=== PATIENT | female | born 1965 ===

== ENCOUNTER → 2020-11-04 11:02 | Outpatient (BNVA) | payer OTHER, SELFPAY | PROVIDERS: PCP Internal Medicine Geriatric Medicine; Visit Provider Physician Assistant | DX: Z13.89 Encounter for screening for other disorder (principal) | CPT/HCPCS: 99202 ==

== ENCOUNTER 2020-12-11 09:17 | Outpatient (REF) | payer OTHER, SELFPAY ==
[2020-12-11 09:51] LABS: MANUAL DIFF FLAG NO
[2020-12-11 09:56] LABS: Basophils Percent Auto 0.4 % (0-2); Eosinophils Absolute Auto 0.3 X10*3/uL (0.0-0.4); Eosinophils Percent Auto 2.3 % (0-4); Hematocrit 42.4 % (37-47); Hemoglobin 14.2 g/dl (12.0-16.0); Imm Gran Abs Auto 0.04 X10*3/uL (0.00-0.03); Imm Gran Pct Auto 0.4 % (0.0-0.4); Lymphocytes Absolute Auto 3.8 X10*3/uL (1.2-4.9); Lymphocytes Percent Auto 35.3 % (20-40); Mean Corpuscular HGB Conc 33.5 g/dl (31.0-35.0); Mean Corpuscular Hemoglobin 30.3 pg (27.0-33.0); Mean Corpuscular Volume 90.6 fL (80-98); Mean Platelet Volume 11.3 fL (9.4-12.3); Monocytes Absolute Auto 1.1 X10*3/uL (0.1-1.2); Monocytes Percent Auto 10.3 % (2-11); Neutrophils Absolute Auto 5.6 X10*3/uL (2.0-8.3); Neutrophils Percent Auto 51.3 % (45-73); Platelet Count 250 X10*3/uL (160-400); Red Blood Count 4.68 X10*6/uL (4.20-5.50); Red Cell Distribution Width 13.4 % (11.0-16.0); White Blood Count 10.9 X10*3/uL (4.8-10.8)
[2020-12-11 10:29] LABS: Alanine Aminotransferase 18 U/L (0-31); Albumin Level 3.8 g/dL (3.5-5.0); Alkaline Phosphatase 97 U/L (39-117); Anion Gap 12 (12-20); Aspartate Amino Transferase 20 U/L (5-31); Bilirubin Total 0.3 mg/dL (0.0-1.0); Blood Urea Nitrogen 15 mg/dL (9-16); Calcium 9.4 mg/dL (8.4-10.2); Carbon Dioxide 30 mmol/L (22-29); Chloride 104 mmol/L (96-108); Estimated Glomerular Filt Rate > 60; Glucose Random 106 mg/dL (60-115); Potassium 3.5 mmol/L (3.3-5.1); Sodium 142 mmol/L (135-145); Total Protein 6.4 g/dL (6.5-8.0)
[2020-12-11 10:54] LABS: Thyroid Stimulating Hormone 0.81 uIU/mL (0.32-4.0)
== END 2020-12-11 09:18 | disposition home or self-care (01) ==
LOC: HO.LAB 09:17
PROVIDERS: PCP Internal Medicine Geriatric Medicine; Visit Provider Physician Assistant
DX: R74.01 Elevation of levels of liver transaminase levels (principal); R10.11 Right upper quadrant pain; K59.09 Other constipation
CPT/HCPCS: 36415; 80053; 84443; 85025

== ENCOUNTER → 2020-12-24 09:10 | Outpatient (BNVA) | payer OTHER, SELFPAY | PROVIDERS: Visit Provider Physician Assistant | CPT/HCPCS: Q3014 ==

== ENCOUNTER → 2021-02-09 14:46 | Outpatient (BNVA) | payer OTHER, SELFPAY | PROVIDERS: PCP Internal Medicine Geriatric Medicine; Referring Provider Internal Medicine Geriatric Medicine; Visit Provider Internal Medicine Cardiovascular Disease | DX: I10 Essential (primary) hypertension (principal); R00.2 Palpitations | CPT/HCPCS: 99212 ==

== ENCOUNTER 2021-05-11 14:37 | Outpatient (REF) | payer OTHER, SELFPAY ==
--- NOTE | ~2021-05-11 | CT_ITS ---
EXAMINATION: CT CHEST SCREENING CLINICAL INFORMATION: Smoking history COMPARISON: Previous chest CT scans most recent June 2019 TECHNIQUE: Multidetector volumetric CT imaging of the chest is performed without contrast using low dose technique. Additional 2D coronal and sagittal reformatted images and axial 3D maximum intensity projection (MIP) images are generated on the CT workstation. This CT examination was performed using dose optimization techniques as appropriate, variously including the following: *Automated exposure control *Adjustment of mA and/or kV according to patient size (this includes techniques or standardized protocols for targeted exams where dose is matched to indication/reason for exam; i.e. extremities or head) *Use of iterative reconstruction technique DLP: 45 mGy-cm FINDINGS: LUNGS: There is a 6 mm calcified left lower lobe nodule axial image 362 series 5 that is stable. There is a 3 mm peripheral or subpleural superior segment left lower lobe nodule adjacent to the fissure axial image 149 series 5 that is stable. No new pulmonary nodule is seen. MEDIASTINUM: There is evidence of atherosclerotic disease and mild coronary artery calcification. The mediastinum is otherwise normal. PLEURA: There is no pleural effusion. No pleural mass or thickening. AXILLA: No lymphadenopathy. UPPER ABDOMEN: Unremarkable OSSEOUS STRUCTURES: Unremarkable. CT/CT lung screening IMPRESSION: Stable small pulmonary nodules. Mild coronary artery calcification. ASSESSMENT: Lung-RADS category 2: Benign RECOMMENDATION: Annual low-dose chest CT follow-up recommended.
== END 2021-05-11 14:38 | disposition home or self-care (01) ==
LOC: HO.CT 14:37
PROVIDERS: Visit Provider Physician Assistant Medical
DX: Z12.2 Encounter for screening for malignant neoplasm of respiratory organs (principal); F17.210 Nicotine dependence, cigarettes, uncomplicated
CPT/HCPCS: 71271

== ENCOUNTER 2021-12-23 12:33 | Outpatient (REF) | payer OTHER, SELFPAY ==
--- NOTE | ~2021-12-23 | MM_ITS ---
EXAMINATION: MM SCREENING DIGITAL BREAST TOMOSYNTHESIS, BILATERAL CLINICAL INFORMATION: Screening. Asymptomatic. The lifetime risk of breast cancer based on the Tyrer-Cuzick Model is 4.6%. COMPARISON: Mammography: November 18, 2020 and studies dating back to August 07, 2018 TECHNIQUE: Digital breast tomosynthesis is performed in both the craniocaudal and mediolateral oblique views along with computer-aided detection (CAD). Synthesized 2D images are generated from the tomosynthesis. FINDINGS: There are scattered areas of fibroglandular density (ACR BI-RADS breast composition Category b). There are no significant masses, abnormal calcifications, or other abnormalities. MM/MM tomosynthesis screening BI IMPRESSION: There are no significant changes from prior study. ASSESSMENT: BI-RADS 1: Negative RECOMMENDATION: Routine annual mammography screening. This patient's information was entered into a reminder system with a target due date for their next mammogram.
== END 2021-12-23 12:34 | disposition home or self-care (01) ==
LOC: HO.MAMMO 12:33
PROVIDERS: Visit Provider Internal Medicine Geriatric Medicine
DX: Z12.31 Encounter for screening mammogram for malignant neoplasm of breast (principal)
CPT/HCPCS: 77063; 77067

== ENCOUNTER 2022-01-20 10:11 | Outpatient (REF) | payer OTHER, SELFPAY ==
--- NOTE | ~2022-01-20 | XR_ITS ---
EXAMINATION: XR LUMBAR SPINE XR HIP, RIGHT CLINICAL INFORMATION: Back pain. Right hip pain. COMPARISON: None TECHNIQUE: AP, lateral, coned down, bilateral oblique views of the lumbar spine. AP and frog-leg lateral views of the right hip. FINDINGS: LUMBAR SPINE: Normal vertebral body alignment. The lumbar lordosis is maintained. No acute fracture or subluxation. No loss of vertebral body height. Mild multilevel loss of intervertebral disc height with tiny anterior endplate osteophytes. Bilateral facet arthropathy at L5-S1. No lytic or blastic osseous lesion. Atherosclerotic calcifications. Myjq-ao-oulzfren stool burden. RIGHT HIP: Hvhk-is-bgbwnyfj joint space narrowing with small marginal osteophytes. No osseous erosion. No fracture or dislocation. Calcification adjacent to the greater trochanter measuring up to 1.7 cm and likely indicating gluteus medius calcific tendinitis. XR/XR lumbar spine 4V min IMPRESSION: LUMBAR SPINE: Mild multilevel degenerative disc disease. Bilateral facet arthropathy at L5-S1. RIGHT HIP: Jqnq-ku-zpeosvoi right hip osteoarthritis. Probable gluteus medius calcific tendinitis.
--- NOTE | ~2022-01-20 | XR_ITS ---
EXAMINATION: XR LUMBAR SPINE XR HIP, RIGHT CLINICAL INFORMATION: Back pain. Right hip pain. COMPARISON: None TECHNIQUE: AP, lateral, coned down, bilateral oblique views of the lumbar spine. AP and frog-leg lateral views of the right hip. FINDINGS: LUMBAR SPINE: Normal vertebral body alignment. The lumbar lordosis is maintained. No acute fracture or subluxation. No loss of vertebral body height. Mild multilevel loss of intervertebral disc height with tiny anterior endplate osteophytes. Bilateral facet arthropathy at L5-S1. No lytic or blastic osseous lesion. Atherosclerotic calcifications. Lkxs-np-drqibkfy stool burden. RIGHT HIP: Wojo-ub-ijbhukdl joint space narrowing with small marginal osteophytes. No osseous erosion. No fracture or dislocation. Calcification adjacent to the greater trochanter measuring up to 1.7 cm and likely indicating gluteus medius calcific tendinitis. XR/XR hip RT min 2V IMPRESSION: LUMBAR SPINE: Mild multilevel degenerative disc disease. Bilateral facet arthropathy at L5-S1. RIGHT HIP: Etmn-lk-cwzjyyso right hip osteoarthritis. Probable gluteus medius calcific tendinitis.
== END 2022-01-20 10:12 | disposition home or self-care (01) ==
LOC: HO.XRAY 10:11
PROVIDERS: PCP Internal Medicine Geriatric Medicine; Visit Provider Internal Medicine Geriatric Medicine
DX: M25.551 Pain in right hip (principal); M54.9 Dorsalgia, unspecified; M47.897 Other spondylosis, lumbosacral region
CPT/HCPCS: 72110; 73502

== ENCOUNTER 2023-04-21 09:03 | Outpatient (REF) | payer OTHER, SELFPAY ==
[2023-04-21 11:45] LABS: MANUAL DIFF FLAG NO
[2023-04-21 11:53] LABS: Basophils Absolute Auto 0.1 X10*3/uL (0.0-0.2); Basophils Percent Auto 0.4 % (0-2); Eosinophils Absolute Auto 0.2 X10*3/uL (0.0-0.4); Eosinophils Percent Auto 1.7 % (0-4); Hematocrit 45.7 % (37.0-47.0); Hemoglobin 15.4 g/dl (12.0-16.0); Imm Gran Abs Auto 0.05 X10*3/uL (0.00-0.03); Imm Gran Pct Auto 0.4 % (0.0-0.4); Lymphocytes Absolute Auto 4.2 X10*3/uL (1.2-4.9); Mean Corpuscular HGB Conc 33.7 g/dl (31.0-35.0); Mean Corpuscular Hemoglobin 30.6 pg (27.0-33.0); Mean Corpuscular Volume 90.7 fL (80.0-98.0); Mean Platelet Volume 12.5 fL (9.4-12.3); Neutrophils Absolute Auto 7.5 x10*3/uL (2.0-8.3); Neutrophils Percent Auto 57.5 % (45-73); Platelet Count 224 X10*3/uL (160-400); Red Blood Count 5.04 X10*6/uL (4.20-5.50)
[2023-04-21 12:09] LABS: Alanine Aminotransferase 30 U/L (0-31); Albumin Level 3.7 g/dL (3.5-5.0); Alkaline Phosphatase 105 U/L (39-117); Anion Gap 15 (12-20); Aspartate Amino Transferase 29 U/L (5-31); Bilirubin Total 0.5 mg/dL (0.0-1.0); Blood Urea Nitrogen 13 mg/dL (9-16); Calcium 10.1 mg/dL (8.4-10.2); Carbon Dioxide 27 mmol/L (22-29); Chloride 103 mmol/L (96-108); Cholesterol 175 mg/dL; Estimated Glomerular Filt Rate > 60; Glucose Random 101 mg/dL (60-115); HDL Cholesterol 34 mg/dL; LDL Cholesterol Calculated 110 mg/dl; Potassium 3.9 mmol/L (3.3-5.1); Sodium 141 mmol/L (135-145); Total Protein 6.8 g/dL (6.5-8.0); Triglycerides 159 mg/dL
== END 2023-04-21 09:04 | disposition home or self-care (01) ==
LOC: HO.HHCL 09:03
PROVIDERS: Visit Provider Internal Medicine Geriatric Medicine
DX: J43.9 Emphysema, unspecified (principal); I10 Essential (primary) hypertension; E78.00 Pure hypercholesterolemia, unspecified
CPT/HCPCS: 36415; 80053; 80061; 85025

== ENCOUNTER 2023-06-29 11:45 | Outpatient (REF) | payer OTHER, SELFPAY | END 2023-06-29 11:46 | disposition home or self-care (01) | LOC: HO.MAMMO 11:45 | PROVIDERS: PCP Internal Medicine Geriatric Medicine; Visit Provider Internal Medicine Geriatric Medicine | DX: Z12.31 Encounter for screening mammogram for malignant neoplasm of breast (principal) | CPT/HCPCS: 77063; 77067 ==

== ENCOUNTER → 2023-06-29 12:00 | Outpatient (BNV) | payer OTHER, SELFPAY | PROVIDERS: PCP Internal Medicine Geriatric Medicine; Visit Provider Radiology Diagnostic Radiology | DX: Z12.31 Encounter for screening mammogram for malignant neoplasm of breast (principal) | CPT/HCPCS: 77063; 77067 ==

== ENCOUNTER 2023-07-15 07:59 | Outpatient (REF) | payer OTHER, SELFPAY | END 2023-07-15 08:00 | disposition home or self-care (01) | LOC: HO.HOSX 07:59 | PROVIDERS: Visit Provider Physician Assistant | DX: Z13.89 Encounter for screening for other disorder (principal) ==

== ENCOUNTER 2023-07-22 09:53 | Outpatient (AMB) | payer OTHER, SELFPAY ==
--- NOTE | 2023-07-22 10:08 | MHC.OFFVIS ---
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 Patient reports ongoing pain for 8 months. She states that her pain is equal on both knees. Hx of PT with no relief. Patient states that she has knee braces that provide her some relief. The patient has tried Tylenol and anti-inflammatory medicines which gave her mild relief. She would like to hold off on surgery if all possible. Allergies codeine Allergy (Unknown, Verified 07/22/23 10:15) heart palpitation Medication List - Last Reconciled 07/22/23 by Vivek Restrepo MD albuterol sulfate 2.5 mg inhalation QID albuterol sulfate 90 mcg/actuation (Ventolin HFA) 2 puffs inhalation Q6H PRN aspirin 81 mg PO DAILY clonazepam 1 mg PO TID ergocalciferol (vitamin D2) 50 mcg PO DAILY escitalopram oxalate (Lexapro) 10 mg PO DAILY lisinopril 20 mg PO DAILY metoprolol succinate ER 100 mg PO DAILY omeprazole 20 mg PO DAILY ondansetron HCl (Zofran) 4 mg PO Q8H oxycodone-acetaminophen 5-325 mg (Percocet) 1 tab PO Q4-6H PRN polyethylene glycol 3350 17 grams PO DAILY 30 days prochlorperazine maleate (Compazine) 10 mg PO BID PRN quetiapine ER (Seroquel XR) 400 mg PO BEDTIME [STOOL SOFTENER 100MG CAPSULES 2 caps PO BEDTIME 30 days] sumatriptan succinate (Imitrex) 25 mg PO Q2-4H PRN zolpidem 10 mg PO BEDTIME PRN PFSH Medical History (Updated 07/19/23 @ 10:56 by Vivek Restrepo MD) Hypertension, essential, benign History of palpitations Pulmonary nodules Personal history of nicotine dependence Tubular adenoma of colon (~2018) Depression Surgical History (Updated 03/06/21 @ 14:51 by Shanika Hanley PA-C) History of colonoscopy (~2018) History of esophagogastroduodenoscopy (EGD) (~2018) Family History Mother No problems noted. Father No problems noted. Social History Household Members: Significant Other Alcohol intake: never Patient Tobacco Use Status: Current everyday Tobacco user Cigarette Packs Per Day: 1 Years Smoked: 33 (onset 22yo) Current occupational status: disabled Physical Exam Vital Signs: BMI result Body Mass Index 26.0 Const Other: Well-nourished well-developed very friendly female awake alert and oriented x3 in no acute distress Extrem Other: Bilateral lower extremity examination shows good capillary refill, no skin lesions noted, normal sensation light touch Bilateral knee examination shows minimal effusions, mild crepitus with range of motion, pain with range of motion, range of motion from -3 degrees to 115 degrees, no instability Office Procedures Joint Injection/Drain Joint Injection/Drain Primary Site: left knee Prep: site was prepped using aseptic technique Injected: 40 mg of, Kenalog and 1% plain lidocaine Procedure: The patient tolerated the procedure well Coding 69042 - Large joint Procedure code (CPT) selection complete Joint Injection/Drain Joint Injection/Drain Primary Site: right knee Prep: site was prepped using aseptic technique Injected: 40 mg of, Kenalog and 1% plain lidocaine Procedure: The patient tolerated the procedure well Coding Procedure code (CPT) selection complete Results Reviewed Results Reviewed: 07/22/23 10:26 Lidocaine HCl 2 % MPF [Xylocaine 2 % MPF] 5 ml .ROUTE .STK-MED ONE Lidocaine HCl 2 % MPF [Xylocaine 2 % MPF] 5 ml .ROUTE .STK-MED ONE Triamcinolone Acetonide [Kenalog-40] 40 mg .ROUTE .STK-MED ONE Triamcinolone Acetonide [Kenalog-40] 40 mg .ROUTE .STK-MED ONE X-rays of the patient's bilateral knee show mild diffuse joint space narrowing, no acute bony abnormalities Assessment & Plan Assessment & Plan (1) Left knee pain: Code(s): M25.562 - Pain in left knee Plan: Ms. Graham presents with bilateral knee pains due to degenerative joint disease. I had a lengthy discussion with the patient regarding the treatment options. The patient wishes to hold off on surgery for as long as possible. I agree with this plan. The risks and benefits of bilateral knee cortisone injections were discussed at length with the patient. The patient wished to proceed. She tolerated the bilateral knee injections well. She will continue with her activity modifications. She will follow up with me on an as-needed basis should her symptoms not plateau at an unacceptable level over the next few months feel free to call me at any time should questions regarding her orthopedic management arise. Thank you very much for asking me to see this very friendly patient. I spent 22 minutes in reviewing the patient's records and imaging studies, seeing the patient and documenting in the medical record. (2) Right knee pain: Code(s): M25.561 - Pain in right knee Orders: Orders XR knee standing BI 07/15/23 M25.569 - Pain in unspecified knee Chani Aniya Rincon PA-C XR knee LT 2V 07/15/23 M25.569 - Pain in unspecified knee Chani Aniya Rincon, PA-C XR knee RT 3V Today M25.561 - Pain in right knee Vivek Restrepo MD XR knee RT 2V 07/15/23 M25.569 - Pain in unspecified knee Chani Aniya Rincon, PA-C XR knee LT 3V Today M25.562 - Pain in left knee Vivek Restrepo MD AMB Joint Injection/Aspiration Today M25.562 - Pain in left knee Vivek Restrepo MD AMB Joint Injection/Aspiration Today M25.561 - Pain in right knee Vivek Restrepo MD Coding Level of Care Code New Pt Level 2 (20324) Diagnoses Left knee pain M25.562 Right knee pain M25.561 CPT Codes Coding - 16842 Large joint: 02922 - Large joint ([id number])
[2023-07-22 10:15] VITALS: BMI 26.0
== END 2023-07-22 11:17 | disposition home or self-care (01) ==
PROVIDERS: PCP Internal Medicine Geriatric Medicine; Visit Provider Orthopaedic Surgery
DX: M25.562 Pain in left knee (principal); M25.561 Pain in right knee
CPT/HCPCS: 20610; 99204

== ENCOUNTER 2023-07-22 16:41 | Outpatient (REF) | payer OTHER, SELFPAY ==
--- NOTE | ~2023-07-22 | XR_ITS ---
EXAMINATION: XR KNEES, BILATERAL CLINICAL INFORMATION: Bilateral knee pain. COMPARISON: None available. TECHNIQUE: 3 views each knee. FINDINGS: Left Knee: Mild medial joint space narrowing. No significant joint effusion. Small quadriceps enthesophyte. Tiny medial marginal osteophytes. Right Knee: Vascular calcifications. Mild medial joint space narrowing. Small quadriceps enthesophyte. Tiny medial marginal osteophytes. XR/XR knee RT 3V IMPRESSION: Mild degenerative changes in the medial compartments of the bilateral knees.
--- NOTE | ~2023-07-22 | XR_ITS ---
EXAMINATION: XR KNEES, BILATERAL CLINICAL INFORMATION: Bilateral knee pain. COMPARISON: None available. TECHNIQUE: 3 views each knee. FINDINGS: Left Knee: Mild medial joint space narrowing. No significant joint effusion. Small quadriceps enthesophyte. Tiny medial marginal osteophytes. Right Knee: Vascular calcifications. Mild medial joint space narrowing. Small quadriceps enthesophyte. Tiny medial marginal osteophytes. XR/XR knee LT 3V IMPRESSION: Mild degenerative changes in the medial compartments of the bilateral knees.
== END 2023-07-22 16:42 | disposition home or self-care (01) ==
LOC: HO.HOSX 16:41
PROVIDERS: Visit Provider Orthopaedic Surgery
DX: M25.561 Pain in right knee (principal); M25.562 Pain in left knee; Z79.899 Other long term (current) drug therapy
CPT/HCPCS: 20610; 73562; J3301

== ENCOUNTER 2023-07-28 13:35 | Outpatient (REF) | payer OTHER, SELFPAY ==
[2023-07-28 16:09] LABS: Anion Gap 12 (12-20); Blood Urea Nitrogen 12 mg/dL (9-16); Calcium 9.7 mg/dL (8.4-10.2); Carbon Dioxide 28 mmol/L (22-29); Chloride 105 mmol/L (96-108); Estimated Glomerular Filt Rate > 60; Glucose Random 70 mg/dL (60-115); Potassium 3.4 mmol/L (3.3-5.1); Sodium 142 mmol/L (135-145)
== END 2023-07-28 13:36 | disposition home or self-care (01) ==
LOC: HO.HHCL 13:35
PROVIDERS: Visit Provider Internal Medicine Geriatric Medicine
DX: I10 Essential (primary) hypertension (principal)
CPT/HCPCS: 36415; 80048

== ENCOUNTER 2023-10-20 14:09 | Outpatient (AMB) | payer OTHER, SELFPAY ==
[2023-10-20 14:15] VITALS: BMI 26.0
--- NOTE | 2023-10-20 14:15 | A.OFFVIS_ITS ---
Intake Vital Signs 10/20/23 14:15 Height 5 ft 5 in Weight 156 lb BMI 26.0 Intake Visit Reasons: ov- B/L knee pain Intake Note: Jeanna is a 57 year old [place] islander speaking female who presents today for her bilateral knee pains. She describes her pains as sharp in nature. She has had cortisone injections in the past which gave her fairly good relief. She has done physical therapy exercises which aggravated her pain. She has tried Tylenol and anti-inflammatory medicines which gave her minimal relief. She wishes to hold off on surgery for as long as possible. Career Transition Specialist Name: [id number] Allergies codeine Allergy (Unknown, Verified 10/20/23 14:28) heart palpitation Medication List - Last Reconciled 10/21/23 by Vivek Restrepo MD albuterol sulfate 2.5 mg inhalation QID albuterol sulfate 90 mcg/actuation (Ventolin HFA) 2 puffs inhalation Q6H PRN aspirin 81 mg PO DAILY clonazepam 1 mg PO TID ergocalciferol (vitamin D2) 50 mcg PO DAILY escitalopram oxalate (Lexapro) 10 mg PO DAILY lisinopril 20 mg PO DAILY metoprolol succinate ER 100 mg PO DAILY omeprazole 20 mg PO DAILY ondansetron HCl (Zofran) 4 mg PO Q8H oxycodone-acetaminophen 5-325 mg (Percocet) 1 tab PO Q4-6H PRN polyethylene glycol 3350 17 grams PO DAILY 30 days prochlorperazine maleate (Compazine) 10 mg PO BID PRN quetiapine ER (Seroquel XR) 400 mg PO BEDTIME [STOOL SOFTENER 100MG CAPSULES 2 caps PO BEDTIME 30 days] sumatriptan succinate (Imitrex) 25 mg PO Q2-4H PRN zolpidem 10 mg PO BEDTIME PRN PFSH Medical History Hypertension, essential, benign History of palpitations Pulmonary nodules Personal history of nicotine dependence Tubular adenoma of colon (~2018) Depression Surgical History History of colonoscopy (~2019) History of esophagogastroduodenoscopy (EGD) (~2019) Family History Mother No problems noted. Father No problems noted. Social History Household Members: Significant Other Alcohol intake: never Patient Tobacco Use Status: Current everyday Tobacco user Cigarette Packs Per Day: 1 Years Smoked: 33 (onset 22yo) Current occupational status: disabled Physical Exam Vital Signs: BMI result Body Mass Index 26.0 Const Other: Well-nourished well-developed very friendly female awake alert and oriented x3 in no acute distress Extrem Other: Bilateral lower extremity examination shows good capillary refill, no skin lesions noted, normal sensation light touch Bilateral knee examination shows minimal effusions, palpable crepitus with range of motion, pain with range of motion, no instability Office Procedures Joint Injection/Drain Joint Injection/Drain Primary Site: left knee Prep: site was prepped using aseptic technique Injected: 40 mg of, DepoMedrol and 1% plain lidocaine Procedure: The patient tolerated the procedure well Coding 86503 - Large joint Procedure code (CPT) selection complete Joint Injection/Drain Joint Injection/Drain Primary Site: right knee Prep: site was prepped using aseptic technique Injected: 40 mg of, DepoMedrol and 1% plain lidocaine Procedure: The patient tolerated the procedure well Coding 26097 - Large joint Procedure code (CPT) selection complete Results Reviewed Results Reviewed: X-rays of the patient's bilateral knee show joint space narrowing, subchondral sclerosis, no acute bony abnormalities Assessment & Plan Assessment & Plan (1) Left knee pain: Code(s): M25.562 - Pain in left knee (2) Right knee pain: Code(s): M25.561 - Pain in right knee Plan Ms. Graham presents with bilateral knee pains due to degenerative joint disease. I had a lengthy discussion with the patient regarding the treatment options. She wishes to hold off on surgery for as long as possible. I agree with this plan. The risks and benefits of bilateral knee cortisone injections were discussed at length with the patient. The patient wished to proceed. She tolerated the injections well. She will continue with her home exercise program. She will follow up with me on an as-needed basis should her symptoms not plateau at an unacceptable level over the next few months. Feel free to call me at any time should questions regarding her orthopedic management arise. I spent 22 minutes in reviewing the patient's records and imaging studies, seeing the patient and documenting in the medical record. Orders: Orders AMB Joint Injection/Aspiration 10/20/23 M25.562 - Pain in left knee AMB Joint Injection/Aspiration 10/20/23 M25.561 - Pain in right knee Coding Level of Care Code Est Pt Level 2 (54741) Diagnoses Left knee pain M25.562 Right knee pain M25.561 CPT Codes Coding - 91049 Large joint: 20139 - Large joint ([id number]) Coding - 39074 Large joint: 31863 - Large joint ([id number])
== END 2023-10-20 14:51 | disposition home or self-care (01) ==
PROVIDERS: PCP Internal Medicine Geriatric Medicine; Visit Provider Orthopaedic Surgery
DX: M25.562 Pain in left knee (principal); M25.561 Pain in right knee
CPT/HCPCS: 20610; 99213

== ENCOUNTER → 2023-10-20 14:09 | Outpatient (BNVA) | payer OTHER, SELFPAY | PROVIDERS: PCP Internal Medicine Geriatric Medicine; Visit Provider Orthopaedic Surgery | DX: M25.562 Pain in left knee (principal); M25.561 Pain in right knee | CPT/HCPCS: 20610; 99212; J1020 ==

== ENCOUNTER 2024-01-26 13:58 | Outpatient (AMB) | payer OTHER, SELFPAY ==
[2024-01-26 14:13] VITALS: BMI 26.0
--- NOTE | 2024-01-26 14:13 | MHC.OFFVIS ---
Vital Signs 01/26/24 14:13 Height 5 ft 5 in Weight 156 lb BMI 26.0 Intake Visit Reasons: ov- B/L knee pain last injection 10/20/23 Intake Note: Jeanna is a 58 year old female who presents for a follow up after her bilateral knee injections on 10/20/2023. The patient states that she got fairly good relief from the injections initially. Her pains have returned. She describes her pains as sharp in nature. She has done physical therapy exercises which aggravated her pain. She has also tried Tylenol and anti-inflammatory medicines which gave her minimal relief. The patient would like to hold off on surgery for as long as possible. X Ray Physician Name: [id number] Allergies codeine Allergy (Unknown, Verified 01/26/24 14:24) heart palpitation Medication List - Last Reconciled 01/27/24 by Vivek Restrepo MD albuterol sulfate 2.5 mg inhalation QID albuterol sulfate 90 mcg/actuation (Ventolin HFA) 2 puffs inhalation Q6H PRN aspirin 81 mg PO DAILY clonazepam 1 mg PO TID ergocalciferol (vitamin D2) 50 mcg PO DAILY escitalopram oxalate (Lexapro) 10 mg PO DAILY lisinopril 20 mg PO DAILY metoprolol succinate ER 100 mg PO DAILY omeprazole 20 mg PO DAILY ondansetron HCl (Zofran) 4 mg PO Q8H oxycodone-acetaminophen 5-325 mg (Percocet) 1 tab PO Q4-6H PRN polyethylene glycol 3350 17 grams PO DAILY 30 days prochlorperazine maleate (Compazine) 10 mg PO BID PRN quetiapine ER (Seroquel XR) 400 mg PO BEDTIME [STOOL SOFTENER 100MG CAPSULES 2 caps PO BEDTIME 30 days] sumatriptan succinate (Imitrex) 25 mg PO Q2-4H PRN zolpidem 10 mg PO BEDTIME PRN PFSH Medical History Hypertension, essential, benign History of palpitations Pulmonary nodules Personal history of nicotine dependence Tubular adenoma of colon (~2018) Depression Surgical History History of colonoscopy (~2018) History of esophagogastroduodenoscopy (EGD) (~2018) Family History Mother No problems noted. Father No problems noted. Social History Household Members: Significant Other Alcohol intake: never Patient Tobacco Use Status: Current everyday Tobacco user Cigarette Packs Per Day: 1 Years Smoked: 33 (onset 22yo) Current occupational status: disabled Physical Exam Vital Signs: BMI result Body Mass Index 26.0 Const Other: Well-nourished well-developed very friendly female awake alert and oriented x3 in no acute distress Extrem Other: Bilateral lower extremity examination shows good capillary refill, no skin lesions noted, normal sensation light touch Bilateral knee examination shows minimal effusions, palpable crepitus with range of motion, pain with range of motion, range of motion from -3 degrees to 115 degrees, no instability Office Procedures Joint Injection/Drain Joint Injection/Drain Primary Site: left knee Prep: site was prepped using aseptic technique Injected: 40 mg of, DepoMedrol and 1% plain lidocaine Procedure: The patient tolerated the procedure well Coding 77893 - Large joint Procedure code (CPT) selection complete Joint Injection/Drain Joint Injection/Drain Primary Site: right knee Prep: site was prepped using aseptic technique Injected: 40 mg of, DepoMedrol and 1% plain lidocaine Procedure: The patient tolerated the procedure well Coding 05097 - Large joint Procedure code (CPT) selection complete Results Reviewed Results Reviewed: X-rays of the patient's bilateral knee show joint space narrowing, subchondral sclerosis, no acute bony abnormalities Assessment & Plan Assessment & Plan (1) Arthritis of left knee: Code(s): M17.12 - Unilateral primary osteoarthritis, left knee Category: Medical (2) Arthritis of right knee: Code(s): M17.11 - Unilateral primary osteoarthritis, right knee Category: Medical Plan Ms. Graham presents with bilateral knee pains due to degenerative joint disease. I had a lengthy discussion with the patient regarding the treatment options. She wishes to hold off on surgery for as long as possible. I agree with this plan. The risks and benefits of bilateral knee cortisone injections were discussed at length with the patient. The patient wished to proceed with the injections. She tolerated the injections well. She will continue with her home exercise program. She will follow up with me on an as-needed basis should her symptoms not plateau at unacceptable level over the next few months. Feel free to call me at any time should questions regarding her orthopedic management arise. I spent 22 minutes in reviewing the patient's records and imaging studies, seeing the patient and documenting in the medical record. Orders: Orders AMB Joint Injection/Aspiration 01/26/24 M17.12 - Unilateral primary osteoarthritis, left knee AMB Joint Injection/Aspiration 01/26/24 M17.11 - Unilateral primary osteoarthritis, right knee
== END 2024-01-26 14:53 | disposition home or self-care (01) ==
PROVIDERS: PCP Internal Medicine Geriatric Medicine; Visit Provider Orthopaedic Surgery
DX: M17.0 Bilateral primary osteoarthritis of knee (principal)
CPT/HCPCS: 20610; 99213

== ENCOUNTER → 2024-01-26 13:58 | Outpatient (BNVA) | payer OTHER, SELFPAY | PROVIDERS: PCP Internal Medicine Geriatric Medicine; Visit Provider Orthopaedic Surgery | DX: M17.0 Bilateral primary osteoarthritis of knee (principal) | CPT/HCPCS: 20610; 99212; J1010 ==

== ENCOUNTER → 2024-04-26 14:21 | Outpatient (BNVA) | payer OTHER, SELFPAY | PROVIDERS: PCP Internal Medicine Geriatric Medicine; Visit Provider Orthopaedic Surgery ==

== ENCOUNTER 2024-07-04 11:49 | Outpatient (REF) | payer OTHER, SELFPAY ==
--- NOTE | ~2024-07-04 | MM_ITS ---
EXAMINATION: MM SCREENING DIGITAL BREAST TOMOSYNTHESIS, BILATERAL CLINICAL INFORMATION: Screening. Asymptomatic. COMPARISON: Mammography: Comparison is made with available priors TECHNIQUE: Digital breast mammography with tomosynthesis is performed in both the craniocaudal and mediolateral oblique views along with computer-aided detection (CAD). FINDINGS: There are scattered areas of fibroglandular density (ACR BI-RADS breast composition Category b). Left: There are no significant masses, abnormal calcifications, or other abnormalities. Right: Focal asymmetry upper outer breast anterior to middle depth. No suspicious calcifications or other abnormal findings. MM/MM tomosynthesis screening BI IMPRESSION: Additional imaging is recommended ASSESSMENT: BI-RADS BI-RADS 0 - Incomplete: Needs additional Imaging. RECOMMENDATION: 1. Additional views of the right breast 2. Targeted ultrasound if warranted after review of the additional views. 3. Radiology department staff will contact the patient for additional imaging. Additional Imaging required This examination should not preclude the clinical evaluation of a suspicious palpable abnormality. This patient's information was entered into a reminder system with a target due date for their next mammogram. Electronically signed by: Lucina Oviedo DO 07/13/2024 12:47 PM EDT
== END 2024-07-04 11:50 | disposition home or self-care (01) ==
LOC: HO.MAMMO 11:49
PROVIDERS: PCP Internal Medicine Geriatric Medicine; Visit Provider Internal Medicine Geriatric Medicine
DX: Z12.31 Encounter for screening mammogram for malignant neoplasm of breast (principal)
CPT/HCPCS: 77063; 77067

== ENCOUNTER → 2024-07-04 12:00 | Outpatient (BNV) | payer OTHER, SELFPAY | PROVIDERS: PCP Internal Medicine Geriatric Medicine; Visit Provider Internal Medicine | DX: Z12.31 Encounter for screening mammogram for malignant neoplasm of breast (principal) | CPT/HCPCS: 77063; 77067 ==

== ENCOUNTER 2024-07-26 10:57 | Outpatient (REF) | payer OTHER, SELFPAY ==
[2024-07-26 13:17] LABS: MANUAL DIFF FLAG NO
[2024-07-26 13:33] LABS: Basophils Absolute Auto 0.1 X10*3/uL (0.0-0.2); Basophils Percent Auto 0.4 % (0-2); Eosinophils Absolute Auto 0.2 X10*3/uL (0.0-0.4); Eosinophils Percent Auto 1.7 % (0-4); Hematocrit 45.5 % (37.0-47.0); Hemoglobin 15.2 g/dl (12.0-16.0); Imm Gran Abs Auto 0.03 X10*3/uL (0.00-0.03); Imm Gran Pct Auto 0.3 % (0.0-0.4); Lymphocytes Percent Auto 34.8 % (20-40); Mean Corpuscular HGB Conc 33.4 g/dl (31.0-35.0); Mean Corpuscular Hemoglobin 30.2 pg (27.0-33.0); Mean Corpuscular Volume 90.3 fL (80.0-98.0); Mean Platelet Volume 12.2 fL (9.4-12.3); Monocytes Absolute Auto 0.9 X10*3/uL (0.1-1.2); Monocytes Percent Auto 8.3 % (2-11); Neutrophils Absolute Auto 6.2 x10*3/uL (2.0-8.3); Neutrophils Percent Auto 54.5 % (45-73); Platelet Count 215 X10*3/uL (160-400); Red Blood Count 5.04 X10*6/uL (4.20-5.50); Red Cell Distribution Width 13.8 % (11.0-16.0); White Blood Count 11.4 X10*3/uL (4.8-10.8)
[2024-07-26 13:50] LABS: Alanine Aminotransferase 27 U/L (0-31); Albumin Level 3.9 g/dL (3.5-5.0); Alkaline Phosphatase 122 U/L (39-117); Anion Gap 12 (12-20); Aspartate Amino Transferase 30 U/L (5-31); Bilirubin Total 0.4 mg/dL (0.0-1.0); Blood Urea Nitrogen 11 mg/dL (9-16); Calcium 9.6 mg/dL (8.4-10.2); Carbon Dioxide 26 mmol/L (22-29); Chloride 109 mmol/L (96-108); Cholesterol 181 mg/dL (<200); Estimated Glomerular Filt Rate > 60; Glucose Random 111 mg/dL (60-115); HDL Cholesterol 35 mg/dL (>40); LDL Cholesterol Calculated 115 mg/dL (<100); Potassium 3.4 mmol/L (3.3-5.1); Sodium 144 mmol/L (135-145); Triglycerides 155 mg/dL (<150)
[2024-07-27 07:57] LABS: HIV AB/AG Nonreactive (Nonreactive); HIV Num 1 0.05 S/CO (0.00-0.99); ~Hepatitis C Antibody Nonreactive (Nonreactive)
== END 2024-07-26 10:58 | disposition home or self-care (01) ==
LOC: HO.CHCLDS 10:57
PROVIDERS: Visit Provider Internal Medicine Geriatric Medicine
DX: Z11.4 Encounter for screening for human immunodeficiency virus [HIV] (principal); I10 Essential (primary) hypertension
CPT/HCPCS: 36415; 80053; 80061; 85025; 86803; 87389

== ENCOUNTER 2024-07-31 14:22 | Outpatient (AMB) | payer OTHER, SELFPAY ==
[2024-07-31 14:27] VITALS: BMI 26.1
--- NOTE | 2024-07-31 14:27 | A.OFFVIS_ITS ---
Vital Signs 07/31/24 14:27 Height 5 ft 5 in Weight 157 lb BMI 26.1 Intake Visit Reasons: Bilateral knee pain Intake Note: Jeanna is a 58b year old female who presents with complaints of progressively worsening bilateral knee pains. She describes her pains as sharp in nature. Her pains have gotten worse over the last few months in spite of continued non operative treatments. She has had cortisone injections in the past which gave her fairly good relief. She has also done physical therapy which aggravated her pain. She has tried Tylenol and anti-inflammatory medicines which gave her minimal relief. She wishes to hold off on surgery for as long as possible. 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 Name: Tomás [id number] Allergies codeine Allergy (Unknown, Verified 07/31/24 14:29) heart palpitation Medication List - Last Reconciled 08/01/24 by Vivek Restrepo MD albuterol sulfate 2.5 mg inhalation QID albuterol sulfate 90 mcg/actuation (Ventolin HFA) 2 puffs inhalation Q6H PRN aspirin 81 mg PO DAILY clonazepam 1 mg PO TID ergocalciferol (vitamin D2) 50 mcg PO DAILY escitalopram oxalate (Lexapro) 10 mg PO DAILY lisinopril 20 mg PO DAILY metoprolol succinate ER 100 mg PO DAILY omeprazole 20 mg PO DAILY ondansetron HCl (Zofran) 4 mg PO Q8H oxycodone-acetaminophen 5-325 mg (Percocet) 1 tab PO Q4-6H PRN polyethylene glycol 3350 17 grams PO DAILY 30 days prochlorperazine maleate (Compazine) 10 mg PO BID PRN quetiapine ER (Seroquel XR) 400 mg PO BEDTIME [STOOL SOFTENER 100MG CAPSULES 2 caps PO BEDTIME 30 days] sumatriptan succinate (Imitrex) 25 mg PO Q2-4H PRN zolpidem 10 mg PO BEDTIME PRN PFSH Medical History Hypertension, essential, benign History of palpitations Pulmonary nodules Personal history of nicotine dependence Tubular adenoma of colon (~2018) Depression Surgical History History of colonoscopy (~2018) History of esophagogastroduodenoscopy (EGD) (~2019) Family History Mother No problems noted. Father No problems noted. Social History Household Members: Significant Other Alcohol intake: never Patient Tobacco Use Status: Current everyday Tobacco user Cigarette Packs Per Day: 1 Years Smoked: 33 (onset 22yo) Current occupational status: disabled Physical Exam Vital Signs: BMI result Body Mass Index 26.1 Const Other: Well-nourished well-developed very friendly female awake alert and oriented x3 in no acute distress Extrem Other: Bilateral lower extremity examination shows good capillary refill, no skin lesions noted, normal sensation light touch Bilateral knee examination shows minimal effusions, palpable crepitus with range of motion, pain with range of motion, no instability Results Reviewed Results Reviewed: X-rays of the patient's bilateral knee show joint space narrowing, subchondral sclerosis, no acute bony abnormalities Assessment & Plan Assessment & Plan (1) Arthritis of left knee: Code(s): M17.12 - Unilateral primary osteoarthritis, left knee Category: Medical (2) Arthritis of right knee: Code(s): M17.11 - Unilateral primary osteoarthritis, right knee Category: Medical (3) Pain in both knees: Code(s): M25.561 - Pain in right knee; M25.562 - Pain in left knee Plan Ms. Graham presents with bilateral knee pains due to degenerative joint disease. I had a lengthy discussion with the patient regarding the treatment options. The risks and benefits of bilateral knee cortisone injections were discussed at length with the patient. The patient wished to proceed. She tolerated the injections well. She will continue with her home exercise program. She will contact me prior to her follow-up appointment in 3 months should any questions or concerns arise. Feel free to call me at any time should questions regarding her orthopedic management arise. I spent 20 minutes in reviewing the patient's records and imaging studies, seeing the patient and documenting in the medical record. Orders: Orders AMB Joint Injection/Aspiration 07/31/24 M17.12 - Unilateral primary osteoarthritis, left knee AMB Joint Injection/Aspiration 07/31/24 M17.11 - Unilateral primary osteoarthritis, right knee Coding Level of Care Code Est Pt Level 3 (52163) Complex EM visit Add On G2211 Diagnoses Arthritis of left knee M17.12 Arthritis of right knee M17.11 Pain in both knees M25.561; M25.562
== END 2024-07-31 14:45 | disposition home or self-care (01) ==
PROVIDERS: PCP Internal Medicine Geriatric Medicine; Visit Provider Orthopaedic Surgery
DX: M17.0 Bilateral primary osteoarthritis of knee (principal)
CPT/HCPCS: 20610; 99213

== ENCOUNTER → 2024-07-31 14:22 | Outpatient (BNVA) | payer OTHER, SELFPAY | PROVIDERS: PCP Internal Medicine Geriatric Medicine; Visit Provider Orthopaedic Surgery | DX: M17.0 Bilateral primary osteoarthritis of knee (principal); M25.561 Pain in right knee; M25.562 Pain in left knee | CPT/HCPCS: 20610; 99212; J1010; J2003 ==

== ENCOUNTER 2024-08-01 12:47 | Outpatient (REF) | payer OTHER, SELFPAY ==
--- NOTE | ~2024-08-01 | MM_ITS ---
EXAMINATION: MM DIAGNOSTIC DIGITAL BREAST TOMOSYNTHESIS, right breast CLINICAL INFORMATION: Call back from screening for focal asymmetry. COMPARISON: Mammography: Comparison is made with relevant priors TECHNIQUE: Digital breast tomosynthesis is performed in both the craniocaudal and mediolateral oblique views along with computer-aided detection (CAD). . FINDINGS: There are scattered areas of fibroglandular density (ACR BI-RADS breast composition Category b). Focal asymmetry in the upper outer quadrant persist on additional imaging projections. No suspicious calcifications or other abnormal findings. Targeted color Doppler ultrasound in the right breast at 10:00 5 cm from nipple demonstrates a hypoechoic solid irregular mass measuring 6 x 6 x 7 mm which correlates with a focal asymmetry on mammography. Targeted ultrasound of the right axilla demonstrates normal axillary lymph nodes. MM/MM tomosynthesis added views R IMPRESSION: Solid irregular mass in the right breast at 6:00. Recommend ultrasound-guided core needle biopsy at this time. The findings and recommendations were discussed with the patient and the procedure will be scheduled. ASSESSMENT: BI-RADS BI-RADS 4 - Suspicious finding RECOMMENDATION: Biopsy recommended Results were provided to the patient at time of visit by the technologist. This patient's information was entered into a reminder system with a target due date for their next mammogram. Electronically signed by: Lucina Oviedo DO 08/01/2024 02:03 PM EDT
== END 2024-08-01 12:48 | disposition home or self-care (01) ==
LOC: HO.MAMMO 12:47
PROVIDERS: PCP Internal Medicine Geriatric Medicine; Visit Provider Internal Medicine Geriatric Medicine
DX: N64.89 Other specified disorders of breast (principal)
CPT/HCPCS: 76642; 77061; 77065

== ENCOUNTER → 2024-08-01 13:00 | Outpatient (BNV) | payer OTHER, SELFPAY | PROVIDERS: PCP Internal Medicine Geriatric Medicine; Visit Provider Internal Medicine | DX: N63.15 Unspecified lump in the right breast, overlapping quadrants (principal) | CPT/HCPCS: 76642; 77065; G0279 ==

== ENCOUNTER 2024-08-06 08:32 | Outpatient (REF) | payer OTHER, SELFPAY ==
--- NOTE | ~2024-08-06 | MM_ITS ---
PROCEDURE: US GUIDED BREAST BIOPSY, RIGHT CLINICAL INFORMATION: Suspicious hypoechoic irregular mass right breast 9:00 axis, 5 cm from the nipple, measuring 0.6 x 0.7 x 0.6 cm. COMPARISON: 08/01/2024 diagnostic right mammography and right breast ultrasound. 07/04/2024 screening mammography. PROCEDURAL DETAILS: The details of the procedure, as well as the risks, benefits, and alternatives to the procedure were explained to the patient in detail and all of her questions were answered, after which written informed consent was obtained with the aid of an lens grinder and polisher. Site and side were confirmed. Prior to the procedure, sonography revealed irregular hypoechoic mass at 10:00 axis right breast, 5 cm from the nipple.. A time-out was performed, the lesion intended for biopsy was targeted, and the skin of the overlying right breast was then marked, prepped and draped in the usual sterile fashion. Using sonographic guidance, sterile technique, and 1% lidocaine without epinephrine for local anesthesia, multiple core biopsies were obtained through the targeted area with a 14G spring loaded [facility] core biopsy device. There was real-time confirmation of appropriate needle passage. Sampling was documented. At the completion of tissue sampling, a single open coil metallic clip was deposited at the biopsy site. There was no evidence of immediate complication. SPECIMEN: 3 well formed core samples were obtained. DIGITAL POST-PROCEDURE MAMMOGRAPHY: Breast density: The tissue contains scattered areas of fibroglandular density. BI-RADS version 5, category B. There are no new mammographic findings demonstrated. The postprocedure 2-view direct digital mammogram reveals satisfactory and accurate positioning of the biopsy clip. No hematoma present. The patient tolerated the procedure well and, after assuring adequate hemostasis, was discharged in good condition after reviewing postbiopsy breast care instructions. Final pathology results are pending. MM/MM tomosynthesis diagnostic RT IMPRESSION: 1. No immediate complication from ultrasound-guided percutaneous biopsy right breast 9-10 o'clock axis mass. 2. Ultrasound was used to localize and guide marker clip placement. 3. The 2-view direct digital postprocedure mammogram reveals satisfactory and accurate positioning of the biopsy clip. 4. Final pathology results are pending. A separate report with final recommendations will be issued once these results are made available. Electronically signed by: Jamie Holguin MD 08/06/2024 11:12 AM EDT RP
[2024-08-06] MEDS: Sodium Bicarbonate 8.4% 50 MEQ/50 ML VIAL SUBCUT (10:47)
[2024-08-06] MEDS: Lidocaine HCl 1 % 20 ML VIAL 9 ML SUBCUT (10:48)
== END 2024-08-06 08:33 | disposition home or self-care (01) ==
LOC: HO.MAMMO 08:32
PROVIDERS: Pathology Cytopathology; PCP Internal Medicine Geriatric Medicine; Visit Provider Surgery
DX: D05.81 Other specified type of carcinoma in situ of right breast (principal)
CPT/HCPCS: 19083; 36415; 77061; 77065; 88305; 88341; 88342; 88360; 88374; 99202; A4648; C1894; J2003

== ENCOUNTER → 2024-08-06 10:00 | Outpatient (BNV) | payer OTHER, SELFPAY | PROVIDERS: PCP Internal Medicine Geriatric Medicine; Visit Provider Radiology Diagnostic Radiology | DX: N63.15 Unspecified lump in the right breast, overlapping quadrants (principal) | CPT/HCPCS: 19083; 77065 ==

== ENCOUNTER 2024-08-06 10:48 | Outpatient (AMB) | payer OTHER, SELFPAY ==
--- NOTE | 2024-08-06 10:48 | MHC.OFFVIS ---
Vital Signs 08/06/24 10:52 Height 5 ft 5 in Weight 153 lb BMI 25.5 BP 131/80 Blood Pressure Location Rt brachial Position Sitting Pulse 69 Intake Visit Reasons: after breast bx Intake Note: Patient referred for Rt br mass. Had br bx at [facility] this morning. MM: 08-01-24. 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 She underwent screening mammography and sonogram demonstrating suspicious right breast lesion. Patient herself has no breast symptoms or complaints. She does not do regular breast exams. This is kind of done in reverse order but patient was seen earlier and underwent ultrasound-guided biopsy of the right Breast lesion. She present here for follow-up. Again usually this is in reverse order. Family history negative breast cancer. Past medical history no prior breast issues. Patient was multiparous. Chart was reviewed and patient evaluated [facility] Medical History Hypertension, essential, benign History of palpitations Pulmonary nodules Personal history of nicotine dependence Tubular adenoma of colon (~2018) Depression Surgical History History of colonoscopy (~2018) History of esophagogastroduodenoscopy (EGD) (~2018) Family History Mother No problems noted. Father No problems noted. Social History Household Members: Significant Other Alcohol intake: never Patient Tobacco Use Status: Current everyday Tobacco user Cigarette Packs Per Day: 1 Years Smoked: 33 (onset 22yo) Current occupational status: disabled Physical Exam Vital Signs: Last Vital Signs Pulse 69 08/06/24 10:52 BP 131/80 08/06/24 10:52 BMI result Body Mass Index 25.5 HEENT Other: No obvious cervical , periclavicular, or axillary adenopathy bilaterally. Chest Other: Breasts examined on right side was somewhat limited because patient underwent biopsy in and has a large bandage and very painful to the patient. Left breast negative. No evidence of any mass, discharge, adenopathy or skin changes. Limited right breast exam is the same. GI Other: Abdomen [place], soft, benign. No organomegaly. Assessment & Plan Assessment & Plan (1) Breast mass, right: Code(s): N63.10 - Unspecified lump in the right breast, unspecified quadrant Category: Medical Plan Patient was seen in 1 week's time regarding biopsy results. She has been given local wound instructions and this included Tylenol or Motrin p.r.n. pain, ice to the wound, may shower in 2 days. All questions answered. Coding Level of Care Code New Pt Level 4 (13379) Diagnoses Breast mass, right N63.10
[2024-08-06 10:52] VITALS: BP 131/80; PULSE 69; BMI 25.5
== END 2024-08-06 11:07 | disposition home or self-care (01) ==
PROVIDERS: PCP Internal Medicine Geriatric Medicine; Visit Provider Surgery
DX: N63.10 Unspecified lump in the right breast, unspecified quadrant (principal)
CPT/HCPCS: 99203

== ENCOUNTER 2024-08-13 11:32 | Outpatient (AMB) | payer OTHER, SELFPAY ==
--- NOTE | 2024-08-13 11:33 | A.OFFVIS_ITS ---
Vital Signs 08/13/24 11:39 Height 5 ft 5 in Weight 154 lb BMI 25.6 BP 144/79 H Blood Pressure Location Lt brachial Position Sitting Pulse 75 Intake Visit Reasons: s/p rt bs us bx Intake Note: Patient is seen in office for ultrasound guided biopsy results, right breast 9- 10 o'clock axis mass. Pt c/o: admits to sore and tender, denies any redness or discharge, here for results Accompanied by: Family/Other Allergies codeine Allergy (Unknown, Verified 08/13/24 11:39) heart palpitation HPI Comments Details: Patient presents with a several family members. Results of right breast biopsy were reviewed. Therapeutic options were extensively discussed; this included lumpectomy with sentinel lymph node sampling followed by radiation therapy or mastectomy. Risks, benefits, alternatives of both procedures were reviewed and my recommendation is that the patient will be an optimal candidate for the former procedure. Many questions were entertained by the patient's daughter. Patient's daughter's , and patient's were also present. [facility] Medical History Hypertension, essential, benign History of palpitations Pulmonary nodules Personal history of nicotine dependence Tubular adenoma of colon (~2019) Depression Surgical History History of colonoscopy (~2019) History of esophagogastroduodenoscopy (EGD) (~2019) Family History Mother No problems noted. Father No problems noted. Social History Household Members: Significant Other Alcohol intake: never Patient Tobacco Use Status: Current everyday Tobacco user Cigarette Packs Per Day: 1 Years Smoked: 33 (onset 22yo) Current occupational status: disabled Physical Exam Vital Signs: Last Vital Signs Pulse 75 08/13/24 11:39 BP 144/79 H 08/13/24 11:39 BMI result Body Mass Index 25.6 Chest Other: Chest sounds bilaterally, HS 1 in 2 right upper outer quadrant breast biopsy site ecchymosis otherwise healing well GI Other: Abdomen corpulent, soft, benign Assessment & Plan Assessment & Plan (1) Breast cancer, right: Code(s): C50.911 - Malignant neoplasm of unspecified site of right female breast Category: Surgical Plan Risks, benefits, alternatives of lumpectomy and sentinel lymph node biopsy were reviewed with the patient and family members and included but not limited to bleeding, infection, recurrence, re-excision requirement, numbness, pain, scarring the patient wished to proceed. She will undergo localizer placement per Radiology and sentinel lymph node nuclear med study day prior. Arrangements were made for this. All questions answered. Coding Level of Care Code Est Pt Level 5 (22270) Diagnoses Breast cancer, right C50.911
[2024-08-13 11:39] VITALS: BP 144/79; PULSE 75; BMI 25.6
== END 2024-08-13 11:57 | disposition home or self-care (01) ==
LOC: HO.HGS 11:33
PROVIDERS: PCP Internal Medicine Geriatric Medicine; Visit Provider Surgery
DX: C50.911 Malignant neoplasm of unspecified site of right female breast (principal)
CPT/HCPCS: 99214

== ENCOUNTER → 2024-08-13 11:32 | Outpatient (BNVA) | payer OTHER, SELFPAY | PROVIDERS: PCP Internal Medicine Geriatric Medicine; Visit Provider Surgery | DX: C50.411 Malignant neoplasm of upper-outer quadrant of right female breast (principal); Z71.2 Person consulting for explanation of examination or test findings | CPT/HCPCS: 99212 ==

== ENCOUNTER 2024-08-15 10:49 | Outpatient (AMB) | payer OTHER, SELFPAY ==
[2024-08-15 10:52] VITALS: BP 150/88; PULSE 72; O2SAT 94; BMI 25.8
--- NOTE | 2024-08-15 10:52 | A.OFFVIS_ITS ---
Vital Signs 08/15/24 10:52 Height 5 ft 5 in Weight 154 lb 12.232 oz BMI 25.8 BP 150/88 H Blood Pressure Location Rt brachial Position Sitting Pulse 72 Pulse Source Pulse Oximeter Pulse Oximetry (%) 94 Oxygen Delivery Method Room Air Intake Visit Reasons: Colonoscopy Screening Intake Note: Relevant Flags or Indicators ? Requires Supervisor Airplane Flight Attendant? N Jeanna presents in office today for a scheduled colonoscopy consult. CC; No recent diagnostics, or med orders placed. Pt had recent labs in the last few weeks. Pt reports that they were just diagnosed with breast cancer x2 days ago. Pt sees [facility] [place]. Relevant GI Sx as reported per pt? None ? Hx of any recent surgeries? None ? Pertinent FMHx? None Supervisor Airplane Flight Attendant Required: Yes Allergies codeine Allergy (Unknown, Verified 08/15/24 10:53) heart palpitation HPI HPI Colonoscopy Screening: Details: 58 year old? female here today for pre colonoscopy screening.? Patient was sent to us by her PCP.? Last colonoscopy in [address] Sahni, tubular adenoma recommendation for 3-5 year follow-up. Patient just diagnosed with breast CA. Will go for lumpectomy and radiation treatment. Has not seen oncologist yet. Patient denies any gastrointestinal symptoms in the past or at present.? Denies any personal or family history of gastrointestinal disease, colon polyps, or CRC.? Denies history of difficulty with sedation or anesthesia in the past.? Negative for history of sleep apnea.? Denies any history of cardiac, renal, pulmonary, or hepatic disease.?? No history of infectious? diseases like hepatitis A, B, C, HIV or tuberculosis.? Patient is on low-dose aspirin n PFSH Medical History Hypertension, essential, benign History of palpitations Pulmonary nodules Personal history of nicotine dependence Tubular adenoma of colon (~2018) Depression Surgical History History of colonoscopy (~2019) History of esophagogastroduodenoscopy (EGD) (~2019) Family History Mother No problems noted. Father No problems noted. Social History Household Members: Significant Other Alcohol intake: never Patient Tobacco Use Status: Current everyday Tobacco user Cigarette Packs Per Day: 1 Years Smoked: 33 (onset 22yo) Current occupational status: disabled Review of Systems Const Denies weight gain and Denies weight loss ENT Reports no additional complaints, Denies dysphagia and Denies odynophagia Card Reports no additional complaints Resp Reports no additional complaints GI Denies abdominal pain, Denies belching, Denies melena, Denies bloating, Denies change in bowel habits, Denies dysphagia, Denies excessive flatus, Denies dyspepsia, Denies heartburn, Denies diarrhea, Denies loose stools, Denies nausea, Denies odynophagia and Denies vomiting Musc Reports no additional complaints Neuro Reports no additional complaints Psych Reports no additional complaints Endo Reports no additional complaints Physical Exam Vital Signs: BMI result Body Mass Index 25.8 Const General: healthy appearing, no acute distress and well developed Nutritional Appearance: well nourished Orientation/consciousness: patient oriented x3 Resp Effort & Inspection: normal respiratory effort, able to speak in complete sentences, no tracheal deviation and symmetric chest movement Auscultation: clear to auscultation bilaterally Cardio Rate: regular rate GI Inspection: Yes normal to inspection and No distended Palpation (GI): Soft to palpation, not firm, nontender and No hepatosplenomegaly present Auscultation: normal bowel sounds General: Yes no CVA tenderness Back/Spine/Pelvis Back: no CVA tenderness Skin General skin exam: elasticity normal, turgor normal and dry skin Neuro General: patient oriented x3 Psych Appearance: grossly normal Mental Status: mental status grossly normal Assessment & Plan Assessment & Plan (1) Screen for colon cancer: Code(s): Z12.11 - Encounter for screening for malignant neoplasm of colon Plan Patient denies any GI, cardiac or respiratory symptoms.? Denies any issues with anesthesia in the past.? Denies any history of sleep apnea.? No history infectious diseases in the past or present.? Patient is on low-dose aspirin. No family or personal history of colon cancer. History of colonoscopy in 2019?tubular adenoma found. Recently diagnosed with breast cancer, patient will be scheduled for lumpectomy and radiation. Patient denies melena, hematochezia, unintentional weight loss or ribbon like stools.? Discussed at length the pre- procedure,? prep, diet & medications as well as what to expect prior, during and after the procedure.?? Stressed the importance of good bowel prep.? Recommended the use of Vaseline or Calmoseptine OTC & baby wipes with bowel movements to promote comfort.? ?Patient verbalizes understanding and agrees to plan of care.? She was given the opportunity to ask questions and all questions answered.? We will see her after the procedure.? Medications: New bisacodyl (Dulcolax (bisacodyl)) take 4 tabs at noon the day before your colonoscopy 20 mg (4 x 5 mg) PO ONCE 1 day 4 tabs 0RF Z12.11 - Encounter for screening for malignant neoplasm of colon polyethylene glycol 3350 (Miralax) As directed by gastroenterology department at [facility] 238 grams PO ONCE 238 grams 0RF Z12.11 - Encounter for screening for malignant neoplasm of colon Coding Level of Care Code New Pt Level 3 (18392) Diagnoses Screen for colon cancer Z12.11 Time Spent (min) 40 Comment 30 minutes spent with patient and additional 10 minutes spent reviewing her records
== END 2024-08-15 11:42 | disposition home or self-care (01) ==
LOC: HO.HGI 10:49
PROVIDERS: PCP Internal Medicine Geriatric Medicine; Visit Provider Nurse Practitioner Family
DX: Z01.818 Encounter for other preprocedural examination (principal); Z12.11 Encounter for screening for malignant neoplasm of colon
CPT/HCPCS: 99024

== ENCOUNTER → 2024-08-15 10:49 | Outpatient (BNVA) | payer OTHER, SELFPAY | PROVIDERS: PCP Internal Medicine Geriatric Medicine; Visit Provider Nurse Practitioner Family | DX: Z01.818 Encounter for other preprocedural examination (principal) | CPT/HCPCS: 99212 ==

== ENCOUNTER 2024-08-17 12:07 | Outpatient (REF) | payer OTHER, SELFPAY ==
[2024-08-17 13:37] LABS: Appearance Urine Clear; Color Urine Yellow; Glucose Urine UA Negative (Negative); Leukocyte Esterase Urine Negative (Negative); Nitrite Urine Negative (Negative); UMIC TRIGGER UACC YES; Urine Blood Trace (Negative); Urine Ketones Negative (Negative); Urine Protein Negative (Neg-Trace)
[2024-08-17 13:49] LABS: Bacteria Urine None Seen (None Seen); Hyaline Casts Urine 0-2 /LPF (0-2); RBC Urine 0-2 /HPF (0-2); Squamous Epithelial Cell Urine >20 /HPF (0-2); WBC Urine 0-5 /HPF (0-5)
== END 2024-08-17 12:08 | disposition home or self-care (01) ==
LOC: HO.HHCL 12:07
PROVIDERS: Visit Provider Internal Medicine Geriatric Medicine
DX: R31.0 Gross hematuria (principal)
CPT/HCPCS: 81001

== ENCOUNTER 2024-08-22 09:49 | Outpatient (REF) | payer OTHER, SELFPAY ==
--- NOTE | ~2024-08-22 | MM_ITS ---
EXAMINATION: MM MAMMOGRAM GUIDED RFID LOCALIZATION BREAST, RIGHT CLINICAL INFORMATION: IDC grade 3 right breast at 10:00 axis, marked by open coil shaped clip, estimated size 6 x 6 x 7 mm. For localization. COMPARISON: -Ultrasound-guided right breast biopsy 07/29/2024. -08/01/2024 diagnostic right mammography and right breast ultrasound. -07/04/2024 screening mammography. TECHNIQUE NEEDLE LOC: Proper informed consent is obtained from the patient after discussion of the procedure, potential risks and complications, and alternatives including declining the procedure today. Patient was given an opportunity for questions. The patient appeared to understand. The patient consented to the procedure and signed the consent form. GUIDANCE: Digital mammography. APPROACH: Lateral Medial. TARGET: Small mass marked by open coil clip. ANESTHESIA: carbonated lidocaine 1%: 7 mL. LOCALIZATION SYSTEM: Interventional Spine LOCallizer 7 cm Wire-Free Guidance System with 12g needle applicator. RADIOFREQUENCY TAG: ID # [id number] DERMATOTOMY: Single 1 mm skin-kate dermatotomy performed. RF Tag ID confirmed with LOCalizer Guidance System prior to placement. The skin is prepped and local anesthesia administered. The needle is positioned and RFID tag deployed. Final images demonstrate the LOCalizer RF tag to reside immediately adjacent to the mass and clip combination. This is well positioned. The patient tolerated the procedure well and had no immediate complications. Dressing placed and home instructions reviewed. MM/MM RF Tag device RT IMPRESSION: -Status post right breast RFID localization. -Final CC and LM images are labeled for direct OR reference. Electronically signed by: Jamie Holguin MD 08/22/2024 12:14 PM HERMELINDA LANG
[2024-08-22] MEDS: Lidocaine HCl 1 % 20 ML VIAL 6 ML INFILTRATI (10:46)
[2024-08-22] MEDS: Sodium Bicarbonate 8.4% 50 MEQ/50 ML VIAL SUBCUT (10:47)
== END 2024-08-22 09:50 | disposition home or self-care (01) ==
LOC: HO.MAMMO 09:49
PROVIDERS: PCP Internal Medicine Geriatric Medicine; Visit Provider Surgery
DX: C50.911 Malignant neoplasm of unspecified site of right female breast (principal)
CPT/HCPCS: 19281; C1819; J2003

== ENCOUNTER → 2024-08-22 10:00 | Outpatient (BNV) | payer OTHER, SELFPAY | PROVIDERS: PCP Internal Medicine Geriatric Medicine; Visit Provider Radiology Diagnostic Radiology | DX: C50.411 Malignant neoplasm of upper-outer quadrant of right female breast (principal) | CPT/HCPCS: 19281 ==

== ENCOUNTER 2024-08-22 13:55 | Outpatient (REF) | payer OTHER, SELFPAY ==
--- NOTE | ~2024-08-22 | US_ITS ---
EXAMINATION: US RETROPERITONEAL LIMITED (RENAL ONLY) CLINICAL INFORMATION: Gross hematuria. COMPARISON: CT abdomen and pelvis dated 11/19/2015; abdominal ultrasound dated 06/21/2016. TECHNIQUE: Real-time imaging of the kidneys. FINDINGS: RIGHT KIDNEY: 10.8 x 4.5 x 4.9 cm (SAG x AP x TRV). The kidney is normal in size, contour, and echogenicity. Renal cortical thickness is normal. No calculi or focal parenchymal lesions. No hydronephrosis. At the upper pole, a 1.4 cm benign, simple cyst is seen. This requires no imaging follow-up. LEFT KIDNEY: 10.8 x 5.4 x 4.7 cm (SAG x AP x TRV). The kidney is normal in size, contour, and echogenicity. Renal cortical thickness is normal. No calculi or focal parenchymal lesions. No hydronephrosis. At the upper pole, a 2.1 cm benign, simple cyst is seen. At the interpolar aspect, a 1.1 cm benign, simple cyst is seen. These require no imaging follow-up. US/US renal BI IMPRESSION: Unremarkable examination. Electronically signed by: Fam Paniagua MD 08/22/2024 09:55 PM EST
== END 2024-08-22 13:56 | disposition home or self-care (01) ==
LOC: HO.US 13:55
PROVIDERS: PCP Internal Medicine Geriatric Medicine; Visit Provider Internal Medicine Geriatric Medicine
DX: R31.0 Gross hematuria (principal)
CPT/HCPCS: 76775

== ENCOUNTER → 2024-08-30 07:40 | Outpatient (REF) | payer OTHER, SELFPAY ==
--- NOTE | ~2024-08-30 | NM_ITS ---
EXAMINATION: NM LYMPHOSCINTIGRAPHY CLINICAL INFORMATION: IDC grade 3 right breast at 10:00 axis, marked by open coil shaped clip, estimated size 6 x 6 x 7 mm. For localization. COMPARISON: -Ultrasound-guided right breast biopsy 07/29/2024. -08/01/2024 diagnostic right mammography and right breast ultrasound. -07/04/2024 screening mammography. TECHNIQUE: Right breast lymphoscintigraphy injection was performed . Approximately 5.0 mCi of technetium 99m sulfur colloid and 0.8 mL of saline was divided into 4 aliquots of approximately 1.25 mCi, and injected in 4 quadrants around the right breast areola intradermally at 12:00, 3:00, 6:00, and 9:00. Immediate images and delayed images were obtained in AP, oblique and lateral views 30 minutes later. FINDINGS: There is isotope activity in four-quadrant around right breast areola following injection. There are at least 3 areas of isotope activity along the right mid axilla suggestive of multiple lymph nodes. NM/NM sentinel node w imaging IMPRESSION: At least 3 small lymph nodes seen in right axilla on right breast lymphoscintigraphy. Thank you for the courtesy of your referral. Electronically signed by: Jamie Holguin MD 08/30/2024 03:35 PM [facility]
== END ==
LOC: HO.NUCMED 07:40
PROVIDERS: PCP Internal Medicine Geriatric Medicine; Visit Provider Surgery
DX: C50.911 Malignant neoplasm of unspecified site of right female breast (principal)
CPT/HCPCS: 78195; A9541

== ENCOUNTER → 2024-08-30 07:41 | Outpatient (BNV) | payer OTHER, SELFPAY | PROVIDERS: PCP Internal Medicine Geriatric Medicine; Visit Provider Radiology Diagnostic Radiology | DX: C50.411 Malignant neoplasm of upper-outer quadrant of right female breast (principal) | CPT/HCPCS: 78195 ==

== ENCOUNTER 2024-08-31 06:46 | Day surgery (SDC) | payer OTHER, SELFPAY ==
--- NOTE | 2024-08-30 11:01 | MHC.SHP ---
Pre-Procedural Eval Section A - 24 Hr Update-Section A only Date of Service: 08/31/24 The patient is an INPATIENT: No Changes since office visit: No Cold of Flu in the past 2 weeks, No New Medical Problems, No Changes in Medication and No Patient answered all questions Section B - Complete if H&P > 30 days Chief Complaint: Malignant neoplasm of unspecified site of right Allergies: Allergies Allergy/AdvReac Type Severity Reaction Status Date / Time codeine Allergy Unknown heart Verified 08/15/24 10:53 palpitation Review of Systems Sugical H&P ROS: Negative: Constitution, Cardiovascular, Respiratory, Neurological, Psychiatric, Hem-Onc, Allergic/Immunologic, Gastrointestinal, Genitourinary, Musculoskeletal, Integumentary, Endocrine and Eyes/Ears/Nose/Throat Exam Surgical H&P Exam: Normal: HEENT, Normal: Heart, Normal: Lungs, Normal: Extremities, Normal: Abdomen, Normal: Skin and Normal: Neurological Plan I have reviewed the history and physical and performed a pertinent physical examination on my patient. No changes have occurred unless specified. Time Spent With Patient Time: Total time managing care of this patient today ____ minutes.
[2024-08-31] VITALS (12 sets, daily range): BP systolic 101–167; BP diastolic 63–87; PULSE 51–59; RESP 15–16; TEMP 36.1–36.3; O2SAT 95–97; BMI 25.3
--- NOTE | ~2024-08-31 | MM_ITS ---
EXAMINATION: MM SPECIMEN X-RAY BREAST, RIGHT BREAST CLINICAL INDICATION: IDC grade 3 right breast at 10:00 axis, marked by open coil shaped clip, estimated size 6 x 6 x 7 mm. For excision. COMPARISON: -RF ID tag 08/22/2024. -Sum[place] node injection 08/30/2024. -Ultrasound-guided right breast biopsy 07/29/2024. -08/01/2024 diagnostic right mammography and right breast ultrasound. -07/04/2024 screening mammography. TECHNIQUE: Single radiograph of the excised breast tissue is performed using digital mammography. FINDINGS: Specimen radiograph demonstrates the presence of the open coil biopsy clip, RF ID tag, and small irregular index mass within the central aspect of the specimen. Results were called to Dr. Coombs in the operating room at the time of imaging. Electronically signed by: Jamie Hogluin MD 09/07/2024 10:32 AM [facility]
[2024-08-31] MEDS: Lactated Ringers 1,000 ML 100 ML IVCONT (08:08)
--- NOTE | 2024-08-31 08:15 | P.CONAN_ITS ---
Documented by User: Yolette Kwan NP 08/30/24 12:12 HPI - Anesthesia Eval Consult details Narrative: 58yo F for Right Breast Lumpectomy w/LOCalizer, Axillary Node Dissec w Sentinal Node Bx PMFSH Active Problems Active Problems: All Active Problems Breast cancer, right (Acute) Breast mass, right (Acute) Arthritis of right knee (Acute) Arthritis of left knee (Acute) Right knee pain (Acute) Left knee pain (Acute) Hypertension, essential, benign (Acute) Personal history of nicotine dependence (Acute) Palpitations (Acute) Depression (Acute) Bowel habit changes (Acute) Past Medical History Medical History (Updated 08/31/24 @ 07:31 by Adele Barajas RN) GERD (gastroesophageal reflux disease) Elevated cholesterol Hypertension, essential, benign History of palpitations Pulmonary nodules Personal history of nicotine dependence Tubular adenoma of colon (~2019) Depression Family History Family History Mother No problems noted. Father No problems noted. Surgical History Surgical History (Updated 08/31/24 @ 07:32 by Adele Barajas RN) History of partial hysterectomy History of colonoscopy (~2018) History of esophagogastroduodenoscopy (EGD) (~2018) Social History Social History Household Members: Significant Other Alcohol intake: never Patient Tobacco Use Status: Current everyday Tobacco user Cigarette Packs Per Day: 1 Cigarettes Per Day: 14 Years Smoked: 33 (onset 22yo) Use of substances other than those prescribed or required for medical reasons: No Are you DNR?: No Advance Directives: No Advance Directives Information Provided: Yes Recently lost weight without trying: No Current occupational status: disabled Meds Allergies Allergy/AdvReac Type Severity Reaction Status Date / Time codeine Allergy Unknown heart Verified 08/31/24 07:32 palpitation Home Medications ?Medication ?Instructions ?Recorded ?Confirmed ?Last Taken ?Type albuterol sulfate 2.5 mg/3 mL 2.5 mg inhalation QID 02/09/21 08/31/24 Unknown History (0.083 %) solution for nebulization albuterol sulfate 90 mcg/actuation 2 puff inhalation Q6H PRN 02/09/21 08/31/24 Unknown History aerosol inhaler (Ventolin HFA) Shortness Of Breath aspirin 81 mg tablet,delayed 81 mg PO DAILY 02/09/21 08/31/24 08/28/24 History release clonazepam 1 mg tablet 1 mg PO TID 02/09/21 08/31/24 Unknown History ergocalciferol (vitamin D2) 50 mcg 50 mcg PO DAILY 02/09/21 08/31/24 Unknown History (2,000 unit) capsule escitalopram oxalate 10 mg tablet 10 mg PO DAILY 02/09/21 08/31/24 Unknown History (Lexapro) lisinopril 20 mg tablet 20 mg PO DAILY 02/09/21 08/31/24 Unknown History metoprolol succinate 100 mg 100 mg PO DAILY 02/09/21 08/31/24 Unknown History tablet,extended release 24 hr omeprazole 20 mg capsule,delayed 20 mg PO DAILY 02/09/21 08/31/24 Unknown History release oxycodone-acetaminophen 5 mg-325 1 tab PO Q4-6H PRN Pain 02/09/21 08/31/24 Unknown History mg tablet (Percocet) quetiapine 400 mg tablet,extended 400 mg PO BEDTIME 02/09/21 08/31/24 Unknown History release 24 hr (Seroquel XR) sumatriptan succinate 25 mg tablet 25 mg PO Q2-4H PRN Migraine 02/09/21 08/31/24 Unknown History (Imitrex) Headache zolpidem 10 mg tablet 10 mg PO BEDTIME PRN Insomnia 02/09/21 08/31/24 Unknown History atorvastatin 40 mg tablet 40 mg PO DAILY 08/31/24 08/31/24 Unknown History Exam Pertinent Lab Results Pertinent Lab Results: Laboratory Tests 07/26/24 10:59 WBC 11.4 H Hgb 15.2 Hct 45.5 Plt Count 215 Sodium 144 Potassium 3.4 Chloride 109 H Carbon Dioxide 26 BUN 11 Creatinine 0.84 Assessment and Plan Assessment Anesthesia Assessment: Chart Reviewed Documented by User: Adele Gusman DO 08/31/24 08:19 PMF Past Medical History Medical History (Updated 08/31/24 @ 07:31 by Adele Barajas RN) GERD (gastroesophageal reflux disease) Elevated cholesterol Hypertension, essential, benign History of palpitations Pulmonary nodules Personal history of nicotine dependence Tubular adenoma of colon (~2018) Depression Family History Family History Mother No problems noted. Father No problems noted. Family history of problems with anesthesia: No Surgical History Surgical History (Updated 08/31/24 @ 07:32 by Adele Barajas RN) History of partial hysterectomy History of colonoscopy (~2018) History of esophagogastroduodenoscopy (EGD) (~2018) History of Problems with Anesthesia: No Social History Social History Household Members: Significant Other Alcohol intake: never Patient Tobacco Use Status: Current everyday Tobacco user Cigarette Packs Per Day: 1 Cigarettes Per Day: 14 Years Smoked: 33 (onset 22yo) Use of substances other than those prescribed or required for medical reasons: No Are you DNR?: No Advance Directives: No Advance Directives Information Provided: Yes Recently lost weight without trying: No Current occupational status: disabled Meds Allergies Allergy/AdvReac Type Severity Reaction Status Date / Time codeine Allergy Unknown heart Verified 08/31/24 07:32 palpitation Home Medications ?Medication ?Instructions ?Recorded ?Confirmed ?Last Taken ?Type albuterol sulfate 2.5 mg/3 mL 2.5 mg inhalation QID 02/09/21 08/31/24 Unknown History (0.083 %) solution for nebulization albuterol sulfate 90 mcg/actuation 2 puff inhalation Q6H PRN 02/09/21 08/31/24 Unknown History aerosol inhaler (Ventolin HFA) Shortness Of Breath aspirin 81 mg tablet,delayed 81 mg PO DAILY 02/09/21 08/31/24 08/28/24 History release clonazepam 1 mg tablet 1 mg PO TID 02/09/21 08/31/24 Unknown History ergocalciferol (vitamin D2) 50 mcg 50 mcg PO DAILY 02/09/21 08/31/24 Unknown History (2,000 unit) capsule escitalopram oxalate 10 mg tablet 10 mg PO DAILY 02/09/21 08/31/24 Unknown History (Lexapro) lisinopril 20 mg tablet 20 mg PO DAILY 02/09/21 08/31/24 Unknown History metoprolol succinate 100 mg 100 mg PO DAILY 02/09/21 08/31/24 Unknown History tablet,extended release 24 hr omeprazole 20 mg capsule,delayed 20 mg PO DAILY 02/09/21 08/31/24 Unknown History release oxycodone-acetaminophen 5 mg-325 1 tab PO Q4-6H PRN Pain 02/09/21 08/31/24 Unknown History mg tablet (Percocet) quetiapine 400 mg tablet,extended 400 mg PO BEDTIME 02/09/21 08/31/24 Unknown History release 24 hr (Seroquel XR) sumatriptan succinate 25 mg tablet 25 mg PO Q2-4H PRN Migraine 02/09/21 08/31/24 Unknown History (Imitrex) Headache zolpidem 10 mg tablet 10 mg PO BEDTIME PRN Insomnia 02/09/21 08/31/24 Unknown History atorvastatin 40 mg tablet 40 mg PO DAILY 08/31/24 08/31/24 Unknown History Exam Exam Date and Time: 08/31/24 0815 Height,Weight and Vital Signs: Height 5 ft 5 in Weight 68.946 kg Vital Signs Temperature 97.3 F 08/31/24 08:07 Pulse Rate 58 08/31/24 08:07 Respiratory Rate 15 08/31/24 08:07 Blood Pressure 143/77 H 08/31/24 08:07 Pulse Oximetry 95 08/31/24 08:07 Oxygen Delivery Method Room Air 08/31/24 08:07 Temperature 97.3 F 08/31/24 08:07 Pulse Rate 58 08/31/24 08:07 Respiratory Rate 15 08/31/24 08:07 Blood Pressure 143/77 H 08/31/24 08:07 Pulse Oximetry 95 08/31/24 08:07 Oxygen Delivery Method Room Air 08/31/24 08:07 Airway Mallampati Class: II TM Dist: >3cm Neck ROM: Full Loose/Missing/Broken Teeth: No (patient denies any loose or broken teeth) Heart: S1S2 Lungs: CTAB Assessment and Plan Assessment Anesthesia Assessment: Anesthesia Plan Discussed and Chart Reviewed Final Anesthetic Review Family History of Problems with Anesthesia: No History of Problems with Anesthesia: No NPO: Yes ASA Class: II Final Preanesthetic Review: No Changes in Pt Med Stat, Meds/Allgs Chart Reviewed, Consent Obtained/Reviewed (outreach representative at bedside for translation) and Anes Risks/Benef Reviewed Patient Risk: Low Procedure Risk: Low Anesthetic Plan Anesthetic Plan: GA and Agree w/ Assess. and Plan Disposition: Standard PACU
--- NOTE | 2024-08-31 09:45 | W.PM.OPN ---
Operative Note Operative Note Date of Service: 08/31/24 Narrative: Preoperative diagnosis: [] Right lower outer quadrant invasive breast cancer Postop diagnosis: [] The same Procedure [] localizer lumpectomy right lower outer quadrant, sentinel lymph node biopsy with nuclear medicine and blue dye Surgeon: [] Malvin Wool Merchant: [] Tiago Type of Anesthesia: [] General Indication for surgery: [] Patient had uneventful lumpectomy performed with confirmation radiographically and preliminarily by pathology. [place] lymph node biopsy of several nodes with [place] counter measurements of initial nodes greater than 2000 and accessory /surrounding nodes around 400. Findings: [] Patient brought to the operating room, placed on operative table supine position, after an adequate level of general anesthesia was induced, under sterile technique Ruby areolar blue dye in filtration was performed with 5 minute massaged of breast and the breast and axilla were then prepped and draped in usual sterile fashion. Using localizer guidance, a left Ruby areolar lower outer quadrant curvilinear incision was made and carried down through skin, subcutaneous tissue, were superior inferior skin flaps were developed and circumferentially dissection of very generous lumpectomy was performed using Bovie. Specimen as noted above sent to pathology and confirmed after being tagged. Wound was closed using interrupted inverted dermal 3-0 Vicryl sutures followed by Steri-Strips and sterile dressings. Next using the [place] counter guidance, an infra areolar incision was made and carried down through skin, subcutaneous tissue, and underlying fascia. Hot, blue nodes were identified with [place] counter measurements as noted above and uneventful excision of these was performed using Bovie. Specimen again sent to pathology. Wound was irrigated, secured hemostasis, and clavicle pectoral fascia was closed using interrupted 3-0 Vicryl suture. Skin was closed using several interrupted inverted deep dermal 3-0 Vicryl sutures followed by running subcuticular 4-0 Vicryl suture. Steri-Strips and sterile dressings were applied. Wounds were infiltrated at the beginning at the end of the case with 0.5% Marcaine/1% lidocaine. Sponge, needle, and instrument counts were reported correct. Patient tolerated the procedure well and emerged from anesthesia stable condition. EBL minimal
--- NOTE | 2024-08-31 09:49 | W.PM.OPN ---
Operative Note Operative Note Date of Service: 08/31/24 Breast [place] Node Biopsy All colored nodes or non-colored nodes present at the end of a dye filled lymphatic channel were removed, if dye was used as the substrate for localization: Yes All significantly radioactive nodes were removed, if radionuclide was used as the substrate for localization: Yes General Surg. - Synoptic Notes Breast [place] Node Biopsy All colored nodes or non-colored nodes present at the end of a dye filled lymphatic channel were removed, if dye was used as the substrate for localization: Yes All significantly radioactive nodes were removed, if radionuclide was used as the substrate for localization: Yes
[2024-08-31] MEDS: fentaNYL citrate/PF 100 MCG/2 ML VIAL 50 MCG IVPUSH ×3 (10:10→10:30)
[2024-08-31] MEDS: oxyCODONE HCl Immed Release 5 MG TABLET PO (10:45)
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
--- OUTSIDE RECORDS SUMMARY | 2024-08-31 14:52 | XMS_ITS | Continuity of Care Document ---
Author Organization [facility] Address [address] [place] [address]- Care Team Providers Care Pharm Tech Name Role Phone Name Aamir MCCRARY Primary Care Physician Encounter [facility] Date(s): 02/29/24 - 03/07/24 [facility] [address] [place] [address]- Encounter Diagnosis Right ankle pain(Discharge Diagnosis) - 02/29/24 Right foot pain(Discharge Diagnosis) - 02/29/24 Attending Physician: Elida Greenwood MD Referring Physician: Aamir Montoya MD Allergies, Adverse Reactions, Alerts Substance Reaction [...] Confirmed Active Hx of smoking Confirmed Active Diagnosis Diagnosis Type Effective Dates Health Status Cl inical Service Informant Right ankle pain Discharge Diagnosis 02/29/24 Right foot pain Discharge Diagnosis 02/29/24 Vital Signs Most recent to oldest [Reference Range]: 1 Height 165.10 cm (02/29/24 11:39 AM) Oxygen Saturation [94-100 %] 98 % (02/29/24 11:39 AM) Pulse Rate [55-90 bpm] 68 bpm (02/29/24 11:39 AM) Blood Pressure [90-138/55-84 mm Hg] 143/ 74mm Hg *H* (02/29/24 11:39 AM) Temperature [96.8-100.4 DegF] 97.0 DegF (02/29/24 11:39 AM) Mode of Delivery (Oxygen) Room air (02/29/24 11:39 AM) Blood pressure sites Arm, right (02/29/24 11:39 AM) Temperature Route Temporal (02/29/24 11:39 AM) Social History Social History Type Response Smoking Status Current every day sm oker; Type: Cigarettes; Other: pt smokes 1 to 1.5 ppd; entered on: 10/12/17 Sex Note * Yolanda Lai: PERFORM Event Display: Patient Education/Instruction Authored Date: [id number] Ambulatory Adult Visit Summary [facility] [address] Name: NAVYA LEAL : 1965?? Visit: 02/29/2024 11:12?? Ambulatory Visit Instructions ?? Your Care Team Primary Care Provider Name Aamir MCCRARY? This Visit Provider [facility] Your Diagnosis Right ankle pain Right foot pain Vitals Signs Temperature: 97 DegF Height: 165.1 cm Pulse Rate: 68 bpm ?? Systolic Blood Pressure:??143 mm Hg??High ?? Diastolic Blood Pressure: 74 mm Hg ?? Oxygen Saturation: 98 % ?? What to do next Instructions From Your Provider Follow-up in the [facility] on [address] either tomorrow or Tuesday. ?? Continue to elevate affected limb above heart level is much as possible. ??You may continue to ice the swollen area at 15-minute intervals ?? I strongly recommend??that you use the crutches provided and not??place weight on the affected limbuntil you can do so without significant pain. Medications The list below reflects the information in our records and provided by you today along with any changes made during this visit. Please continue your medications until treatment is completed or stopped by your provider. If this is different from the information you have or there are other questions,please contact the prescribing provider. What How Much When Instructions Unchanged Amlodipine 10 Milligram Oral Daily Unchanged Aspirin (aspirin 81 mg oral tablet) 1 tab(s) Oral Daily Unchanged Clonazepam (Klonopin 0.5 mg oral tablet) 1 tab(s) Oral 3 times a day Unchanged Escitalopram (escitalopram 10 mg oral tablet) 1 tab(s) Oral Daily Unchanged HydrOXYzine (hydrOXYzine hydrochloride 25 mg oral tablet) 1 tab(s) Oral Unchanged Lisinopril (lisinopril 20 mg oral tablet) 1 tab(s) Oral Daily Unchanged Oxycodone / Acetaminophen (Percocet-5/ 325 325 mg-5 mg oral tablet) 1 tab(s) Oral Every 8 hours Unchanged Quetiapine (Seroquel 200 mg oral tablet) 1 tab(s) Oral Twice a day Unchanged Zolpidem (Ambien CR 12.5 mg oral tablet, extended release) 1 tab(s) Oral Daily at Bedtime as needed for Sleep Medications and Immunizations Administered Medications Given During Visit No medications given during this visit.?? Allergies (NKA means No Known Allergies) Chantix Tylox codeine??(increases heartrate) Education Materials Below is the list of Educational Leaflet Providered with your Visit summary. WebMD Ignite Patient Education - Understanding Ankle Sprain?? Web[employer] Ignite Patient Education - Ankle Sprain (Adult)?? Common Emergency Awareness Tips IS IT A STROKE? Act FAST and Check for these signs: FACE Does the face look uneven? ARM Does one arm drift down? SPEECH Does their speech sound strange? TIME Call at any sign of stroke ?? Heart Attack Signs Chest discomfort: Most heart attacks involve discomfort in the center of the chest and lasts more than a few minutes, or goes away and comes back. It can feel like uncomfortable pressure, squeezing, fullness or pain. Discomfort in upper body: Symptoms can include pain or discomfort in one or both arms, back, neck, jaw or stomach. Shortness of breath: With or without discomfort. Other signs: Breaking out in a cold sweat, nausea, or lightheaded. Remember, MINUTES DO MATTER. If you experience any of these heart attack warning signs, call to get immediate medical attention! ?? Smoking can increase your chances of developing chronic health problems and can cause harmful effects to other family members in your house. If you smoke, you are strongly encouraged to quit. Please call [employer] [facility] at [phone] or [phone] ([phone]) or log in to [email or web address] for referrals to smoking cessation programs. ?? The National Suicide Prevention Hotline is available 02/05 if you or someone you know needs to find a reason to keep living. By calling 4-554-008-[employer] (0477) you'll be connected to a skilled, trained counselor at a crisis center in your area. [facility] You can view and manage your care through the patient portal or by using a health care maame of your choosing. [employer] is a website that allows you to securely view your medical information including your hospital discharge summary, office visit summaries, medications and follow-up visits. You can also request appointments, renew medications, and request access to your medical information using a health care maame of your choosing, or just ask a question. You can enroll at [email or web address] or register during your next office visit. [facility], in keeping with [facility] guidance, no longer requires face masks for staff, patientsor visitors in most situations. Similiar to time spent indoors at other locations, there is the chance that you were exposed to repiratory viruses during your time with us (such as flu or COVID-19). If you develop symptoms concerning for a viral respiratory infection, please seek testing (and treatment if indicated) from your medical provider or home test kit. ?? Disclaimer: The information provided is of a general nature and is intended to be used in conjunction with the recommendations and advice of your health care practitioner. Every effort has been made to ensure that the information provided is accurate and complete at the time it is provided to you however, as your needs change, or, as new information becomes available, different or additional instructions may be required. ?? If you have questions, please consult with your primary care provider or pharmacist, as appropriate. This information is not intended to serve as substitution for assessment and evaluation by a qualified health care provider. If you do not have a primary care provider, you may find a [facility] provider by calling [facility] at [phone]. * Nicole Jacobs NP: PERFORM Event Display: Patient Education Leaflets Authored Date: [id number] Understanding Ankle Sprain ?? [address] ??Qu?? es un esguince de tobillo? El tobillo es la articulaci??n en la que se unen la pierna y el pie. Los huesos est??n sujetados por bandas de tejido conjuntivo llamadas ligamentos. Cuando los ligamentos del tobillo se estiran hasta el punto de lesionarse y causar dolor, se trata de un esguince de tobillo. Un esguince puede desgarrar los ligamentos. Esos desgarros pueden ser muy dong??os, sandra aun as?? causan dolor. Los esguinc es de tobillo se clasifican seg??n el abdirahman de lesi??n de los ligamentos. ??? Esguince abdirahman??1 (leve). Hay un estiramiento leve y lesiones muy dong??as en las fibras de los ligamentos. Puede presentar dolor leve en el tobillo, inflamaci??n y dolor a la palpaci??n. ??? Esguince abdirahman??2 (moderado). Se trata de un desgarro parcial de ligamento que causa dolor moderado enel tobillo, inflamaci??n, formaci??n de moretones y dolor a la palpaci??n. Abad vez sienta que stoddard tobillo est?? m??s ???flojo?? de lo com??n cuando el proveedor de atenci??n m??dica mueve la articulaci??n. ??? Esguince abdirahman??3 (grave). Se trata de un desgarro total del ligamento que causa dolor intenso en el tobillo, inflamaci??n, formaci??n de moretones y dolor a la palpaci??n. La articulaci??n del tobillo puede estar muy inestable. ??Cu??les son las causas de un esguince de tobillo? Un esguince puede ocurrir si se tuerce el tobillo o lo dobla demasiado. Hawkeye puede pasarle si tropieza o se . Las cosas que podr??an aumentar las probabilidades de tener un esguince de tobillo incluyen las siguientes: ??? Tiffany tenido un esguince de tobillo antes ??? Practicar deportes que impliquen correr y saltar. O tambi??n deportes de contacto, tales pebbles el f??tbol o el hockey. ??? Usar calzado que no brinde buen soporte a cee pies y cee tobillos ??? Tener tobillos d??maty y poco flexibles ?? S??ntomas de un esguince de tobillo Los s??ntomas pueden ser los siguientes: ??? Dolor o sensibilidad en el tobillo ??? Hinchaz??n ??? Enrojecimiento o moretones ??? No poder caminar o cargar peso sobre el pie afectado ??? Buzz amplitud de movimiento en el tobillo ??? Sensaci??n de desgarro o rotura en el momento en que se produce el esguince ??? El tobillo se ve anormal o dislocado ??? Falta de estabilidad o demasiada amplitud demovimiento en el tobillo ?? Tratamiento de un esguince de tobillo El objetivo del tratamiento es reducir el dolor y la inflamaci??n, y evitar christine lesi??n mayor. Los tratamientos pueden incluir lo siguiente: ??? Reposo del tobillo. No debe cargar peso sobre el tobillo. Hawkeye puede significar usar muletas hasta tanto el esguince sane. ??? Medicamentos recetados o deventa gifty. Ayudan a reducir la inflamaci??n y el dolor. ??? Compresas fr??as. Ayudan a reducir eldolor y la hinchaz??n. ??? Elevaci??n del tobillo por encima del nivel de stoddard coraz??n. Hawkeye ayuda areducir la inflamaci??n. ??? Uso de christine venda el??stica o christine tobillera que envuelve al tobillo. Hawkeye ayuda a reducir la inflamaci??n y rosalina algo de soporte al tobillo. Raramente, puede necesitar un yeso o christine bota ortop??dica. ??? Estiramiento y otros ejercicios. Mejoran la flexibilidad y la fuerza. ??? Compresas de calor. Es posible que le recomienden usarlas antes de hacer ejercicios con lostobillos. ??? Cirug??a. Es poco frecuente hacer christine cirug??a para un esguince de tobillo. Sandra es posible que se recomiende en esguinces que no sanan con un tratamiento no quir??rgico. O bartolo, puedenrecomendarle someterse a christine cirug??a si tiene inestabilidad duradera en el tobillo despu??s de hacer rehabilitaci??n y un tratamiento no quir??rgico. ?? Posibles complicaciones de un esguince de tobillo Si el tobillo ya est?? debilitado por tiffany tenido un esguince, tiene m??s probabilidades de tener otros esguinces en el futuro. Hacer ejercicios para fortalecer stoddard tobillo y mejorar stoddard equilibrio puede reducir stoddard riesgo de tener futuros esguinces. Otras posibles complicaciones son dolor a artur plazo (cr??jesus) o que el tobillo quede inestable. ?? Cu??ndo llamar a stoddard proveedor de atenci??n m??dica Llame al proveedor de atenci??n m??dica inmediatamente si presenta cualquiera de los siguientes s??ntomas: ??? Fiebre de 100.4?F (38?C) o superior, o seg??n le indique stoddard proveedor ??? Escalofr??os ??? Dolor, entumecimiento, decoloraci??n o fr??o en el pie o los dedos del pie ??? Dolor que empeora ??? S??ntomas que no mejoran o que empeoran ??? S??ntomas nuevos ?? Last Reviewed Date: 2021 ?? [id number] [employer]. Todos los derechos reservados. Esta informaci??n no pretende sustituir la atenci??n m??dica profesional. S??lo stoddard m??dico puede diagnosticar y tratar un problema de blake. ?? * Reynaldo ROWAN, Nicole: PERFORM Event Display: Patient Education Leaflets Authored Date: [id number] Ankle Sprain (Adult) ?? [id number] Esguince de tobillo (adultos) Un esguince de tobillo se produce cuando se estiran o se desgarran los ligamentos que conforman el tobillo. No hay huesos rotos en veronica jh. Un esguince de tobillo es christine lesi??n com??n tanto en ni??os pebbles en adultos. Ocurre cuando el tobillo se gira, se voltea o se ren de manera inadecuada. Hawkeye puede deberse a christine lesi??n deportiva. Tambi??n puede suceder haciendo algo fuller simple pebbles caminar en christine superficie desnivelada. Los ligamentos est??n hechos de tejido conjuntivo resistente. Normalmente, los ligamentos se estiran hasta cierto punto y luego vuelven a stoddard posici??n normal. Un esguince ocurre cuando un ligamento es forzado a estirarse m??s de lo normal. Un esguince melissa puede de hecho desgarrar los ligamentos.Si tiene un esguince grave, puede tiffany sentido o escuchado algo pebbles christine explosi??n al momento de l esionarse. Los esguinces de tobillo se clasifican en grados de acuerdo con stoddard nivel de gravedad: ??? Esguince de abdirahman??1. Es un esguince leve con estiramiento y da??os menores al ligamento. ??? Esguince de abdirahman??2. Es un esguince moderado en el que el ligamento se desagarra parcialmente. ??? Esguince de abdirahman??3. Es el tipo de esguince m??s grave. El ligamento est?? completamente desgarrado. La mayor??a de los esquinces tardan de 4 a 6??semanas para sanar. Un esguince grave puede tardar meses para recuperarse. El proveedor de atenci??n m??dica puede indicar radiograf??as para asegurarse de que no haya fracturas ni huesos rotos. La susu lesionada se sentir?? adolorida. La hinchaz??n y el dolor pueden hacer dif??cil caminar. Podr??a necesitar muletas si caminar le resulta doloroso. O quiz?? el proveedor le coloque un yeso, christine bota o christine f??vel inflable. Depender?? de la gravedad del esguince que tenga. Cuidados en el hogar ??? Para un esguince de abdirahman??1, siga el m??todo de reposo, hielo, compresi??n y elevaci??n (RICE,por stoddard sigla en ingl??s): ??? Repose el tobillo. No se apoye en ??l para caminar. ??? Aplique hielode inmediato para controlar la hinchaz??n. Coloque la compresa de hielo sobre la susu lesionada yulissa 20??minutos. Rosa Elena esto cada??3 o 6??horas yulissa las primeras??24 a 48??horas.??Siga utilizando las compresas de hielo para calmar el dolor y la hinchaz??n seg??n sea necesario. Para hacer christine compresa de hielo, coloque cubos de hielo en christine bolsa pl??stica y ci??rrela arriba. Envuelva la bolsa en christine toalla o un pa??o limpio y maryellen. Nunca aplique hielo ni compresas de hielo directamente sobre la piel. La compresa de hielo puede ponerse sobre el yeso, el vendaje o la f??vel. A medida que se derrite el hielo, tenga cuidado de que no se moje el yeso, el vendaje o la f??vel. Si tiene puesta christine bota, ??brala para aplicar la compresa de hielo, a menos que el proveedor de atenci??n m??dica le indique lo contrario. ??? Los dispositivos de compresi??n ayudan a controlar la hinchaz??n. Tambi??n evitan que el tobillo se mueva y le oneal soporte al tobillo lesionado. Estos dispositivos incluyen ap??sitos, vendas el??sticas y envoltorios. ??? Cuando est?? sentado o acostado, mantenga el tobillo elevado por encima del nivel del coraz??n. Es muy importante que rosa elena eso en las primeras 48??horas. ??? Si tiene un esguince de abdirahman??2, siga el m??todo RICE. Veronica tipo de esguince tardar?? m??s tiempo en sanar. Es posible que el proveedor le indique que use christine f??vel, un yeso o un aparato ortop??dico para evitar que el tobillo se mueva. ?Si tiene un esguince de abdirahman??3, corre el riesgo de tener inestabilidad a artur plazo en el tobillo. En raras ocasiones, se requiere christine cirug??a. Es posible que el proveedor le coloque un yeso corto o christine bota para caminar yulissa 2 o 3??semanas. ??? Despu??s de 48??horas, podr??a ser ??til aplicarle calor yulissa 20??minutos varias veces ald??a. Puede hacer esto con christine almohadilla calefactora o christine compresa tibia. O puede alternar entreel hielo y la gianfranco de calor. Nunca aplique calor directamente sobre la piel. Siempre envuelva la almohadilla o la compresa en christine toalla o pa??o eduardo. ??? Puede usar analg??sicos de venta gifty (medicamentos antinflamatorios no esteroideos, o BIANCA) para controlar el dolor, a menos que le hayanrecetado otro medicamento. Hable con el proveedor antes de keith estos medicamentos si tiene christine enfermedad cr??juan david del h??gado o de los ri??ones, ??lceras estomacales o hemorragias gastrointestinales, o si landry anticoagulantes. ??? Siga todos los ejercicios de rehabilitaci??n que le d?? el proveedor. Pueden ayudarlo a ser m??s flexible y a mejorar el equilibrio y la coordinaci??n. Es ??til paraprevenir problemas en el tobillo a artur plazo. Prevenci??n Para ayudar a prevenir las torceduras de tobillo, es importante tener christine buena fortaleza, equilibrio y flexibilidad. Aseg??rese de hacer lo siguiente: ??? Siempre entre en calor antes de hacer ejercicio o actividad intensa ??? Tenga cuidado al caminar o correr por superficies desniveladas o agrietadas ??? Use zapatos que est??n en buenas condiciones y le calcen bartolo ??? Escuche las se??ales del cuerpo cuando tenga dolor o est?? cansado ?? Visita de seguimiento Las radiograf??as que le hayan hecho hoy no muestran sandi??n hueso roto, ni fisuras ni fracturas. Aveces, las fracturas no se katherin en la primera radiograf??a. Los hematomas y esguinces a veces puedendoler tanto pebbles christine fractura. Puede llevar tiempo hasta que estas lesiones sanan completamente. Si cee s??ntomas no mejoran o empeoran, hable con stoddard proveedor de atenci??n m??dica. Es posible que deban realizarle otra radiograf??a. Asista a los controles con stoddard proveedor de atenci??n m??dica seg??n le hayan indicado. Preste atenci??n a los signos de advertencia descritos a continuaci??n. ?? Cu??ndo debe buscar atenci??n m??dica Llame de inmediato al proveedor de atenci??n m??dica si le ocurre algo de lo siguiente: ??? Fiebre de 100.4?F (38?C) o superior o seg??n la indicaci??n de stoddard proveedor ??? Escalofr??os ??? La lesi??n no parece estar sanando ??? Regresa la hinchaz??n ??? El yeso o la f??vel tienen mal olor ??? La tablilla o f??vel se moja o se ablanda ??? El yeso o f??vel de fibra de emeka se moja y no se seca yulissa 24??horas ??? El dolor o la hinchaz??n empeoran o hay enrojecimiento ??? Los dedos delos pies se ponen fr??os, azulados, adormecidos o con hormigueo ??? La piel est?? descolorida (se ve azulada, morada o nnamdi??cea), tiene ampollas o est?? irritada ??? Se vuelve a lesionar el tobillo ?? Last Reviewed Date: 2021 ?? [id number] [employer]. Todos los derechos reservados. Esta informaci??n no pretende sustituir la atenci??n m??dica profesional. S??lo stoddard m??dico puede diagnosticar y tratar un problema de blake. ?? Patient Care team information Care Team Personnel Name: Aamir Montoya MD Position: [facility] Outreach Member Role: PCP Address: Address: [address] [place] [address]- Care Team Related Persons Name: JOHN MONTE Address: home [address] [place] [address]
--- OUTSIDE RECORDS SUMMARY | 2024-08-31 14:52 | XMS_ITS | Continuity of Care Document ---
Author Organization [facility] Address [address] [place] [address]- Care Team Providers Care Boat Joiner Helper Name Role Phone Name Aamir MCCRARY Primary Care Physician Encounter [facility] Date(s): 02/29/24 - 03/30/24 [facility] [address] [place] [address]- Attending Physician: AdmDamien maldonado Admitting Physician: Admtr, Ar8 Referring Physician: Admtr, Ar8 Allergies, Adverse Reactions, Alerts Substance Reaction Severity [...] Confirmed Active Hx of smoking Confirmed Active Social History Social History Type Response Smoking Status Current every day sm oker; Type: Cigarettes; Other: pt smokes 1 to 1.5 ppd; entered on: 10/12/17 Sex Patient Care team information Care Team Personnel Name: Name Aamir MCCRARY Position: [facility] Outreach Member Role: PCP Address: Address: [address] [place] [id number]- Care Team Related Persons Name: JOHN MONTE Address: [address] [place] [address]
== END 2024-08-31 11:31 | disposition home or self-care (01) ==
PROVIDERS: PCP Internal Medicine Geriatric Medicine; Visit Provider Surgery
PROC: (CPT 19301; principal; 2024-08-31 08:30)
PROC: (CPT 38525; 2024-08-31 08:30)
DX: C50.511 Malignant neoplasm of lower-outer quadrant of right female breast (principal); Z17.0 Estrogen receptor positive status [ER+]; Z17.21 Progesterone receptor positive status; Z17.32 Human epidermal growth factor receptor 2 negative status; R91.8 Other nonspecific abnormal finding of lung field; I10 Essential (primary) hypertension; R00.2 Palpitations; F32.A Depression, unspecified; Z79.899 Other long term (current) drug therapy; Z79.82 Long term (current) use of aspirin; Z86.0101 Personal history of adenomatous and serrated colon polyps; Z88.5 Allergy status to narcotic agent; F17.210 Nicotine dependence, cigarettes, uncomplicated
CPT/HCPCS: 19301; 38525; 38900; 88305; 88307; 88329; 88341; 88342; J0131; J0690; J1100; J1171; J1885; J2003; J2250; J2405; J2704; J2795; J3010; Q9968

== ENCOUNTER → 2024-08-31 06:46 | Outpatient (BNV) | payer OTHER, SELFPAY | PROVIDERS: PCP Internal Medicine Geriatric Medicine; Visit Provider Surgery | DX: C50.511 Malignant neoplasm of lower-outer quadrant of right female breast (principal) | CPT/HCPCS: 19301; 38525; 38900 ==

== ENCOUNTER 2024-09-11 11:17 | Outpatient (AMB) | payer OTHER, SELFPAY ==
--- NOTE | 2024-09-11 11:19 | A.OFFVIS_ITS ---
Intake Visit Reasons: S/P Rt brst lump w/seed & SN bx Intake Note: Patient here s/p rt br lumpectomy w/seed & SN bx. Reports incision healing well. Patient c/o: superior steri strips in placed. Painful with touch. 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 Preliminary pathology results demonstrate margins clear and lymph nodes negative. Further studies are still being undertaken. The meantime, patient has minimal discomfort from her procedure. She is doing well otherwise. Increasing her activity level. COUNTS INCLUDE 234 BEDS AT THE [facility] Medical History (Updated 08/31/24 @ 07:31 by Adele Barajas RN) GERD (gastroesophageal reflux disease) Elevated cholesterol Hypertension, essential, benign History of palpitations Pulmonary nodules Personal history of nicotine dependence Tubular adenoma of colon (~2018) Depression Surgical History (Updated 09/11/24 @ 11:35 by Stefano Coombs MD) History of partial hysterectomy History of colonoscopy (~2018) History of esophagogastroduodenoscopy (EGD) (~2018) Family History Mother No problems noted. Father No problems noted. Social History Household Members: Significant Other Alcohol intake: never Patient Tobacco Use Status: Current everyday Tobacco user Cigarette Packs Per Day: 1 Cigarettes Per Day: 14 Years Smoked: 33 (onset 22yo) Current occupational status: disabled Physical Exam Chest Other: Both incisions clean dry and intact healing very well. Assessment & Plan Assessment & Plan (1) Postop check: Code(s): Z09 - Encounter for follow-up examination after completed treatment for conditions other than malignant neoplasm Category: Surgical Plan Current plan is 1. To see the patient 3 weeks time for follow-up. 2. Arrange for oncologic consultation, with also eventual radiation therapy per Oncology once her incision has healed. All questions answered. Patient will see me as directed above or p.r.n.. Orders: Referrals Hematology & Oncology Referral C50.911 - Malignant neoplasm of unspecified site of right female breast, N63.10 - Unspecified lump in the right breast, unspecified quadrant Coding Level of Care Code Global (37394) Diagnoses Postop check Z09
== END 2024-09-11 11:43 | disposition home or self-care (01) ==
PROVIDERS: PCP Internal Medicine Geriatric Medicine; Visit Provider Surgery
DX: Z09 Encounter for follow-up examination after completed treatment for conditions other than malignant neoplasm (principal)
CPT/HCPCS: 99024

== ENCOUNTER → 2024-09-11 11:17 | Outpatient (BNVA) | payer OTHER, SELFPAY | PROVIDERS: PCP Internal Medicine Geriatric Medicine; Visit Provider Surgery | DX: Z08 Encounter for follow-up examination after completed treatment for malignant neoplasm (principal); C50.911 Malignant neoplasm of unspecified site of right female breast; N63.10 Unspecified lump in the right breast, unspecified quadrant | CPT/HCPCS: 99212 ==

== ENCOUNTER 2024-10-01 11:06 | Outpatient (AMB) | payer OTHER, SELFPAY ==
--- NOTE | 2024-10-01 11:10 | A.OFFVIS_ITS ---
Intake Visit Reasons: 3 week follow up S/P Rt brst lump w/seed & SN bx Intake Note: Patient here 4wk S/P Rt brst lump w/seed & SN bx. Patient denies any issues or pain after breast lump bx. Consult with Dr. Lange scheduled on 10-08-24. Mine Patrol Required: No Accompanied by: Family/Other Allergies codeine Allergy (Unknown, Verified 10/01/24 11:09) heart palpitation Medication List - Last Reconciled 10/01/24 by Stefano Coombs MD albuterol sulfate 2.5 mg inhalation QID albuterol sulfate 90 mcg/actuation (Ventolin HFA) 2 puffs inhalation Q6H PRN aspirin 81 mg PO DAILY atorvastatin 40 mg PO DAILY bisacodyl (Dulcolax (bisacodyl)) 20 mg (4 x 5 mg) PO ONCE 1 day clonazepam 1 mg PO TID ergocalciferol (vitamin D2) 50 mcg PO DAILY escitalopram oxalate (Lexapro) 10 mg PO DAILY hydrocodone-acetaminophen 5-325 mg 1 tab PO Q4-6H PRN lisinopril 20 mg PO DAILY metoprolol succinate ER 100 mg PO DAILY omeprazole 20 mg PO DAILY oxycodone-acetaminophen 5-325 mg (Percocet) 1 tab PO Q4-6H PRN polyethylene glycol 3350 17 grams PO DAILY 30 days polyethylene glycol 3350 (Miralax) 238 grams PO ONCE quetiapine ER (Seroquel XR) 400 mg PO BEDTIME [STOOL SOFTENER 100MG CAPSULES 2 caps PO BEDTIME 30 days] sumatriptan succinate (Imitrex) 25 mg PO Q2-4H PRN zolpidem 10 mg PO BEDTIME PRN HPI Comments Details: Patient presents for follow-up. She is having some incisional discomfort which may be from a seroma. Presents here with her daughter. Patient was scheduled to see Oncology next week [facility] Medical History (Updated 10/01/24 @ 11:21 by Stefano Coombs MD) GERD (gastroesophageal reflux disease) Elevated cholesterol Hypertension, essential, benign History of palpitations Pulmonary nodules Personal history of nicotine dependence Tubular adenoma of colon (~2018) Depression Surgical History History of partial hysterectomy History of colonoscopy (~2018) History of esophagogastroduodenoscopy (EGD) (~2019) Family History Mother No problems noted. Father No problems noted. Social History Household Members: Significant Other Alcohol intake: never Patient Tobacco Use Status: Current everyday Tobacco user Cigarette Packs Per Day: 1 Cigarettes Per Day: 14 Years Smoked: 33 (onset 22yo) Current occupational status: disabled Physical Exam Chest Other: Patient has eschar over the incision but no evidence of any infection. Patient has a very pendulous breasts which is putting tension down the incision. She has unfortunately not been wearing a support bra. She has a moderately sized seroma which was aspirated of roughly 60 cc of serous fluid under sterile technique. Dressing applied. Well-tolerated Office Procedures Aspiration of Seroma Details: Under sterile technique uneventful right breast seroma aspirated of the cc of serous fluid. Well tolerated. Dressing applied. Aspiration of Seroma: 99290 Seroma Aspiration All charges added?: Procedure code (CPT) selection complete Assessment & Plan Assessment & Plan (1) Status post right breast lumpectomy: Code(s): Z98.890 - Other specified postprocedural states Category: Surgical (2) Seroma of breast: Code(s): N64.89 - Other specified disorders of breast Category: Medical Plan Patient will see me 6 months following last radiation therapy preceded by a postprocedure mammogram. Any wound issues or concerns during this interim, patient tolerated and instructed to contact me. Patient was encouraged wear a sport bra as well. Orders: Orders AMB Aspiration of Seroma Today N64.89 - Other specified disorders of breast Coding Level of Care Code Global (74216) Diagnoses Status post right breast lumpectomy Z98.890 Seroma of breast N64.89 CPT Codes Aspiration of Seroma ([id number])
== END 2024-10-01 11:18 | disposition home or self-care (01) ==
PROVIDERS: PCP Internal Medicine Geriatric Medicine; Visit Provider Surgery
DX: Z98.890 Other specified postprocedural states (principal); N64.89 Other specified disorders of breast
CPT/HCPCS: 99024

== ENCOUNTER → 2024-10-01 11:06 | Outpatient (BNVA) | payer OTHER, SELFPAY | PROVIDERS: PCP Internal Medicine Geriatric Medicine; Visit Provider Surgery | DX: N64.89 Other specified disorders of breast (principal); Z98.890 Other specified postprocedural states | CPT/HCPCS: 99212 ==

== ENCOUNTER 2024-10-05 07:51 | Day surgery (SDC) | payer OTHER, SELFPAY ==
--- NOTE | 2024-10-04 11:50 | P.CONAN_ITS ---
Documented by User: Yolette Kwan NP 10/04/24 11:58 HPI - Anesthesia Eval Consult details Narrative: 58yo F for Colonoscopy PMFSH Active Problems Active Problems: All Active Problems Seroma of breast (Acute) Status post right breast lumpectomy (Acute) Postop check (Acute) Breast cancer, right (Acute) Breast mass, right (Acute) Arthritis of right knee (Acute) Arthritis of left knee (Acute) Right knee pain (Acute) Left knee pain (Acute) Palpitations (Acute) Bowel habit changes (Acute) Hypertension, essential, benign (Acute) Personal history of nicotine dependence (Acute) Depression (Acute) Past Medical History Medical History (Updated 10/01/24 @ 11:21 by Stefano Coombs MD) GERD (gastroesophageal reflux disease) Elevated cholesterol Hypertension, essential, benign History of palpitations Pulmonary nodules Personal history of nicotine dependence Tubular adenoma of colon (~2018) Depression Family History Family History Mother No problems noted. Father No problems noted. Family history of problems with anesthesia: No Surgical History Surgical History (Updated 10/04/24 @ 11:03 by Adele Barajas RN) History of lumpectomy of right breast History of partial hysterectomy History of colonoscopy (~2018) History of esophagogastroduodenoscopy (EGD) (~2018) History of Problems with Anesthesia: No Social History Social History Household Members: Significant Other Alcohol intake: never Patient Tobacco Use Status: Current everyday Tobacco user Tobacco use type: Cigarette Cigarette Packs Per Day: 1 Cigarettes Per Day: 14 Years Smoked: 33 (onset 22yo) Use of substances other than those prescribed or required for medical reasons: No Are you DNR?: No Advance Directives: No Advance Directives Information Provided: Yes Current occupational status: disabled Meds Allergies Allergy/AdvReac Type Severity Reaction Status Date / Time codeine Allergy Unknown heart Verified 10/01/24 11:09 palpitation Home Medications ?Medication ?Instructions ?Recorded ?Confirmed ?Last Taken ?Type albuterol sulfate 2.5 mg/3 mL 2.5 mg inhalation QID 02/09/21 10/01/24 Unknown History (0.083 %) solution for nebulization albuterol sulfate 90 mcg/actuation 2 puff inhalation Q6H PRN 02/09/21 10/01/24 Unknown History aerosol inhaler (Ventolin HFA) Shortness Of Breath aspirin 81 mg tablet,delayed 81 mg PO DAILY 02/09/21 10/01/24 08/28/24 History release clonazepam 1 mg tablet 1 mg PO TID 02/09/21 10/01/24 Unknown History ergocalciferol (vitamin D2) 50 mcg 50 mcg PO DAILY 02/09/21 10/01/24 Unknown History (2,000 unit) capsule escitalopram oxalate 10 mg tablet 10 mg PO DAILY 02/09/21 10/01/24 Unknown History (Lexapro) lisinopril 20 mg tablet 20 mg PO DAILY 02/09/21 10/01/24 08/31/24 History metoprolol succinate 100 mg 100 mg PO DAILY 02/09/21 10/01/24 08/31/24 History tablet,extended release 24 hr omeprazole 20 mg capsule,delayed 20 mg PO DAILY 02/09/21 10/01/24 Unknown History release oxycodone-acetaminophen 5 mg-325 1 tab PO Q4-6H PRN Pain 02/09/21 10/01/24 Unknown History mg tablet (Percocet) quetiapine 400 mg tablet,extended 400 mg PO BEDTIME 02/09/21 10/01/24 Unknown History release 24 hr (Seroquel XR) sumatriptan succinate 25 mg tablet 25 mg PO Q2-4H PRN Migraine 02/09/21 10/01/24 Unknown History (Imitrex) Headache zolpidem 10 mg tablet 10 mg PO BEDTIME PRN Insomnia 02/09/21 10/01/24 Unknown History atorvastatin 40 mg tablet 40 mg PO DAILY 08/31/24 10/01/24 08/31/24 History Assessment and Plan Assessment Anesthesia Assessment: Chart Reviewed Final Anesthetic Review Family History of Problems with Anesthesia: No History of Problems with Anesthesia: No Documented by User: Bolivar Small MD 10/05/24 09:55 [facility] Past Medical History Medical History (Updated 10/01/24 @ 11:21 by Stefano Coombs MD) GERD (gastroesophageal reflux disease) Elevated cholesterol Hypertension, essential, benign History of palpitations Pulmonary nodules Personal history of nicotine dependence Tubular adenoma of colon (~2018) Depression Family History Family History Mother No problems noted. Father No problems noted. Surgical History Surgical History (Updated 10/04/24 @ 11:03 by Adele Barajas RN) History of lumpectomy of right breast History of partial hysterectomy History of colonoscopy (~2018) History of esophagogastroduodenoscopy (EGD) (~2018) Social History Social History Household Members: Significant Other Alcohol intake: never Patient Tobacco Use Status: Current everyday Tobacco user Tobacco use type: Cigarette Cigarette Packs Per Day: 1 Cigarettes Per Day: 14 Years Smoked: 33 (onset 22yo) Use of substances other than those prescribed or required for medical reasons: No Are you DNR?: No Advance Directives: No Advance Directives Information Provided: Yes Current occupational status: disabled Meds Allergies Allergy/AdvReac Type Severity Reaction Status Date / Time codeine Allergy Unknown heart Verified 10/01/24 11:09 palpitation Home Medications ?Medication ?Instructions ?Recorded ?Confirmed ?Last Taken ?Type albuterol sulfate 2.5 mg/3 mL 2.5 mg inhalation QID 02/09/21 10/01/24 Unknown History (0.083 %) solution for nebulization albuterol sulfate 90 mcg/actuation 2 puff inhalation Q6H PRN 02/09/21 10/01/24 Unknown History aerosol inhaler (Ventolin HFA) Shortness Of Breath aspirin 81 mg tablet,delayed 81 mg PO DAILY 02/09/21 10/01/24 08/28/24 History release clonazepam 1 mg tablet 1 mg PO TID 02/09/21 10/01/24 Unknown History ergocalciferol (vitamin D2) 50 mcg 50 mcg PO DAILY 02/09/21 10/01/24 Unknown History (2,000 unit) capsule escitalopram oxalate 10 mg tablet 10 mg PO DAILY 02/09/21 10/01/24 Unknown History (Lexapro) lisinopril 20 mg tablet 20 mg PO DAILY 02/09/21 10/01/24 08/31/24 History metoprolol succinate 100 mg 100 mg PO DAILY 02/09/21 10/01/24 08/31/24 History tablet,extended release 24 hr omeprazole 20 mg capsule,delayed 20 mg PO DAILY 02/09/21 10/01/24 Unknown History release oxycodone-acetaminophen 5 mg-325 1 tab PO Q4-6H PRN Pain 02/09/21 10/01/24 Unknown History mg tablet (Percocet) quetiapine 400 mg tablet,extended 400 mg PO BEDTIME 02/09/21 10/01/24 Unknown History release 24 hr (Seroquel XR) sumatriptan succinate 25 mg tablet 25 mg PO Q2-4H PRN Migraine 02/09/21 10/01/24 Unknown History (Imitrex) Headache zolpidem 10 mg tablet 10 mg PO BEDTIME PRN Insomnia 02/09/21 10/01/24 Unknown History atorvastatin 40 mg tablet 40 mg PO DAILY 08/31/24 10/01/24 08/31/24 History Exam Airway Mallampati Class: II TM Dist: <=3cm Neck ROM: Full Denture: Upper Heart: ok Lungs: ok Assessment and Plan Assessment Anesthesia Assessment: Anesthesia Plan Discussed Final Anesthetic Review NPO: Yes ASA Class: II Final Preanesthetic Review: No Changes in Pt Med Stat, Meds/Allgs Chart Reviewed, Consent Obtained/Reviewed and Anes Risks/Benef Reviewed Patient Risk: Intermediate Procedure Risk: Low Anesthetic Plan Anesthetic Plan: MAC: and Agree w/ Assess. and Plan Disposition: Standard PACU
--- NOTE | 2024-10-05 08:31 | P.HPSUR_ITS ---
Pre-Procedural Eval Section A - 24 Hr Update-Section A only Date of Service: 10/05/24 Section B - Complete if H&P > 30 days Chief Complaint: screening Details of Present Illness: Hypertension, essential, benign History of palpitations Pulmonary nodules Personal history of nicotine dependence Tubular adenoma of colon (~2018) Depression Surgical History History of colonoscopy (~2018) History of esophagogastroduodenoscopy (EGD) (~2018) Present Medications: see Short Stay Collaborative assessment Allergies: Allergies Allergy/AdvReac Type Severity Reaction Status Date / Time codeine Allergy Unknown heart Verified 10/01/24 11:09 palpitation Review of Systems Review of Systems Comment: 10 point ROS negative Exam Exam Comment: Gen appear: No acute distress HEENT: no icterus Chest: No overt resp distress Abd: soft, nontender, nondistended Psych: Stable affect, answering questions appropriately Neuro: A/Ox3 noted to move all extremities spontaneously Ext: no peripheral edema Plan Diagnosis/Plan: Unchanged I have reviewed the history and physical and performed a pertinent physical examination on my patient. No changes have occurred unless specified. Time Spent With Patient Time: Total time managing care of this patient today ____ minutes.
[2024-10-05 09:04] VITALS: BP 142/82; PULSE 67; RESP 16; TEMP 36.4; O2SAT 96; BMI 25.6
[2024-10-05] MEDS: Lactated Ringers 1,000 ML 100 ML IVCONT (09:19)
--- NOTE | 2024-10-05 10:34 | P.OPN-COLO_ITS ---
Colonoscopy Operative Note Operative Note Date of Service: 10/05/24 Narrative: Procedure: Colonoscopy Indication: Personal history of polyps Endoscopist: Mary Anne Martínez MD Anesthesia Provider: Bolivar Small MD Anesthesia type: MAC Instrument: Olympus [id number]-[id number] Consent: Indication, risks vs benefits, and alternatives were discussed with the patient who gave written informed consent to proceed. An agent based modeler was utilized to assist with the consent. EKG, pulse, pulse oximetry and blood pressure were monitored throughout the procedure. Please see anesthesia flowsheet. Procedure: The patient was brought to the procedure room and placed in the left lateral decubitus position. IV medications were administered by the anesthesia provider in attendance. A digital rectal exam was performed which was normal. A distal attachment cap was affixed to the tip of the colonoscope which was then inserted through the anus and advanced through the colon to the cecum at 70 cm,and terminal ileum. Appendiceal orifice and ileocecal valve were identified. Mucosa was carefully examined under high definition white light as the instrument was slowly withdrawn in a retrograde panoramic fashion. Retroflexion was performed in rectum. The procedure was not difficult. There were no immediate obvious complications. The quality of the prep was BBPS: 2+3+2 = adequate Withdrawal time 16 minutes. Limitations: No limitations. Findings: Mucosa: Normal to cecum and terminal ileum. Protruding lesions: * 1 sessile polyp of size 2 mm in ascending colon. Cold snare polypectomy was performed. The polyp was completely removed and retrieved. * 1 semi-pedunculated polyp of size 13 mm in descending colon. Hot snare polypectomy was performed. The polyp was completely removed and retrieved. * 1 sessile polyp of size 8 mm in descending colon. Cold snare polypectomy was performed. The polyp was completely removed and retrieved. * 1 sessile polyp of size 10 mm in sigmoid colon. Hot snare polypectomy was performed. The polyp was completely removed and retrieved. * Large internal hemorrhoids without stigmata of recent bleeding. Impression: 1. Normal colon mucosa 2. Total of 4 polyps removed 3. Internal hemorrhoids Recommendations: - Follow path results. - Repeat colonoscopy in 3 years.
[2024-10-05 10:41] VITALS: BP 113/65; PULSE 62; RESP 18; TEMP 36.6; O2SAT 94
[2024-10-05 10:56] VITALS: BP 125/78; PULSE 62; RESP 18; TEMP 36.6; O2SAT 98
== END 2024-10-05 11:27 | disposition home or self-care (01) ==
PROVIDERS: PCP Internal Medicine Geriatric Medicine; Visit Provider Internal Medicine
PROC: 0DJD8ZZ Inspection of Lower Intestinal Tract, Via Natural or Artificial Opening Endoscopic (ICD-10-PCS; CPT 45378; principal; 2024-10-05 09:40)
DX: Z12.11 Encounter for screening for malignant neoplasm of colon (principal); D12.2 Benign neoplasm of ascending colon; D12.4 Benign neoplasm of descending colon; D12.5 Benign neoplasm of sigmoid colon; K64.8 Other hemorrhoids; Z86.0101 Personal history of adenomatous and serrated colon polyps; I10 Essential (primary) hypertension; E78.5 Hyperlipidemia, unspecified; C50.911 Malignant neoplasm of unspecified site of right female breast; F17.210 Nicotine dependence, cigarettes, uncomplicated; Z79.82 Long term (current) use of aspirin; Z79.899 Other long term (current) drug therapy; Z79.02 Long term (current) use of antithrombotics/antiplatelets
CPT/HCPCS: 45385; 88305; J2003; J2704; J3010

== ENCOUNTER → 2024-10-05 07:51 | Outpatient (BNV) | payer OTHER, SELFPAY | PROVIDERS: PCP Internal Medicine Geriatric Medicine; Visit Provider Internal Medicine | DX: Z12.11 Encounter for screening for malignant neoplasm of colon (principal); Z86.0100 Personal history of colon polyps, unspecified; D12.4 Benign neoplasm of descending colon; D12.2 Benign neoplasm of ascending colon | CPT/HCPCS: 45385 ==

== ENCOUNTER → 2024-10-08 10:07 | Outpatient (BNV) | payer OTHER, SELFPAY | PROVIDERS: PCP Internal Medicine Geriatric Medicine; Referring Provider Internal Medicine; Visit Provider Internal Medicine | DX: C50.411 Malignant neoplasm of upper-outer quadrant of right female breast (principal) | CPT/HCPCS: 99205; G2211 ==

== ENCOUNTER 2024-10-16 08:35 | Outpatient (REF) | payer OTHER, SELFPAY ==
--- NOTE | ~2024-10-16 | MM_ITS ---
EXAMINATION: Dual-Energy X-ray Absorptiometry - Bone Density Study HISTORY: Estrogen deficiency TECHNIQUE: Super Derivatives Dual energy absorptiometry (DEXA) of the lumbar spine, total left hip, and femoral neck was performed. COMPARISON: There are no prior studies for comparison. FINDINGS: The bone mineral density of the lumbar spine is 0.997 with a T-score of -1.5, and a Z-score of 0.7. The bone mineral density of the left total hip is 0.953 with a T-score of -0.4, and a Z-score of 0.2. The bone mineral density of the left femoral neck is 0.931 with a T-score of -0.8, and a Z-score of 0.2. FRACTURE RISK: The FRAX index suggests a risk of major osteoporotic fracture of 3.3%, and of hip fracture 0.2%. MM/XR DEXA axial skeleton IMPRESSION: Based on bone mineral density, and according to World Health Organization (WHO) criteria, the diagnosis is consistent with osteopenia. All bone density values are in grams per centimeter squared. At this facility, the least significant change in BMD with 95% confidence is 0.022 at the lumbar spine, 0.027 at the hip, and 0.023 at the distal 1/3 radius. Electronically signed by: Miky Juarez MD 10/16/2024 10:28 AM [facility] [place]
== END 2024-10-16 08:36 | disposition home or self-care (01) ==
LOC: HO.MAMMO 08:35
PROVIDERS: PCP Internal Medicine Geriatric Medicine; Visit Provider Internal Medicine
DX: Z13.89 Encounter for screening for other disorder (principal)
CPT/HCPCS: 77080; 81003; 99202

== ENCOUNTER → 2024-10-16 08:45 | Outpatient (BNV) | payer OTHER, SELFPAY | PROVIDERS: PCP Internal Medicine Geriatric Medicine; Visit Provider Radiology Diagnostic Radiology | DX: E28.39 Other primary ovarian failure (principal) | CPT/HCPCS: 77080 ==

== ENCOUNTER 2024-10-16 12:55 | Outpatient (AMB) | payer OTHER, SELFPAY ==
--- NOTE | 2024-10-16 13:07 | A.OFFVIS_ITS ---
Intake Visit Reasons: hematuria/ hx of stones Intake Note: New patient Presents for Hematuria/Hx of Kidney stones Any Urology Medication: None Antibiotic Allergies:None Blood Thinners: Aspirin Patient states she has no current pain/discomfort in bladder. Reports that she has not seen any visible blood in her Urine recently. Traffic Analysis Technician Required: No Accompanied by: Self / Same As Patient Allergies codeine Allergy (Unknown, Verified 10/16/24 13:41) heart palpitation Medication List - Last Reconciled 10/16/24 by BERTA Casas- albuterol sulfate 2.5 mg inhalation QID albuterol sulfate 90 mcg/actuation (Ventolin HFA) 2 puffs inhalation Q6H PRN aspirin 81 mg PO DAILY atorvastatin 40 mg PO DAILY bisacodyl (Dulcolax (bisacodyl)) 20 mg (4 x 5 mg) PO ONCE 1 day bupropion HCl XL 300 mg PO DAILY clonazepam 1 mg PO TID ergocalciferol (vitamin D2) 50 mcg PO DAILY escitalopram oxalate 20 mg PO DAILY hydrocodone-acetaminophen 5-325 mg 1 tab PO Q4-6H PRN hydroxyzine pamoate 50 mg PO BID PRN lisinopril 20 mg PO DAILY metoprolol succinate ER 100 mg PO DAILY omeprazole 20 mg PO DAILY oxycodone-acetaminophen 5-325 mg (Percocet) 1 tab PO Q4-6H PRN polyethylene glycol 3350 17 grams PO DAILY 30 days polyethylene glycol 3350 (Miralax) 238 grams PO ONCE quetiapine ER (Seroquel XR) 400 mg PO BEDTIME [STOOL SOFTENER 100MG CAPSULES 2 caps PO BEDTIME 30 days] sumatriptan succinate (Imitrex) 25 mg PO Q2-4H PRN zolpidem 10 mg PO BEDTIME PRN HPI Comments Details: Jeanna is a pleasant 59-year-old Malagasy-speaking female patient of Dr. Montoya she is accompanied by her granddaughter at today's office visit. She has a past medical history of GERD, hypercholesteremia, hypertension, pulmonary nodules, nicotine dependence,breast cancer, and depression. She presents to the office today as a new patient for microscopic hematuria. In discussion with the patient today she reports having followed up with her PCP at which time microscopic hematuria was noted and recommendations were made for urology referral for further assessment evaluation. She does report a longstanding history of nicotine dependence for over 37 years. She reports smoking approximately 1 pack per day however is attempting to decrease in his currently smoking approximately 15 cigarettes per day. She reports a longstanding history of nephrolithiasis requiring lithotripsy in the past. In review of patient's chart it appears patient with recent renal imaging 09/02 that notes bilateral kidneys with no calculi and or hydronephrosis. Bilateral benign simple appearing cyst that require no imaging follow-up per radiology report. She does report intermittent episodes of bladder discomfort. However, she currently denies any bothersome lower urinary tract symptoms and or urinary issues. She denies urinary urgency, urinary frequency, incontinence, nocturia, hematuria, dysuria, foul smelling urine, changes to urinary stream, flank pain, fever, and or chills. She is happy with her current voiding parameters. We discussed at length potential causes of microscopic hematuria as well as further workup to include imaging and in office cystoscopy versus surveillance monitoring. Risks and benefits of these interventions were discussed. All questions were answered. She otherwise offers no other issues or concerns at this time. [facility] Medical History GERD (gastroesophageal reflux disease) Elevated cholesterol Hypertension, essential, benign History of palpitations Pulmonary nodules Personal history of nicotine dependence Tubular adenoma of colon (~2018) Depression Surgical History History of lumpectomy of right breast History of partial hysterectomy History of colonoscopy (~2019) History of esophagogastroduodenoscopy (EGD) (~2019) Family History Mother No problems noted. Father No problems noted. Social History Household Members: Significant Other, Friend(s) and Other Alcohol intake: never Patient Tobacco Use Status: Current everyday Tobacco user Tobacco use type: Cigarette Cigarette Packs Per Day: 1 Years Smoked: 33 (onset 22yo) service: No Current occupational status: disabled Sexual orientation: Straight/Heterosexual Gender identity: Female Review of Systems Const All systems reviewed & are unremarkable except as noted in HPI and below Physical Exam Const General: cooperative, comfortable, no acute distress, well developed, alert and awake Orientation/consciousness: patient oriented x3 Limitations: no limitations HEENT Head: Yes normal to inspection, Yes normocephalic and Yes atraumatic Ears: hearing grossly normal bilaterally Eyes General: appearance normal, both eyes and all related structures Neck Neck: Yes normal visual inspection and Yes trachea midline Chest Chest palpation & inspection: normal inspection of the chest Resp Effort & Inspection: normal respiratory effort and able to speak in complete sentences Cardio Rate: regular rate GI Inspection: Yes normal to inspection General: Yes no CVA tenderness Back/Spine/Pelvis Back: no CVA tenderness Skin General skin exam: no rashes or lesions noted Neuro General: patient oriented x3 Extrem General: Yes normal to inspection Psych Appearance: grossly normal and well kempt Mental Status: mental status grossly normal Speech and movement: Normal speech and movement present and Clear speech present Affect: normal affect Attitude: cooperative Thought process: Normal thought process present Thought content: Normal thought content present Insight: Fair insight present (Psych) Judgement: Fair judgement present (Psych) Results AMB Urinalysis, Automated UA Leukoctes 0 [place]/uL Last Edit by Carmen Morgan Sherrill on 10/16/24 13:26 UA Nitrite Negative Last Edit by Carmen Morgan [facility] on 10/16/24 13:26 UA Urobilinogen 0.2 mg/dL Last Edit by NATALIA Moon on 10/16/24 13:2 6 UA Protein 15 mg/dL Last Edit by Carmen Morgan [facility] on 10/16/24 13:26 UA pH 6.0 Last Edit by Carmen Morgan Sherrill on 10/16/24 13:26 UA Blood 80 Ru/uL Last Edit by Carmen Morgan [facility] on 10/16/24 13:26 UA Specific [place] 1.025 Last Edit by NATALIA Moon on 10/16/24 13: 26 UA Ketone Negative Last Edit by NATALIA Moon on 10/16/24 13:26 UA Bilirubin 0 mg/dL Last Edit by YOBANI Moon on 10/16/24 13:26 UA Glucose 0 mg/dL Last Edit by Carmen Morgan [facility] on 10/16/24 13:26 Results Reviewed Results Reviewed: Laboratory Last Values Urine pH (Auto) 6.0 10/16/24 13:13 Specific [place] (Auto) 1.025 10/16/24 13:13 Urine Protein (Auto) 15 mg/dL 10/16/24 13:13 Glucose (UA)(Auto) 0 mg/dL 10/16/24 13:13 Urine Ketones (Auto) Negative 10/16/24 13:13 Urine Blood (Auto) 80 Ru/uL 10/16/24 13:13 Urine Nitrite (Auto) Negative 10/16/24 13:13 Urine Bilirubin (Auto) 0 mg/dL 10/16/24 13:13 Urine Urobilinogen (Auto) 0.2 mg/dL 10/16/24 13:13 Leukocyte Esterase (Auto) 0 [place]/uL 10/16/24 13:13 Date of Service: 08/22/24 EXAMINATION: US RETROPERITONEAL LIMITED (RENAL ONLY) FINDINGS: RIGHT KIDNEY: 10.8 x 4.5 x 4.9 cm (SAG x AP x TRV). The kidney is normal in size, contour, and echogenicity. Renal cortical thickness is normal. No calculi or focal parenchymal lesions. No hydronephrosis. At the upper pole, a 1.4 cm benign, simple cyst is seen. This requires no imaging follow-up. LEFT KIDNEY: 10.8 x 5.4 x 4.7 cm (SAG x AP x TRV). The kidney is normal in size, contour, and echogenicity. Renal cortical thickness is normal. No calculi or focal parenchymal lesions. No hydronephrosis. At the upper pole, a 2.1 cm benign, simple cyst is seen. At the interpolar aspect, a 1.1 cm benign, simple cyst is seen. These require no imaging follow-up. IMPRESSION: Unremarkable examination. Assessment & Plan Assessment & Plan (1) Personal history of nicotine dependence: Comment: (current smoker, onset 22, 1ppd x 33yrs, 33pyh - in LDCT program) Code(s): Z87.891 - Personal history of nicotine dependence Category: Medical (2) Microscopic hematuria: Code(s): R31.29 - Other microscopic hematuria Category: Medical Plan In office urinalysis results reviewed with the patient today; as noted above; will send for urine cytology. Patient currently denies any bothersome urinary issues or concerns. She reports be happy with current voiding parameters. We discussed at length potential causes of microscopic hematuria as well as further workup as well as risks and benefits of these interventions. All questions were answered. Discussed, educated, and stressed the importance of quitting/limiting nicotine dependence for overall health and well-being. Will obtain CT urogram for further assessment evaluation. BUN and creatinine ordered for imaging Follow-up next available in office cystoscopy with imaging and labs to be completed prior; or sooner with any issues, concerns, and or questions. Orders: Orders AMB Urinalysis Automated Today Z13.9 - Encounter for screening, unspecified Urine Cytology Today R31.9 - Hematuria, unspecified CT urogram Today R31.0 - Gross hematuria Blood Urea Nitrogen Today R39.15 - Urgency of urination Creatinine Today R39.15 - Urgency of urination Patient Instructions: The patient had an opportunity to ask questions regarding the treatment plan. All questions were answered. Physical exam, labs, and imaging were discussed and reviewed in detail. As well as risks, benefits, and discussion of treatment choices. No major barriers to understanding were identified. The patient expressed understanding and agreement with the above treatment plan. The patient was made aware they should contact our office by phone for worsening of their current condition, the appearance of new symptoms, or with any questions or concerns. Compliance is encouraged with any medications and follow up testing that is ordered. It is a privilege to be allowed the opportunity to participate in? your urological care.? Again, if you have any questions or concerns If you have any questions or concerns please do not hesitate to contact me. The office is [phone]. This note is constructed using voice recognition software. While every effort has been made to ensure accuracy clock mechanic errors may have been included. Yours sincerely, JOSEF Casas Coding Level of Care Code New Pt Level 3 (70378) Diagnoses Personal history of nicotine dependence Z87.891 Microscopic hematuria R31.29
== END 2024-10-16 13:40 | disposition home or self-care (01) ==
PROVIDERS: PCP Internal Medicine Geriatric Medicine; Visit Provider Nurse Practitioner Family
DX: Z87.891 Personal history of nicotine dependence (principal); R31.29 Other microscopic hematuria; Z13.9 Encounter for screening, unspecified
CPT/HCPCS: 99203

== ENCOUNTER 2024-10-16 13:28 | Outpatient (REF) | payer OTHER, SELFPAY ==
[2024-10-16 16:53] LABS: Urine Cytology See Pathology rpt
== END 2024-10-16 13:29 | disposition home or self-care (01) ==
LOC: HO.LAB 13:28
PROVIDERS: Visit Provider Nurse Practitioner Family
DX: R31.29 Other microscopic hematuria (principal); Z87.891 Personal history of nicotine dependence; C50.911 Malignant neoplasm of unspecified site of right female breast
CPT/HCPCS: 77080; 81003; 88112; 99202

== ENCOUNTER → 2024-11-12 09:31 | Outpatient (BNVA) | payer OTHER, SELFPAY | PROVIDERS: PCP Internal Medicine Geriatric Medicine; Visit Provider Surgery | DX: T81.31XA Disruption of external operation (surgical) wound, not elsewhere classified, initial encounter (principal); F17.210 Nicotine dependence, cigarettes, uncomplicated; Z71.6 Tobacco abuse counseling | CPT/HCPCS: 99212 ==

== ENCOUNTER 2024-11-19 13:12 | Outpatient (AMB) | payer OTHER, SELFPAY ==
--- NOTE | 2024-11-19 13:16 | A.OFFVIS_ITS ---
Intake Visit Reasons: 1 wk follow up puss coming from breast incision Intake Note: Patient here for 1wk follow up wound infection on Rt breast. Reports improvement with Cephalexin. Abx course will be completed 11-22-2024. Patient c/o: denies oozing, bleeding, pain. Chocolate Maker Required: No Accompanied by: Spouse Allergies codeine Allergy (Unknown, Verified 11/19/24 13:20) heart palpitation HPI Comments Details: Patient has marked improvement of her superficial incisional drainage. Complete resolution of this. She completed her antibiotic course. She presents here with a significant other. [facility] Medical History GERD (gastroesophageal reflux disease) Elevated cholesterol Hypertension, essential, benign History of palpitations Pulmonary nodules Personal history of nicotine dependence Tubular adenoma of colon (~2018) Depression Surgical History History of lumpectomy of right breast History of partial hysterectomy History of colonoscopy (~2018) History of esophagogastroduodenoscopy (EGD) (~2018) Family History Mother No problems noted. Father No problems noted. Social History Household Members: Significant Other, Friend(s) and Other Alcohol intake: never Patient Tobacco Use Status: Current everyday Tobacco user Tobacco use type: Cigarette Cigarette Packs Per Day: 1 Years Smoked: 33 (onset 22yo) service: No Current occupational status: disabled Sexual orientation: Straight/Heterosexual Gender identity: Female Physical Exam Chest Other: Mid incision demonstrates eschar which is clean dry and intact. Remaining incision proximal and distal are healing by 1st intention. Assessment & Plan Assessment & Plan (1) Visit for wound check: Code(s): Z51.89 - Encounter for other specified aftercare Category: Surgical Plan Patient was being followed by Oncology. Arrangements will eventually be made for breast radiation as well as adjuvant therapy per Oncology. Patient was see me in 6 months time status post completion of the above-mentioned therapies for postprocedure baseline mammograms and surveillance. All questions answered.. In the meantime, patient was continued to smoke. She has been strongly encourage to discontinue this and talked to her medical doctor for ways to help her in this [facility]. This would greatly aid in her wound healing. Coding Level of Care Code Complex EM visit Add On G2211 Diagnoses Visit for wound check Z51.89
--- OUTSIDE RECORDS SUMMARY | 2024-11-19 14:16 | XMS_ITS | Clinical Summary ---
Author Organization [employer] Address [address] [facility] [address] [place] [address] Care Team Providers Care Clinical Laboratory Aide Name Role Phone Name, Aamir MCCRARY Primary Care Provider [phone] Allergies Active Allergy Reactions Criticality Noted Date Comments Atorvastatin 10/06/2016 Codeine 11/03/2022 Other reaction(s): increases heartrate Other Reaction(s): heart palpitation Varenicline 11/03/2022 Medications naloxone (Narcan) 4 mg/0.1 mL nasal spray Administer 1 spray (4 mg) into affected nostril(s) if needed for opioid reversal. May repeat every 2-3 minutes if needed, alternating nostrils, until medical assistance becomes available. 2 each 3 01/01/20 23 Active zolpidem (Ambien) 10 MG tablet Take 10 mg by mouth if needed at bedtime. 01/15/20 23 Active hydrOXYzine pamoate (Vistaril) 50 MG capsule Take 100 mg by mouth at bedtime. 01/19/20 23 Active escitalopram (Lexapro) 20 MG tablet TAKE 1 TABLET BY MOUTH EVERY DAY FOR MOOD OR ANXIETY 01/13/20 23 Active clonazePAM (KlonoPIN) 1 MG tablet Take 1 mg by mouth 3 times daily. 01/19/20 23 Active buPROPion XL (Wellbutrin XL) 300 MG 24 hr tablet Take 300 mg by mouth in the morning. 01/13/20 23 Active albuterol 108 (90 Base) MCG/ACT inhaler Inhale 2 puffs every 4 (four) hours. 18 g 3 01/27/20 23 Active baclofen (Lioresal) 10 MG tablet TAKE 1 TABLET(10 MG) BY MOUTH THREE TIMES DAILY 60 tablet 04/18/20 23 Active Blood Pressure Monitor device Use once a day as directed 1 each 07/15/20 23 Active albuterol (2.5 MG/3ML) 0.083% nebulizer solution Take 3 mL (2.5 mg) by nebulization every 6 (six) hours if needed for wheezing. 75 mL 11 09/16/20 23 Active atorvastatin (Lipitor) 40 MG tabletIndicati ons:High cholesterol TAKE 1 TABLET(40 MG) BY MOUTH IN THE MORNING 90 tablet 3 05/24/20 24 Active omeprazole (PriLOSEC) [address] capsuleIndicat ions:Heartburn TAKE 1 CAPSULE BY MOUTH EVERY DAY 30 MINUTES TO 1 HOUR BEFORE A MEAL 90 capsule 3 05/24/20 24 Active metoprolol succinate XL (Toprol-XL) 100 MG 24 hr tablet TAKE 1 TABLET(100 MG) BY MOUTH IN THE MORNING 90 tablet 3 05/24/20 24 Active naloxone (Narcan) 4 mg/0.1 mL nasal sprayIndicatio ns:Chronic low back pain without sciatica, unspecified back pain laterality Administer 1 spray (4 mg) into affected nostril(s) if needed for opioid reversal. 2 each 2 06/27/20 24 Active losartan (Cozaar) 100 MG tablet TAKE 1 TABLET(100 MG) BY MOUTH IN THE MORNING 90 tablet 1 07/16/20 24 Active QUEtiapine (SEROquel) 400 MG tabletIndicati ons:Mood disorder (CMS/HCC) TAKE 1 TABLET BY MOUTH EVERY DAY 90 tablet 1 07/16/20 24 Active Aspirin Low Dose 81 MG EC tabletIndicati ons:Hypertensi on, unspecified type TAKE 1 TABLET BY MOUTH EVERY DAY 90 tablet 3 08/02/20 24 Active amLODIPine (Norvasc) 10 MG tabletIndicati ons:Hypertensi on, unspecified type TAKE 1 TABLET(10 MG) BY MOUTH IN THE MORNING 90 tablet 1 11/02/19 25 Active oxyCODONE-acet aminophen (Percocet) 5-325 MG tabletIndicati ons:Chronic pain syndrome Take 1 tablet by mouth every 12 (twelve) hours if needed for severe pain for up to 28 days. 56 tablet 11/08/19 25 2024 Active amLODIPine (Norvasc) 10 MG tabletIndicati ons:Hypertensi on, unspecified type TAKE 1 TABLET(10 MG) BY MOUTH IN THE MORNING 90 tablet 1 05/07/20 24 2024 Discontinued oxyCODONE-acet aminophen (Percocet) 5-325 MG tabletIndicati ons:Chronic pain syndrome Take 1 tablet by mouth every 12 (twelve) hours if needed for severe pain for up to 28 days. 56 tablet 10/11/19 25 2024 Discontinued(R eorder (will not trigger notification to Pharmacy)) Active Problems Problem Noted Date Diagnosed Date Arthritis of right knee 10/23/2024 Bowel habit changes 10/23/2024 Overview (10/23/2024): A 55-year-old female not forthcoming, change in bowel pattern however treated for an infectious colitis back several months ago with good response. She has had 1 episode of diarrhea nothing further. She will maintain high-fiber diet. We reinforced importance of follow through colonoscopy for history of adenoma-in 2019-repeat will be due 2023 Breast cancer, right 10/23/2024 Breast mass, right 10/23/2024 Palpitations 10/23/2024 Overview (10/23/2024): Resolved Personal history of nicotine dependence 10/23/19 Overview (10/23/2024): (current smoker, onset 20, 1ppd x 33yrs, 33pyh - in LDCT program) Postop check 10/23/2024 Seroma of breast 10/23/2024 Status post right breast lumpectomy 10/23/2024 Infiltrating ductal carcinoma of right breast Right knee pain 02/29/2024 Smoking 05/30/2023 Panic attack 05/30/2023 Adenomatous polyp of colon 01/26/2023 Overview (06/01/2023): Removed during colonoscopy ([facility] 2018, was recommended repeat 2023 Tobacco dependence syndrome 01/26/2023 Migraine 01/08/2019 Vitamin D deficiency 09/11/2018 Right ankle pain 06/06/2018 Pulmonary emphysema 04/10/2018 Calcification of lung 03/16/2018 Overview (06/01/2023): LRCT program at [facility], last CT 04/2023 (recommended repeat 6 months) Depression 02/28/2018 Anxiety 06/03/2017 Claustrophobia 06/03/2017 Recurrent major depressive episodes 06/03/2017 Chronic low back pain 11/11/2015 Degeneration of lumbosacral intervertebral disc 11/11/2015 Hypercholesterolemia 11/11/2015 Hypertension, essential, benign 11/11/2015 H/O: hysterectomy 11/11/2015 Resolved Problems Problem Noted Date Diagnosed Date Resolved Date Adenomatous polyp 05/30/2023 06/01/2023 Colitis 05/30/2023 06/01/2023 Spasm 05/30/2023 06/01/2023 Lung mass 04/10/2018 06/01/2023 Overview (01/26/2023): Pulmonary nodule, followed with CT chest. Last CT 2018 showed: Small stable calcified pulmonary nodules, largest measuring 6 mm in the left lower lobe. The small peripheral or subpleural 3 mm anterior segment left upper lobe noncalcified pulmonary nodule is no longer seen. 3 mm noncalcified peripheral or subpleural left lower lobe nodule adjacent to the fissure is stable and may represent a subpleural lymph node. Stable bronchial soft tissue opacification in the right middle lobe. No new pulmonary nodule seen. Mild coronary artery calcification. Small pericardial effusion similar to previous exam. Oren hematuria 04/10/2018 06/01/2023 Dyspnea on exertion 12/19/2017 06/01/20 23 Tight chest 08/31/2017 06/01/2023 Encounters Date Type Department Care Team Description 11/08/2024 Refill [facility] [address] [place] [address] NameAamir MD Chronic pain syndrome 11/02/2024 Refill [facility] [address] [place], [place] [id number] NameAamir MD Hypertension, unspecified type 10/23/2024 Patient Outreach [facility] [address] [place] [address] NameAamir MD Pre-visit Planning (SDOH screening is negative , Tobacco screening is positive) 10/23/2024 Telephone [facility] [address] [place] [address] Nigel Pierre MA chart prep 10/11/2024 Refill [facility] [place] [address] Aamir Montoya MD Chronic pain syndrome 10/08/2024 Abstract [facility] [place] [address] Nigel Pierre MA 10/05/2024 Orders Only GENERIC EXTERNAL DATA DEPARTMENT Provider, Generic External Data 09/13/2024 Refill [facility] [place] [address] Aamir Montoya MD Chronic pain syndrome 08/31/2024 Orders Only GENERIC EXTERNAL DATA DEPARTMENT Provider, Generic External Data 08/31/2024 Telephone [facility] [place] [address] Aamir Montoya MD Medication Question 08/30/2024 Telephone [facility] [place] [address] Aamir Montoya MD Durable Medical Equipment 08/23/2024 11:30 AM EST Clinical Support [facility] [place] [address] Francine Oneill RN Chronic low back pain without sciatica, unspecified back pain laterality (Primary Dx) 08/23/2024 Travel from Last 3 Months Immunizations Name Administration Dates Next Due Influenza injectable quadriv alent IIV4 with preservative 08/31/2017 Influenza injectable quadriv alent preservative free 07/28/2023,07/05/2020,09/10/2019,2017,10/06/2016 Influenza, IIV3, injectable 07/01/2015 Influenza, seasonal, injecta ble, preservative free 08/17/2024 Pfizer Covid-19 Vaccine 12+ 08/17/2024 Pneumococcal Conjugate PCV 20 06/01/2023 Tdap 06/01/2023,03/13/2013 Social History Tobacco Use Types Packs/Day Years Used Date Smoking Tobacco: Every Day Cigarettes Tobacco Cessation:Ready to Q uit: Not Asked; Counseling Given: Not Answered Alcohol Use Standard Drinks/Week Comments Never 0 (1 standard drink = 0.6 oz pur e alcohol) Depression Answer Date Recorded Patient Health Questionnaire-9 Score 6 08/17/2024 Patient Health Questionnaire-9 Score 6 08/17/2024 Last PHQ-9: Questionnaire Data Not on file 1 10/17/2023 Housing Stability Answer Date Recorded What is your housing situation today? I have flaca mckeon 08/17/[address] you li ve. Do you have problems with any of the following? None of the above 08/17/2024 Food Insecurity Answer Date Recorded Within the past 12 months, y ou worried that your food would run out before you got money to buy more: Never True 08/17/2024 Within the past 12 months,th e food you bought just didn't last and you didn't have enough money to get more: Never True 05/2024 Transportation Answer Date Recorded In the past 12 months, has l ack of transportation kept you from medical appts, meetings, work or from getting things needed for daily living? No 08/17/2024 Utilities Answer Date Recorded In the past 12 months, has t he electric, gas, oil or water company threatened to shut off services in your home? No 08/17/2024 Depression Answer Date Recorded Patient Health Questionnaire-2 Score 2 08/17/2024 Internet Access Answer Date Recorded Internet Access Q1 Yes 08/17/2024 Internet Access Q2 Not on file 08/17/2024 Comments Unknown Sex and Gender Information Value Date Recorded Sex Assigned at Female 08/09/2022 10:29 AM EDT Legal Sex Female 10:29 AM EDT Gender Identity Female 08/09/2022 10:29 AM EDT Sexual Orientation Straight 08/09/2022 10 :29 AM EDT Last Filed Vital Signs Vital Sign Reading Time Taken Comments Blood Pressure 146/81 08/17/2024 11:26 AM EST Pulse 73 08/17/2024 11:26 AM EST Temperature 36.2 ??C (97.1 ??F) 12/21/2023 1 1:33 AM EDT Respiratory Rate 14 08/17/2024 11:2 6 AM EST Oxygen Saturation 96% 08/17/2024 11: 26 AM EST Inhaled Oxygen Concentration - - Weight 70.2 kg (154 lb 12.8 oz) 024 11:26 AM EST Height 165.1 cm (5' 5 ) 08/17/2024 11:2 6 AM EST Body Mass Index 25.76 08/17/2024 11:26 AM EST Plan of Treatment Upcoming Encounters Date Type Department Care Team (Late st Contact Info) Description 12/06/2024 11:30 AM EST Clinical Support [facility] [address] [place] [address] Francine Oneill, RN Health Maintenance Due Date Last Done Comments CT Colonography 1967 FIT DNA/Cologuard 1967 FIT 1967 FOBT 1965 Sigmoidoscopy 1967 Alcohol/Substance Use Screening 1979 Hepatitis A Vaccines (1 of 2 - Risk 2-dose series) 1986 Hepatitis B Vaccines (1 of 3 - 19+ 3-dose series) 1986 Pap Smear 1988 Cervical Cancer Screening 1997 HPV/Cotest 1997 Zoster Vaccines (1 of 2) 2017 Depression Screening 08/17/2025 08/17/2024, 08/17/20 24 Tobacco Screening 08/17/2025 08/17/2024 SDOH Screening 10/23/2025 10/23/2024 Colonoscopy 10/05/2027 10/05/2024, 04/28/2019 Colorectal Cancer Screening 10/05/2027 Lipid Panel 07/26/2029 07/26/2024, 04/09, 05/31/2022 DTaP/Tdap/Td Vaccines (3 - Td or Tdap) 06/01/2033 06/01/2023, 03/13/2013 RSV Patients and Patients Aged 60 years or older (1 - 1-dose 75+ series) 2042 Pneumococcal Vaccine: 50+ Years Completed 06/01/2023 HIV Screening Completed 07/26/2024 Hepatitis C Screening Completed 07/26/2024 COVID-19 Vaccine Completed 08/17/2024, , 01/14/2021, Additional history exists Influenza Vaccine Completed 08/17/2024, , 07/05/2020, Additional history exists HIB Vaccines Aged Out No longer eligi ble based on patient's age to complete this topic HPV Vaccines Aged Out No longer eligi ble based on patient's age to complete this topic IPV Vaccines Aged Out No longer eligi ble based on patient's age to complete this topic Meningococcal Vaccine Aged Out No tai angelic eligible based on patient's age to complete this topic RSV under 20 months Aged Out No longe r eligible based on patient's age to complete this topic Rotavirus Vaccines Aged Out No longer eligible based on patient's age to complete this topic Procedures Procedure Name Priority Date/Time Associated Diagnosis Comments BD DEXA AXIAL Routine 10/16/2024 8:45 AM EST HM COLONOSCOPY Routine 10/05/2024 10:40 AM EST HEMATOXYLIN AND EOSIN STAIN Routine 10/05/2024 10:14 AM EST HEMATOXYLIN AND EOSIN STAIN Routine 08/31/2024 9:12 AM EST BI MM SURGICAL SPECIMEN Routine 08/31/2024 7:11 AM EST NM SENTINEL NODE W IMAGING Routine 08/30/2024 7:41 AM EST POCT AMY-14 URINE DRUG SCREEN Routine 08/23/2024 11:39 AM EST Chronic low back pain without sciatica, unspecified back pain laterality US RENAL BI Routine 08/22/2024 2:05 PM EST MM RF TAG DEVICE RT Routine 08/22/2024 1 0:00 AM EST HEPATITIS C AB W/REFL TO HCV RNA, QN, PCR Routine 07/26/2024 10:59 AM EDT Need for hepatitis C screening test HIV 1/2 ANTIGEN/ANTIBODY, FOURTH GENERATION W/RFL Routine 07/26/2024 10:59 AM EDT Screening for HIV (human immunodeficiency virus) LIPID PANEL, STANDARD Routine 07/26/2024 10:59 AM EDT Essential hypertension from Last 3 Months or Most Recently Relevant to Health Maintenance Results * BD DEXA Axial (10/16/2024 8:45 AM EST) Anatomical Region Laterality Modality Body Radiographic Shakira ging 10/16/2024 8:45 AM EST Narrative 10/16/2024 10:31 AM EST ? [facility] ? [address] ?[place] [address] ? Mammography Report ? Signed ? Patient: Graham,Jeanna ?MR#: [id number] ? : 1965 ?Acct:[id number] ? Age/Sex: 59 / F ?ADM Date: 10/16/24 ? Loc: HO.MAMMO ? Attending Dr: Gemini Lange MD ? Ordering Physician: Gemini Lange MD ?Results: ? Date of Service: 10/16/24 ?Follow Up: ? Procedure(s): XR DEXA axial skeleton ?? Accession Number(s): [id number] ? cc: Gemini Lange MD; Name,Aamir MD ? EXAMINATION: ??Dual-Energy X-ray Absorptiometry - Bone Density Study ? HISTORY: ??Estrogen deficiency ? TECHNIQUE: [employer] Dual energy absorptiometry (DEXA) ?? of the lumbar spine, total left hip, and femoral neck was performed. ? COMPARISON: ??There are no prior studies for comparison. ? FINDINGS: ? The bone mineral density of the lumbar spine is 0.997 with a T-score of ?? -1.5, and a Z-score of 0.7. ? The bone mineral density of the left total hip is 0.953 with a T-score ?? of -0.4, and a Z-score of 0.2. ? The bone mineral density of the left femoral neck is 0.931 with a ?? T-score of -0.8, and a Z-score of 0.2. ? FRACTURE RISK: ?? The FRAX index suggests a risk of major osteoporotic fracture of 3.3%, ?? and of hip fracture 0.2%. ? MM/XR DEXA axial skeleton ?? IMPRESSION: ?? Based on bone mineral density, and according to World Health ?? Organization (WHO) criteria, the diagnosis is consistent with ?? osteopenia. ? All bone density values are in grams per centimeter squared. ?? At this facility, the least significant change in BMD with 95% ?? confidence is 0.022 at the lumbar spine, 0.027 at the hip, and 0.023 at ?? the distal 1/3 radius. ? Electronically signed by: ??Miky Juarez MD ??10/16/2024 10:28 AM EST ? Dictated By: ?Miky Juarez MD ? Signed By: ?<Electronically signed by Miky Juarez MD in OV> ?10/16/24 1028 ? DD/ 0845 ? TD/TT: 10/16/24 0855 ? Enrollment Services Dean: ? Procedure Note Sylvie, Birgit - 10/16/2024 [facility] [address] [place] [address] [address] [place], [place] [address] Mammography Report Signed Patient: Jeanna GrahamMR#: [id number] : 1965Acct:[id number] Age/Sex: 59 / FADM Date: 10/16/24 Loc: HO.MAMMO Attending Dr: Gemini Lange MD Ordering Physician: Gemini Lange MDResults: Date of Service: 10/16/24Follow Up: Procedure(s): XR DEXA axial skeleton Accession Number(s): [id number] cc: Gemini Lange MD; Name,Aamir MCCRARY EXAMINATION: Dual-Energy X-ray Absorptiometry - Bone Density Study HISTORY: Estrogen deficiency TECHNIQUE: [employer] Dual energy absorptiometry (DEXA) of the lumbar spine, total left hip, and femoral neck was performed. COMPARISON: There are no prior studies for comparison. FINDINGS: The bone mineral density of the lumbar spine is 0.997 with a T-score of -1.5, and a Z-score of 0.7. The bone mineral density of the left total hip is 0.953 with a T-score of -0.4, and a Z-score of 0.2. The bone mineral density of the left femoral neck is 0.931 with a T-score of -0.8, and a Z-score of 0.2. FRACTURE RISK: The FRAX index suggests a risk of major osteoporotic fracture of 3.3%, and of hip fracture 0.2%. MM/XR DEXA axial skeleton IMPRESSION: Based on bone mineral density, and according to World Health Organization (WHO) criteria, the diagnosis is consistent with osteopenia. All bone density values are in grams per centimeter squared. At this facility, the least significant change in BMD with 95% confidence is 0.022 at the lumbar spine, 0.027 at the hip, and 0.023 at the distal 1/3 radius. Electronically signed by: Miky Juarez MD 10/16/2024 10:28 AM [facility] Dictated By: Miky Juarez MD Signed By: <Electronically signed by Miky Juarez MD in OV> 10/16/24 1028 DD/ 0845 TD/TT: 10/16/24 0855 Enrollment Services Dean: [facility] External Provider IMG DXA PROCEDURES Edited Result - Final * (ABNORMAL) Hm Colonoscopy (10/05/2024 10:40 AM EST) Colonoscopy Abnormal(A ) Normal 10/05/2024 10:4 0 AM EST us Aamir Montoya MD HEALTH MAINTENANCE Final Result * Hematoxylin and Eosin Stain (10/05/2024 10:14 AM EST) Only the most recent of2 resultswithin the time period is included. 10/05/2024 10:1 4 AM EST 10/05/2024 11:33 AM EST Narrative [facility] - 10/08/2024 12:07 PM EST ----- ------- Name: Jeanna Graham ? Age/Sex: 58/F ? : 1965 Unit#: [id number] ?? Attend Dr: Mary Anne Martínez MD ?Re10/05/24 ?Status: DEP [facility] ? Location: HO.SSS ?Disch: ? ----- ------- SPEC : [id number] ? RECD: 10/05/24 ? STATUS: ??SOUT ? REQ NUM: [id number] ? PATTI: 10/05/24-1014 ? SUBM DR: Mary Anne Martínez MD ? ENTERED: ??10/05/24-5 ?SP TYPE: Surgical ? OTHR DR: Aamir Montoya MD ? ORDERED: ??HE Stain/, Gross Micro L4/3 ? Diagnosis ?? A. ??Colon, descending, polyps: ??Tubular adenomas, 3 pieces; negative for high-grade ?? dysplasia and carcinoma. ? B. ??Colon, ascending, polyp: ??Tubular adenoma; negative for high-grade dysplasia and ?? carcinoma. ? C. ??Colon, sigmoid, polyp: ??Tubular adenoma; negative for high-grade dysplasia and ?? carcinoma. ?Clinical History Pre-Op Dx: ??Hx of polyps Post-Op Dx: Colon polyps, hemorrhoids ?Microscopic Description Microscopic sections reviewed. ? Material Received ?? A. Descending colon polyps ?? B. Ascending colon polyp ?? C. Sigmoid colon polyp ? Gross Description Received in three parts. Part A: ??Received in formalin labeled ?descending colon polyps? are 3 fuller and fuller-pink papular and polypoid tissue fragments measuring 0.15, 0.4 and 1.0 cm. ??The resected base of the largest polyp is inked and the specimen is sectioned and entirely submitted along with the 2 smaller tissue fragments, submitted in toto, in a cassette labeled A. Part B: ??Received in formalin labeled ?ascending colon polyp? is a 0.4 cm fuller-pink papular- irregular tissue fragment along with a 0.6 x 0.4 x 0.2 cm aggregate of cloudy mucus, submitted in toto in a cassette labeled B. Part C: ??Received in formalin labeled ?sigmoid colon polyp? is a 0.9 cm fuller-pink papular tissue fragment, sectioned and entirely submitted in a cassette labeled C. CEDS ? CONTINUED ON NEXT PAGE ----- ------- Name: Jeanna Graham ? Age/Sex: 58/F ? : 1965 Unit#: [id number] ?? Attend Dr: Mary Anne Martínez MD ?Re10/05/24 ?Status: DEP [facility]C ? Location: HO.SSS ?Disch: ? ----- ------- SPEC : [id number] ? RECD: 10/05/24 ? STATUS: ??SOUT ? REQ NUM: [id number] ? PATTI: 10/05/24-1014 ? SUBM DR: Mary Anne Martínez MD ? ENTERED: ??10/05/24 ?SP TYPE: Surgical ? OTHR DR: Name,Aamir MCCRARY ? ORDERED: ??HE Stain/9, Gross Micro L4/3 ? Copies To: ?? Name,Aamir MCCRARY ?? [address] [facility] ?? [place] [address] ?? [phone] ?? Mary Anne Martínez MD ?? [facility] ?? [address] ?? [place] [address] ?? [phone] ?? [email or web address] ----- ------- Signed (signature on file) Candace Brown 10/08/24 1207 ? ----- ------- ? END OF REPORT ? us Generic External Data Provider LAB BLOOD ORDERAB LES Final Result [facility] [address] [place] [address] [phone] * BI MM SURGICAL SPECIMEN (08/31/2024 7:11 AM EST) Anatomical Region Laterality Modality Breast Bilateral Mammography 08/31/2024 7:11 AM EST Narrative 09/07/2024 10:34 AM EST ? [facility] ?[address] ?[place] [address] ? Mammography Report ? Signed ? Patient: Graham,Jeanna ?MR#: [id number] ? : 1965 ?Acct:[id number] ? Age/Sex: 58 / F ?ADM Date: 11/22/24 ? Loc: HO.SSS ? Attending Dr: Stefano Coombs MD ? Ordering Physician: Malvin,Stefano MD ?Results: ? Date of Service: 11/22/24 ?Follow Up: ? Procedure(s): MM surgical specimen ?? Accession Number(s): [id number] ? cc: Aamir Montoya MD; Stefano Coombs MD ? EXAMINATION: ?? MM SPECIMEN X-RAY BREAST, ??RIGHT BREAST ? CLINICAL INDICATION: ?? IDC grade 3 right breast at 10:00 axis, marked by open coil shaped ?? clip, estimated size 6 x 6 x 7 mm. For excision. ? COMPARISON: ?? -RF ID tag 08/22/2024. ?? -[place] node injection 08/30/2024. ?? -Ultrasound-guided right breast biopsy 07/29/2024. ?? -08/01/2024 diagnostic right mammography and right breast ultrasound. ?? -07/04/2024 screening mammography. ? TECHNIQUE: ?? Single radiograph of the excised breast tissue is performed using ?? digital mammography. ? FINDINGS: ?? Specimen radiograph demonstrates the presence of the open coil biopsy ?? clip, RF ID tag, and small irregular index mass within the central ?? aspect of the specimen. ? Results were called to Dr. Coombs in the operating room at the time of ?? imaging. ? Electronically signed by: ??Jamie Holguin MD ??09/07/2024 10:32 AM EST RP ?? Work[id number] ? Dictated By: ?Jamie Holguin MD ? Signed By: ?<Electronically signed by Jamie Holguin MD in OV> ?09/07/24 1032 ? DD/ 0711 ? TD/TT: 08/31/24 0910 ? Enrollment Services Dean: ? Procedure Note Sylvie, Birgit - 09/07/[address] [address] Mammography Report Signed Patient: Jeanna GrahamMR#: [id number] : 1965Acct:[id number] Age/Sex: 58 / FADM Date: 08/31/24 Loc: HO.SSS Attending Dr: Stefano Coombs MD Ordering Physician: Stefano Coombs MDResults: Date of Service: 08/31/24Follow Up: Procedure(s): MM surgical specimen Accession Number(s): [id number] cc: Lindsay,Aamir MCCRARY; Stefano Coombs MD EXAMINATION: MM SPECIMEN X-RAY BREAST, RIGHT BREAST CLINICAL INDICATION: IDC grade 3 right breast at 10:00 axis, marked by open coil shaped clip, estimated size 6 x 6 x 7 mm. For excision. COMPARISON: -RF ID tag 08/22/2024. -[place] node injection 08/30/2024. -Ultrasound-guided right breast biopsy 07/29/2024. -08/01/2024 diagnostic right mammography and right breast ultrasound. -07/04/2024 screening mammography. TECHNIQUE: Single radiograph of the excised breast tissue is performed using digital mammography. FINDINGS: Specimen radiograph demonstrates the presence of the open coil biopsy clip, RF ID tag, and small irregular index mass within the central aspect of the specimen. Results were called to Dr. Coombs in the operating room at the time of imaging. Electronically signed by: Jamie Holguin MD 09/07/2024 10:32 AM EST Dictated By: Jamie Holguin MD Signed By: <Electronically signed by aJmie Holguin MD in OV> 09/07/24 1032 DD/ 0711 TD/TT: 08/31/24 0910 Enrollment Services Dean: [facility] External Provider IMG BI PROCEDURES Edited Result - Final * NM SENTINEL NODE W IMAGING (08/30/2024 7:41 AM EST) Anatomical Region Laterality Modality Nuclear Medicine 08/30/2024 7:41 AM EST Narrative 08/30/2024 3:38 PM EST ? [facility] ?[address] ?[place] [address] ?Nuclear Medicine Report ? Signed ? Patient: Graham,Jeanna ?MR#: [id number] ? : 1965 ?Acct:[id number] ? Age/Sex: 58 / F ?ADM Date: 11/21/24 ? Loc: HO.NUCMED ? Attending Dr: Stefano Coombs MD ? Ordering Physician: Stefano Coombs MD ?? Date of Service: 08/30/24 ?? Procedure(s): NM sentinel node w imaging ?? Accession Number(s): [id number] ? cc: Name,Aamir MCCRARY; Stefano Coombs MD ? EXAMINATION: NM LYMPHOSCINTIGRAPHY ? CLINICAL INFORMATION: IDC grade 3 right breast at 10:00 axis, marked by ?? open coil shaped clip, estimated size 6 x 6 x 7 mm. For localization. ? COMPARISON: ?? -Ultrasound-guided right breast biopsy 07/29/2024. ?? -08/01/2024 diagnostic right mammography and right breast ultrasound. ?? -07/04/2024 screening mammography. ? TECHNIQUE: Right breast lymphoscintigraphy injection was performed . ?? Approximately 5.0 mCi of technetium 99m sulfur colloid and 0.8 mL of ?? saline was divided into 4 aliquots of approximately 1.25 mCi, and ?? injected in 4 quadrants around the right breast areola intradermally at ?? 12:00, 3:00, 6:00, and 9:00. Immediate images and delayed images were ?? obtained in AP, oblique and lateral views 30 minutes later. ? FINDINGS: There is isotope activity in four-quadrant around right ?? breast areola following injection. There are at least 3 areas of ?? isotope activity along the right mid axilla suggestive of multiple ?? lymph nodes. ? NM/NM sentinel node w imaging ?? IMPRESSION: At least 3 small lymph nodes seen in right axilla on right ?? breast lymphoscintigraphy. ??Thank you for the courtesy of your referral. ? Electronically signed by: ??Jamie Holguin MD ??08/30/2024 03:35 PM EST RP ? Dictated By: ?Jamie Holguin MD ? Signed By: ?<Electronically signed by Jamie Holguin MD in OV> ?08/30/24 1535 ? DD/ 0741 ? TD/TT: 08/30/24 0945 ? Enrollment Services Dean: ? Procedure Note Birgit Mercer - 08/30/[address] [address] Nuclear Medicine Report Signed Patient: Jeanna GrahamMR#: [id number] : 1965Acct:[id number] Age/Sex: 58 / FADM Date: 08/30/24 Loc: JOSSLANNY Attending Dr: Stefano Coombs MD Ordering Physician: Stfeano Coombs MD Date of Service: 08/30/24 Procedure(s): NM sentinel node w imaging Accession Number(s): [id number] cc: Name,Aamir MCCRARY; Stefano Coombs MD EXAMINATION: NM LYMPHOSCINTIGRAPHY CLINICAL INFORMATION: IDC grade 3 right breast at 10:00 axis, marked by open coil shaped clip, estimated size 6 x 6 x 7 mm. For localization. COMPARISON: -Ultrasound-guided right breast biopsy 07/29/2024. -08/01/2024 diagnostic right mammography and right breast ultrasound. -07/04/2024 screening mammography. TECHNIQUE: Right breast lymphoscintigraphy injection was performed . Approximately 5.0 mCi of technetium 99m sulfur colloid and 0.8 mL of saline was divided into 4 aliquots of approximately 1.25 mCi, and injected in 4 quadrants around the right breast areola intradermally at 12:00, 3:00, 6:00, and 9:00. Immediate images and delayed images were obtained in AP, oblique and lateral views 30 minutes later. FINDINGS: There is isotope activity in four-quadrant around right breast areola following injection. There are at least 3 areas of isotope activity along the right mid axilla suggestive of multiple lymph nodes. NM/NM sentinel node w imaging IMPRESSION: At least 3 small lymph nodes seen in right axilla on right breast lymphoscintigraphy. Thank you for the courtesy of your referral. Electronically signed by: Jamie Holguin MD 08/30/2024 03:35 PM [facility] Dictated By: Jamie Holguin MD Signed By: <Electronically signed by Jamie Holguin MD in OV> 08/30/24 1535 DD/ 0741 TD/TT: 08/30/24 0945 Enrollment Services Dean: [facility] External Provider IMG NM PROCEDURES Final Result * POCT AMY-14 Urine Drug Screen (08/23/2024 11:39 AM EST) Benzodiazepines Screen, Urine Positive Oxycodone Screen, Urine Positive Urine Urine specimen obtained by clean catch procedure / Unknown 08/23/2024 11:39 AM EST Narrative Francine Oneill RN - 08/23/2024 11:39 AM EST UTOX cup Lot#[id number] Exp. 05/29/26 Internal Pass Control us Aamir Name MD POINT OF CARE TEST ENTER/EDIT OR DERABLES Final Result * US RENAL BI (08/22/2024 2:05 PM EST) Anatomical Region Laterality Modality Abdomen Ultrasound 08/22/2024 2:05 PM EST Narrative 08/22/2024 9:59 PM EST ? [facility] ?[address] ?[place] [address] ? Ultrasound Report ? Signed ? Patient: Graham,Jeanna ?MR#: [id number] ? : 1965 ?Acct:[id number] ? Age/Sex: 58 / F ?ADM Date: 08/22/24 ? Loc: HO.US ? Attending Dr: Aamir Montoya MD ? Ordering Physician: Aamir Montoya MD ?? Date of Service: 08/22/24 ?? Procedure(s): US renal BI ?? Accession Number(s): [id number] ? cc: Aamir Montoya MD ? EXAMINATION: ?? US RETROPERITONEAL LIMITED (RENAL ONLY) ? CLINICAL INFORMATION: ?? Gross hematuria. ? COMPARISON: ?? CT abdomen and pelvis dated 11/19/2015; abdominal ultrasound dated ?? 06/21/2016. ? TECHNIQUE: ?? Real-time imaging of the kidneys. ? FINDINGS: ? RIGHT KIDNEY: 10.8 x 4.5 x 4.9 cm (SAG x AP x TRV). The kidney is ?? normal in size, contour, and echogenicity. Renal cortical thickness is ?? normal. No calculi or focal parenchymal lesions. No hydronephrosis. ? At the upper pole, a 1.4 cm benign, simple cyst is seen. This requires ?? no imaging follow-up. ? LEFT KIDNEY: 10.8 x 5.4 x 4.7 cm (SAG x AP x TRV). The kidney is normal ?? in size, contour, and echogenicity. Renal cortical thickness is normal. ?? No calculi or focal parenchymal lesions. No hydronephrosis. ? At the upper pole, a 2.1 cm benign, simple cyst is seen. At the ?? interpolar aspect, a 1.1 cm benign, simple cyst is seen. These require ?? no imaging follow-up. ? US/US renal BI ?? IMPRESSION: ?? Unremarkable examination. ? Electronically signed by: ??Fam Paniagua MD ??08/22/2024 09:55 PM EST RP ? Dictated By: ?Fam Paniagua MD ? Signed By: ?<Electronically signed by Fam Paniagua MD in OV> ? 08/22/245 ? DD/ 1405 ? TD/TT: 08/22/24 1413 ? Enrollment Services Dean: WALI ? Procedure Note Sylvie, Image - 08/22/2024 [place] [address] Ultrasound Report Signed Patient: Sury Graham#: [id number] : 1965Acct:[id number] Age/Sex: 58 / FADM Date: 08/22/24 Loc: HO.US Attending Dr: Aamir Montoya MD Ordering Physician: Aamir Montoya MD Date of Service: 08/22/24 Procedure(s): US renal BI Accession Number(s): [id number] cc: Aamir Montoya MD EXAMINATION: US RETROPERITONEAL LIMITED (RENAL ONLY) CLINICAL INFORMATION: Gross hematuria. COMPARISON: CT abdomen and pelvis dated 11/19/2015; abdominal ultrasound dated 06/21/2016. TECHNIQUE: Real-time imaging of the kidneys. FINDINGS: RIGHT KIDNEY: 10.8 x 4.5 x 4.9 cm (SAG x AP x TRV). The kidney is normal in size, contour, and echogenicity. Renal cortical thickness is normal. No calculi or focal parenchymal lesions. No hydronephrosis. At the upper pole, a 1.4 cm benign, simple cyst is seen. This requires no imaging follow-up. LEFT KIDNEY: 10.8 x 5.4 x 4.7 cm (SAG x AP x TRV). The kidney is normal in size, contour, and echogenicity. Renal cortical thickness is normal. No calculi or focal parenchymal lesions. No hydronephrosis. At the upper pole, a 2.1 cm benign, simple cyst is seen. At the interpolar aspect, a 1.1 cm benign, simple cyst is seen. These require no imaging follow-up. US/US renal BI IMPRESSION: Unremarkable examination. Electronically signed by: Fam Paniagua MD 08/22/2024 09:55 PM EST Dictated By: Fam Paniagua MD Signed By: <Electronically signed by Fam Paniagua MD in OV> 08/22/24 2155 DD/ 1405 TD/TT: 08/22/24 1413 Enrollment Services Dean: WALI Authorlala Provider Result Type Result Stat us Aamir Name IMG US PROCEDURES Final Result * MM RF Tag Device Right (08/22/2024 10:00 AM EST) Anatomical Region Laterality Modality Breast Left Mammography 08/22/2024 10:0 0 AM EST Narrative 08/22/2024 12:17 PM EST ? [facility] [address] ? Mammography Report ? Signed ? Patient: Graham,Jeanna ?MR#: [id number] ? : 1965 ?Acct:[id number] ? Age/Sex: 58 / F ?ADM Date: 11/13/24 ? Loc: HO.MAMMO ? Attending Dr: Stefano Coombs MD ? Ordering Physician: Malvin,Stefano MD ?Results: ? Date of Service: 08/22/24 ?Follow Up: ? Procedure(s): MM RF Tag device RT ?? Accession Number(s): [id number] ? cc: Lindsay,Aamir MCCRARY; Stefano Coombs MD ? EXAMINATION: ? MM MAMMOGRAM GUIDED RFID LOCALIZATION BREAST, RIGHT ? CLINICAL INFORMATION: ? IDC grade 3 right breast at 10:00 axis, marked by open coil shaped ?? clip, estimated size 6 x 6 x 7 mm. For localization. ? COMPARISON: ? -Ultrasound-guided right breast biopsy 07/29/2024. ?? -08/01/2024 diagnostic right mammography and right breast ultrasound. ?? -07/04/2024 screening mammography. ? TECHNIQUE NEEDLE LOC: ?? Proper informed consent is obtained from the patient after discussion ?? of the procedure, potential risks and complications, and alternatives ?? including declining the procedure today. ??Patient was given an ?? opportunity for questions. ??The patient appeared to understand. ??The ?? patient consented to the procedure and signed the consent form. ? GUIDANCE: Digital mammography. ? APPROACH: Lateral Medial. ? TARGET: Small mass marked by open coil clip. ? ANESTHESIA: carbonated lidocaine 1%: ??7 mL. ? LOCALIZATION SYSTEM: [employer] LOCallizer 7 cm Wire-Free Guidance System ?? with 12g needle applicator. ? RADIOFREQUENCY TAG: ??ID # [id number] ? DERMATOTOMY: ??Single 1 mm skin-kate dermatotomy performed. ? RF Tag ID confirmed with LOCalizer Guidance System prior to placement. ?? The skin is prepped and local anesthesia administered. The needle is ?? positioned and RFID tag deployed. ? Final images demonstrate the LOCalizer RF tag to reside immediately ?? adjacent to the mass and clip combination. This is well positioned. ? The patient tolerated the procedure well and had no immediate ?? complications. ??Dressing placed and home instructions reviewed. ? MM/MM RF Tag device RT ?? IMPRESSION: ?? -Status post right breast RFID localization. ?? -Final CC and LM images are labeled for direct OR reference. ? Electronically signed by: ??Jamie Holguin MD ??08/22/2024 12:14 PM EST RP ? Dictated By: ?Jamie Holguin MD ? Signed By: ?<Electronically signed by Jamie Holguin MD in OV> ?08/22/24 1214 ? DD/ 1000 ? TD/TT: 08/22/24 1040 ? Enrollment Services Dean: ? Procedure Note Donbalainterpreter, Image - 08/22/2024 [facility] [address] [place] [address] Mammography Report Signed Patient: Sury Graham#: [id number] : 1965Acct:[id number] Age/Sex: 58 / FADM Date: 08/22/24 Loc: HO.MAMMO Attending Dr: Stefano Coombs MD Ordering Physician: Stefano Coombsesults: Date of Service: 08/22/24Follow Up: Procedure(s): MM RF Tag device RT Accession Number(s): [id number] cc: Aamir Montoya MD; Stefano Coombs MD EXAMINATION: MM MAMMOGRAM GUIDED RFID LOCALIZATION BREAST, RIGHT CLINICAL INFORMATION: IDC grade 3 right breast at 10:00 axis, marked by open coil shaped clip, estimated size 6 x 6 x 7 mm. For localization. COMPARISON: -Ultrasound-guided right breast biopsy 07/29/2024. -08/01/2024 diagnostic right mammography and right breast ultrasound. -07/04/2024 screening mammography. TECHNIQUE NEEDLE LOC: Proper informed consent is obtained from the patient after discussion of the procedure, potential risks and complications, and alternatives including declining the procedure today. Patient was given an opportunity for questions. The patient appeared to understand. The patient consented to the procedure and signed the consent form. GUIDANCE: Digital mammography. APPROACH: Lateral Medial. TARGET: Small mass marked by open coil clip. ANESTHESIA: carbonated lidocaine 1%: 7 mL. LOCALIZATION SYSTEM: [employer] LOCallizer 7 cm Wire-Free Guidance System with 12g needle applicator. RADIOFREQUENCY TAG: ID # [id number] DERMATOTOMY: Single 1 mm skin-kate dermatotomy performed. RF Tag ID confirmed with LOCalizer Guidance System prior to placement. The skin is prepped and local anesthesia administered. The needle is positioned and RFID tag deployed. Final images demonstrate the LOCalizer RF tag to reside immediately adjacent to the mass and clip combination. This is well positioned. The patient tolerated the procedure well and had no immediate complications. Dressing placed and home instructions reviewed. MM/MM RF Tag device RT IMPRESSION: -Status post right breast RFID localization. -Final CC and LM images are labeled for direct OR reference. Electronically signed by: Jamie Holguin MD 08/22/2024 12:14 PM [facility] Dictated By: Jamie Holguin MD Signed By: <Electronically signed by Jamie Holguin MD in OV> 08/22/24 1214 DD/ 1000 TD/TT: 08/22/24 1040 Enrollment Services Dean: [facility] External Provider IMG BI PROCEDURES Final Result * Hepatitis C Antibody with Reflex to HCV, RNA, Quantitative, Real-Time PCR (07/26/2024 10:59 AM EDT) Hepatitis C Antibody Nonreactive Nonreactive [facility] Comment:Antibodies to HCV no t detected; does not exclude early acuteHCV infection. Blood Venous blood specimen / Unknown 07/26/2024 10:59 AM EDT 07/26/2024 1:14 PM EDT Aamir Montoya MD LAB BLOOD ORDERABLES Final Resul t [facility] [address] [place] [phone] * HIV-1/2 Antigen and Antibodies, Fourth Generation, with Reflexes (07/26/2024 10:59 AM EDT) HIV AB/AG Nonreactive Nonreactive [facility] Comment:HIV-1 p24 Ag and/or HIV-1/HIV-2 Ab not detected.A test result that is nonreactive does not exclude thepossibility of exposure to or infection with HIV-1 and/orHIV-2. Nonreactive results in this assay for individualswith prior exposure to HIV-1 and/or HIV-2 may be due toantigen and antibody levels that are below the limit ofdetection of this assay.[employer] HIV Ag/Ab Combo assay result andsupplemental assay results should be interpreted inconjunction with the patient's clinical presentation,history and other laboratory results. If the results areinconsistent with clinical evidence, additional testing issuggested to confirm the result. Blood Venous blood specimen / Unknown 07/26/2024 10:59 AM EDT 07/26/2024 1:14 PM EDT us Aamir Name LAB BLOOD ORDERABLES Final Resul t [facility] [address] [place] [phone] * (ABNORMAL) Lipid Panel, Standard (07/26/2024 10:59 AM EDT) Triglycerides 155(H) <150 mg/dL [facility] Comment:Desirable Triglyceri de: less than 150 mg/dLBorderline High Triglyceride 150-199 mg/dLHigh Triglyceride: 200-499 mg/dLVery High Triglyceride: greater than or equal to 5OO mg/dL Cholesterol 181 <200 mg/dL [facility] Comment:Desirable Cholestero l: less than 200 mg/dLBorderline High Cholesterol: 200-239 mg/dLHigh Cholesterol: greater than 239 mg/dL LDL Cholesterol Calculated 115(H) <100 mg/dL [facility] Comment:Desirable LDL: less than 100 mg/dLNear Optimal/Above Optimal LDL: 110- 129 mg/dLBorderline High LDL: 130-159 mg/dLHigh LDL: 160-189 mg/dLVery High LDL: greater than or equal to 190 mg/dL HDL Cholesterol 35(L) >40 mg/dL [facility] Comment:Desirable HDL: great er than 40 mg/dL Note: This HDL assay may give artificially low results in patients with liver disease. Blood Venous blood specimen / Unknown 07/26/2024 10:59 AM EDT 07/26/2024 1:14 PM EDT us Aamir Montoya MD LAB BLOOD ORDERABLES Final Resul t [facility] [address] [place] [phone] [phone] from Last 3 Months or Most Recently Relevant to Health Maintenance Insurance [facility] Care Teams Clinical Laboratory Aide Relationship Specialty Start Date End Date Name, MD Aamir [address] [place] [address] PCP - General Family Medicine 10/10/18
--- OUTSIDE RECORDS SUMMARY | 2024-11-19 14:16 | XMS_ITS | Encounter Summary ---
Author Organization [employer] [facility] Address [address] [facility] [address] [place] [address] Care Team Providers Care Climatologist Name Role Phone NameAamir MD Primary Care Provider [phone] Reason for Visit * Reason Comments Med Refill Encounter Details Date Type Department Care Team (Late st Contact Info) Description 05/07/2023 Refill [facility] [address] [place] [phone] Name, MD Aamir [address] [place] [address] [phone] Social History Tobacco Use Types Packs/Day Years Used Date Smoking Tobacco: Every Day Cigarettes Depression Answer Date Recorded Patient Health Questionnaire-9 Score 0 01/26/2023 Depression Answer Date Recorded Patient Health Questionnaire-2 Score 0 01/26/2023 Comments Unknown Sex and Gender Information Value Date Recorded Sex Assigned at Female 08/09/2022 10:29 AM EDT Legal Sex Female 10:29 AM EDT Gender Identity Female 08/09/2022 10:29 AM EDT Sexual Orientation Straight 08/09/2022 10 :29 AM EDT documented as of this encounter Plan of Treatment Upcoming Encounters Date Type Department Care Team (Late st Contact Info) Description 12/06/2024 11:30 AM EST Clinical Support [facility] [address] [place] [phone] Francine Oneill RN documented as of this encounter Visit Diagnoses Not on filedocumented in this encounter Additional Health Concerns Assessment Noted Time PHQ-9 Depression Total Score: 0 01/27/20 23 10:31 AM EDT documented as of this encounter Care Teams Climatologist Relationship Specialty Start Date End Date Name, MD Aamir [address] [place] [address] PCP - General Family Medicine 10/10/18 documented as of this encounter
--- OUTSIDE RECORDS SUMMARY | 2024-11-19 14:16 | XMS_ITS | Encounter Summary ---
Author Organization [employer] Address [address] [facility] [address] [place] [address] Care Team Providers Care Pony Ride Operator Name Role Phone Name, Aamir MCCRARY Primary Care Provider [phone] Reason for Visit * Reason Comments Pre-visit Planning SDOH screening is ne gative , Tobacco screening is positive Encounter Details Date Type Department Care Team ([facility] st Contact Info) Description 10/23/2024 Patient Outreach [facility] [address] [place], [place] [phone] Name, MD Aamir [address] [place] [address] Pre-visit Planning (SDOH screening is negative , Tobacco screening is positive) Social History Tobacco Use Types Packs/Day Years Used Date Smoking Tobacco: Every Day Cigarettes Alcohol Use Standard Drinks/Week Comments Never 0 [...] AM EDT documented as of this encounter Progress Notes * Rianna Graham - 10/23/2024 3:03 PM EST CC Rianna Portillo placed successful outbound call to patient for pre-visit planning. Patient name and confirmed. Patient confirms appt date and time, and has transportation arrangements. Biggest concern for appointment at this time is to discuss mammogram results and post op . Appropriate screenings completed in anticipation of appointment. SDOH screening is negative. documented in this encounter Plan of Treatment Upcoming Encounters Date Type Department Care Team (Late st Contact Info) Description 12/06/2024 11:30 AM EST Clinical Support [facility] [address] [place] [address] Francine Oneill, MARLEE documented as of this encounter Visit Diagnoses Not on filedocumented in this encounter Additional Health Concerns Assessment Noted Time PHQ-9 Depression Total Score: 6 08/17/20 24 11:53 AM EST documented as of this encounter Care Teams Pony Ride Operator Relationship Specialty Start Date End Date Name, MD Aamir [address] [place] [address] PCP - General Family Medicine 10/10/18 documented as of this encounter
--- OUTSIDE RECORDS SUMMARY | 2024-11-19 14:16 | XMS_ITS | Encounter Summary ---
Author Organization [employer] Address [address] [facility] [address] [place] [address] Care Team Providers Care Exhibit Specialist Name Role Phone Name, Aamir MCCRARY Primary Care Provider [phone] Reason for Visit * Reason Onset Date Comments Med Refill 11/08/2024 Encounter Details Date Type Department Care Team (Late st Contact Info) Description 11/08/2024 Refill [facility] [address] [place], [place] [phone] Name, MD Aamir [address] [place], [place] [phone] Chronic pain syndrome Social History Tobacco Use Types Packs/Day Years [...] AM EDT documented as of this encounter Miscellaneous Notes * Telephone Encounter - Stevie Max - 11/08/2024 9:40 AM EST TC from pt requesting medication refill. Medications needing refill: oxyCODONE-acetaminophen (Percocet) 5-325 MG tablet To be sent to: [id number] - [place], [place] - [address] documented in this encounter Plan of Treatment Upcoming Encounters Date Type Department Care Team (Late st Contact Info) Description 12/06/2024 11:30 AM EST Clinical Support [facility] [address] [place] [address] Francine Oneill RN documented as of this encounter Visit Diagnoses Diagnosis Chronic pain syndrome documented in this encounter Additional Health Concerns Assessment Noted Time PHQ-9 Depression Total Score: 6 08/17/20 24 11:53 AM EST documented as of this encounter Care Teams Exhibit Specialist Relationship Specialty Start Date End Date Name, MD Aamir [address] [place] [address] PCP - General Family Medicine 10/10/18 documented as of this encounter
--- OUTSIDE RECORDS SUMMARY | 2024-11-19 14:16 | XMS_ITS | Encounter Summary ---
Author Organization [employer] Address [address] [facility] 7t [place] [address] Care Team Providers Care Oleomargarine Maker Name Role Phone Name, Aamir MCCRARY Primary Care Provider [phone] Reason for Visit * Reason Onset Date Comments Med Refill 05/24/2024 Encounter Details Date Type Department Care Team ([facility] st Contact Info) Description 05/24/2024 Telephone [facility] MEDICINE [address] [place], [place] [phone] Name, MD Aamir [address] [place], [place] [phone] Med Refill Social History Tobacco Use Types Packs/Day Years Used Date Smoking Tobacco: Every Day Cigarettes Alcohol Use Standard Drinks/Week Comments Never 0 (1 standard drink = 0.6 oz pur e alcohol) Depression Answer Date Recorded Patient Health Questionnaire-9 Score 0 01/26/2023 Housing Stability Answer Date Recorded What is your housing situation today? I have flaca mckeon 07/28/[address] you li ve. Do you have problems with any of the following? None of the above 07/28/2023 Food Insecurity Answer Date Recorded Within the past 12 months, y ou worried that your food would run out before you got money to buy more: Never True 07/28/2023 Within the past 12 months,th e food you bought just didn't last and you didn't have enough money to get more: Never True Transportation Answer Date Recorded In the past 12 months, has l ack of transportation kept you from medical appts, meetings, work or from getting things needed for daily living? No 07/28/2023 Utilities Answer Date Recorded In the past 12 months, has t he electric, gas, oil or water company threatened to shut off services in your home? No 07/28/2023 Depression Answer Date Recorded Patient Health Questionnaire-2 Score 0 01/26/2023 Comments Unknown Sex and Gender Information Value Date Recorded Sex Assigned at Female 08/09/2022 10:29 AM EDT Legal Sex Female 10:29 AM EDT Gender Identity Female 08/09/2022 10:29 AM EDT Sexual Orientation Straight 08/09/2022 10 :29 AM EDT documented as of this encounter Miscellaneous Notes * Telephone Encounter - Ketan Calix RN - 05/24/2024 2:14 PM EDT Meds. Que for approval. * Telephone Encounter - Jones Rodriguez - 05/24/2024 10:58 AM EDT TC from pt requesting medication refill. Medications needing refill : oxyCODONE-acetaminophen (Percocet) 5-325 MG tablet To be sent to: [id number] [place], [place] - [address] [place] [address] [address] [facility] [address] documented in this encounter Plan of Treatment Upcoming Encounters Date Type Department Care Team (Late st Contact Info) Description 12/06/2024 11:30 AM EST Clinical Support [facility] MEDICINE [address] [place] [address] Francine Oneill, RN documented as of this encounter Visit Diagnoses Not on filedocumented in this encounter Additional Health Concerns Assessment Noted Time PHQ-9 Depression Total Score: 0 01/27/20 23 10:31 AM EDT documented as of this encounter Care Teams Oleomargarine Maker Relationship Specialty Start Date End Date Name, MD Aamir [address] [place] [address] PCP - General Family Medicine 10/10/18 documented as of this encounter
--- OUTSIDE RECORDS SUMMARY | 2024-11-19 14:16 | XMS_ITS | Encounter Summary ---
Author Organization [employer] Address [address] [facility] [address] [place] [address] Care Team Providers Care Instructor Physical Name Role Phone Name, Aamir MCCRARY Primary Care Provider [phone] Reason for Visit * Reason Onset Date Comments chart prep 10/23/2024 Encounter Details Date Type Department Care Team ([facility] st Contact Info) Description 10/23/2024 Telephone [facility] MEDICINE [address] [place], [place] [phone] Nigel Pierre MA chart prep Social History Tobacco Use Types Packs/Day Years [...] encounter Miscellaneous Notes * Telephone Encounter - Nigel Pierre MA - 10/23/2024 10:17 AM EST Chart Prep Labs: done Images: done Vaccines due: yes Referrals: complete -Urology- Consultation Tu 10/16/24 1:00 PM [facility] Meg Landrum NP Radiology Tue08/22/24 2:00 PM [facility] Gastroenterology -Consultation Tue08/15/24 11:00 AM Screenings: pap smear Overdue care gaps: Sbirt documented in this encounter Plan of Treatment Upcoming Encounters Date Type Department Care Team (Late st Contact Info) Description 12/06/2024 11:30 AM EST Clinical Support [facility] MEDICINE [address] [place] [address] Francine Oneill, MARLEE documented as of this encounter Visit Diagnoses Not on filedocumented in this encounter Additional Health Concerns Assessment Noted Time PHQ-9 Depression Total Score: 6 08/17/20 11:53 AM EST documented as of this encounter Care Teams Instructor Physical Relationship Specialty Start Date End Date Name, MD Aamir [address] [place] [address] PCP - General Family Medicine 10/10/18 documented as of this encounter
--- OUTSIDE RECORDS SUMMARY | 2024-11-19 14:16 | XMS_ITS | Encounter Summary ---
Author Organization [employer] Address [address] [facility] 7t [place] [address] Care Team Providers Care Inspector Penetrant Name Role Phone Name, Aamir MCCRARY Primary Care Provider [phone] Reason for Visit * Reason Comments Med Refill Encounter Details Date Type Department Care Team (Late st Contact Info) Description 11/02/2024 Refill [facility] MEDICINE [address] [place] [address] Name, MD Aamir [address] [place], [place] [phone] Hypertension, unspecified type Social History Tobacco Use Types Packs/Day Years [...] Description 12/06/2024 11:30 AM EST Clinical Support [facility] MEDICINE [address] [place] [address] Francine Oneill RN documented as of this encounter Visit Diagnoses Diagnosis Hypertension, unspecified type documented in this encounter Additional Health Concerns Assessment Noted Time PHQ-9 Depression Total Score: 6 08/17/20 24 11:53 AM EST documented as of this encounter Care Teams Inspector Penetrant Relationship Specialty Start Date End Date Name, MD Aamir [address] [place] [address] PCP - General Family Medicine 10/10/18 documented as of this encounter
--- OUTSIDE RECORDS SUMMARY | 2024-11-19 14:16 | XMS_ITS | Encounter Summary ---
Author Organization [facility] Address [address] [place] [address] Care Team Providers Care Spout Tender Name Role Phone Name, Aamir MCCRARY Primary Care Provider [phone] Reason for Visit * Reason Onset Date Comments Appointment 11/16/2024 1st notification Encounter Details Date Type Department Care Team ([facility] st Contact Info) Description 11/16/2024 Telephone Lung Screening Program - [address] [place] [phone] Nu Menendez [place] Appointment (1st notification) Social History Tobacco Use Types Packs/Day Years Used Date Smoking Tobacco: Every Day Cigarettes 1 37.1 Started: 10/10/1987 Smokeless Tobacco: Never Comments Unknown Sex and Gender Information Value Date Recorded Sex Assigned at Not on file Legal Sex Female 4:37 AM EST Gender Identity Not on file Sexual Orientation Not on file documented as of this encounter Progress Notes * Nu Menendez [place] - 11/16/2024 11:56 AM EST Jeanna Graham was contacted by the Lung Cancer Screening Program today to confirm the appointment oftheir Lung Cancer Screening. The patient is currently scheduled to have their screening on Tuesday at 2 PM at [facility]. No answer left message For all screenings scheduled during the week, the patient will check in at Patient Registration on the first floor of the main hospital. For screenings that take place on the weekend or after 5pm, check-in directly in Radiology. The patient was given the Lung Cancer Screening Program phone number, , to contact if they have any additional questions, concerns or need to reschedule. Patients are encouraged to call our office and reschedule if they are exhibiting any cold-like symptoms, have recently been treated for Pneumonia or Influenza (the flu) or have had another CT of their Chest since their last screening. documented in this encounter Plan of Treatment Upcoming Encounters Date Type Department Care Team (Late st Contact Info) Description 12/05/2024 2:00 PM EST Appointment [facility] CT Scan [address] [place] [phone] documented as of this encounter Visit Diagnoses Not on filedocumented in this encounter Care Teams Spout Tender Relationship Specialty Start Date End Date Name, MD Aamir [address] [place], [place] PCP - General Internal Medicine 12/22/12 documented as of this encounter
--- OUTSIDE RECORDS SUMMARY | 2024-11-19 14:16 | XMS_ITS | Encounter Summary ---
Author Organization [facility] Address [address] [facility] 7t [place] [address] Care Team Providers Care Marble Carver Name Role Phone NameAamir MD Primary Care Provider [phone] Reason for Visit * Reason Comments Med Refill Encounter Details Date Type Department Care Team (Late st Contact Info) Description 03/31/[address] [facility] MEDICINE [address] [place] [phone] Name, MD Aamir [address] [place] [phone] Social History Tobacco Use Types Packs/Day Years [...] Description 12/06/2024 11:30 AM EST Clinical Support [facility] MEDICINE [address] [place] [phone] Francine Oneill RN documented as of this encounter Visit Diagnoses Not on filedocumented in this encounter Additional Health Concerns Assessment Noted Time PHQ-9 Depression Total Score: 0 01/27/20 23 10:31 AM EDT documented as of this encounter Care Teams Marble Carver Relationship Specialty Start Date End Date Name, MD Aamir [address] [place] [address] PCP - General Family Medicine 10/10/18 documented as of this encounter
--- OUTSIDE RECORDS SUMMARY | 2024-11-19 14:17 | XMS_ITS | Encounter Summary ---
Author Organization [facility] Address [address] [facility] 7t [place] [address] Care Team Providers Care Hot Walker Name Role Phone Name, Aamir MCCRARY Primary Care Provider [phone] Encounter Details Date Type Department Care Team ([facility] Contact Info) Description 11/22/2022 Orders Only [facility] [address] [place] [address] Carmen Lao LPN Social History Tobacco Use Types Packs/Day Years Used Date Smoking Tobacco: Never Assessed Comments Unknown Sex and Gender Information Value Date Recorded Sex Assigned at Female 08/09/2022 10:29 AM EDT Legal Sex Female 10:29 AM EDT Gender Identity Female 08/09/2022 10:29 AM EDT Sexual Orientation Straight 08/09/2022 10 :29 AM EDT COVID-19 Exposure Response Date Recorded In the last 10 days, have yo u been in contact with someone who was confirmed or suspected to have Coronavirus/COVID-19? No / Unsure 11/03/2022 9:00 AM EST documented as of this encounter Plan of Treatment Upcoming Encounters Date Type Department Care Team (Late st Contact Info) Description 12/06/2024 11:30 AM EST Clinical Support [facility] MEDICINE [address] [place], [place] [phone] Francine Oneill RN documented as of this encounter Visit Diagnoses Not on filedocumented in this encounter Care Teams Hot Walker Relationship Specialty Start Date End Date Name, MD Aamir [address] [place] [address] PCP - General Family Medicine 10/10/18 documented as of this encounter
--- OUTSIDE RECORDS SUMMARY | 2024-11-19 14:17 | XMS_ITS | Encounter Summary ---
Author Organization [employer] Address [address] [facility] 7t [place] [address] Care Team Providers Care Consumer Insight Manager Name Role Phone Name, Aamir MCCRARY Primary Care Provider [phone] Reason for Visit * Reason Onset Date Comments Med Refill 04/26/2024 Encounter Details Date Type Department Care Team ([facility] st Contact Info) Description 04/26/2024 Telephone [facility] MEDICINE [address] [place], [place] [phone] Name, MD Aamir [address] [place], [place] [phone] Med Refill Social History Tobacco Use Types [...] Telephone Encounter - Ketan Calix RN - 04/26/2024 1:18 PM EDT Meds. Que for approval to PCP. * Telephone Encounter - Stevie Max - 04/26/2024 10:04 AM EDT TC from pt requesting medication refill. Medications needing refill: oxyCODONE-acetaminophen (Percocet) 5-325 MG tablet To be sent to: [facility][id number] [place], [place] - [address] [place] [address] AT [facility] [address] documented in this encounter Plan of Treatment Upcoming Encounters Date Type Department Care Team (Late st Contact Info) Description 12/06/2024 11:30 AM EST Clinical Support [facility] MEDICINE [address] [place] [address] Francine Oneill, RN documented as of this encounter Visit Diagnoses Not on filedocumented in this encounter Additional Health Concerns Assessment Noted Time PHQ-9 Depression Total Score: 0 01/27/20 23 10:31 AM EDT documented as of this encounter Care Teams Consumer Insight Manager Relationship Specialty Start Date End Date Name, MD Aamir [address] [place] [address] PCP - General Family Medicine 10/10/18 documented as of this encounter
--- OUTSIDE RECORDS SUMMARY | 2024-11-19 14:17 | XMS_ITS | Encounter Summary ---
Author Organization [employer] [facility] Address [address] [facility] 7t [place] [address] Care Team Providers Care Residential Sales Manager Name Role Phone Name, Aamir MCCRARY Primary Care Provider [phone] Encounter Details Date Type Department Care Team (Late st Contact Info) Description 10/15/2022 Orders Only [facility] [address] [place] [address] Carmen Lao LPN Social History Tobacco Use [...] Description 12/06/2024 11:30 AM EST Clinical Support [facility] MEDICINE [address] [place] [address] Francine Oneill, RN documented as of this encounter Visit Diagnoses Not on filedocumented in this encounter Care Teams Residential Sales Manager Relationship Specialty Start Date End Date Name, MD Aamir [address] [place] [address] PCP - General Family Medicine 10/10/18 documented as of this encounter
--- OUTSIDE RECORDS SUMMARY | 2024-11-19 14:17 | XMS_ITS | Clinical Summary ---
Author Organization [facility] [address] [facility] ilding Address [address] [place] [address] Phone Care Team Providers Care Crab Picker Name Role Phone Name, Aamir MCCRARY Primary Care Provider [phone] Encounters Date Type Department Care Team Description 11/16/2024 Telephone Lung Screening Program - [address] [place] [phone] Nu Menendez [place] Appointment (1st notification) from Last 3 Months Medical History Medical History Date Comments Emphysema of lung ([facility]/HCC) DX:E mphysema of lung ([facility]) Hypertension, essential DX:Hyper tension, essential Mixed hyperlipidemia DX:Mixed hy perlipidemia Heart burn DX:Heart burn Chronic back pain DX:Chronic miki k pain Family History Medical History Relation Name Comments Lung cancer Neg Hx Social History Tobacco Use Types Packs/Day Years Used Date Smoking Tobacco: Every Day Cigarettes 1 37.1 Started: 10/10/1987 Smokeless Tobacco: Never Comments Unknown Sex and Gender Information Value Date Recorded Sex Assigned at Not on file Legal Sex Female 4:37 AM EST Gender Identity Not on file Sexual Orientation Not on file Obstetrics History Last Filed Vital Signs Vital Sign Reading Time Taken Comments Blood Pressure 115/86 10/20/2023 12:10 PM EST R Arm Pulse - - Temperature - - Respiratory Rate - - Oxygen Saturation - - Inhaled Oxygen Concentration - - Weight 70.8 kg (156 lb) 10/20/2023 12:10 PM EST Height 165.1 cm (5' 5 ) 10/20/2023 12:10 PM EST Body Mass Index 25.96 10/20/2023 12:10 PM EST Plan of Treatment Upcoming Encounters Date Type Department Care Team (Late st Contact Info) Description 12/05/2024 2:00 PM EST Appointment [facility] CT Scan [address] [place] [address] Health Maintenance Due Date Last Done Comments DTaP,Tdap,and Td Vaccines (1 - Tdap) 1974 Hepatitis A Vaccines (1 of 2 - Risk 2-dose series) 1986 Hepatitis B Vaccines (1 of 3 - 19+ 3-dose series) 1986 Pneumococcal Vaccine: 50+ Years (1 of 2 - PCV) 1986 Pneumococcal Vaccine: Pediatrics (0 to 5 Years) and At-Risk Patients (6 to 64 Years) (1 of 2 - PCV) 1986 Cervical Cancer Screening: Pap Smear 1988 Zoster Vaccines (1 of 2) 2017 Colorectal Cancer Screening: Colonoscopy 09/12/2022 Depression Screening 09/12/2022 HIV Screening 09/12/2022 Hepatitis C Screening 09/12/2022 Social Influencers of Health Screening 09/12/2022 Breast Cancer Screening 11/18/2022 11/18/19, 08/31/2019, 08/07/2018 COVID-19 Vaccine (1 - 2023-2 5 season) 2024 Influenza Vaccine (#1) 2024 Lung Cancer Screening (Low Dose CT) Discontinued 05/06/2023 HIB Vaccines Aged Out No longer eligi ble based on patient's age to complete this topic HPV Vaccines Aged Out No longer eligi ble based on patient's age to complete this topic IPV Vaccines Aged Out No longer eligi ble based on patient's age to complete this topic MMR Vaccines Aged Out No longer eligi ble based on patient's age to complete this topic Meningococcal ACWY Vaccine Aged Out N o longer eligible based on patient's age to complete this topic Meningococcal B Vacine Aged Out No lo nger eligible based on patient's age to complete this topic RSV Immunization Patients Under 20 months Aged Out No longer eligible based on patient's age to complete this topic Varicella Vaccines Aged Out No longer eligible based on patient's age to complete this topic Procedures Procedure Name Priority Date/Time Associated Diagnosis Comments CT LUNG SCREENING LOW DOSE Routine 05/06/2023 3:41 PM EDT Personal history of nicotine dependence [facility] SCREENING DIGITAL Routine 11/18/2020 2:13 PM EST Encounter for screening mammogram for malignant neoplasm of breast from Last 3 Months or Most Recently Relevant to Health Maintenance Results * CT LUNG SCREENING LOW DOSE (05/06/2023 3:41 PM EDT) Anatomical Region Laterality Modality Computed Tomogra phy 05/06/2023 2:16 PM EDT Narrative 05/06/2023 3:41 PM EDT [facility] Diagnostic Imaging Department [address] [place] [address] Patient: ??GRAHAM,JEANNA ?/Age/Sex: 1965 - 57 - F Unit#: ??[id number] ? Location/Status: ??SPDICATLS/REG CLI ? Mnemonic/Ordering Site: ??CTLUNGLD/SPCT Ordering Physician: ??PETAR ANTHONY MD CT Lung Screening Low Dose - 05/06/23 - 5401 Report Status:Signed History: ??57 year-old 53 pack-year current smoker, asymptomatic, for lung cancer screening. Comparison: No comparison thoracic CTs at this institution. Correlation is made to prior abdominal CTs from 2019 and 2018. Technique: Helical volumetric imaging of the thorax was performed, using low- dose technique, without IV contrast. DLP: 92.46 mGy/cm ??CTDIvol: 3.22 mGy MorizonT Iterative reconstruction technique Findings: Lungs and Airways: The trachea and central bronchial tree are patent. This is a shallow inspiration. There is a large amount of dependent groundglass opacity bilaterally which is nonspecific, possibly atelectasis. Thin bandlike opacities are present in the right middle lobe and lingula, consistent with discoid atelectasis. Rare homogeneously calcified nodules are consistent with old granulomatous disease. A 4 mm solid liver, noncalcified juxtafissural nodule is seen in the superior segment of the left lower lobe (image 66 series 3). A 5 x 6 mm solid, noncalcified perivascular nodule is present in the right upper lobe (image 91). Pleura: A trace right pleural effusion layers dependently. A trace pericardial effusion is noted. These findings are unchanged from the prior abdominal CTs. Base of neck, mediastinum and heart: The heart is not enlarged. Three-vessel coronary artery calcification is present. No thoracic lymphadenopathy is seen. Soft tissues: The overlying soft tissues are unremarkable. Abdomen: This study was performed without contrast and with lower than standard dose. These factors reduce the sensitivity for detection of small lesions in the upper abdomen. No significant abnormality is seen. Impression: 6 mm (mean diameter) solid right upper lobe nodule, probably benign, for which a follow-up low-dose CT is recommended in 6 months. Lung RADS 3: Probably benign findings - short-term followup suggested. 25218 G9637 G9557 G9551 Dictating Physician: ??RONEL ARROYO MD Electronically Signed by: ??RONEL ARROYO MD Dic Date/Time: ??05/06/23 1531 Sign date/Time: ??05/06/23 1541 Procedure Note Ronel Arroyo MD - 11/15/2023 [facility] Diagnostic Imaging Department [address] [place] [address] [id number] Patient: JEANNA GRAHAM /Age/Sex: 1965 - 57 - F Unit#: [id number] Location/Status: SPDICATLS/REG CLI Mnemonic/Ordering Site: [facility] Ordering Physician: PETAR ANTHONY MD CT Lung Screening Low Dose - 05/06/23 - 1428 Report Status:Signed History: 57 year-old 53 pack-year current smoker, asymptomatic, for lungcancer screening. Comparison: No comparison thoracic CTs at this institution. Correlation ismade to prior abdominal CTs from 2019 and 2018. Technique: Helical volumetric imaging of the thorax was performed, usinglow- dose technique, without IV contrast. DLP: 92.46 mGy/cm CTDIvol: 3.22 mGy Modera.co VCT Iterative reconstruction technique Findings: Lungs and Airways: The trachea and central bronchial tree are patent. Thisis a shallow inspiration. There is a large amount of dependent groundglassopacity bilaterally which is nonspecific, possibly atelectasis. Thin bandlikeopacities are present in the right middle lobe and lingula, consistent withdiscoid atelectasis. Rare homogeneously calcified nodules are consistent withold granulomatous disease. A 4 mm solid liver, noncalcified juxtafissural nodule is seen in thesuperior segment of the left lower lobe (image 66 series 3). A 5 x 6 mm solid, noncalcified perivascular nodule is present in the right upper lobe (image91). Pleura: A trace right pleural effusion layers dependently. A tracepericardial effusion is noted. These findings are unchanged from the prior abdominalCTs. Base of neck, mediastinum and heart: The heart is not enlarged.Three-vessel coronary artery calcification is present. No thoracic lymphadenopathy isseen. Soft tissues: The overlying soft tissues are unremarkable. Abdomen: This study was performed without contrast and with lower thanstandard dose. These factors reduce the sensitivity for detection of small lesionsin the upper abdomen. No significant abnormality is seen. Impression: 6 mm (mean diameter) solid right upper lobe nodule, probably benign, forwhich a follow-up low-dose CT is recommended in 6 months. Lung RADS 3: Probably benign findings - short-term followup suggested. 84234 G9637 G9557 G9551 Dictating Physician: RONEL ARROYO MD Electronically Signed by: RONEL ARROYO MD Dic Date/Time: 05/06/23 1531 Sign date/Time: 05/06/23 1541 Petar Anthony MD IMG CT PROCEDURES Final Result * [facility] SCREENING DIGITAL (11/18/2020 2:13 PM EST) Anatomical Region Laterality Modality Mammography 11/18/2020 1:33 PM EST Narrative 11/18/2020 2:13 PM EST [facility] Diagnostic Imaging Department [address] [place] [address] Patient: ??GRAHAM,JEANNA ?/Age/Sex: 1965 - 55 - F Unit#: ??[id number] ? Location/Status: ??SPDIMAM/REG CLI ? Mnemonic/Ordering Site: ??DIGSC/SPMAM Ordering Physician: ??NAME,AAMIR MCCRARY Ferdinand Screening Digital - 11/18/20 - 2627 INDICATION: SCREENING COMPARISON: [facility] mammograms dating back to ?? 07/26/2014 TECHNIQUE: CC and MLO views of the breasts were obtained, using full field digital mammography with 3D tomosynthesis views in the MLO projection. Computer aided detection with the TrashOut 7.2-H was employed. FINDINGS: The breasts contain scattered fibroglandular tissues. No suspicious masses, suspicious microcalcifications, or areas of architectural distortion are identified. Rare benign-appearing punctate breast calcifications are present bilaterally. ??There are no secondary signs of breast malignancy. Compared to the prior exam, no adverse interval change. IMPRESSION: ??No specific mammographic evidence of breast malignancy. Lack of an imaging correlate should not deter or delay biopsy of a clinically significant palpable finding. BI-RADS ??- Category 2 - Benign finding 3342F, 7025F Annual screening mammography is recommended. Patient entered into a reminder system with a target date for the next mammogram. (G0202 / [id number]) , ??[id number] Dictating Physician: ??JONATHAN HOLDER MD Electronically Signed by: ??JONATHAN HOLDER MD Dic Date/Time: ??11/18/20 1407 Sign date/Time: ??11/18/20 1413 Procedure Note Jonathan Holder MD - 09/28/2022 [facility] Diagnostic Imaging Department [address] [place] [id number] Patient: JEANNA GRAHAM /Age/Sex: 1965 - 55 - F Unit#: [id number] Location/Status: [facility] CLI Mnemonic/Ordering Site: [facility] Ordering Physician: AAMIR RAMOS MD Ferdinand Screening Digital - 11/18/20 - 1357 INDICATION: SCREENING COMPARISON: [facility] mammograms dating back to 07/26/2014 TECHNIQUE: CC and MLO views of the breasts were obtained, using full field digital mammography with 3D tomosynthesis views in the MLO projection. Computer aided detection with the TrashOut 7.2-H was employed. FINDINGS: The breasts contain scattered fibroglandular tissues. No suspicious masses, suspicious microcalcifications, or areas ofarchitectural distortion are identified. Rare benign-appearing punctate breastcalcifications are present bilaterally. There are no secondary signs of breastmalignancy. Compared to the prior exam, no adverse interval change. IMPRESSION: No specific mammographic evidence of breast malignancy. Lack of an imaging correlate should not deter or delay biopsy of aclinically significant palpable finding. BI-RADS - Category 2 - Benign finding 3342F, 7025F Annual screening mammography is recommended. Patient entered into a reminder system with a target date for the next mammogram. G0202 / [id number] , [id number] Dictating Physician: JONATHAN HOLDER MD Electronically Signed by: JONATHAN HOLDER MD Dic Date/Time: 11/18/20 1407 Sign date/Time: 11/18/20 1413 Aamir Lindsay MCCRARY IM BI PROCEDURES Final Result from Last 3 Months or Most Recently Relevant to Health Maintenance Insurance MEDICA[place] - [place] [facility] Member Subscriber Plan / Payer (Ef fective 2018-Present) Name:Graham, Jeanna Relation to Subscriber:Self Name:Jeanna Graham Payer ID:[id number] Group ID:[id number] Type:Not on file Address: [facility] [address] [address] Care Teams Crab Picker Relationship Specialty Start Date End Date Name, MD Aamir [address] [place], [place] PCP - General Internal Medicine 12/22/12
== END 2024-11-19 13:45 | disposition home or self-care (01) ==
PROVIDERS: PCP Internal Medicine Geriatric Medicine; Visit Provider Surgery
DX: Z51.89 Encounter for other specified aftercare (principal)
CPT/HCPCS: 99024

== ENCOUNTER → 2024-11-19 13:12 | Outpatient (BNVA) | payer OTHER, SELFPAY | PROVIDERS: PCP Internal Medicine Geriatric Medicine; Visit Provider Surgery | DX: F17.210 Nicotine dependence, cigarettes, uncomplicated (principal); Z09 Encounter for follow-up examination after completed treatment for conditions other than malignant neoplasm; Z98.890 Other specified postprocedural states | CPT/HCPCS: 99212 ==

== ENCOUNTER 2024-12-03 14:01 | Outpatient (AMB) | payer OTHER, SELFPAY ==
[2024-12-03 14:07] VITALS: BMI 25.8
--- NOTE | 2024-12-03 14:07 | MHC.OFFVIS ---
Vital Signs 12/03/24 14:07 Height 5 ft 5 in Weight 155 lb BMI 25.8 Intake Visit Reasons: Bilateral knee pains Intake Note: Jeanna is a 59 year old female who presents with complaints of bilateral knee pains. She describes her pains as sharp in nature. She has had cortisone injections in the past. The injections gave her fairly good relief. She wishes to hold off on surgery for as long as possible. She denies any locking or giving way. She has taken Tylenol and ibuprofen which gave her mild relief. Manager Human Resources Required: Yes Manager Human Resources Language: Real Time Trader Services: Manager Human Resources Present Manager Human Resources Name: NATALIA Wolfe/DEEP Allergies codeine Allergy (Unknown, Verified 12/03/24 14:08) heart palpitation Medication List - Last Reconciled 12/03/24 by Vivek Restrepo MD albuterol sulfate 2.5 mg inhalation QID albuterol sulfate 90 mcg/actuation (Ventolin HFA) 2 puffs inhalation Q6H PRN aspirin 81 mg PO DAILY atorvastatin 40 mg PO DAILY bisacodyl (Dulcolax (bisacodyl)) 20 mg (4 x 5 mg) PO ONCE 1 day bupropion HCl XL 300 mg PO DAILY cephalexin 500 mg PO TID clonazepam 1 mg PO TID ergocalciferol (vitamin D2) 50 mcg PO DAILY escitalopram oxalate 20 mg PO DAILY hydroxyzine pamoate 50 mg PO BID PRN lisinopril 20 mg PO DAILY metoprolol succinate ER 100 mg PO DAILY omeprazole 20 mg PO DAILY polyethylene glycol 3350 17 grams PO DAILY 30 days polyethylene glycol 3350 (Miralax) 238 grams PO ONCE quetiapine ER (Seroquel XR) 400 mg PO BEDTIME [STOOL SOFTENER 100MG CAPSULES 2 caps PO BEDTIME 30 days] sumatriptan succinate (Imitrex) 25 mg PO Q2-4H PRN zolpidem 10 mg PO BEDTIME PRN PFSH Medical History GERD (gastroesophageal reflux disease) Elevated cholesterol Hypertension, essential, benign History of palpitations Pulmonary nodules Personal history of nicotine dependence Tubular adenoma of colon (~2019) Depression Surgical History History of lumpectomy of right breast History of partial hysterectomy History of colonoscopy (~2019) History of esophagogastroduodenoscopy (EGD) (~2019) Family History Mother No problems noted. Father No problems noted. Social History Household Members: Significant Other, Friend(s) and Other Alcohol intake: never Patient Tobacco Use Status: Current everyday Tobacco user Tobacco use type: Cigarette Cigarette Packs Per Day: 1 Years Smoked: 33 (onset 22yo) service: No Current occupational status: disabled Sexual orientation: Straight/Heterosexual Gender identity: Female Physical Exam Vital Signs: BMI result Body Mass Index 25.8 Const Other: Well-nourished well-developed very friendly female awake alert and oriented x3 in no acute distress Extrem Other: Bilateral lower extremity examination shows good capillary refill, no skin lesions noted, normal sensation light touch Bilateral knee examination shows minimal effusions, palpable crepitus with range of motion, pain with range of motion, no instability Office Procedures AMB Joint Injection/Aspiration Joint Injection/Aspiration Primary Site: left knee Prep: site was prepped using aseptic technique Injected: 40 mg of, DepoMedrol and 1% plain lidocaine Procedure: The patient tolerated the procedure well Coding 36280 - Large joint Procedure code (CPT) selection complete AMB Joint Injection/Aspiration Joint Injection/Aspiration Primary Site: right knee Prep: site was prepped using aseptic technique Injected: 40 mg of, DepoMedrol and 1% plain lidocaine Procedure: The patient tolerated the procedure well Coding 77429 - Large joint Procedure code (CPT) selection complete Results Reviewed Results Reviewed: X-rays of the patient's bilateral knees taken previously show joint space narrowing, subchondral sclerosis, no acute bony abnormalities Assessment & Plan Assessment & Plan (1) Arthritis of left knee: Code(s): M17.12 - Unilateral primary osteoarthritis, left knee Category: Medical (2) Arthritis of right knee: Code(s): M17.11 - Unilateral primary osteoarthritis, right knee Category: Medical Plan Ms. Graham presents with bilateral knee pains due to degenerative joint disease. The risks and benefits of bilateral knee cortisone injections were discussed at length with the patient the patient wished to proceed. She tolerated the injections well. She will continue with her activity modifications. She will contact me prior to her follow-up appointment in 3 months should any questions or concerns arise. Feel free to call me at any time should questions regarding her orthopedic management arise. Well-nourished well-developed very friendly female awake alert and oriented x3 in no acute distress Orders: Orders AMB Joint Injection/Aspiration Today M17.11 - Unilateral primary osteoarthritis, right knee AMB Joint Injection/Aspiration Today M17.12 - Unilateral primary osteoarthritis, left knee Coding Level of Care Code Est Pt Level 3 (76032) Complex EM visit Add On G2211 Diagnoses Arthritis of left knee M17.12 Arthritis of right knee M17.11 CPT Codes Coding - 39317 Large joint: 83175 - Large joint ([id number]) Coding - 12950 Large joint: 41719 - Large joint ([id number])
--- OUTSIDE RECORDS SUMMARY | 2024-12-03 16:03 | XMS_ITS | Encounter Summary ---
Author Organization [employer] Address [address] [facility] [address] [place] [address] Care Team Providers Care Weather Algorithm Scientist Name Role Phone Name, Aamir MCCRARY Primary Care Provider [phone] Reason for Visit * Reason Onset Date Comments Appointment Request 11/29/2024 Encounter Details Date Type Department Care Team ([facility] st Contact Info) Description 11/29/2024 Telephone [facility] MEDICINE [address] [place], [place] [phone] Name, MD Aamir [address] [place], [place] [phone] Appointment Request Social History Tobacco Use Types Packs/Day Years [...] encounter Miscellaneous Notes * Telephone Encounter - Umair Moise - 11/29/2024 11:11 AM EST Tc from pt requesting to r/s Apt from 10/31/24. Pt states has not seen PCP in a while. Contact pt at [phone] documented in this encounter Plan of Treatment Upcoming Encounters Date Type Department Care Team (Late st Contact Info) Description 12/06/2024 11:30 AM EST Clinical Support [facility] [address] [place] [address] Francine Oneill RN 03/01/2025 10:30 AM EDT Office Visit [facility] [address] [place] [phone] Name, MD Aamir [address] [place] [address] documented as of this encounter Visit Diagnoses Not on filedocumented in this encounter Additional Health Concerns Assessment Noted Time PHQ-9 Depression Total Score: 6 08/17/20 24 11:53 AM EST documented as of this encounter Care Teams Weather Algorithm Scientist Relationship Specialty Start Date End Date NameAamir MD [address] [place] [address] PCP - General Family Medicine 1/1/19 documented as of this encounter
--- OUTSIDE RECORDS SUMMARY | 2024-12-03 16:03 | XMS_ITS | Encounter Summary ---
Author Organization [employer] Address [address] [place] [address] Care Team Providers Care Speed Operator Name Role Phone Name, Aamir MCCRARY Primary Care Provider [phone] Reason for Visit * Reason Onset Date Comments Med Refill 11/30/2024 Encounter Details Date Type Department Care Team ([facility] st Contact Info) Description 11/30/2024 Telephone [facility] [address] [place], [place] [phone] Nigel Pierre MA Med Refill Social History Tobacco Use Types [...] encounter Miscellaneous Notes * Telephone Encounter - Ana Cristina Whyte RN - 11/30/2024 3:36 PM EST Provider sent medication to [facility]. TC placed to pharmacy to ensure they received the prescription for amLODIPine (Norvasc) 10 MG tablet. Pharmacy staff states they received the prescription and it will be ready after 4:38 PM today. Pharmacy staff states they do not have permission to call her and let her know her prescription is ready. Pharmacy staff requesting our office contact the patient. TC placed to pt via HW flux core welder (ID#[id number]) to inform her prescription for amLODIPine (Norvasc) 10 MG tablet was sent by the provider to the pharmacy and should be ready for picked edge sewing machine operator after 4:38 PM today 10/30/24. No answer, LVM to call office back and ask to speak to the blue team nurses. * Addendum Note - Aamir Ramos MD - 11/30/2024 3:08 PM ESTAddended by: AAMIR RAMOS on: 11/30/2024 03:08 PM Modules accepted: Orders * Telephone Encounter - Ana Cristina Whyte RN - 11/30/2024 2:43 PM EST TC placed to [facility] to determine if pt has refills on amLODIPine (Norvasc) 10 MG tablet. Pharmacy staff states the last time the medication was filled was July 2024 and would need a new prescription. Staff states they do not have the order for amLODIPine 10 MG tablet placed on 11/02/24. Message forwarded to PCP to send medication to pharmacy as they did not receive the order sent on11/02/24. * Telephone Encounter - Nigel Pierre MA - 11/30/2024 2:06 PM EST Pt states she received Yesterday Asprin , but never got her Amlodipine 10mg when requested , she iswondering what's going on if its possible to refill. documented in this encounter Plan of Treatment Upcoming Encounters Date Type Department Care Team (Late st Contact Info) Description 12/06/2024 11:30 AM EST Clinical Support [address] [address] Francine Oneill RN 03/01/2025 10:30 AM EDT Office Visit [address] [address] Name, MD Aamir [address] [place] [address] documented as of this encounter Visit Diagnoses Diagnosis Hypertension, unspecified type documented in this encounter Additional Health Concerns Assessment Noted Time PHQ-9 Depression Total Score: 6 08/17/20 24 11:53 AM EST documented as of this encounter Care Teams Speed Operator Relationship Specialty Start Date End Date Name, MD Aamir [address] [place] [address] PCP - General Family Medicine 10/10/18 documented as of this encounter
--- OUTSIDE RECORDS SUMMARY | 2024-12-03 16:03 | XMS_ITS | Encounter Summary ---
Author Organization [employer] Address [address] [facility] [address] [place] [address] Care Team Providers Care Methods Examiner Name Role Phone Name, Aamir MCCRARY Primary Care Provider [phone] Reason for Visit * Reason Comments Med Refill Encounter Details Date Type Department Care Team (Late st Contact Info) Description 11/30/2024 Refill [facility] MEDICINE [address] [place], [place] [phone] Name, MD Aamir [address] [place], [place] [phone] Social History Tobacco Use Types Packs/Day Years [...] Description 12/06/2024 11:30 AM EST Clinical Support [address] [address] Francine Oneill RN 03/01/2025 10:30 AM EDT Office Visit [address] [address] NameAamir MD [address] [place] [phone] documented as of this encounter Visit Diagnoses Not on filedocumented in this encounter Additional Health Concerns Assessment Noted Time PHQ-9 Depression Total Score: 6 08/17/20 24 11:53 AM EST documented as of this encounter Care Teams Methods Examiner Relationship Specialty Start Date End Date NameAamir MD [address] [place] [phone] PCP - General Family Medicine 10/10/18 documented as of this encounter
--- OUTSIDE RECORDS SUMMARY | 2024-12-03 16:03 | XMS_ITS | Encounter Summary ---
Author Organization [employer] Address [address] [facility] 7t [place] [address] Care Team Providers Care Paper Guillotine Operator Name Role Phone Name, Aamir MCCRARY Primary Care Provider [phone] Reason for Visit * Reason Onset Date Comments Med Refill 11/08/2024 Encounter Details Date Type Department Care Team (Late st Contact Info) Description 11/08/2024 Refill [facility]INE [address] [place], [place] [phone] Name, MD Aamir [address] [place], [place] [phone] Chronic pain syndrome Social History Tobacco Use [...] 5-325 MG tablet To be sent to: [id number] - [place], [place] - [address] [facility] [address]/RT 20 A & [place] documented in this encounter Plan of Treatment Upcoming Encounters Date Type Department Care Team ([facility] st Contact Info) Description 12/06/2024 11:30 AM EST Clinical Support [facility]INE [address] [place] [phone] Francine Oneill RN 03/01/2025 10:30 AM EDT Office Visit [facility] [address] [place] [phone] Name, MD Aamir [address] [place] [address] documented as of this encounter Visit Diagnoses Diagnosis Chronic pain syndrome documented in this encounter Additional Health Concerns Assessment Noted Time PHQ-9 Depression Total Score: 6 08/17/20 24 11:53 AM EST documented as of this encounter Care Teams Paper Guillotine Operator Relationship Specialty Start Date End Date NameAamir MD [address] [place] [address] PCP - General Family Medicine 10/10/18 documented as of this encounter
--- OUTSIDE RECORDS SUMMARY | 2024-12-03 16:03 | XMS_ITS | Encounter Summary ---
Author Organization [email or web address] [facility] Address [address] [place] [address] 7t [place] [address] Care Team Providers Care Keno Attendant Name Role Phone Name, Aamir MCCRARY Primary Care Provider [phone] Reason for Visit * Reason Comments Med Refill Encounter Details Date Type Department Care Team (Late st Contact Info) Description 03/31/2023 Refill [facility] MEDICINE [address] [place] [address] [phone] Name, MD Aamir [address] [place] [address] [phone] Social History Tobacco Use Types Packs/Day Years [...] Description 12/06/2024 11:30 AM EST Clinical Support [facility] MEDICINE [address] [place] [address] [phone] Francine Oneill RN 03/01/2025 10:30 AM EDT Office Visit [facility] MEDICINE [address] [place] [address] [phone] Name, MD Aamir [address] [place] [address] [phone] documented as of this encounter Visit Diagnoses Not on filedocumented in this encounter Additional Health Concerns Assessment Noted Time PHQ-9 Depression Total Score: 0 01/27/20 23 10:31 AM EDT documented as of this encounter Care Teams Keno Attendant Relationship Specialty Start Date End Date Name, MD Aamir [address] [place] [address] PCP - General Family Medicine 10/10/18 documented as of this encounter
--- OUTSIDE RECORDS SUMMARY | 2024-12-03 16:03 | XMS_ITS | Encounter Summary ---
Author Organization [facility] Address [address] [place] [address] Care Team Providers Care Corporate Job Titles Name Role Phone Name, Aamir MCCRARY Primary Care Provider [phone] Reason for Visit * Reason Onset Date Comments Appointment 11/16/2024 1st notification Encounter Details Date Type Department Care Team ([facility] st Contact Info) Description 11/16/2024 Telephone Lung Screening Program - [address] [place] [phone] Nu Menendez [place] Appointment (1st notification) Social [...] screening on Tuesday at 2 PM at [facility]. No answer left message For [...] Info) Description 12/05/2024 2:00 PM EST Appointment [facility] CT Scan [address] [place] [phone] documented as of this encounter Visit Diagnoses Not on filedocumented in this encounter Care Teams Corporate Job Titles Relationship Specialty Start Date End Date Name, MD Aamir [address] [place], [place] PCP - General Internal Medicine 12/22/12 documented as of this encounter
--- OUTSIDE RECORDS SUMMARY | 2024-12-03 16:03 | XMS_ITS | Clinical Summary ---
Author Organization [employer] Address [address] [facility] 7t [place] [address] Care Team Providers Care Managing Consultant Name Role Phone Name, Aamir MCCRARY Primary Care Provider [phone] Allergies Active Allergy Reactions Criticality Noted Date [...] DAY 90 tablet 1 07/16/20 24 Active oxyCODONE-acet aminophen (Percocet) 5-325 MG tabletIndicati ons:Chronic pain syndrome Take 1 tablet by mouth every 12 (twelve) hours if needed for severe pain for up to 28 days. 56 tablet 11/08/19 25 2024 Active aspirin (Aspirin Low Dose) 81 MG EC tabletIndicati ons:Hypertensi on, unspecified type Take 1 tablet by mouth every day 90 tablet 3 11/29/19 25 Active amLODIPine (Norvasc) 10 MG tabletIndicati ons:Hypertensi on, unspecified type TAKE 1 TABLET(10 MG) BY MOUTH IN THE MORNING 90 tablet 1 11/30/19 25 Active cholecalcifero l (Vitamin D-3) 50 MCG (1999 UT) tablet TAKE 1 TABLET BY MOUTH EVERY MORNING 90 tablet 3 12/03/19 Active Aspirin Low Dose 81 MG EC tabletIndicati ons:Hypertensi on, unspecified type TAKE 1 TABLET BY MOUTH EVERY DAY 90 tablet 3 08/02/20 24 2024 Discontinued(R eorder (will not trigger notification to Pharmacy)) oxyCODONE-acet aminophen (Percocet) 5-325 MG tabletIndicati ons:Chronic pain syndrome Take 1 tablet by mouth every 12 (twelve) hours if needed for severe pain for up to 28 days. 56 tablet 10/11/19 25 2024 Discontinued(R eorder (will not trigger notification to Pharmacy)) amLODIPine (Norvasc) 10 MG tabletIndicati ons:Hypertensi on, unspecified type TAKE 1 TABLET(10 MG) BY MOUTH IN THE MORNING 90 tablet 1 11/02/19 25 2024 Discontinued(R eorder (will not trigger [...] colon 01/26/2023 Overview (06/01/2023): Removed during colonoscopy ([facility] 2018, was recommended repeat 2023 Tobacco dependence syndrome 01/26/2023 Migraine 01/08/2019 Vitamin D deficiency 09/11/2018 Right ankle pain 06/06/2018 Pulmonary emphysema 04/10/2018 Calcification of lung 03/16/2018 Overview (06/01/2023): LRCT program at [facility], last CT 04/2023 (recommended repeat 6 [...] nodule, followed with CT chest. Last CT 2019 showed: Small stable calcified pulmonary nodules, largest [...] 04/10/2018 06/01/2023 Dyspnea on exertion 12/19/2017 06/01/20 Tight chest 08/31/2017 06/01/2023 Encounters Date Type Department Care Team Description 11/30/2024 Refill [facility] [address] [place] [phone] NameAamir MD 11/30/2024 Telephone [facility] [place] [address] Nigel Pierre MA Med Refill 11/30/2024 Telephone [facility] [place] [address] Nigel Pierre [place] Appointment Request 11/29/2024 Telephone [facility] [place] [address] Aamir Montoya MD Appointment Request 11/29/2024 Refill [facility] [place] [address] Aamir Montoya MD Hypertension, unspecified type 11/08/2024 Refill [facility] [place] [address] Aamir Montoya MD Chronic pain syndrome 11/02/2024 Refill [facility] [place] [address] Aamir Montoya MD Hypertension, unspecified type 10/23/2024 Patient Outreach [facility] [place] [address] Aamir Montoya MD Pre-visit Planning (SDOH screening is negative , Tobacco screening is positive) 10/23/2024 Telephone [facility] [place] [address] Nigel Pierre MA chart prep 10/11/2024 Refill [facility] [place] [address] Aamir Montoya MD Chronic pain syndrome 10/08/2024 Abstract [facility] [place] [address] Nigel Pierre [place] 10/05/2024 Orders Only GENERIC EXTERNAL DATA DEPARTMENT Provider, Generic External Data 09/13/2024 Refill [facility] [place] [address] Aamir Montoya MD Chronic pain syndrome from Last 3 Months Immunizations Name Administration [...] Description 12/06/2024 11:30 AM EST Clinical Support [facility] [address] [place] [address] Francine Oneill RN 03/01/2025 10:30 AM EDT Office Visit [facility] [address] [place] [address] Name, MD Aamir [address] [place] [address] Health Maintenance Due Date Last Done Comments [...] EOSIN STAIN Routine 10/05/2024 10:14 AM EST HEPATITIS C AB W/REFL TO [...] EST Narrative 10/16/2024 10:31 AM EST ? [facility] ? [address] ?[place] [address] ? Mammography Report ? Signed ? Patient: Graham,Jeanna ?MR#: [id number] ? : 1965 ?Acct:[id number] ? Age/Sex: 59 / F ?ADM Date: 10/16/24 ? Loc: HO.MAMMO ? Attending Dr: Gemini Lange MD ? Ordering Physician: Gemini Lange MD ?Results: ? Date of Service: 10/16/24 ?Follow Up: ? Procedure(s): XR DEXA axial skeleton ?? Accession Number(s): [id number] ? cc: Gemini Lange MD; Name,Aamir MCCRARY ? EXAMINATION: ??Dual-Energy X-ray Absorptiometry - Bone Density Study ? HISTORY: ??Estrogen deficiency ? TECHNIQUE: [employer] Dual energy absorptiometry (DEXA) ?? of the [...] DD/ 0845 ? TD/TT: 10/16/24 0855 ? Health Unit Coordinator: ? Procedure Note Birgit Mercer - 10/16/2024 [facility] [address] [place], [place] [address] Mammography Report Signed Patient: Jeanna GrahamMR#: [id number] : 1965Acct:[id number] Age/Sex: 59 / FADM Date: 10/16/24 Loc: [facility] Attending Dr: Gemini Lange MD Ordering Physician: Gemini Langeults: Date of Service: 10/16/24Follow Up: Procedure(s): XR DEXA axial skeleton Accession Number(s): [id number] cc: Gemini Lange MD; Name,Aamir MCCRARY EXAMINATION: Dual-Energy X-ray Absorptiometry - Bone Density Study HISTORY: Estrogen deficiency TECHNIQUE: TradeBeam Dual energy absorptiometry (DEXA) of the lumbar [...] by: Miky Juarez MD 10/16/2024 10:28 AM [facility] Dictated By: Miky Juarez MD Signed By: <Electronically signed by Miky Juarez MD in OV> 10/16/24 1028 DD/ 0845 TD/TT: 10/16/24 0855 Health Unit Coordinator: [facility] External Provider IMG DXA PROCEDURES Edited Result - Final * (ABNORMAL) Hm Colonoscopy (10/05/2024 10:40 AM EST) Colonoscopy Abnormal(A ) Normal 10/05/2024 10:4 0 AM EST Aamir Montoya MD HEALTH MAINTENANCE Final Result * Hematoxylin and Eosin Stain (10/05/2024 10:14 AM EST) 10/05/2024 10:1 4 AM EST 10/05/2024 11:33 AM EST Narrative [facility] - 10/08/2024 12:07 PM EST ----- ------- Name: Jeanna Graahm ? Age/Sex: 58/F ? : 1965 Unit#: [id number] ?? Attend Dr: Mary Anne Martínez MD ?Re10/05/24 ?Status: DEP SDC ? Location: HO.SSS ?Disch: ? ----- ------- SPEC : [id number] ? RECD: 10/05/24 ? STATUS: ??SOUT ? REQ NUM: [id number] ? PATTI: 10/05/241014 ? SUBM DR: Mary Anne Martínez MD ? ENTERED: ??10/05/24 ?SP TYPE: Surgical ? OTHR DR: Aamir Montoya MD ? ORDERED: ??HE Stain/9, Gross Micro L4/3 ? Diagnosis ?? A. [...] ? Age/Sex: 58/F ? : 1965 Unit#: [id number] ?? Attend Dr: Mary Anne Martínez MD ?Re10/05/24 ?Status: DEP [facility] ? Location: HO.SSS ?Disch: ? ----- ------- SPEC : [id number] ? RECD: 10/05/24 ? STATUS: ??SOUT ? REQ NUM: [id number] ? PATTI: 10/05/24-1014 ? SUBM DR: Mary Anne Martínez MD ? ENTERED: ??10/05/24 ?SP TYPE: Surgical ? OTHR DR: Aamir Montoya MD ? ORDERED: ??HE Stain/9, Gross Micro L4/3 ? Copies To: ?? Aamir Montoya MD ?? [address] [facility] ?? [place] [address] ?? [phone] ?? Mary Anne Martínez MD ?? [facility] ?? [address] ?? [place] [address] ?? [phone] ?? [email or web address] ----- ------- Signed (signature on file) Candace Brown 10/08/24 1207 ? ----- ------- ? END OF REPORT ? Generic External Data Provider LAB BLOOD ORDERAB LES Final Result Performing Organization Address [facility] Co de Phone Number [facility] [address] [place] [phone] * Hepatitis C Antibody with Reflex to HCV, RNA, Quantitative, Real-Time PCR (07/26/2024 10:59 AM EDT) [facility] Hepatitis C Antibody Nonreactive Nonreactive [facility] Comment:Antibodies to HCV no t detected; does not exclude early acuteHCV infection. Blood Venous blood specimen / Unknown 07/26/2024 10:59 AM EDT 07/26/2024 1:14 PM EDT Aamir Montoya MD LAB BLOOD ORDERABLES Final Resul t Performing Organization Address [facility] de Phone Number [facility] [address] [place] [phone] * HIV-1/2 Antigen and Antibodies, Fourth Generation, with Reflexes (07/26/2024 10:59 AM EDT) Pathologist [facility] HIV AB/AG Nonreactive Nonreactive [facility] Comment:HIV-1 p24 Ag and/or HIV-1/HIV-2 Ab not detected.A test result that is nonreactive does not exclude thepossibility of exposure to or infection with HIV-1 and/orHIV-2. Nonreactive results in this assay for individualswith prior exposure to HIV-1 and/or HIV-2 may be due toantigen and antibody levels that are below the limit ofdetection of this assay.The [employer] HIV Ag/Ab Combo assay result andsupplemental assay results should be interpreted inconjunction with the patient's clinical presentation,history and other laboratory results. If the results areinconsistent with clinical evidence, additional testing issuggested to confirm the result. Blood Venous blood specimen / Unknown 07/26/2024 10:59 AM EDT 07/26/2024 1:14 PM EDT us Aamir Montoya MD LAB BLOOD ORDERABLES Final Resul t [facility] [address] [place] [phone] * (ABNORMAL) Lipid Panel, Standard (07/26/2024 10:59 AM EDT) Triglycerides 155(H) <150 mg/dL [facility] Comment:Desirable Triglyceri de: less than 150 mg/dLBorderline High Triglyceride 150-199 mg/dLHigh Triglyceride: 200-499 mg/dLVery High Triglyceride: greater than or equal to 5OO mg/dL Cholesterol 181 <200 mg/dL [facility] Comment:Desirable Cholestero l: less than 200 mg/dLBorderline High Cholesterol: 200-239 mg/dLHigh Cholesterol: greater than 239 mg/dL LDL Cholesterol Calculated 115(H) <100 mg/dL [facility] Comment:Desirable LDL: less than 100 mg/dLNear Optimal/Above Optimal LDL: 110- 129 mg/dLBorderline High LDL: 130-159 mg/dLHigh LDL: 160-189 mg/dLVery High LDL: greater than or equal to 190 mg/dL HDL Cholesterol 35(L) >40 mg/dL [facility] Comment:Desirable HDL: great er than 40 mg/dL Note: This HDL assay may give artificially low results in patients with liver disease. Blood Venous blood specimen / Unknown 07/26/2024 10:59 AM EDT 07/26/2024 1:14 PM EDT us Aamir Name LAB BLOOD ORDERABLES Final Resul t [facility] [address] [place] [phone] [phone] from Last 3 Months or Most Recently Relevant to Health Maintenance Insurance [facility] Care Teams Managing Consultant Relationship Specialty Start Date End Date Name, MD Aamir [address] [place] [phone] PCP - General Family Medicine 10/10/18
--- OUTSIDE RECORDS SUMMARY | 2024-12-03 16:03 | XMS_ITS | Encounter Summary ---
Author Organization [facility] [facility] Address [address] [place] [address] 7t [place] [address] Care Team Providers Care Rental Representative Name Role Phone Name, Aamir MCCRARY Primary Care Provider [phone] Reason for Visit * Reason Comments Med Refill Encounter Details Date Type Department Care Team (Late st Contact Info) Description 05/07/2023 Refill [facility] [address] [place] [address] [phone] Name, MD Aamir [address] [place] [address] [phone] Social History Tobacco Use Types Packs/Day Years [...] Description 12/06/2024 11:30 AM EST Clinical Support [facility] [address] [place] [address] [phone] Francine Oneill RN 03/01/2025 10:30 AM EDT Office Visit [facility] [address] [place] [address] [phone] Name, MD Aamir [address] [place] [address] [phone] documented as of this encounter Visit Diagnoses Not on filedocumented in this encounter Additional Health Concerns Assessment Noted Time PHQ-9 Depression Total Score: 0 01/27/20 23 10:31 AM EDT documented as of this encounter Care Teams Rental Representative Relationship Specialty Start Date End Date Name, MD Aamir [address] [place] [address] PCP - General Family Medicine 10/10/18 documented as of this encounter
--- OUTSIDE RECORDS SUMMARY | 2024-12-03 16:03 | XMS_ITS | Encounter Summary ---
Author Organization [employer] Address [address] [facility] 7t [place] [address] Care Team Providers Care Boss Miner Name Role Phone Name, Aamir MCCRARY Primary Care Provider [phone] Reason for Visit * Reason Onset Date Comments Med Refill 11/29/2024 Encounter Details Date Type Department Care Team (Late st Contact Info) Description 11/29/2024 Refill [facility] [address] [place], [place] [phone] Name, MD Aamir [address] [place], [place] [phone] Hypertension, unspecified type Social History Tobacco Use [...] Telephone Encounter - Umair Moise - 11/29/2024 11:01 AM EST TC from pt requesting medication refill. Medications needing refill : amLODIPine (Norvasc) 10 MG tablet Aspirin Low Dose 81 MG EC tablet cholecalciferol (Vitamin D-3) 50 MCG (1999) tablet To be sent to: [id number] [place], [place] - [address] [place] [address] AT [facility]/RT [address] A & [place] documented in this encounter Plan of Treatment Upcoming Encounters Date Type Department Care Team (Late st Contact Info) Description 12/06/2024 11:30 AM EST Clinical Support [facility] [address] [place] [phone] Francine Oneill RN 03/01/2025 10:30 AM EDT Office Visit [facility] [address] [place] [phone] Name, MD Aamir [address] [place] [address] documented as of this encounter Visit Diagnoses Diagnosis Hypertension, unspecified type documented in this encounter Additional Health Concerns Assessment Noted Time PHQ-9 Depression Total Score: 6 08/17/20 24 11:53 AM EST documented as of this encounter Care Teams Boss Miner Relationship Specialty Start Date End Date Name, MD Aamir [address] [place] [address] PCP - General Family Medicine 10/10/18 documented as of this encounter
--- OUTSIDE RECORDS SUMMARY | 2024-12-03 16:03 | XMS_ITS | Encounter Summary ---
Author Organization [employer] Address [address] [facility] 7t [place] [address] Care Team Providers Care Resist Coater Developer Name Role Phone Name, Aamir MCCRARY Primary Care Provider [phone] Reason for Visit * Reason Onset Date Comments Med Refill 05/24/2024 Encounter Details Date Type Department Care Team ([facility] st Contact Info) Description 05/24/2024 Telephone [facility] [address] [place], [place] [phone] Name, MD Aamir [address] [place], [place] [phone] Med Refill Social History Tobacco Use Types [...] 5-325 MG tablet To be sent to: [facility][id number] [place], [place] - [address] [place] [address] AT [facility] [address]/RT [address] A & ARMORY documented in this encounter Plan of Treatment Upcoming Encounters Date Type Department Care Team (Late st Contact Info) Description 12/06/2024 11:30 AM EST Clinical Support [facility] [address] [place] [phone] Francine Oneill, MARLEE 03/01/2025 10:30 AM EDT Office Visit [facility] [address] [place] [phone] Name, MD Aamir [address] [place] [phone] documented as of this encounter Visit Diagnoses Not on filedocumented in this encounter Additional Health Concerns Assessment Noted Time PHQ-9 Depression Total Score: 0 01/27/20 23 10:31 AM EDT documented as of this encounter Care Teams Resist Coater Developer Relationship Specialty Start Date End Date Name, MD Aamir [address] [place] [address] PCP - General Family Medicine 10/10/18 documented as of this encounter
--- OUTSIDE RECORDS SUMMARY | 2024-12-03 16:03 | XMS_ITS | Encounter Summary ---
Author Organization [employer] Address [address] [facility] [address] 7t [place] [address] Care Team Providers Care Quill Stripper Name Role Phone Name, Aamir MCCRARY Primary Care Provider [phone] Reason for Visit * Reason Onset Date Comments Appointment Request 11/30/2024 Encounter Details Date Type Department Care Team ([facility] st Contact Info) Description 11/30/2024 Telephone [facility] [address] [place], [place] [phone] Nigel Pierre [place] Appointment Request Social History Tobacco Use Types [...] Miscellaneous Notes * Telephone Encounter - Nigel iPerre MA - 11/30/2024 1:53 PM EST T/c placed to pt returning phone call back, pt is requesting to see pcp havent seen him since 08/17/24 , pt states they Dx with breast cancer, and want to meet up with pcp to talk more about it, pt isdue for PE , offer pt 03/01/25 @ 10:30 am , pt agrees with plans to come in. documented in this encounter Plan of Treatment Upcoming Encounters Date Type Department Care Team (Late st Contact Info) Description 12/06/2024 11:30 AM EST Clinical Support [facility] MEDICINE [address] [place] [phone] Francine Oneill RN 03/01/2025 10:30 AM EDT Office Visit [facility] [address] [place] [phone] Name, MD Aamir [address] [place] [address] documented as of this encounter Visit Diagnoses Not on filedocumented in this encounter Additional Health Concerns Assessment Noted Time PHQ-9 Depression Total Score: 6 08/17/20 24 11:53 AM EST documented as of this encounter Care Teams Quill Stripper Relationship Specialty Start Date End Date Aamir Montoya MD [address] [place] [address] [place] [address] PCP - General Family Medicine 10/10/18 documented as of this encounter
--- OUTSIDE RECORDS SUMMARY | 2024-12-03 16:04 | XMS_ITS | Encounter Summary ---
Author Organization [facility] Address [address] [facility] 7t [place] [address] Care Team Providers Care Language Instructor Name Role Phone Name, Aamir MCCRARY Primary Care Provider [phone] Encounter Details Date Type Department Care Team ([facility] Contact Info) Description 11/22/2022 Orders Only [facility] [address] [place], [place] [phone] Carmen Lao LPN Social History Tobacco Use [...] Description 12/06/2024 11:30 AM EST Clinical Support [facility] [address] [place] [address] [phone] Francine Oneill RN 03/01/2025 10:30 AM EDT Office Visit [facility] [address] [place] [address] [phone] Name, MD Aamir [address] [place] [address] documented as of this encounter Visit Diagnoses Not on filedocumented in this encounter Care Teams Language Instructor Relationship Specialty Start Date End Date Name, MD Aamir [address] [place] [address] PCP - General Family Medicine 10/10/18 documented as of this encounter
--- OUTSIDE RECORDS SUMMARY | 2024-12-03 16:04 | XMS_ITS | Encounter Summary ---
Author Organization [employer] Address 75 [facility] 7t [place] [address] Care Team Providers Care Banquet Supervisor Name Role Phone Name, Aamir MCCRARY Primary Care Provider [phone] Reason for Visit * Reason Onset Date Comments Med Refill 04/26/2024 Encounter Details Date Type Department Care Team ([facility] st Contact Info) Description 04/26/2024 Telephone [facility] MEDICINE [address] [place], [place] [phone] Name, MD Aamir [address] [place], [place] [phone] Med Refill Social History Tobacco Use Types [...] 5-325 MG tablet To be sent to: [id number] [place], [place] - [address] [place] [address] AT [facility]/RT [address] A & ARMORY documented in this encounter Plan of Treatment Upcoming Encounters Date Type Department Care Team (Late st Contact Info) Description 12/06/2024 11:30 AM EST Clinical Support [facility] MEDICINE [address] [place] [address] Francine Oneill, MARLEE 03/01/2025 10:30 AM EDT Office Visit [facility] MEDICINE [address] [place] [address] Name, MD Aamir [address] [place] [address] documented as of this encounter Visit Diagnoses Not on filedocumented in this encounter Additional Health Concerns Assessment Noted Time PHQ-9 Depression Total Score: 0 01/27/20 23 10:31 AM EDT documented as of this encounter Care Teams Banquet Supervisor Relationship Specialty Start Date End Date Name, MD Aamir [address] [place] [address] PCP - General Family Medicine 10/10/18 documented as of this encounter
--- OUTSIDE RECORDS SUMMARY | 2024-12-03 16:04 | XMS_ITS | Encounter Summary ---
Author Organization [employer] [facility] Address 75 [facility] 7t [place] [address] Care Team Providers Care Machinist Name Role Phone Name, Aamir MCCRARY Primary Care Provider [phone] Encounter Details Date Type Department Care Team (Late st Contact Info) Description 10/15/2022 Orders Only [facility] CH[facility] MED & PEDS [address] [place] [address] Carmen Lao LPN Social History Tobacco Use [...] Description 12/06/2024 11:30 AM EST Clinical Support [address] [address] Francine Oneill RN 03/01/2025 10:30 AM EDT Office Visit [address] [address] Name, MD Aamir [address] [place] [address] documented as of this encounter Visit Diagnoses Not on filedocumented in this encounter Care Teams Machinist Relationship Specialty Start Date End Date NameAamir MD [address] [place] [address] PCP - General Family Medicine 10/10/18 documented as of this encounter
--- OUTSIDE RECORDS SUMMARY | 2024-12-03 16:04 | XMS_ITS | Clinical Summary ---
Author Organization [facility] 299 [facility] [place] Address [address] [place] [address] Phone Care Team Providers Care Performance Test Architect Name Role Phone Name, Aamir MCCRARY Primary Care Provider [phone] Encounters Date Type Department Care Team Description 11/16/2024 Telephone Lung Screening Program - [address] [place] [phone] Nu Menendez [place] Appointment (1st notification) from Last 3 Months Medical History Medical History Date Comments Emphysema of lung ([facility]/HCC) DX:E mphysema of lung ([facility]) Hypertension, essential DX:Hyper tension, essential Mixed hyperlipidemia [...] Info) Description 12/05/2024 2:00 PM EST Appointment [facility] CT Scan [address] [place] [address] Health Maintenance Due Date Last Done Comments DTaP,Tdap,and Td Vaccines (1 - Tdap) 1986 Hepatitis A Vaccines (1 of 2 - [...] PM EDT Narrative 05/06/2023 3:41 PM EDT [facility] Diagnostic Imaging Department [address] [place] [address] Patient: ??GRAHAM,JEANNA ?/Age/Sex: 1965 - 57 - F Unit#: ??[id number] ? Location/Status: ??SPDICATLS/REG CLI ? Mnemonic/Ordering Site: ??CTLUNGLD/SPCT Ordering Physician: ??PETAR ANTHONY MD CT Lung Screening Low Dose - 05/06/23 - 1027 Report Status:Signed History: ??57 year-old 53 pack-year current smoker, asymptomatic, for lung cancer screening. Comparison: No comparison thoracic CTs at this institution. Correlation is made to prior abdominal CTs from 2019 and 2018. Technique: Helical volumetric imaging of the thorax was performed, using low- dose technique, without IV contrast. DLP: 92.46 mGy/cm ??CTDIvol: 3.22 mGy ElevateT Iterative reconstruction technique Findings: Lungs and Airways: [...] Probably benign findings - short-term followup suggested. [id number] G9637 G9557 G9551 Dictating Physician: ??RONEL ARROYO MD Electronically Signed by: ??RONEL ARROYO MD Dic Date/Time: ??05/06/23 1531 Sign date/Time: ??05/06/23 1541 Procedure Note Ronel Arroyo MD - 11/15/2023 [facility] Diagnostic Imaging Department [address] [place] [address] [phone] Patient: JEANNA GRAHAM /Age/Sex: 1965 - 57 - F Unit#: [id number] Location/Status: SPDICATLS/REG CLI Mnemonic/Ordering Site: [facility] Ordering Physician: PETAR ANTHONY MD CT [...] contrast. DLP: 92.46 mGy/cm CTDIvol: 3.22 mGy [employer] VCT Iterative reconstruction technique Findings: Lungs and [...] Probably benign findings - short-term followup suggested. 56627 G9637 G9557 G9551 Dictating Physician: RONEL ARROYO MD Electronically Signed by: RONEL ARROYO MD Dic Date/Time: 05/06/23 1531 Sign date/Time: 05/06/23 1541 Petar Anthony MD IMG CT PROCEDURES Final Result * [facility] SCREENING DIGITAL (11/18/2020 2:13 PM EST) Anatomical Region Laterality Modality Mammography 11/18/2020 1:33 PM EST Narrative 11/18/2020 2:13 PM EST [facility] Diagnostic Imaging Department [address] [place] [address] Patient: ??GRAHAM,JEANNA ?/Age/Sex: 1965 - 55 - F Unit#: ??[id number] ? Location/Status: ??SPDIMAM/REG CLI ? Mnemonic/Ordering Site: ??DIGSC/SPMAM Ordering Physician: ??NAME,AAMIR MCCRARY Ferdinand Screening Digital - 11/18/20 - 1867 INDICATION: SCREENING COMPARISON: [facility] mammograms dating back to ?? 07/26/2014 TECHNIQUE: CC and MLO views of the breasts were obtained, using full field digital mammography with 3D tomosynthesis views in the MLO projection. Computer aided detection with the [employer] 7.2-H was employed. FINDINGS: The breasts contain [...] date for the next mammogram. (G0202 / [id number]) , ??[id number] Dictating Physician: ??JONATHAN HOLDER MD Electronically Signed by: ??JONATHAN HOLDER MD Dic Date/Time: ??11/18/20 1407 Sign date/Time: ??11/18/20 1413 Procedure Note Jonathan Holder MD - 09/28/2022 [facility] Diagnostic Imaging Department [address] [place] [address] Patient: JEANNA GRAHAM /Age/Sex: 1965 - 55 - F Unit#: [id number] Location/Status: [facility] CLI Mnemonic/Ordering Site: [facility] Ordering Physician: AAMIR RAMOS MD Ferdinand Screening Digital - 11/18/20 - 1357 INDICATION: SCREENING COMPARISON: [facility] mammograms dating back to 07/26/2014 TECHNIQUE: CC and MLO views of the breasts were obtained, using full field digital mammography with 3D tomosynthesis views in the MLO projection. Computer aided detection with the [employer] 7.2-H was employed. FINDINGS: The breasts contain [...] date for the next mammogram. G0202 / [id number] , 20494 Dictating Physician: JONATHAN HOLDER MD Electronically Signed by: JONATHAN HOLDER MD Dic Date/Time: 11/18/20 1407 Sign date/Time: 11/18/20 1413 Aamir Lindsay MCCRARY IM BI PROCEDURES Final Result from Last 3 Months or Most Recently Relevant to Health Maintenance Insurance [place] [facility] Member Subscriber Plan / Payer (Ef fective 2018-Present) Name:Graham, Jeanna Relation to Subscriber:Self Name:Jeanna Graham Payer ID:[id number] Group ID:[id number] Type:Not on file Address: [facility] [address] [address] Care Teams Performance Test Architect Relationship Specialty Start Date End Date Name, MD Aamir [address] [place], [place] PCP - General Internal Medicine 12/22/12
== END 2024-12-03 14:35 | disposition home or self-care (01) ==
PROVIDERS: PCP Internal Medicine Geriatric Medicine; Visit Provider Orthopaedic Surgery
DX: M17.0 Bilateral primary osteoarthritis of knee (principal)
CPT/HCPCS: 20610; 99213

== ENCOUNTER → 2024-12-03 14:01 | Outpatient (BNVA) | payer OTHER, SELFPAY | PROVIDERS: PCP Internal Medicine Geriatric Medicine; Visit Provider Orthopaedic Surgery | DX: M17.0 Bilateral primary osteoarthritis of knee (principal) | CPT/HCPCS: 20610; 99212; J1010; J2003 ==

== ENCOUNTER 2024-12-14 09:17 | Outpatient (REF) | payer OTHER, SELFPAY ==
--- NOTE | ~2024-12-14 | US_ITS ---
EXAMINATION: US ABDOMEN HISTORY: Elevated liver enzymes TECHNIQUE: Real-time grayscale ultrasound imaging of the abdomen was performed and images were reviewed. COMPARISON: There are no prior studies for comparison. FINDINGS: Liver: The right lobe of the liver measures 15.7 cm in size. The left lobe of the liver measures 8.4 cm in size. The liver demonstrates normal homogeneous echotexture. No focal mass or intrahepatic biliary ductal dilatation is identified. There is normal hepatopedal flow in the portal vein. Gallbladder and biliary tree: The gallbladder is unremarkable, without evidence of calculi, wall thickening, or pericholecystic fluid. There is no sonographic Downey sign. The common bile duct is normal in caliber measuring 4 mm. Kidneys: The right kidney measures 10.4 cm in length and demonstrates a 1.5 x 1.2 x 1.3 cm upper pole cyst. The left kidney measures 10.7 cm in length and demonstrates a 1.5 cm upper pole cyst, a 1.0 cm cyst in the interpolar region, and a 1.4 cm cyst at the lower pole. The kidneys are otherwise unremarkable, without evidence of solid masses, hydronephrosis, or calculi. Pancreas: The pancreatic head, neck, and body are unremarkable. The pancreatic tail is obscured by bowel gas. Spleen: The spleen is normal in size and contour, measuring 7.6 cm in length. Abdominal aorta and inferior vena cava: The visualized portions of the abdominal aorta and inferior vena cava are normal in caliber. There is no free fluid in the abdomen. US/US abdomen complete IMPRESSION: Bilateral renal cysts as described. Otherwise unremarkable abdominal ultrasound. Electronically signed by: Miky Juarez MD 12/17/2024 08:24 AM EDT
--- OUTSIDE RECORDS SUMMARY | 2024-12-14 10:04 | XMS_ITS | Encounter Summary ---
Author Organization [facility] Address [address] [place] [phone] Care Team Providers Care Telephone Collector Name Role Phone Name, Aamir MCCRARY Primary Care Provider [phone] Reason for Referral * Imaging (Routine) - Closed Specialty Diagnoses / Procedures Referred By Lorenzo jennings Referred To Contact Radiology Diagnoses Encounter for screening for malignant neoplasm of respiratory organs Nicotine dependence, cigarettes, uncomplicated Procedures CT Lung Screening Petar Paredes MD [address] [address] Phone: tel: fax: [address] [address] Phone: tel: Referral ID Status Reason Start Date Expiration Date Visits Re quested Visits Authorized [id number] Closed 10/26/2024 10/26/2025 1 1 Reason for Visit * Imaging (Routine) - Closed Specialty Diagnoses / Procedures Referred By Lorenzo jennings Referred To Contact Radiology Diagnoses Encounter for screening for malignant neoplasm of respiratory organs Nicotine dependence, cigarettes, uncomplicated Procedures CT Lung Screening Petar Paredes MD [address] [address] Phone: tel: fax: [address] [address] Phone: tel: Referral ID Status Reason Start Date Expiration Date Visits Re quested Visits Authorized [id number] Closed 10/26/2024 10/26/2025 1 1 Encounter Details Date Type Department Care Team (Latest Contact Info) Description 12/05/2024 1:30 PM EST - 12/05/2024 11:59 PM EST Hospital Encounter [facility] CT Scan [address] [place] [address] Encounter for screening for malignant neoplasm of respiratory organs; Nicotine dependence, cigarettes, uncomplicated Discharge Disposition: Home or Self Care Social History Tobacco Use Types Packs/Day Years Used Date Smoking Tobacco: Every Day Cigarettes 1 37.2 Started: 10/10/1987 Smokeless Tobacco: Never Comments Unknown Sex and Gender Information Value Date Recorded Sex Assigned at Female 12/04/2024 1:14 PM EST Legal Sex Female 4:37 AM EST Gender Identity Female 12/04/2024 1:14 PM EST Sexual Orientation Not on file documented as of this encounter Discharge Disposition Disposition Code Departure Means Destination Home or Self Care documented in this encounter Plan of Treatment Not on file documented as of this encounter Procedures Procedure Name Priority Date/Time Associated Diagnosis Comments CT LUNG SCREENING Routine 12/05/2024 1:5 3 PM EST Encounter for screening for malignant neoplasm of respiratory organs Nicotine dependence, cigarettes, uncomplicated documented in this encounter Results * CT Lung Screening (12/05/2024 1:53 PM EST) Anatomical Region Laterality Modality Chest Computed Tomogra phy 12/10/2024 10:3 4 AM EST Impressions 12/10/2024 11:44 AM EST New or suspicious pulmonary nodules. ??Lung RADS 2-benign. ??Recommend continued screening with low-dose chest CT in 12 months. -------- FINAL REPORT -------- Dictated By: KEILA QUINTANILLA Dictated Date: 12/10/2024 10:34 ET Assigned Physician: KEILA QUINTANILLA Reviewed and Electronically Signed By: KEILA QUINTANILLA Signed Date: 12/10/2024 11:44 ET Workstation ID: [id number] Transcribed By: Self Edit Transcribed Date: 12/10/2024 11:04 ET Narrative 12/10/2024 11:44 AM EST PROCEDURE: Chest CT INDICATION: Lung cancer screening, current smoker, 53.5 pack year smoking history TECHNIQUE: Chest CT without contrast. Multi planar reformats were created and interpreted. The examination was performed utilizing dose reduction techniques. ??Total DLP 86 COMPARISON: ??05/06/2023 FINDINGS: LUNGS/PLEURA: Central airways are patent. ??Bibasilar atelectasis. ??Calcified left lower lobe granuloma. ??4 mm left lower lobe nodule along the fissure is stable. ??Punctate right upper lobe granuloma. ??No pleural effusion or pneumothorax. MEDIASTINUM: Thyroid gland is unremarkable. No mediastinal or hilar lymphadenopathy. Cardiac chambers are normal in size. No pericardial effusion. ??Moderate coronary artery calcifications. ??Esophagus is normal. CHEST WALL: No axillary lymphadenopathy or superficial hematoma. UPPER ABDOMEN:The visualized portions of the upper abdomen are unremarkable. BONES: Bones are normal Procedure Note Keila Quintanilla MD - 12/10/2024 PROCEDURE: Chest CT INDICATION: Lung cancer screening, current smoker, 53.5 pack year smokinghistory TECHNIQUE: Chest CT without contrast. Multi planar reformats were createdand interpreted. The examination was performed utilizing dose reductiontechniques. Total DLP 86 COMPARISON: 05/06/2023 FINDINGS: LUNGS/PLEURA: Central airways are patent. Bibasilar atelectasis.Calcified left lower lobe granuloma. 4 mm left lower lobe nodule alongthe fissure is stable. Punctate right upper lobe granuloma. No pleuraleffusion or pneumothorax. MEDIASTINUM: Thyroid gland is unremarkable. No mediastinal or hilarlymphadenopathy. Cardiac chambers are normal in size. No pericardialeffusion. Moderate coronary artery calcifications. Esophagus isnormal. CHEST WALL: No axillary lymphadenopathy or superficial hematoma. UPPER ABDOMEN:The visualized portions of the upper abdomen areunremarkable. BONES: Bones are normal IMPRESSION: New or suspicious pulmonary nodules. Lung RADS 2-benign. Recommendcontinued screening with low-dose chest CT in 12 months. -------- FINAL REPORT -------- Dictated By: KEILA QUINTANILLA Dictated Date: 12/10/2024 10:34 ET Assigned Physician: KEILA QUINTANILLA Reviewed and Electronically Signed By: KEILA QUINTANILLA Signed Date: 12/10/2024 11:44 ET Workstation ID: [id number] Transcribed By: Self Edit Transcribed Date: 12/10/2024 11:04 ET us Petar Paredes MD IMG CT PROCEDURES Final Result documented in this encounter Visit Diagnoses Diagnosis Encounter for screening for malignant neoplasm of respiratory organs Nicotine dependence, cigarettes, uncomplicated documented in this encounter Care Teams Telephone Collector Relationship Specialty Start Date End Date Name, MD Aamir [address] [place], [place] PCP - General Internal Medicine 12/22/12 documented as of this encounter
--- OUTSIDE RECORDS SUMMARY | 2024-12-14 10:04 | XMS_ITS | Encounter Summary ---
Author Organization [employer] [facility] Address 75 [facility] 7t [place] [address] Care Team Providers Care Doctor Of Dental Surgery Name Role Phone NameAamir MD Primary Care Provider [phone] Reason for Visit * Reason Comments Med Refill Encounter Details Date Type Department Care Team (Late st Contact Info) Description 03/31/2023 Refill [facility] MEDICINE [address] [place] [address] [phone] NameAamir MD [address] [place] [phone] Social History Tobacco Use Types Packs/Day Years [...] Care Team (Late st Contact Info) Description 03/01/2025 10:30 AM EDT Office Visit [facility] MEDICINE [address] [place] [address] [phone] Aamir Montoya MD [address] [place] [address] 03/06/2025 11:30 AM EDT Clinical Support [facility] MEDICINE [address] [place] [address] [phone] Francine Oneill, RN documented as of this encounter Visit Diagnoses Not on filedocumented in this encounter Additional Health Concerns Assessment Noted Time PHQ-9 Depression Total Score: 0 01/27/20 23 10:31 AM EDT documented as of this encounter Care Teams Doctor Of Dental Surgery Relationship Specialty Start Date End Date Name, MD Aamir [address] [place] [address] PCP - General Family Medicine 10/10/18 documented as of this encounter
--- OUTSIDE RECORDS SUMMARY | 2024-12-14 10:04 | XMS_ITS | Encounter Summary ---
Author Organization [employer] [facility] Address 75 [facility] 7t [place] [address] Care Team Providers Care Chemistry Associate Name Role Phone Name, Aamir MCCRARY Primary Care Provider Reason for Visit * Reason Onset Date Comments Med Refill 11/29/2024 Encounter Details Date Type Department Care Team (Late st Contact Info) Description 11/29/2024 Refill [facility] MEDICINE [address] [place], [place] [phone] Name, MD Aamir [address] [place], [place] [phone] Hypertension, unspecified type Social History Tobacco Use [...] MCG (1999) tablet To be sent to: [email or web address][id number] [place], [place] - [address] [place] [address] AT [facility]/RT [address] documented in this encounter Plan of Treatment Upcoming Encounters Date Type Department Care Team (Late st Contact Info) Description 03/01/2025 10:30 AM EDT Office Visit [address] [address] Name, MD Aamir [address] [place] [address] 03/06/2025 11:30 AM EDT Clinical Support [address] [address] Francine Oneill RN documented as of this encounter Visit Diagnoses Diagnosis Hypertension, unspecified type documented in this encounter Additional Health Concerns Assessment Noted Time PHQ-9 Depression Total Score: 6 08/17/20 24 11:53 AM EST documented as of this encounter Care Teams Chemistry Associate Relationship Specialty Start Date End Date Name, MD Aamir [address] [place] [address] PCP - General Family Medicine 10/10/18 documented as of this encounter
--- OUTSIDE RECORDS SUMMARY | 2024-12-14 10:04 | XMS_ITS | Encounter Summary ---
Author Organization [employer] Address 75 [facility] 7t [place] [address] Care Team Providers Care Morphologist Name Role Phone Name, Aamir MCCRARY Primary Care Provider [phone] Reason for Visit * Reason Onset Date Comments Appointment Request 11/29/2024 Encounter Details Date Type Department Care Team ([facility] st Contact Info) Description 11/29/2024 Telephone [facility] MEDICINE [address] [place], [place] [phone] Name, MD Aamir [address] [place] [address] Appointment Request Social History Tobacco Use Types [...] Miscellaneous Notes * Telephone Encounter - Umair Jose Maria - 11/29/2024 11:11 AM EST Tc from pt requesting to r/s Apt from 10/31/24. Pt states has not seen PCP in a while. Contact pt at [phone] documented in this encounter Plan of Treatment Upcoming Encounters Date Type Department Care Team (Late st Contact Info) Description 03/01/2025 10:30 AM EDT Office Visit [address] [address] Name, MD Aamir [address] [place] [address] 03/06/2025 11:30 AM EDT Clinical Support [address] [address] Francine Oneill RN documented as of this encounter Visit Diagnoses Not on filedocumented in this encounter Additional Health Concerns Assessment Noted Time PHQ-9 Depression Total Score: 6 08/17/20 24 11:53 AM EST documented as of this encounter Care Teams Morphologist Relationship Specialty Start Date End Date Name, MD Aamir [address] [place] [address] PCP - General Family Medicine 10/10/18 documented as of this encounter
--- OUTSIDE RECORDS SUMMARY | 2024-12-14 10:04 | XMS_ITS | Encounter Summary ---
Author Organization [facility] Address [address] [place] [address] Care Team Providers Care Regional Intermodal Truck Driver Name Role Phone Name, Aamir MCCRARY Primary Care Provider [phone] Reason for Visit * Reason Onset Date Comments Appointment 11/16/2024 1st notification Encounter Details Date Type Department Care Team ([facility] Contact Info) Description 11/16/2024 Telephone Lung Screening Program - [address] [place] [phone] Nu Menendez [place] Appointment (1st notification) Social [...] screening on Tuesday at 2 PM at [facility]. No answer left message For [...] on file documented as of this encounter Visit Diagnoses Not on filedocumented in this encounter Care Teams Regional Intermodal Truck Driver Relationship Specialty Start Date End Date Name, MD Aamir 4 [facility] [place] PCP - General Internal Medicine 12/22/12 documented as of this encounter
--- OUTSIDE RECORDS SUMMARY | 2024-12-14 10:04 | XMS_ITS | Encounter Summary ---
Author Organization [employer] Address [address] [facility] [address] [address] 7[address] [place] [address] Care Team Providers Care Control Clerk Head Name Role Phone Name, Aamir MCCRARY Primary Care Provider [phone] Encounter Details Date Type Department Care Team (Latest Contact Info) Description 12/06/2024 Travel Social History Tobacco Use Types Packs/Day Years [...] Description 03/01/2025 10:30 AM EDT Office Visit [address] [address] Name, MD Aamir [address] [place] [address] 03/06/2025 11:30 AM EDT Clinical Support [address] [address] Francine Oneill RN documented as of this encounter Visit Diagnoses Not on filedocumented in this encounter Additional Health Concerns Assessment Noted Time PHQ-9 Depression Total Score: 6 08/17/20 24 11:53 AM EST documented as of this encounter Care Teams Control Clerk Head Relationship Specialty Start Date End Date Aamir Montoya MD [address] [place] [address] PCP - General Family Medicine 10/10/18 documented as of this encounter
--- OUTSIDE RECORDS SUMMARY | 2024-12-14 10:04 | XMS_ITS | Encounter Summary ---
Author Organization [employer] Address [address] [facility] [address] 7t [place] [address] Care Team Providers Care Roof Bolter Operator Name Role Phone Name, Aamir MCCRARY Primary Care Provider [phone] Reason for Visit * Reason Onset Date Comments Appointment Request 11/30/2024 Encounter Details Date Type Department Care Team ([facility] st Contact Info) Description 11/30/2024 Telephone [facility] MEDICINE 230 [place], [place] [phone] Nigel Pierre [place] Appointment Request Social History [...] Encounter - Nigel Pierre MA - 11/30/2024 1:53 PM EST T/c [...] Description 03/01/2025 10:30 AM EDT Office Visit [address] [address] Name, MD Aamir [address] [place] [address] 03/06/2025 11:30 AM EDT Clinical Support [address] [address] Francine Oneill RN documented as of this encounter Visit Diagnoses Not on filedocumented in this encounter Additional Health Concerns Assessment Noted Time PHQ-9 Depression Total Score: 6 08/17/20 24 11:53 AM EST documented as of this encounter Care Teams Roof Bolter Operator Relationship Specialty Start Date End Date Name, MD Aamir [address] [place] [address], [place] [address] PCP - General Family Medicine 10/10/18 documented as of this encounter
--- OUTSIDE RECORDS SUMMARY | 2024-12-14 10:04 | XMS_ITS | Clinical Summary ---
Author Organization [employer] Address [address] [facility] 7t [place] [address] Care Team Providers Care Unemployment Specialist Name Role Phone Name, Aamir MCCRARY Primary Care Provider [phone] Allergies Active Allergy Reactions Criticality Noted Date [...] DAY 90 tablet 1 07/16/20 24 Active aspirin (Aspirin Low Dose) 81 MG [...] MOUTH EVERY MORNING 90 tablet 3 12/03/19 25 Active oxyCODONE-acet aminophen (Percocet) 5-325 MG tabletIndicati ons:Chronic pain syndrome Take 1 tablet by mouth every 12 (twelve) hours if needed for severe pain for up to 28 days. Do not start before December 07, 2024. 56 tablet 12/07/19 25 2024 Active Aspirin Low Dose 81 MG EC [...] 28 days. 56 tablet 11/08/19 25 2024 Discontinued(R eorder (will not trigger [...] colon 01/26/2023 Overview (06/01/2023): Removed during colonoscopy ([facility]) 2018, was recommended repeat 2023 Tobacco dependence syndrome 01/26/2023 Migraine 01/08/2019 Vitamin D deficiency 09/11/2018 Right ankle pain 06/06/2018 Pulmonary emphysema 04/10/2018 Calcification of lung 03/16/2018 Overview (06/01/2023): LRCT program at [facility], last CT 04/2023 (recommended repeat 6 [...] Encounters Date Type Department Care Team Description 12/06/2024 11:30 AM EST Clinical Support [address] [address] Francine Oneill RN Chronic low back pain without sciatica, unspecified back pain laterality (Primary Dx) 12/06/2024 Travel 12/06/2024 Refill [facility] [address] [facility] [place] [address] Aamir Montoya MD Chronic pain syndrome 12/06/2024 Telephone [facility] [address] [facility] [place] [address] Francine Oneill RN Recommend FORM GRADER Tier 2 11/30/2024 Refill [facility] [address] [facility] [place] [address] Aamir Montoya MD 11/30/2024 Telephone [facility] [address] [facility] [place] [address] Nigel Pierre MA Med Refill 11/30/2024 Telephone [facility] [address] [place] [address] [place] [address] Nigel Pierre MA Appointment Request 11/29/2024 Telephone [facility] [address] [facility] [place] [address] Aamir Montoya MD Appointment Request 11/29/2024 Refill C MEDICINE [address] [place] [address] Aamir Montoya MD Hypertension, unspecified type 11/08/2024 Refill [facility] [address] [facility] [place] [address] Aamir Montoya MD Chronic pain syndrome 11/02/2024 Refill C MEDICINE [address] [place] [address] Aamir Montoya MD Hypertension, unspecified type 10/23/2024 Patient Outreach C MEDICINE [address] [place] [address] Aamir Montoya MD Pre-visit Planning (SDOH screening is negative , Tobacco screening is positive) 10/23/2024 Telephone [facility] MED[facility] [address] [facility] [place] [address] Nigel Pierre MA chart prep 10/11/2024 Refill [facility] [address] [place] [address] Aamir Montoya MD Chronic pain syndrome 10/08/2024 Abstract [facility] [address] [place] [address] Nigel Pierre MA 10/05/2024 Orders Only GENERIC EXTERNAL DATA DEPARTMENT Provider, Generic External Data from Last 3 Months Immunizations Name Administration [...] is your housing situation today? I have flacawillis mckeon 08/17/[address] you [...] Description 03/01/2025 10:30 AM EDT Office Visit [address] [address] Name, MD Aamir [address] [place] [address] 03/06/2025 11:30 AM EDT Clinical Support [address] [address] Francine Oneill, MARLEE Health Maintenance Due Date Last Done Comments CT Colonography 1967 FIT DNA/Cologuard 1967 FIT 1967 FOBT 1967 Sigmoidoscopy 1967 Alcohol/Substance Use Screening 1979 Hepatitis A Vaccines (1 of 2 - Risk 2-dose series) 1986 Hepatitis B Vaccines (1 of 3 - 19+ 3-dose series) 1986 Pap Smear 1988 Cervical Cancer Screening 1997 HPV/Cotest 1997 Zoster Vaccines (1 of 2) 2017 Mammogram 08/06/2025 08/06/2024, 07/11, 07/04/2024, Additional history exists Depression Screening 08/17/2025 08/17/2024, 08/17/20 Tobacco Screening 08/17/2025 08/17/2024 SDOH Screening 10/23/2025 [...] Procedure Name Priority Date/Time Associated Diagnosis Comments POCT AMY-14 URINE DRUG SCREEN Routine 12/06/2024 11:38 AM EST Chronic low back pain without sciatica, unspecified back pain laterality BD DEXA AXIAL Routine 10/16/2024 8:45 AM EST HM COLONOSCOPY Routine 10/05/2024 10:40 AM EST HEMATOXYLIN AND EOSIN STAIN Routine 10/05/2024 10:14 AM EST BI MAMMOGRAM DIAGNOSTIC TOMOSYNTHESIS RIGHT Routine 08/06/2024 10:00 AM EDT HEPATITIS C AB W/REFL TO HCV RNA, QN, PCR Routine 07/26/2024 10:59 AM EDT Need for hepatitis C screening test HIV 1/2 ANTIGEN/ANTIBODY, FOURTH GENERATION W/RFL Routine 07/26/2024 10:59 AM EDT Screening for HIV (human immunodeficiency virus) LIPID PANEL, STANDARD Routine 07/26/2024 10:59 AM EDT Essential hypertension from Last 3 Months or Most Recently Relevant to Health Maintenance Results * POCT AMY-14 Urine Drug Screen (12/06/2024 11:38 AM EST) Oxycodone Screen, Urine Positive Urine Urine specimen obtained by clean catch procedure / Unknown 12/06/2024 11:38 AM EST Narrative Francine Oneill RN - 12/06/2024 11:38 AM EST UTOX cup Lot#[id number] Exp. 05/29/26 Internal Pass Control us Aamir Name MD POINT OF CARE TEST ENTER/EDIT OR DERABLES Final Result * BD DEXA Axial (10/16/2024 8:45 AM EST) Anatomical Region Laterality Modality Body Radiographic Shakira ging 10/16/2024 8:45 AM EST Narrative 10/16/2024 10:31 AM EST ? [facility] ? [address] ?[place] [address] ? Mammography Report ? Signed ? Patient: Graham,Jeanna ?MR#: [id number] ? : 1965 ?Acct:[id number] ? Age/Sex: 59 / F ?ADM Date: 10/16/24 ? Loc: HO.MAMMO ? Attending Dr: Gemini Lange MD ? Ordering Physician: Gemini Lange MD ?Results: ? Date of Service: 10/16/24 ?Follow Up: ? Procedure(s): XR DEXA axial skeleton ?? Accession Number(s): [id number] ? cc: Gemini Lange MD; Name,Aamir MCCRARY ? EXAMINATION: ??Dual-Energy X-ray Absorptiometry - Bone Density Study ? HISTORY: ??Estrogen deficiency ? TECHNIQUE: [email or web address] Dual energy absorptiometry (DEXA) ?? of the [...] DD/ 0845 ? TD/TT: 10/16/24 0855 ? Pneumatic Press Hand: ? Procedure Note Sylvie, Image - 10/16/2024 [facility] [address] [place] [address] Mammography Report Signed Patient: Jeanna GrahamMR#: [id number] : 1965Acct:[id number] Age/Sex: 59 / FADM Date: 10/16/24 Loc: HO.MAMMO Attending Dr: Gemini Lange MD Ordering Physician: Gemini Langeults: Date of Service: 10/16/24Follow Up: Procedure(s): XR DEXA axial skeleton Accession Number(s): [id number] cc: Gemini Lange MD; Name,Aamir MCCRARY EXAMINATION: Dual-Energy X-ray Absorptiometry - Bone Density Study HISTORY: Estrogen deficiency TECHNIQUE: [email or web address] Dual energy absorptiometry (DEXA) of the lumbar [...] by: Miky Juarez MD 10/16/2024 10:28 AM EST Dictated By: Miky Juarez MD Signed By: <Electronically signed by Miky Juarez MD in OV> 10/16/24 1028 DD/ 0845 TD/TT: 10/16/24 0855 Pneumatic Press Hand: [facility] External Provider IMG DXA PROCEDURES Edited Result - Final * (ABNORMAL) Hm Colonoscopy (10/05/2024 10:40 AM EST) Colonoscopy Abnormal(A ) Normal 10/05/2024 10:4 0 AM EST us Aamir Montoya MD HEALTH MAINTENANCE Final Result * Hematoxylin and Eosin Stain (10/05/2024 10:14 AM EST) 10/05/2024 10:1 4 AM EST 10/05/2024 11:33 AM EST Narrative [facility] - 10/08/2024 12:07 PM EST ----- ------- Name: Jeanna Graham ? Age/Sex: 58/F ? : 1965 Unit#: [id number] ?? Attend Dr: Mary Anne Martínez MD ?Re10/05/24 ?Status: DEP SDC ? Location: HO.SSS ?Disch: ? ----- ------- SPEC : [id number] ? RECD: 10/05/24-1132 ? STATUS: ??SOUT ? REQ NUM: [id number] ? PATTI: 10/05/24-1014 ? SUBM DR: Mary Anne Martínez MD ? ENTERED: ??10/05/24-3859 ?SP TYPE: Surgical ? OTHR : Name,Aamir MCCRARY ? ORDERED: ??HE Stain/9, Gross [...] and entirely submitted in a cassette labeled Julianna HAJI ? CONTINUED ON NEXT PAGE ----- ------- Name: Jeanna Graham ? Age/Sex: 58/F ? : 1965 Unit#: [id number] ?? Attend Dr: Mary Anne Martínez MD ?Re10/05/24 ?Status: DEP SDC ? Location: HO.SSS ?Disch: ? ----- ------- SPEC : [id number] ? RECD: 10/05/24-631 ? STATUS: ??SOUT ? REQ NUM: [id number] ? PATTI: 10/05/24-1014 ? SUBM DR: Mary Anne Martínez MD ? ENTERED: ??10/05/24-1145 ?SP TYPE: Surgical ? OTHR : Aamir Montoya MD ? ORDERED: ??HE Stain/9, Gross Micro L4/3 ? Copies To: ?? Name,Aamir MCCRARY ?? [address] [facility] ?? [place] [address] ?? [phone] ?? Mary Anne Martínez MD ?? [facility] ?? [address] ?? [place] [address] ?? [phone] ?? [email or web address] ----- ------- Signed (signature on file) Candace Stephanie 10/08/24 1207 ? ----- ------- ? END OF REPORT ? us Generic External Data Provider LAB BLOOD ORDERAB LES Final Result [facility] [address] [place] [address] [phone] * BI Mammogram Diagnostic Tomosynthesis Right (08/06/2024 10:00 AM EDT) Anatomical Region Laterality Modality Breast Right Mammography 08/06/2024 10:0 0 AM EDT Narrative 08/06/2024 11:15 AM EDT ? [facility] ? [address] ?[place] [address] ? Mammography Report ? Signed with Addenda ? Patient: Graham,Jeanna ?MR#: [id number] ? : 1965 ?Acct:[id number] ? Age/Sex: 58 / F ?ADM Date: 08/06/24 ? Loc: HO.MAMMO ? Attending Dr: Stefano Coombs MD ? Ordering Physician: Stefano Coombs MD ?Results: 1Negat ?? jac ? Date of Service: 08/06/24 ?Follow Up: 1 Year From Orig ?? inal Mammogram ? Procedure(s): MM tomosynthesis diagnostic RT ?? Accession Number(s): [id number] ? cc: Lindsay,Aamir MCCRARY; Stefano Coombs MD ?ADDENDUM ? ADDENDUM #1 ? ADDENDUM: ?? Pathology results: ? Breast, right, mass at 10:00, ultrasound-guided core biopsy: ?? -Invasive ductal carcinoma, grade 3. ? -Largest linear diameter: 7 mm. (Estimated size on imagin x 6 x 7 ?? mm.) ?? -Ductal carcinoma in situ: Not identified. ?? -No lymphovascular invasion identified. ?? -Prognostic receptors awaiting results. ? Please see pathology report for comprehensive information regarding the ?? specimen. ? Pathology results are considered concordant with imaging expectations. ? Results are communicated to myself and Dr. Coombs via secure text by ?? Stephanie on 08/07/2024, at 12:46 PM. ? RECOMMENDATIONS: ?? Surgical/oncological management. ? Electronically signed by: ??Jamie Holguin MD ??08/09/2024 01:29 PM EDT RP ? Addendum Dictated By: ?Jamie Holguin MD ? Addendum Signed By: ? <Electronically signed by Jamie Holguin MD in OV> ?08/09/24 1329 ?? Addendum Cosigned By: ? DD/ ? TD/TT: 08/06/24 ? PROCEDURE: ?? US GUIDED BREAST BIOPSY, RIGHT ? CLINICAL INFORMATION: ?? Suspicious hypoechoic irregular mass right breast 9:00 axis, 5 cm from ?? the nipple, measuring 0.6 x 0.7 x 0.6 cm. ? COMPARISON: ?? 08/01/2024 diagnostic right mammography and right breast ultrasound. ?? 07/04/2024 screening mammography. ? PROCEDURAL DETAILS: ?? The details of the procedure, as well as the risks, benefits, and ?? alternatives to the procedure were explained to the patient in detail ?? and all of her questions were answered, after which written informed ?? consent was obtained with the aid of an asl interpreter. Site and side were ?? confirmed. ? Prior to the procedure, sonography revealed irregular hypoechoic mass ?? at 10:00 axis right breast, 5 cm from the nipple.. A time-out was ?? performed, the lesion intended for biopsy was targeted, and the skin of ?? the overlying right breast was then marked, prepped and draped in the ?? usual sterile fashion. ? Using sonographic guidance, sterile technique, and 1% lidocaine without ?? epinephrine for local anesthesia, multiple core biopsies were obtained ?? through the targeted area with a 14G spring loaded eventuosityera core ??biopsy ?? device. There was real-time confirmation of appropriate needle passage. ?? Sampling was documented. At the completion of tissue sampling, a single ?? open coil metallic clip was deposited at the biopsy site. ? There was no evidence of immediate complication. ? SPECIMEN: ?? 3 well formed core samples were obtained. ? DIGITAL POST-PROCEDURE MAMMOGRAPHY: ?? Breast density: The tissue contains scattered areas of fibroglandular ?? density. BI-RADS version 5, category B. ? There are no new mammographic findings demonstrated. ? The postprocedure 2-view direct digital mammogram reveals satisfactory ?? and accurate positioning of the biopsy clip. No hematoma present. ? The patient tolerated the procedure well and, after assuring adequate ?? hemostasis, was discharged in good condition after reviewing postbiopsy ?? breast care instructions. Final pathology results are pending. ? MM/MM tomosynthesis diagnostic RT ?? IMPRESSION: ?? 1. No immediate complication from ultrasound-guided percutaneous biopsy ?? right breast 9-10 o'clock axis mass. ? 2. Ultrasound was used to localize and guide marker clip placement. ? 3. The 2-view direct digital postprocedure mammogram reveals ?? satisfactory and accurate positioning of the biopsy clip. ? 4. Final pathology results are pending. A separate report with final ?? recommendations will be issued once these results are made available. ? Electronically signed by: ??Jamie Holguin MD ??08/06/2024 11:12 AM EDT RP ? Dictated By: ?Jamie Holguin MD ? Signed By: ?<Electronically signed by Jamie Holguin MD in OV> ?08/06/24 1112 ? DD/ 1000 ? TD/TT: 08/06/24 1043 ? Pneumatic Press Hand: ? Procedure Note Sylvie, Birgit - 08/09/2024 [facility] [address] [place] [address] Mammography Report Signed with Addenda Patient: Jeanna GrahamMR#: [id number] : 1965Acct:[id number] Age/Sex: 58 / FADM Date: 08/06/24 Loc: HO.MAMMO Attending Dr: Stefano Coombs MD Ordering Physician: Stefano Coombs MDResults: 1Negat jac Date of Service: 08/06/24Follow Up: 1 Year From Orig inal Mammogram Procedure(s): MM tomosynthesis diagnostic RT Accession Number(s): [id number] cc: Name,Aamir MCCRARY; Stefano Coombs MD ADDENDUM ADDENDUM #1 ADDENDUM: Pathology results: Breast, right, mass at 10:00, ultrasound-guided core biopsy: -Invasive ductal carcinoma, grade 3. -Largest linear diameter: 7 mm. (Estimated size on imagin x 6 x 7 mm.) -Ductal carcinoma in situ: Not identified. -No lymphovascular invasion identified. -Prognostic receptors awaiting results. Please see pathology report for comprehensive information regarding the specimen. Pathology results are considered concordant with imaging expectations. Results are communicated to myself and Dr. Coombs via secure text by Dr. Brown on 08/07/2024, at 12:46 PM. RECOMMENDATIONS: Surgical/oncological management. Electronically signed by: Jamie Holguin MD 08/09/2024 01:29 PM EDT Addendum Dictated By: Jamie Holguin MD Addendum Signed By: <Electronically signed by Jamie Holguin MD in OV> 08/09/24 1329 Addendum Cosigned By: DD/ TD/TT: 08/06/24 PROCEDURE: US GUIDED BREAST BIOPSY, RIGHT CLINICAL INFORMATION: Suspicious hypoechoic irregular mass right breast 9:00 axis, 5 cm from the nipple, measuring 0.6 x 0.7 x 0.6 cm. COMPARISON: 08/01/2024 diagnostic right mammography and right breast ultrasound. 07/04/2024 screening mammography. PROCEDURAL DETAILS: The details of the procedure, as well as the risks, benefits, and alternatives to the procedure were explained to the patient in detail and all of her questions were answered, after which written informed consent was obtained with the aid of an asl interpreter. Site and side were confirmed. Prior to the procedure, sonography revealed irregular hypoechoic mass at 10:00 axis right breast, 5 cm from the nipple.. A time-out was performed, the lesion intended for biopsy was targeted, and the skin of the overlying right breast was then marked, prepped and draped in the usual sterile fashion. Using sonographic guidance, sterile technique, and 1% lidocaine without epinephrine for local anesthesia, multiple core biopsies were obtained through the targeted area with a 14G spring loaded eventuosityera core biopsy device. There was real-time confirmation of appropriate needle passage. Sampling was documented. At the completion of tissue sampling, a single open coil metallic clip was deposited at the biopsy site. There was no evidence of immediate complication. SPECIMEN: 3 well formed core samples were obtained. DIGITAL POST-PROCEDURE MAMMOGRAPHY: Breast density: The tissue contains scattered areas of fibroglandular density. BI-RADS version 5, category B. There are no new mammographic findings demonstrated. The postprocedure 2-view direct digital mammogram reveals satisfactory and accurate positioning of the biopsy clip. No hematoma present. The patient tolerated the procedure well and, after assuring adequate hemostasis, was discharged in good condition after reviewing postbiopsy breast care instructions. Final pathology results are pending. MM/MM tomosynthesis diagnostic RT IMPRESSION: 1. No immediate complication from ultrasound-guided percutaneous biopsy right breast 9-10 o'clock axis mass. 2. Ultrasound was used to localize and guide marker clip placement. 3. The 2-view direct digital postprocedure mammogram reveals satisfactory and accurate positioning of the biopsy clip. 4. Final pathology results are pending. A separate report with final recommendations will be issued once these results are made available. Electronically signed by: Jamie Holguin MD 08/06/2024 11:12 AM EDT Dictated By: Jamie Holguin MD Signed By: <Electronically signed by Jamie Holguin MD in OV> 08/06/24 1112 DD/ 1000 TD/TT: 08/06/24 1043 Pneumatic Press Hand: [facility] External Provider IMG BI PROCEDURES Edited Result - Final * Hepatitis C Antibody with Reflex to HCV, RNA, Quantitative, Real-Time PCR (07/26/2024 10:59 AM EDT) Hepatitis C Antibody Nonreactive Nonreactive [facility] Comment:Antibodies to HCV no t detected; does not exclude early acuteHCV infection. Blood Venous blood specimen / Unknown 07/26/2024 10:59 AM EDT 07/26/2024 1:14 PM EDT us Aamir Montoya MD LAB BLOOD ORDERABLES Final Resul t Performing Organization Address [facility] Co de Phone Number [facility] [address] [place] [phone] * HIV-1/2 Antigen and Antibodies, Fourth Generation, with Reflexes (07/26/2024 10:59 AM EDT) HIV AB/AG Nonreactive Nonreactive [facility] Comment:HIV-1 p24 Ag and/or HIV-1/HIV-2 Ab not detected.A test result that is nonreactive does not exclude thepossibility of exposure to or infection with HIV-1 and/orHIV-2. Nonreactive results in this assay for individualswith prior exposure to HIV-1 and/or HIV-2 may be due toantigen and antibody levels that are below the limit ofdetection of this assay.The [employer] HIV Ag/Ab Combo assay result andsupplemental assay results should be interpreted inconjunction with the patient's clinical presentation,history and other laboratory results. If the results areinconsistent with clinical evidence, additional testing issuggested to confirm the result. Blood Venous blood specimen / Unknown 07/26/2024 10:59 AM EDT 07/26/2024 1:14 PM EDT us Aamir Montoya MD LAB BLOOD ORDERABLES Final Resul t Performing Organization Address [facility]/ZIP Co de Phone Number [facility] [address] [place] [phone] [phone] * (ABNORMAL) Lipid Panel, Standard (07/26/2024 10:59 AM EDT) Triglycerides 155(H) <150 mg/dL [facility] Comment:Desirable Triglyceri de: less than 150 mg/dLBorderline High Triglyceride 150-199 mg/dLHigh Triglyceride: 200-499 mg/dLVery High Triglyceride: greater than or equal to 5OO mg/dL Cholesterol 181 <200 mg/dL [facility] Comment:Desirable Cholestero l: less than 200 mg/dLBorderline High Cholesterol: 200-239 mg/dLHigh Cholesterol: greater than 239 mg/dL LDL Cholesterol Calculated 115(H) <100 mg/dL [facility] Comment:Desirable LDL: less than 100 mg/dLNear Optimal/Above Optimal LDL: 110- 129 mg/dLBorderline High LDL: 130-159 mg/dLHigh LDL: 160-189 mg/dLVery High LDL: greater than or equal to 190 mg/dL HDL Cholesterol 35(L) >40 mg/dL [facility] Comment:Desirable HDL: great er than 40 mg/dL Note: This HDL assay may give artificially low results in patients with liver disease. Blood Venous blood specimen / Unknown 07/26/2024 10:59 AM EDT 07/26/2024 1:14 PM EDT us Aamir Montoya MD LAB BLOOD ORDERABLES Final Resul t [facility] [address] [place] [address] [phone] from Last 3 Months or Most Recently Relevant to Health Maintenance Insurance [facility] Care Teams Unemployment Specialist Relationship Specialty Start Date End Date Name, MD Aamir [address] [place] [phone] PCP - General Family Medicine 10/10/18
--- OUTSIDE RECORDS SUMMARY | 2024-12-14 10:04 | XMS_ITS | Encounter Summary ---
Author Organization [employer] Address [address] [facility] [address] [place] [address] Care Team Providers Care Pathology Laboratory Director Name Role Phone Name, Aamir MCCRARY Primary Care Provider [phone] Reason for Visit * Reason Onset Date Comments Med Refill 12/06/2024 BPI Scoring 12/06/2024 Encounter Details Date Type Department Care Team (Late st Contact Info) Description 12/06/2024 Refill [facility] [address] [place], [place] [phone] Name, MD Aamir [address] [place] [address] Chronic pain syndrome Social History Tobacco Use [...] encounter Miscellaneous Notes * Telephone Encounter - Francine Oneill RN - 12/06/2024 11:36 AM EST Pt had CONTENT STRATEGY LEAD RV today Starting radiation treatments Tuesday. BPI updated Pain severity score of 6.8, activity interference score of 6.4. Previous BPI completed 06/27/24 with pain severity score of 6.8, activity interference score of 6.4. * Telephone Encounter - Bernabe Pink - 12/06/2024 9:31 AM EST TC from pt requesting medication refill. Medications needing refill : oxyCODONE-acetaminophen (Percocet) 5-325 MG tablet To be sent to: [id number] - [place], [place] - [address] documented in this encounter Plan of Treatment Upcoming Encounters Date Type Department Care Team (Late st Contact Info) Description 03/01/2025 10:30 AM EDT Office Visit [facility] [address] [place] [phone] Name, MD Aamir [address] [place], [place] [phone] 03/06/2025 11:30 AM EDT Clinical Support [facility] [address] [place] [address] Francine Oneill, MARLEE documented as of this encounter Visit Diagnoses Diagnosis Chronic pain syndrome documented in this encounter Additional Health Concerns Assessment Noted Time PHQ-9 Depression Total Score: 6 08/17/20 24 11:53 AM EST documented as of this encounter Care Teams Pathology Laboratory Director Relationship Specialty Start Date End Date Name, MD Aamir [address] [place] [address] PCP - General Family Medicine 10/10/18 documented as of this encounter
--- OUTSIDE RECORDS SUMMARY | 2024-12-14 10:04 | XMS_ITS | Encounter Summary ---
Author Organization [employer] [facility] Address [address] [facility] 7t [place] [address] Care Team Providers Care Professor Of Physics Name Role Phone Name, Aamir MCCRARY Primary Care Provider [phone] Reason for Visit * Reason Comments SAFETY INVESTIGATOR RV SAFETY INVESTIGATOR RV Encounter Details Date Type Department Care Team (Latest Contact Info) Description 12/06/2024 11:30 AM EST Clinical Support [address] [phone] Francine Oneill RN Chronic low back pain without sciatica, unspecified back pain laterality (Primary Dx) Social History Tobacco Use Types Packs/Day Years [...] as of this encounter Progress Notes * Francine Oneill RN - 12/06/2024 11:30 AM EST S: Pt here for SAFETY INVESTIGATOR Revisit, translation provided by XXX. Prescribed Percocet 5mg Q12hr PRN. States she has been taking as prescribed, last dose taken was this morning. She is also prescribed Clonazepam 1mg TID from an outside provider. Continues to smoke 14 cigarettes a day and has smoked for >35 years. Continues to deny ETOH use, Illicit drug use and marijuana use. Currently rates her pain a 9 and states medication is 75% effective at alleviating her pain. Current pain sites are her lower back. Pt has Dx of breast cancer and is starting radiation treatment on Tuesday. She is also getting knee injections next week. O: SAFETY INVESTIGATOR Tier 2. Pt currently prescribed Percocet 5mg Q12hr PRN. CASHIER COURTESY BOOTH verified today. Rx last filled on 11/09/24. Pill count performed. Pt has 1 pills at this time, 1 at least expected. Medication is notoverused by patient. UTOX completed. Positive for OXY, Negative for AMP, BAR, BUP, BZO, CARYN, FTY, MDMA, MET, MOP, MTD, PCP, TCA, THC. UTOX as expected. BPI updated today. Pain severity score of 6.8, activity interference score of 6.4. Previous BPI completed 06/27/24 with pain severity score of 6.8, activity interference score of 6.4. Will update PCP with BPI scoring and send request for Percocet refill. Last PCP visit was 08/17/24. A: SAFETY INVESTIGATOR Contract Revisit: Chronic Opioid use related to pain. P: Pt to continue taking medication only as prescribed; Next SAFETY INVESTIGATOR RV appointment scheduled for 03/06/25 @ 11:30a, F/U sooner PRN. Appointment reminder given. Pt verbalized understanding and agreed to plan. documented in this encounter Plan of Treatment Upcoming Encounters Date Type Department Care Team (Late st Contact Info) Description 03/01/2025 10:30 AM EDT Office Visit [address] [address] NameAamir MD [address] [place] [address] 03/06/2025 11:30 AM EDT Clinical Support [address] [address] Francine Oneill RN documented as of this encounter Procedures Procedure Name Priority Date/Time Associated Diagnosis Comments POCT AMY-14 URINE DRUG SCREEN Routine 12/06/2024 11:38 AM EST Chronic low back pain without sciatica, unspecified back pain laterality documented in this encounter Results * POCT AMY-14 Urine Drug Screen (12/06/2024 11:38 AM EST) Oxycodone Screen, Urine Positive Urine Urine specimen obtained by clean catch procedure / Unknown 12/06/2024 11:38 AM EST Narrative Francine Oneill, RN - 12/06/2024 11:38 AM EST UTOX cup Lot#[id number] Exp. 05/29/26 Internal Pass Control Aamir Montoya MD POINT OF CARE TEST ENTER/EDIT OR DERABLES Final Result documented in this encounter Visit Diagnoses Diagnosis Chronic low back pain without sciatica, unspecified back pain laterality- Primary documented in this encounter Additional Health Concerns Assessment Noted Time PHQ-9 Depression Total Score: 6 08/17/20 24 11:53 AM EST documented as of this encounter Care Teams Professor Of Physics Relationship Specialty Start Date End Date Name, MD Aamir [address] [place] [address] PCP - General Family Medicine 10/10/18 documented as of this encounter
--- OUTSIDE RECORDS SUMMARY | 2024-12-14 10:04 | XMS_ITS | Encounter Summary ---
Author Organization [employer] [facility] Address [address] [facility] 7t [place] [address] Care Team Providers Care Carbon Furnace Operator Name Role Phone NameAamir MD Primary Care Provider [phone] Reason for Visit * Reason Comments Med Refill Encounter Details Date Type Department Care Team (Late st Contact Info) Description 05/07/2023 Refill [facility] [address] [place] [address] [phone] NameAamir MD [address] [place] [address] Social History Tobacco Use Types Packs/Day Years [...] Description 03/01/2025 10:30 AM EDT Office Visit [facility] [address] [place] [address] [phone] Aamir Montoya MD [address] [place] [address] 03/06/2025 11:30 AM EDT Clinical Support [facility] [address] [place] [address] [phone] Francine Oneill, RN documented as of this encounter Visit Diagnoses Not on filedocumented in this encounter Additional Health Concerns Assessment Noted Time PHQ-9 Depression Total Score: 0 01/27/20 23 10:31 AM EDT documented as of this encounter Care Teams Carbon Furnace Operator Relationship Specialty Start Date End Date Name, MD Aamir [address] [place] [address] PCP - General Family Medicine 10/10/18 documented as of this encounter
--- OUTSIDE RECORDS SUMMARY | 2024-12-14 10:04 | XMS_ITS | Encounter Summary ---
Author Organization [employer] Address [address] [facility] 7t [place] [address] Care Team Providers Care Composition Siding Worker Name Role Phone Name, Aamir MCCRARY Primary Care Provider [phone] Reason for Visit * Reason Onset Date Comments Recommend MANAGER DRILLING Tier 2 12/06/2024 Encounter Details Date Type Department Care Team ([facility] st Contact Info) Description 12/06/2024 Telephone [facility] [address] [place], [place] [phone] Francine Oneill, MARLEE Recommend MANAGER DRILLING Tier 2 Social History Tobacco Use Types Packs/Day Years [...] Encounter - Francine Oneill RN - 12/06/2024 7:29 AM EST What MANAGER DRILLING Tier would you like this patient to be? I recommend Tier 2, please let me know if you agree or would rather patient be in another MANAGER DRILLING Tier. Tier 1 = HIGH RISK, Monthly MANAGER DRILLING visits Tier 2 = MODerate RISK, Q3 Month visits Tier 3 = LOW RISK = Q4-6 month visits documented in this encounter Plan of Treatment Upcoming Encounters Date Type Department Care Team (Late st Contact Info) Description 03/01/2025 10:30 AM EDT Office Visit [address] [address] Name, MD Aamir [address] [place] [address] 03/06/2025 11:30 AM EDT Clinical Support [facility] [address] [place] [phone] Francine Oneill RN documented as of this encounter Visit Diagnoses Not on filedocumented in this encounter Additional Health Concerns Assessment Noted Time PHQ-9 Depression Total Score: 6 08/17/20 24 11:53 AM EST documented as of this encounter Care Teams Composition Siding Worker Relationship Specialty Start Date End Date NameAamir MD [address] [place] [address] PCP - General Family Medicine 10/10/18 documented as of this encounter
--- OUTSIDE RECORDS SUMMARY | 2024-12-14 10:04 | XMS_ITS | Encounter Summary ---
Author Organization [employer] Address [address] [facility] 7t [place] [address] Care Team Providers Care Resist Coater Developer Name Role Phone Name, Aamir MCCRARY Primary Care Provider [phone] Reason for Visit * Reason Comments Med Refill Encounter Details Date Type Department Care Team (Late st Contact Info) Description 11/30/2024 Refill [facility] [address] [place], [place] [phone] Name, MD Aamir [address] [place], [place] [phone] Social History Tobacco Use Types Packs/Day Years [...] Description 03/01/2025 10:30 AM EDT Office Visit [facility] [address] [place] [phone] NameAamir MD [address] [place] [address] 03/06/2025 11:30 AM EDT Clinical Support [address] [address] Francine Oneill RN documented as of this encounter Visit Diagnoses Not on filedocumented in this encounter Additional Health Concerns Assessment Noted Time PHQ-9 Depression Total Score: 6 08/17/20 24 11:53 AM EST documented as of this encounter Care Teams Resist Coater Developer Relationship Specialty Start Date End Date Aamir Montoya MD [address] [place] [address] PCP - General Family Medicine 10/10/18 documented as of this encounter
--- OUTSIDE RECORDS SUMMARY | 2024-12-14 10:04 | XMS_ITS | Encounter Summary ---
Author Organization [employer] Address [address] [facility] 7t [place] [address] Care Team Providers Care Chief Radiology Name Role Phone Name, Aamir MCCRARY Primary Care Provider Reason for Visit * Reason Onset Date Comments Med Refill 11/30/2024 Encounter Details Date Type Department Care Team ([facility] st Contact Info) Description 11/30/2024 Telephone [facility] [address] [place], [place] [phone] Nigel Pierre [place] Med Refill Social History [...] 3:36 PM EST Provider sent medication to [facility]. TC placed to pharmacy to ensure [...] the patient. TC placed to pt via [employer] bead wire taper (ID#[id number]) to inform her prescription for amLODIPine (Norvasc) 10 MG tablet was sent by the provider to the pharmacy and should be ready for bean picker machine operator after 4:38 PM today 10/30/24. No answer, LVM to call office back and ask to speak to the blue team nurses. * Addendum Note - Aamir Ramos MD - 11/30/2024 3:08 PM ESTAddended by: AAMIR RAMOS on: 11/30/2024 03:08 PM Modules accepted: Orders * Telephone Encounter - Ana Cristina Whyte RN - 11/30/2024 2:43 PM EST TC placed to [facility] to determine if pt has refills [...] Description 03/01/2025 10:30 AM EDT Office Visit [address] [address] Name, MD Aamir [address] [place] [address] 03/06/2025 11:30 AM EDT Clinical Support [address] [address] Francine Oneill, RN documented as of this encounter Visit Diagnoses Diagnosis Hypertension, unspecified type documented in this encounter Additional Health Concerns Assessment Noted Time PHQ-9 Depression Total Score: 6 08/17/20 24 11:53 AM EST documented as of this encounter Care Teams Chief Radiology Relationship Specialty Start Date End Date NameAamir MD [address] [place] [address] PCP - General Family Medicine 10/10/18 documented as of this encounter
--- OUTSIDE RECORDS SUMMARY | 2024-12-14 10:05 | XMS_ITS | Encounter Summary ---
Author Organization [employer] Address [address] [facility] 7t [place] [address] Care Team Providers Care Relationship Advisor Name Role Phone Name, Aamir MCCRARY Primary Care Provider [phone] Reason for Visit * Reason Onset Date Comments Med Refill 04/26/2024 Encounter Details Date Type Department Care Team ([facility] st Contact Info) Description 04/26/2024 Telephone [facility] [address] [place], [place] [phone] Name, MD Aamir [address] [place], [place] [phone] Med Refill Social History Tobacco Use Types [...] 5-325 MG tablet To be sent to: [facility][id number] [place], [place] - [address] [place] [address] AT [facility] [address] documented in this encounter Plan of Treatment Upcoming Encounters Date Type Department Care Team (Late st Contact Info) Description 03/01/2025 10:30 AM EDT Office Visit [address] [address] Name, MD Aamir [address] [place] [address] 03/06/2025 11:30 AM EDT Clinical Support [address] [address] Francine Oneill RN documented as of this encounter Visit Diagnoses Not on filedocumented in this encounter Additional Health Concerns Assessment Noted Time PHQ-9 Depression Total Score: 0 01/27/20 23 10:31 AM EDT documented as of this encounter Care Teams Relationship Advisor Relationship Specialty Start Date End Date Name, MD Aamir [address] [place] [address] PCP - General Family Medicine 10/10/18 documented as of this encounter
--- OUTSIDE RECORDS SUMMARY | 2024-12-14 10:05 | XMS_ITS | Encounter Summary ---
Author Organization [employer] Address [address] [facility] 7t [place] [address] Care Team Providers Care Jewelry Salesperson Name Role Phone Name, Aamir MCCRARY Primary Care Provider [phone] Reason for Visit * Reason Onset Date Comments Med Refill 05/24/2024 Encounter Details Date Type Department Care Team ([facility] st Contact Info) Description 05/24/2024 Telephone [facility] [address] [place], [place] [phone] Name, MD Aamir [address] [place], [place] [phone] Med Refill Social History Tobacco Use Types [...] 5-325 MG tablet To be sent to: [facility][id number] [place], [place] - [address] [place] [address] AT [facility] documented in this encounter Plan of Treatment Upcoming Encounters Date Type Department Care Team (Late st Contact Info) Description 03/01/2025 10:30 AM EDT Office Visit [facility] [address] [place] [address] Name, MD Aamir [address] [place] [address] 03/06/2025 11:30 AM EDT Clinical Support [address] [address] Francine Oneill RN documented as of this encounter Visit Diagnoses Not on filedocumented in this encounter Additional Health Concerns Assessment Noted Time PHQ-9 Depression Total Score: 0 01/27/20 23 10:31 AM EDT documented as of this encounter Care Teams Jewelry Salesperson Relationship Specialty Start Date End Date Name, MD Aamir [address] [place] [address] PCP - General Family Medicine 10/10/18 documented as of this encounter
--- OUTSIDE RECORDS SUMMARY | 2024-12-14 10:05 | XMS_ITS | Encounter Summary ---
Author Organization [employer] Address [address] [facility] 7t [place] [address] Care Team Providers Care Hearing Instrument Specialist Name Role Phone Name, Aamir MCCRARY Primary Care Provider [phone] Encounter Details Date Type Department Care Team (Late st Contact Info) Description 10/15/2022 Orders Only [facility] [address] [place] [address] Carmen Lao LPN Social History Tobacco Use [...] Description 03/01/2025 10:30 AM EDT Office Visit [address] [address] Aamir Montoya MD [address] [place] [address] 03/06/2025 11:30 AM EDT Clinical Support [address] [address] Francine Oneill, MARLEE documented as of this encounter Visit Diagnoses Not on filedocumented in this encounter Care Teams Hearing Instrument Specialist Relationship Specialty Start Date End Date Aamir Montoya MD [address] [place] [address] PCP - General Family Medicine 10/10/18 documented as of this encounter
--- OUTSIDE RECORDS SUMMARY | 2024-12-14 10:05 | XMS_ITS | Encounter Summary ---
Author Organization [facility] Address [address] [facility] 7t [place] [address] Care Team Providers Care Leather Production Worker Name Role Phone Name, Aamir MCCRARY Primary Care Provider [phone] Encounter Details Date Type Department Care Team ([facility] Contact Info) Description 11/22/2022 Orders Only [facility] [address] [place] [address] Carmen Lao LPN Social History Tobacco Use [...] Description 03/01/2025 10:30 AM EDT Office Visit [facility] [address] [place] [address] [phone] Name, MD Aamir [address] [place] [address] 03/06/2025 11:30 AM EDT Clinical Support [address] [phone] Francine Oneill RN documented as of this encounter Visit Diagnoses Not on filedocumented in this encounter Care Teams Leather Production Worker Relationship Specialty Start Date End Date Name, MD Aamir [address] [place] [address] PCP - General Family Medicine 10/10/18 documented as of this encounter
--- OUTSIDE RECORDS SUMMARY | 2024-12-14 10:05 | XMS_ITS | Clinical Summary ---
Author Organization [facility] [address] [facility] [place] Address [address] [place] [address] Phone Care Team Providers Care Sand Buffer Name Role Phone Name, Aamir MCCRARY Primary Care Provider Encounters Date Type Department Care Team Description 12/05/2024 1:30 PM EST - 12/05/2024 11:59 PM EST Hospital Encounter [facility] CT Scan [address] [place] [phone] Encounter for screening for malignant neoplasm of respiratory organs; Nicotine dependence, cigarettes, uncomplicated Discharge Disposition: Home or Self Care 11/16/2024 Telephone Lung Screening Program - [address] [place] [phone] Nu Menendez [place] Appointment (1st notification) from Last 3 Months Medical History Medical History Date Comments Emphysema of lung (CMS/HCC) DX:E mphysema of lung (HCC) Hypertension, essential DX:Hyper tension, essential Mixed hyperlipidemia [...] PM EST Sexual Orientation Not on file Obstetrics History [...] 10/20/2023 12:10 PM EST Plan of Treatment Health Maintenance Due Date Last Done Comments Hepatitis A Vaccines (1 of 2 - Risk 2-dose series) 1986 Hepatitis B Vaccines (1 of 3 - 19+ 3-dose series) 1986 Zoster Vaccines (1 of 2) 1986 Cervical Cancer Screening: Pap Smear 1988 Colorectal Cancer Screening: Colonoscopy 09/12/2022 Social Influencers of Health Screening 09/12/2022 Breast Cancer Screening 11/18/2022 11/18/19 21, 08/31/2019, 08/07/2018 COVID-19 Vaccine (2 - Pfizer risk series) 09/07/2024 08/17/2024 Hypertension/CHF/CAD Annual BMP Blood Test 12/05/2024 Depression Screening 08/17/2025 08/17/2024 Lung Cancer Screening (Low Dose CT) 12/05/2025 12/05/2024, 05/06/2023 Cholesterol Screening (Lipid Panel) 07/26/2029 07/26/2024 DTaP,Tdap,and Td Vaccines (3 - Td or Tdap) 06/01/2033 06/01/2023, 03/13/2013 Pneumococcal Vaccine: 50+ Years Completed 06/01/2023 Pneumococcal Vaccine: Pediatrics (0 to 5 Years) and At-Risk Patients (6 to 64 Years) Completed 06/01/2023 HIV Screening Completed 07/26/2024 Hepatitis C Screening Completed 07/26/2024 Influenza Vaccine Completed 08/17/2024, , 07/05/2020, Additional [...] of respiratory organs Nicotine dependence, cigarettes, uncomplicated FERDINAND SCREENING DIGITAL Routine 11/18/2020 2:13 PM EST Encounter for screening mammogram for malignant neoplasm of breast from Last 3 Months or Most Recently Relevant to Health Maintenance Results * CT Lung Screening (12/05/2024 1:53 [...] Signed Date: 12/10/2024 11:44 ET Workstation ID: [id number] Transcribed By: Self Edit Transcribed Date: 12/10/2024 [...] Signed Date: 12/10/2024 11:44 ET Workstation ID: [id number] Transcribed By: Self Edit Transcribed Date: 12/10/2024 11:04 ET us Petar Paredes MD [facility] CT PROCEDURES Final Result * FERDINAND SCREENING DIGITAL (11/18/2020 2:13 PM EST) Anatomical Region Laterality Modality Mammography 11/18/2020 1:33 PM EST Narrative 11/18/2020 2:[address] [facility] Diagnostic Imaging Department [address] [place] [address] Patient: ??EDU,JEANNA ?/Age/Sex: 1965 - 55 - F Unit#: ??[id number] ? Location/Status: ??SPDIMAM/REG CLI ? Mnemonic/Ordering Site: ??DIGSC/SPMAM Ordering Physician: ??NAME,AAMIR MCCRARY Ferdinand Screening Digital - 11/18/20 - 1357 INDICATION: SCREENING COMPARISON: [facility] mammograms dating back to ?? 07/26/2014 TECHNIQUE: CC and MLO views of the breasts were obtained, using full field digital mammography with 3D tomosynthesis views in the MLO projection. Computer aided detection with the Anytime DD 7.2-H was employed. FINDINGS: The breasts contain [...] date for the next mammogram. ([id number] / [id number]) , ??[id number] Dictating Physician: ??HOLDER,JONATHAN MD Electronically Signed by: ??JONATHAN HOLDER MD Dic Date/Time: ??11/18/20 1407 Sign date/Time: ??11/18/20 1413 Procedure Note Jonathan Holder MD - 09/28/2022 [facility] Diagnostic Imaging Department [address] [place] [address] Patient: JEANNA G[place] /Age/Sex: 1965 - 55 - F Unit#: [id number] Location/[facility] Mnemonic/Ordering Site: [facility] Ordering Physician: AAMIR RAMOS MD Ferdinand Screening Digital - 11/18/20 - 1937 INDICATION: SCREENING COMPARISON: [facility] mammograms dating back to 07/26/2014 TECHNIQUE: CC and MLO views of the breasts were obtained, using full field digital mammography with 3D tomosynthesis views in the MLO projection. Computer aided detection with the Anytime DD 7.2-H was employed. FINDINGS: The breasts contain [...] a target date for the next mammogram. [id number] / [id number]) , [id number] Dictating Physician: JONATHAN HOLDER MD Electronically Signed by: JONATHAN HOLDER MD Dic Date/Time: 11/18/20 1407 Sign date/Time: 11/18/20 1419 Aamir Ramos MD IMG BI PROCEDURES Final Result from Last 3 Months or Most Recently Relevant to Health Maintenance Insurance Member Subscriber Plan / Payer (Ef fective 2018-Present) Name:Jeanna Graham Relation to Subscriber:Self Name:Jeanna Graham Payer ID:[id number] Group ID:[id number] Type:Not on file Address: [place] [address] [address] [phone] Care Teams Sand Buffer Relationship Specialty Start Date End Date Name, MD Aamir [address] [place], [place] PCP - General Internal Medicine 12/22/12
== END 2024-12-14 09:18 | disposition home or self-care (01) ==
LOC: HO.US 09:17
PROVIDERS: PCP Internal Medicine Geriatric Medicine; Visit Provider Internal Medicine
DX: R74.8 Abnormal levels of other serum enzymes (principal); Z85.3 Personal history of malignant neoplasm of breast
CPT/HCPCS: 76700

== ENCOUNTER → 2024-12-14 09:20 | Outpatient (BNV) | payer OTHER, SELFPAY | PROVIDERS: PCP Internal Medicine Geriatric Medicine; Visit Provider Radiology Diagnostic Radiology | DX: R74.8 Abnormal levels of other serum enzymes (principal) | CPT/HCPCS: 76700 ==

== ENCOUNTER 2025-01-23 09:09 | Outpatient (REF) | payer OTHER, SELFPAY ==
--- NOTE | ~2025-01-23 | CT_ITS ---
CLINICAL HISTORY: R31.0 - Gross hematuria CT abdomen and pelvis without/with contrast Comparison: None Findings: Lung bases are clear. No acute bony abnormalities. Liver and spleen within normal limits. Pancreas and adrenal glands unremarkable. Gallbladder is within normal limits. Punctate bilateral nonobstructing renal stones. No ureteral stones or hydronephrosis. Bilateral small renal cysts noted. No other significant renal abnormality. Abdominal aorta is normal in caliber. No free fluid or adenopathy in the pelvis. No diverticulitis. Appendix unremarkable. Hysterectomy. No adnexal abnormality. Impression: No acute process This document has been electronically signed by: John Merino MD on 01/23/2025 22:02:30
[2025-01-23] MEDS: iohexoL 350 MG/ML 100 ML INFUS..BTL IV (09:54)
--- OUTSIDE RECORDS SUMMARY | 2025-01-23 09:54 | XMS_ITS | Encounter Summary ---
Author Organization [employer] Address 75 [facility] 7t [place] [address] Care Team Providers Care Cistern Room Operator Name Role Phone Name, Aamir MCCRARY Primary Care Provider [phone] Reason for Visit * Reason Onset Date Comments Appointment Request 11/29/2024 Encounter Details Date Type Department Care Team ([facility] st Contact Info) Description 11/29/2024 Telephone [facility] MEDICINE [address] [place], [place] [phone] Name, MD Aamir [address] [place], [place] [phone] Appointment Request Social History Tobacco Use Types [...] PCP in a while. Contact pt at [phone] documented in this encounter Plan of Treatment Upcoming Encounters Date Type Department Care Team (Late st Contact Info) Description 03/01/2025 10:30 AM EDT Office Visit [address] [address] Name, MD Aamir [address] [place] [address] 03/06/2025 11:30 AM EDT Clinical Support [address] [address] Francine Oneill RN documented as of this encounter Visit Diagnoses Not on filedocumented in this encounter Additional Health Concerns Assessment Noted Time PHQ-9 Depression Total Score: 6 08/17/20 24 11:53 AM EST documented as of this encounter Care Teams Cistern Room Operator Relationship Specialty Start Date End Date Name, MD Aamir [address] [place] [address] PCP - General Family Medicine 10/10/18 documented as of this encounter
--- OUTSIDE RECORDS SUMMARY | 2025-01-23 09:54 | XMS_ITS | Clinical Summary ---
Author Organization [employer] Address 75 [facility] 7t [place] [address] Care Team Providers Care Rail Transportation Operator Name Role Phone Name, Aamir MCCRARY Primary Care Provider [phone] Allergies Active Allergy Reactions Criticality Noted Date [...] to 28 days. Do not start before January 04, 2025. 56 tablet 01/05/20 25 2024 Active oxyCODONE-acet aminophen (Percocet) 5-325 MG tabletIndicati ons:Chronic pain syndrome Take 1 tablet by mouth every 12 (twelve) hours if needed for severe pain for up to 28 days. Do not start before December 07, 2024. 56 tablet 12/07/19 25 2024 Discontinued(R eorder (will not trigger [...] colon 01/26/2023 Overview (06/01/2023): Removed during colon[place] 2018, was recommended repeat 2023 Tobacco dependence syndrome 01/26/2023 Migraine 01/08/2019 Vitamin D deficiency 09/11/2018 Right ankle pain 06/06/2018 Pulmonary emphysema 04/10/2018 Calcification of lung 03/16/2018 Overview (06/01/2023): LRCT program at [facility], last CT 04/2023 (recommended repeat 6 [...] Encounters Date Type Department Care Team Description 01/03/2025 Telephone [facility] MEDICINE [address] [place] [address] Name, MD Aamir Med Refill 01/02/2025 Refill [facility] [address] [place] [address] Name, MD Aamir Chronic pain syndrome 12/14/2024 Orders Only [facility] External Provider, [facility] 12/06/2024 11:30 AM EST Clinical Support [address] [address] Francine Oneill, top closer low back pain without sciatica, unspecified back pain laterality (Primary Dx) 12/06/2024 Travel 12/06/2024 Refill [facility] MEDICINE [address] [place] [address] Aamir Montoya MD Chronic pain syndrome 12/06/2024 Telephone [facility] MEDICINE [address] [place] [address] Francine Oneill RN Recommend PEDIATRIC NEUROPSYCHOLOGIST Tier 2 11/30/2024 Refill [facility] [address] [place] [address] Aamir Montoya MD 11/30/2024 Telephone [facility] MEDICINE [address] [place] [address] Nigel Pierre MA Med Refill 11/30/2024 Telephone [facility] MEDICINE [address] [place] [address] Nigel Pierre MA Appointment Request 11/29/2024 Telephone [facility] MEDICINE [address] [place] [address] Aamir Montoya MD Appointment Request 11/29/2024 Refill [facility] MEDICINE [address] [place] [address] Aamir Montoya MD Hypertension, unspecified type 11/08/2024 Refill [facility] [address] [place] [address] Aamir Montoya MD Chronic pain syndrome 11/02/2024 Refill [facility] [address] [place] [address] Aamir Montoya MD Hypertension, unspecified type from Last 3 Months Immunizations Name Administration [...] Description 03/01/2025 10:30 AM EDT Office Visit [facility] MED[facility]INE [address] [place] [address] Name, MD Aamir [address] [place] [address] 03/06/2025 11:30 AM EDT Clinical Support [address] [address] Francine Oneill, RN Health Maintenance Due Date Last Done Comments CT Colonography 1967 FIT DNA/Cologuard 1967 FIT 1967 FOBT 1967 Sigmoidoscopy 1967 Alcohol/Substance Use Screening 1979 Hepatitis B Vaccines (1 of 3 - [...] on patient's age to complete this topic Hepatitis A Vaccines Aged Out No long er eligible based on patient's age to complete [...] Procedure Name Priority Date/Time Associated Diagnosis Comments US ABDOMEN COMPLETE Routine 12/14/2024 9 :30 AM EST POCT AMY-14 URINE DRUG SCREEN Routine 12/06/2024 11:38 AM EST Chronic low back pain without sciatica, unspecified back pain laterality HM COLONOSCOPY Routine 10/05/2024 10:40 AM EST BI MAMMOGRAM DIAGNOSTIC TOMOSYNTHESIS RIGHT [...] Recently Relevant to Health Maintenance Results * US Abdomen Complete (12/14/2024 9:30 AM EST) Anatomical Region Laterality Modality Abdomen Ultrasound 12/14/2024 9:30 AM EST Narrative 12/17/2024 8:27 AM EDT ? [facility] ?[address] ?[place] [address] ? Ultrasound Report ? Signed ? Patient: Graham,Jeanna ?MR#: [id number] ? : 1965 ?Acct:[id number] ? Age/Sex: 59 / F ?ADM Date: 12/14/24 ? Loc: HO.US ? Attending Dr: Gemini Lange MD ? Ordering Physician: Gemini Lange MD ?? Date of Service: 12/14/24 ?? Procedure(s): US abdomen complete ?? Accession Number(s): [id number] ? cc: Gemini Lange MD; Name,Aamir MCCRARY ? EXAMINATION: ??US ABDOMEN ? HISTORY: Elevated liver enzymes ? TECHNIQUE: Real-time grayscale ultrasound imaging of the abdomen was ?? performed and images were reviewed. ? COMPARISON: There are no prior studies for comparison. ? FINDINGS: ?? Liver: ??The right lobe of the liver measures 15.7 cm in size. The left ?? lobe of the liver measures 8.4 cm in size. The liver demonstrates ?? normal homogeneous echotexture. ??No focal mass or intrahepatic biliary ?? ductal dilatation is identified. ??There is normal hepatopedal flow in ?? the portal vein. ? Gallbladder and biliary tree: The gallbladder is unremarkable, without ?? evidence of calculi, wall thickening, or pericholecystic fluid. ??There ?? is no sonographic Downey sign. ??The common bile duct is normal in ?? caliber measuring 4 mm. ? Kidneys: ??The right kidney measures 10.4 cm in length and demonstrates ?? a 1.5 x 1.2 x 1.3 cm upper pole cyst. The left kidney measures 10.7 cm ?? in length and demonstrates a 1.5 cm upper pole cyst, a 1.0 cm cyst in ?? the interpolar region, and a 1.4 cm cyst at the lower pole. ??The ?? kidneys are otherwise unremarkable, without evidence of solid masses, ?? hydronephrosis, or calculi. ? Pancreas: The pancreatic head, neck, and body are unremarkable. The ?? pancreatic tail is obscured by bowel gas. ? Spleen: The spleen is normal in size and contour, measuring 7.6 cm in ?? length. ? Abdominal aorta and inferior vena cava: The visualized portions of the ?? abdominal aorta and inferior vena cava are normal in caliber. ? There is no free fluid in the abdomen. ? US/US abdomen complete ?? IMPRESSION: ? Bilateral renal cysts as described. Otherwise unremarkable abdominal ?? ultrasound. ? Electronically signed by: ??Miky Juarez MD ??12/17/2024 08:24 AM EDT ? Dictated By: ?Miky Juarez MD ? Signed By: ?<Electronically signed by Miky Juarez MD in OV> ?12/17/2424 ? DD/ 0930 ? TD/TT: 12/14/24 1000 ? Associate Business Analyst: ? Procedure Note Sylvie, Image - 12/17/2024 [place] [address] Ultrasound Report Signed Patient: Sury Graham#: [id number] : 1965Acct:[id number] Age/Sex: 59 / FADM Date: 12/14/24 Loc: HO.US Attending Dr: Gemini Lange MD Ordering Physician: Gemini Lange MD Date of Service: 12/14/24 Procedure(s): US abdomen complete Accession Number(s): [id number] cc: Gemini Lange MD; Name,Aamir MCCRARY EXAMINATION: US ABDOMEN HISTORY: Elevated liver enzymes TECHNIQUE: Real-time grayscale ultrasound imaging of the abdomen was performed and images were reviewed. COMPARISON: There are no prior studies for comparison. FINDINGS: Liver: The right lobe of the liver measures 15.7 cm in size. The left lobe of the liver measures 8.4 cm in size. The liver demonstrates normal homogeneous echotexture. No focal mass or intrahepatic biliary ductal dilatation is identified. There is normal hepatopedal flow in the portal vein. Gallbladder and biliary tree: The gallbladder is unremarkable, without evidence of calculi, wall thickening, or pericholecystic fluid. There is no sonographic Downey sign. The common bile duct is normal in caliber measuring 4 mm. Kidneys: The right kidney measures 10.4 cm in length and demonstrates a 1.5 x 1.2 x 1.3 cm upper pole cyst. The left kidney measures 10.7 cm in length and demonstrates a 1.5 cm upper pole cyst, a 1.0 cm cyst in the interpolar region, and a 1.4 cm cyst at the lower pole. The kidneys are otherwise unremarkable, without evidence of solid masses, hydronephrosis, or calculi. Pancreas: The pancreatic head, neck, and body are unremarkable. The pancreatic tail is obscured by bowel gas. Spleen: The spleen is normal in size and contour, measuring 7.6 cm in length. Abdominal aorta and inferior vena cava: The visualized portions of the abdominal aorta and inferior vena cava are normal in caliber. There is no free fluid in the abdomen. US/US abdomen complete IMPRESSION: Bilateral renal cysts as described. Otherwise unremarkable abdominal ultrasound. Electronically signed by: Miky Juarez MD 12/17/2024 08:24 AM EDT Dictated By: Miky Juarez MD Signed By: <Electronically signed by Miky Juarez MD in OV> 12/17/24 0824 DD/ 0930 TD/TT: 12/14/24 1000 Associate Business Analyst: [facility] External Provider IMG US PROCEDURES Edited Result - Final * POCT AMY-14 Urine Drug Screen (12/06/2024 11:38 AM EST) Oxycodone Screen, Urine Positive Urine Urine specimen obtained by clean catch procedure / Unknown 12/06/2024 11:38 AM EST Francine Muñoz RN - 12/06/2024 11:38 AM EST UTOX cup Lot#[id number] Exp. 05/29/26 Internal Pass Control us [place] Name POINT OF CARE TEST ENTER/EDIT OR DERABLES Final Result * (ABNORMAL) Hm Colonoscopy (10/05/2024 10:40 AM EST) Colonoscopy Abnormal(A ) Normal 10/05/2024 10:4 0 AM EST us [place]ledge Name HEALTH MAINTENANCE Final Result * BI Mammogram Diagnostic Tomosynthesis Right (08/06/2024 10:00 AM EDT) Anatomical Region Laterality Modality Breast Right Mammography 08/06/2024 10:0 0 AM EDT Narrative 08/06/2024 11:15 AM EDT ? [facility] ? [address] ?[place] [address] ? Mammography Report ? Signed with Addenda ? Patient: Graham,Jeanna ?MR#: [id number] ? : 1965 ?Acct:[id number] ? Age/Sex: 58 / F ?ADM Date: //24 ? Loc: HO.MAMMO ? Attending Dr: Stefano Malvin MD ? Ordering Physician: Malvin,Stefano MD ?Results: 1Negat ?? jac ? Date of Service: //24 ?Follow Up: 1 Year From Orig ?? inal Mammogram ? Procedure(s): MM tomosynthesis diagnostic RT ?? Accession Number(s): [id number] ? cc: Lindsay,Aamir MCCRARY; Stefano Coombs MD [...] was obtained with the aid of an demolition crane operator. Site and side were ?? confirmed. ? [...] targeted area with a 14G spring loaded Babelgumera core ??biopsy ?? device. There was real-time [...] DD/ 1000 ? TD/TT: 08/06/24 1043 ? Associate Business Analyst: ? Procedure Note Birgit Mercer - 08/09/2024 [facility] [address] [place] [address] Dr. Coleman, POWER [address] Mammography Report Signed with Addenda Patient: Sury Graham#: [id number] : 1965Acct:[id number] Age/Sex: 58 / FADM Date: 08/06/24 Loc: HO.MAMMO Attending Dr: Stefano Coombs MD Ordering Physician: Stefano Coombs MDResults: 1Negat jac Date of Service: 08/06/24Follow Up: 1 Year From Orig inal Mammogram Procedure(s): MM tomosynthesis diagnostic RT Accession Number(s): [id number] cc: Name,Aamir MCCRARY; Stefano Coombs MD ADDENDUM [...] was obtained with the aid of an demolition crane operator. Site and side were confirmed. Prior to [...] targeted area with a 14G spring loaded Babelgumera core biopsy device. There was real-time confirmation [...] 08/06/24 1112 DD/ 1000 TD/TT: 08/06/24 1043 Associate Business Analyst: [facility] External Provider IMG BI PROCEDURES Edited Result - Final * Hepatitis C Antibody with Reflex to HCV, RNA, Quantitative, Real-Time PCR (07/26/2024 10:59 AM EDT) Hepatitis C Antibody Nonreactive Nonreactive [facility] Comment:Antibodies to HCV no t detected; does not exclude early acuteHCV infection. Blood Venous blood specimen / Unknown 07/26/2024 10:59 AM EDT 07/26/2024 1:14 PM EDT us Aamir Montoya MD LAB BLOOD ORDERABLES Final Resul t Performing Organization Address [facility] Co de Phone Number [facility] [address] [place] [phone] * HIV-1/2 Antigen and Antibodies, Fourth Generation, with Reflexes (07/26/2024 10:59 AM EDT) HIV AB/AG Nonreactive Nonreactive [facility] Comment:HIV-1 p24 Ag and/or HIV-1/HIV-2 Ab not detected.A test result that is nonreactive does not exclude thepossibility of exposure to or infection with HIV-1 and/orHIV-2. Nonreactive results in this assay for individualswith prior exposure to HIV-1 and/or HIV-2 may be due toantigen and antibody levels that are below the limit ofdetection of this assay.The [email or web address] HIV Ag/Ab Combo assay result andsupplemental assay results should be interpreted inconjunction with the patient's clinical presentation,history and other laboratory results. If the results areinconsistent with clinical evidence, additional testing issuggested to confirm the result. Blood Venous blood specimen / Unknown 07/26/2024 10:59 AM EDT 07/26/2024 1:14 PM EDT us Aamir Montoya MD LAB BLOOD ORDERABLES Final Resul t Performing Organization Address City[facility]/ZIP Co de Phone Number [facility] [address] [place] [phone] * (ABNORMAL) Lipid Panel, Standard (07/26/2024 10:59 AM EDT) Triglycerides 155(H) <150 mg/dL [facility] Comment:Desirable Triglyceri de: less than 150 mg/dLBorderline High Triglyceride 150-199 mg/dLHigh Triglyceride: 200-499 mg/dLVery High Triglyceride: greater than or equal to 5OO mg/dL Cholesterol 181 <200 mg/dL [facility] Comment:Desirable Cholestero l: less than 200 mg/dLBorderline High Cholesterol: 200-239 mg/dLHigh Cholesterol: greater than 239 mg/dL LDL Cholesterol Calculated 115(H) <100 mg/dL [facility] Comment:Desirable LDL: less than 100 mg/dLNear Optimal/Above Optimal LDL: 110- 129 mg/dLBorderline High LDL: 130-159 mg/dLHigh LDL: 160-189 mg/dLVery High LDL: greater than or equal to 190 mg/dL HDL Cholesterol 35(L) >40 mg/dL [facility] Comment:Desirable HDL: great er than 40 mg/dL Note: This HDL assay may give artificially low results in patients with liver disease. Blood Venous blood specimen / Unknown 07/26/2024 10:59 AM EDT 07/26/2024 1:14 PM EDT us Aamir Name LAB BLOOD ORDERABLES Final Resul t [facility] [address] [place] [phone] [phone] from Last 3 Months or Most Recently Relevant to Health Maintenance Insurance [facility] Care Teams Rail Transportation Operator Relationship Specialty Start Date End Date Name, MD Aamir [address] [place] [phone] PCP - General Family Medicine 10/10/18
--- OUTSIDE RECORDS SUMMARY | 2025-01-23 09:54 | XMS_ITS | Encounter Summary ---
Author Organization [employer] [facility] Address [address] [facility] 7t [place] [address] Care Team Providers Care Sports Teacher Name Role Phone NameAamir MD Primary Care Provider [phone] Reason for Visit * Reason Comments Med Refill Encounter Details Date Type Department Care Team (Late st Contact Info) Description 05/07/2023 Refill [facility] MEDICINE [address] [place] [address] [phone] NameAamir MD [address] [place] [phone] Social History Tobacco Use Types Packs/Day Years [...] Description 03/01/2025 10:30 AM EDT Office Visit [facility] MEDICINE [address] [place] [address] [phone] Aamir Montoya MD [address] [place] [phone] 03/06/2025 11:30 AM EDT Clinical Support [facility] MEDICINE [address] [place] [address] [phone] Francine Oneill, RN documented as of this encounter Visit Diagnoses Not on filedocumented in this encounter Additional Health Concerns Assessment Noted Time PHQ-9 Depression Total Score: 0 01/27/20 23 10:31 AM EDT documented as of this encounter Care Teams Sports Teacher Relationship Specialty Start Date End Date Name, MD Aamir [address] [place] [address] PCP - General Family Medicine 10/10/18 documented as of this encounter
--- OUTSIDE RECORDS SUMMARY | 2025-01-23 09:55 | XMS_ITS | Encounter Summary ---
Author Organization [employer] Address [address] [facility] [address] [place] [address] Care Team Providers Care Agency Director Name Role Phone Name, Aamir MCCRARY Primary Care Provider [phone] Encounter Details Date Type Department Care Team (Late st Contact Info) Description 10/15/2022 Orders Only [facility] & PEDS [address] [place] [address] Carmen Lao LPN Social History Tobacco Use [...] Description 03/01/2025 10:30 AM EDT Office Visit [address] [address] Aamir Montoya MD [address] [place] [phone] 03/06/2025 11:30 AM EDT Clinical Support [address] [address] Francine Oneill, MARLEE documented as of this encounter Visit Diagnoses Not on filedocumented in this encounter Care Teams Agency Director Relationship Specialty Start Date End Date Aamir Montoya MD [address] [place] [address] PCP - General Family Medicine 10/10/18 documented as of this encounter
--- OUTSIDE RECORDS SUMMARY | 2025-01-23 09:55 | XMS_ITS | Encounter Summary ---
Author Organization [employer] Address 75 [facility] 7t [place] [address] Care Team Providers Care Retail Pharmacy Manager Name Role Phone Name, Aamir MCCRARY Primary Care Provider [phone] Reason for Visit * Reason Onset Date Comments Med Refill 04/26/2024 Encounter Details Date Type Department Care Team ([facility] st Contact Info) Description 04/26/2024 Telephone [facility] MEDICINE [address] [place], [place] [phone] Name, MD Aamir [address] [place], [place] [phone] Med Refill Social History Tobacco Use Types [...] 5-325 MG tablet To be sent to: [id number] [place], [place] - [address] [place] [address] AT [facility] [address] documented in this encounter Plan of Treatment Upcoming Encounters Date Type Department Care Team (Late st Contact Info) Description 03/01/2025 10:30 AM EDT Office Visit [address] [address] Name, MD Aamir [address] [place] [phone] 03/06/2025 11:30 AM EDT Clinical Support [address] [address] Francine Oneill RN documented as of this encounter Visit Diagnoses Not on filedocumented in this encounter Additional Health Concerns Assessment Noted Time PHQ-9 Depression Total Score: 0 01/27/20 23 10:31 AM EDT documented as of this encounter Care Teams Retail Pharmacy Manager Relationship Specialty Start Date End Date Name, MD Aamir [address] [place] [address] PCP - General Family Medicine 10/10/18 documented as of this encounter
--- OUTSIDE RECORDS SUMMARY | 2025-01-23 09:55 | XMS_ITS | Encounter Summary ---
Author Organization [facility] Address 75 [facility] 7t [place] [address] Care Team Providers Care Pmp Project Manager Name Role Phone Name, Aamir MCCRARY Primary Care Provider [phone] Encounter Details Date Type Department Care Team ([facility] Contact Info) Description 11/22/2022 Orders Only [facility] [address] [place] [address] Carmen Lao LPN Social History Tobacco Use [...] Description 03/01/2025 10:30 AM EDT Office Visit [facility] MEDICINE [address] [place] [address] [phone] Name, MD Aamir [address] [place] [phone] 03/06/2025 11:30 AM EDT Clinical Support [address] [phone] Francine Oneill RN documented as of this encounter Visit Diagnoses Not on filedocumented in this encounter Care Teams Pmp Project Manager Relationship Specialty Start Date End Date Name, MD Aamir [address] [place] [address] PCP - General Family Medicine 10/10/18 documented as of this encounter
--- OUTSIDE RECORDS SUMMARY | 2025-01-23 09:55 | XMS_ITS | Encounter Summary ---
Author Organization [employer] Address 75 [facility] 7t [place] [address] Care Team Providers Care Slip Tender Name Role Phone Name, Aamir MCCRARY Primary Care Provider [phone] Reason for Visit * Reason Onset Date Comments Med Refill 01/03/2025 Encounter Details Date Type Department Care Team ([facility] st Contact Info) Description 01/03/2025 Telephone [facility] MEDICINE [address] [place], [place] [phone] Name, MD Aamir [address] [place], [place] [phone] Med Refill Social History Tobacco Use Types [...] encounter Miscellaneous Notes * Telephone Encounter - Libia Pate - 01/03/2025 10:58 AM EDT TC from pt requesting medication refill. Medications needing refill : oxyCODONE-acetaminophen (Percocet) 5-325 MG tablet To be sent to: [id number] - [place], [place] - [address] [facility] [address] [facility] [address] documented in this encounter Plan of Treatment Upcoming Encounters Date Type Department Care Team (Late st Contact Info) Description 03/01/2025 10:30 AM EDT Office Visit [facility] [address] [place] [phone] Name, MD Aamir [address] [place] [phone] 03/06/2025 11:30 AM EDT Clinical Support [address] [address] Francine Oneill, RN documented as of this encounter Visit Diagnoses Not on filedocumented in this encounter Additional Health Concerns Assessment Noted Time PHQ-9 Depression Total Score: 6 08/17/20 24 11:53 AM EST documented as of this encounter Care Teams Slip Tender Relationship Specialty Start Date End Date Name, MD Aamir [address] [place] [address] PCP - General Family Medicine 10/10/18 documented as of this encounter
--- OUTSIDE RECORDS SUMMARY | 2025-01-23 09:55 | XMS_ITS | Encounter Summary ---
Author Organization [employer] Address [address] [facility] 7t [place] [address] Care Team Providers Care Utility Manager Name Role Phone Name, Aamir MCCRARY Primary Care Provider [phone] Reason for Visit * Reason Onset Date Comments Med Refill 05/24/2024 Encounter Details Date Type Department Care Team ([facility] st Contact Info) Description 05/24/2024 Telephone [facility] [address] [place], [place] [phone] Name, MD Aamir [address] [place], [place] [phone] Med Refill Social History Tobacco Use Types [...] 5-325 MG tablet To be sent to: [id number] [place], [place] - [address] [place] [address] AT N[address] OF [facility] documented in this encounter Plan of Treatment Upcoming Encounters Date Type Department Care Team (Late st Contact Info) Description 03/01/2025 10:30 AM EDT Office Visit [facility] [address] [place] [phone] Name, MD Aamir [address] [place] [address] 03/06/2025 11:30 AM EDT Clinical Support [address] [address] Francine Oneill RN documented as of this encounter Visit Diagnoses Not on filedocumented in this encounter Additional Health Concerns Assessment Noted Time PHQ-9 Depression Total Score: 0 01/27/20 23 10:31 AM EDT documented as of this encounter Care Teams Utility Manager Relationship Specialty Start Date End Date Name, MD Aamir [address] [place] [address] PCP - General Family Medicine 10/10/18 documented as of this encounter
--- OUTSIDE RECORDS SUMMARY | 2025-01-23 09:55 | XMS_ITS | Clinical Summary ---
Author Organization [facility] [address] [facility] [place] Address [address] [place] [address] Phone Care Team Providers Care Seat Cover Maker Name Role Phone Name, Aamir MCCRARY Primary Care Provider [phone] Encounters Date Type Department Care Team Description 12/05/2024 1:30 PM EST - 12/05/2024 11:59 PM EST Hospital Encounter [facility] CT Scan [address] [place] [phone] Encounter for screening for malignant neoplasm of respiratory organs; Nicotine dependence, cigarettes, uncomplicated Discharge Disposition: Home or Self Care 11/16/2024 Telephone Lung Screening Program - [address] [place] [address] Nu Menendez [place] Appointment (1st notification) from Last 3 Months Medical History Medical History Date Comments Emphysema of lung (CMS/HCC V24, CMS/HCC V28) DX:Emphysema of lung (HCC) Hypertension, essential DX:Hyper tension, essential Mixed hyperlipidemia DX:Mixed hy perlipidemia Heart burn DX:Heart burn Chronic back pain DX:Chronic miki k pain Family History Medical History Relation Name Comments Lung cancer Neg Hx Social History Tobacco Use Types Packs/Day Years Used Date Smoking Tobacco: Every Day Cigarettes 1 37.3 Started: 10/10/1987 Smokeless Tobacco: Never Comments Unknown [...] Maintenance Due Date Last Done Comments Hepatitis B Vaccines (1 of 3 - [...] age to complete this topic Meningococcal B Vaccine Aged Out No l onger eligible based on patient's age to complete [...] Signed Date: 12/10/2024 11:44 ET Workstation ID: [id number] Transcribed By: Self Edit Transcribed Date: 12/10/2024 [...] Signed Date: 12/10/2024 11:44 ET Workstation ID: [id number] Transcribed By: Self Edit Transcribed Date: 12/10/2024 11:04 ET us Petar Paredes MD IM CT PROCEDURES Final Result * FERDINAND SCREENING DIGITAL (11/18/2020 2:13 PM EST) Anatomical Region Laterality Modality Mammography 11/18/2020 1:33 PM EST Narrative 11/18/2020 2:13 PM EST Diagnostic Imaging Department [address] [place] [address] Patient: ??EDU,JEANNA ?/Age/Sex: 1965 - 55 - F Unit#: ??[id number] ? Location/Status: ??SPDIMAM/REG CLI ? Mnemonic/Ordering Site: ??DIGSC/SPMAM Ordering Physician: ??NAME,AAMIR MCCRARY Ferdinand Screening Digital - 11/18/20 - 1357 INDICATION: SCREENING COMPARISON: [facility] mammograms dating back to ?? 07/26/2014 TECHNIQUE: CC and MLO views of the breasts were obtained, using full field digital mammography with 3D tomosynthesis views in the MLO projection. Computer aided detection with the [employer] 7.2-H was employed. FINDINGS: The breasts contain [...] date for the next mammogram. (G0202 / 15018) , ??[id number] Dictating Physician: ??JONATHAN HOLDER MD Electronically Signed by: ??JONATHAN HOLDER MD Dic Date/Time: ??11/18/20 1407 Sign date/Time: ??11/18/20 1413 Procedure Note Jonathan Holder MD - 09/28/2022 Diagnostic Imaging Department [address] [place] [address] Patient: JEANNA GRAHAM /Age/Sex: 1965 - 55 - F Unit#: [id number] Location/Status: [facility] CLI Mnemonic/Ordering Site: [facility] Ordering Physician: NAME,AAMIR MCCRARY Ferdinand Screening Digital - 11/18/20 - 9147 INDICATION: SCREENING COMPARISON: [facility] mammograms dating back to 07/26/2014 TECHNIQUE: CC and MLO views of the breasts were obtained, using full field digital mammography with 3D tomosynthesis views in the MLO projection. Computer aided detection with the [employer] 7.2-H was employed. FINDINGS: The breasts contain [...] target date for the next mammogram. G0202 [address]8076 , [id number] Dictating Physician: JONATHAN HOLDER MD Electronically Signed by: JONATHAN HOLDER MD Dic Date/Time: 11/18/20 1400 Sign date/Time: 11/18/20 1414 Aamir Montoya MD IMG BI PROCEDURES Final Result from Last 3 Months or Most Recently Relevant to Health Maintenance Insurance Member Subscriber Plan / Payer (Ef fective 2018-Present) Name:Jeanna Graham Relation to Subscriber:Self Name:Jeanna Graham Payer ID:[id number] Group ID:[id number] Type:Not on file Address: [place] [address] [address] [phone] Care Teams Seat Cover Maker Relationship Specialty Start Date End Date Name, MD Aamir [address] [place] [address] PCP - General Internal Medicine 12/22/12
--- OUTSIDE RECORDS SUMMARY | 2025-01-23 09:55 | XMS_ITS | Encounter Summary ---
Author Organization [employer] [facility] Address [address] [facility] 7[address] [place] [address] Care Team Providers Care Milk Drying Machine Operator Name Role Phone NameAamir MD Primary Care Provider [phone] Reason for Visit * Reason Comments Med Refill Encounter Details Date Type Department Care Team (Late st Contact Info) Description 03/31/2023 Refill [facility] [address] [place] [address] [phone] NameAamir MD [address] [place] [phone] Social History Tobacco Use Types Packs/Day Years [...] Description 03/01/2025 10:30 AM EDT Office Visit [facility] [address] [place] [address] [phone] Aamir Montoya MD [address] [place] [phone] 03/06/2025 11:30 AM EDT Clinical Support [facility] [address] [place] [address] [phone] Francine Oneill, RN documented as of this encounter Visit Diagnoses Not on filedocumented in this encounter Additional Health Concerns Assessment Noted Time PHQ-9 Depression Total Score: 0 01/27/20 23 10:31 AM EDT documented as of this encounter Care Teams Milk Drying Machine Operator Relationship Specialty Start Date End Date Name, MD Aamir [address] [place] [address] PCP - General Family Medicine 10/10/18 documented as of this encounter
== END 2025-01-23 09:10 | disposition home or self-care (01) ==
LOC: HO.CT 09:09
PROVIDERS: PCP Internal Medicine Geriatric Medicine; Referring Provider Urology; Visit Provider Nurse Practitioner Family
DX: R31.0 Gross hematuria (principal)
CPT/HCPCS: 74178; Q9967

== ENCOUNTER → 2025-01-23 09:11 | Outpatient (BNV) | payer OTHER, SELFPAY | PROVIDERS: PCP Internal Medicine Geriatric Medicine; Referring Provider Urology; Visit Provider Radiology Diagnostic Radiology | DX: R31.0 Gross hematuria (principal) | CPT/HCPCS: 74178 ==

== ENCOUNTER 2025-03-06 13:24 | Outpatient (AMB) | payer OTHER, SELFPAY ==
--- NOTE | 2025-03-06 13:25 | MHC.OFFVIS ---
Vital Signs 03/06/25 13:26 Height 5 ft 5 in Weight 149 lb BMI 24.8 Intake Visit Reasons: Bilateral knee pains Intake Note: Jeanna is a 59 year old female who presents with complaints of bilateral knee pains. She describes her pains as sharp in nature. She has tried Tylenol and anti-inflammatory medicines which gave her minimal relief. She has also done physical therapy exercises which aggravated her pain. She has had cortisone injections which gave her fairly good relief. She wishes to hold off on surgery if at all possible. Candy Attendant Required: Yes Candy Attendant Language: Machine Programmer Services: Candy Attendant Present Candy Attendant Name: NATALIA Wolfe/DEEP Allergies codeine Allergy (Unknown, Verified 03/06/25 13:26) heart palpitation Medication List - Last Reconciled 03/06/25 by Vivek Restrepo MD albuterol sulfate 2.5 mg inhalation QID albuterol sulfate 90 mcg/actuation (Ventolin HFA) 2 puffs inhalation Q6H PRN aspirin 81 mg PO DAILY atorvastatin 40 mg PO DAILY bisacodyl (Dulcolax (bisacodyl)) 20 mg (4 x 5 mg) PO ONCE 1 day bupropion HCl XL 300 mg PO DAILY cephalexin 500 mg PO TID clonazepam 1 mg PO TID ergocalciferol (vitamin D2) 50 mcg PO DAILY escitalopram oxalate 20 mg PO DAILY hydroxyzine pamoate 50 mg PO BID PRN lisinopril 20 mg PO DAILY metoprolol succinate ER 100 mg PO DAILY omeprazole 20 mg PO DAILY polyethylene glycol 3350 17 grams PO DAILY 30 days polyethylene glycol 3350 (Miralax) 238 grams PO ONCE quetiapine ER (Seroquel XR) 400 mg PO BEDTIME [STOOL SOFTENER 100MG CAPSULES 2 caps PO BEDTIME 30 days] sumatriptan succinate (Imitrex) 25 mg PO Q2-4H PRN tamoxifen 20 mg PO DAILY zolpidem 10 mg PO BEDTIME PRN PFSH Medical History GERD (gastroesophageal reflux disease) Elevated cholesterol Hypertension, essential, benign History of palpitations Pulmonary nodules Personal history of nicotine dependence Tubular adenoma of colon (~2019) Depression Surgical History History of lumpectomy of right breast History of partial hysterectomy History of colonoscopy (~2019) History of esophagogastroduodenoscopy (EGD) (~2019) Family History Mother No problems noted. Father No problems noted. Social History Household Members: Significant Other, Friend(s) and Other Alcohol intake: never Patient Tobacco Use Status: Current everyday Tobacco user Tobacco use type: Cigarette Cigarette Packs Per Day: 1 Years Smoked: 33 (onset 22yo) service: No Current occupational status: disabled Sexual orientation: Straight/Heterosexual Gender identity: Female Physical Exam Vital Signs: BMI result Body Mass Index 24.8 Const Other: Well-nourished well-developed very friendly female awake alert and oriented x3 in no acute distress Extrem Other: Bilateral lower extremity examination shows good capillary refill, no skin lesions noted, normal sensation light touch Bilateral knee examination shows minimal effusions, palpable crepitus with range of motion, pain with range of motion, no instability Office Procedures AMB Joint Injection/Aspiration Joint Injection/Aspiration Primary Site: left knee Prep: site was prepped using aseptic technique Injected: 40 mg of, DepoMedrol and 1% plain lidocaine Procedure: The patient tolerated the procedure well Coding 45881 - Large joint Procedure code (CPT) selection complete AMB Joint Injection/Aspiration Joint Injection/Aspiration Primary Site: right knee Prep: site was prepped using aseptic technique Injected: 40 mg of, DepoMedrol and 1% plain lidocaine Procedure: The patient tolerated the procedure well Coding 15638 - Large joint Procedure code (CPT) selection complete Results Reviewed Results Reviewed: X-rays of the patient's bilateral knee show joint space narrowing, subchondral sclerosis, no acute bony abnormalities Assessment & Plan Assessment & Plan (1) Arthritis of left knee: Code(s): M17.12 - Unilateral primary osteoarthritis, left knee Category: Medical (2) Arthritis of right knee: Code(s): M17.11 - Unilateral primary osteoarthritis, right knee Category: Medical Plan Ms. Graham presents with bilateral knee pains due to osteoarthritis. The risks and benefits of bilateral knee cortisone injections were discussed at length with the patient. The patient wished to proceed. She tolerated the injections well. She will continue with her home exercise program. She will contact me prior to her follow-up appointment in 3 months should any questions or concerns arise. Feel free to call me at any time should questions regarding her orthopedic management arise. I spent 22 minutes in reviewing the patient's records and imaging studies, seeing the patient and documenting in the medical record. Orders: Orders AMB Joint Injection/Aspiration Today M17.12 - Unilateral primary osteoarthritis, left knee AMB Joint Injection/Aspiration Today M17.11 - Unilateral primary osteoarthritis, right knee Coding Level of Care Code Est Pt Level 3 (41188) Complex EM visit Add On G2211 Diagnoses Arthritis of left knee M17.12 Arthritis of right knee M17.11 CPT Codes Coding - 22245 Large joint: 94298 - Large joint ([id number]) Coding - 50474 Large joint: 20116 - Large joint ([id number])
[2025-03-06 13:26] VITALS: BMI 24.8
== END 2025-03-06 13:55 | disposition home or self-care (01) ==
LOC: HO.HOS 13:25
PROVIDERS: PCP Internal Medicine Geriatric Medicine; Visit Provider Orthopaedic Surgery
DX: M17.0 Bilateral primary osteoarthritis of knee (principal)
CPT/HCPCS: 20610; 99213

== ENCOUNTER → 2025-03-06 13:24 | Outpatient (BNVA) | payer OTHER, SELFPAY | PROVIDERS: PCP Internal Medicine Geriatric Medicine; Visit Provider Orthopaedic Surgery | DX: M17.0 Bilateral primary osteoarthritis of knee (principal) | CPT/HCPCS: 20610; 99212; J1010; J2003 ==

== ENCOUNTER 2025-04-19 12:05 | Outpatient (REF) | payer OTHER, SELFPAY ==
--- OUTSIDE RECORDS SUMMARY | 2025-04-19 12:25 | XMS_ITS | Clinical Summary ---
Author Organization [facility] [address] [facility] Address [address] [place] [address] Phone Care Team Providers Care Lav Crewman Name Role Phone Unavailable Primary Care Provider Unavailabl e Allergies Active Allergy Reactions Criticality Noted Date Comments Atorvastatin 10/06/2016 Codeine 11/03/2022 Other Reaction(s): increases heartrate Other reaction(s): increases heartrate Other Reaction(s): heart palpitation Oxycodone-Acetaminophen 04/08/2025 Varenicline 11/03/2022 Encounters Date Type Department Care Team Description 04/08/2025 8:14 PM EDT - 04/09/2025 1:06 AM EDT Emergency [facility] Emergency [address] [place] [address] Discharge Disposition: Home or Self Care from Last 3 Months Medical History Medical [...] Date Smoking Tobacco: Every Day Cigarettes 1 37.5 Started: 10/10/1987 Smokeless Tobacco: Never Comments Unknown Sex and Gender Information Value Date Recorded Sex Assigned at Female 12/04/2024 1:14 PM EST Legal Sex Female 4:37 AM EST Gender Identity Female 12/04/2024 1:14 PM EST Sexual Orientation Not on file Obstetrics History Last Filed Vital Signs Vital Sign Reading Time Taken Comments Blood Pressure 143/116 04/08/2025 8:20 PM EDT Pulse 80 04/08/2025 8:20 PM EDT Temperature 37.2 C (99 F) 04/08/2025 8:20 PM EDT Respiratory Rate 16 04/08/2025 8:20 PM EDT Oxygen Saturation 99% 04/08/2025 8:20 PM EDT Inhaled Oxygen Concentration - - Weight 68.9 kg (152 lb) 04/08/2025 8:20 PM EDT Height 165.1 cm (5' 5 ) 04/08/2025 8:20 PM EDT Body Mass Index 25.29 04/08/2025 8:20 PM EDT Plan of Treatment Health Maintenance Due Date Last Done Comments Hepatitis B Vaccines (1 of 3 - 19+ 3-dose series) 1986 Zoster Vaccines (1 of 2) 1986 Cervical Cancer Screening: Pap Smear 1988 Colorectal Cancer Screening: Colonoscopy 09/12/2022 Social Influencers of Health Screening 09/12/2022 Breast Cancer Screening 11/18/2022 11/18/19 21, 08/31/2019, 08/07/2018 COVID-19 Vaccine (2 - Pfizer risk series) 09/07/2024 08/17/2024 Influenza Vaccine (#1) 2025 , 07/28/2023, 07/05/2020, Additional history exists Depression Screening 08/17/2025 08/17/2024 Lung Cancer Screening (Low Dose CT) 12/05/2025 12/05/2024, 05/06/2023 Hypertension/CHF/CAD Annual BMP Blood Test 04/08/2026 04/08/2025 Cholesterol Screening (Lipid Panel) 07/26/2029 07/26/2024 DTaP,Tdap,and Td Vaccines (3 - Td or Tdap) 06/01/2033 06/01/2023, 03/13/2013 Pneumococcal Vaccine: 50+ Years Completed 06/01/2023 HIV Screening Completed 07/26/2024 Hepatitis C Screening Completed 07/26/2024 HIB Vaccines Aged Out No longer eligi [...] Procedure Name Priority Date/Time Associated Diagnosis Comments VILLASENOR URINE CULTURE TUBE STAT 04/08/2025 8:27 PM EDT URINALYSIS WITH REFLEX MICROSCOPIC AND CULTURE STAT 04/08/2025 8:27 PM EDT CBC WITH AUTO DIFFERENTIAL STAT 04/08/2025 8:27 PM EDT URINALYSIS WITH REFLEX MICROSCOPIC AND CULTURE STAT 04/08/2025 8:27 PM EDT COMPREHENSIVE METABOLIC PANEL STAT 04/08/2025 8:27 PM EDT CBC AND DIFFERENTIAL STAT 04/08/2025 8:[address] LUNG SCREENING Routine 12/05/2024 1:5 3 PM EST Encounter for screening for malignant neoplasm of respiratory organs Nicotine dependence, cigarettes, uncomplicated [place] SCREENING DIGITAL Routine 11/18/2020 2:13 PM EST Encounter for screening mammogram for malignant neoplasm of breast from Last 3 Months or Most Recently Relevant to Health Maintenance Results * (ABNORMAL) Urinalysis with reflex microscopic and culture (04/08/2025 8:27 PM EDT) Specific [place] Urine 1.018 1.003 - 1.030 LAB URINALYSIS - AUTOMATED METHOD 04/08/2025 9:05 PM EDT [facility] pH, Urine 7.0 5.0 - 8.0 pH LAB URINALYSIS - AUTOMATED METHOD 04/08/2025 9:05 PM [facility] Leukocytes, Urine Negative Negative LAB URINALYSIS - AUTOMATED METHOD 04/08/2025 9:05 PM [facility] Nitrite, Urine Negative Negative LAB URINALYSIS - AUTOMATED METHOD 04/08/2025 9:05 PM [facility] Protein, Urine Trace <=Trace mg/dL LAB URINALYSIS - AUTOMATED METHOD 04/08/2025 9:05 PM [facility] Glucose, Urine Negative Negative mg/dL LAB URINALYSIS - AUTOMATED METHOD 04/08/2025 9:05 PM [facility] Ketones, Urine Negative Negative mg/dL LAB URINALYSIS - AUTOMATED METHOD 04/08/2025 9:05 PM [facility] Urobilinogen, Urine 1.0 0.2 - 1.0 mg/dL LAB URINALYSIS - AUTOMATED METHOD 04/08/2025 9:05 PM [facility] Bilirubin, Urine Negative Negative LAB URINALYSIS - AUTOMATED METHOD 04/08/2025 9:05 PM [facility] Blood, Urine Trace(A) Negative LAB URINALYSIS - AUTOMATED METHOD 04/08/2025 9:05 PM [facility] RBC, Urine 12.3(H) 0 - 4 /HPF LAB URINALYSIS - AUTOMATED METHOD 04/08/2025 9:05 PM [facility] WBC, Urine 1.8 0 - 4 /HPF LAB URINALYSIS - AUTOMATED METHOD 04/08/2025 9:05 PM [facility] Squamous Epithelial, Urine 74(H) 0 - 60 /LPF LAB URINALYSIS - AUTOMATED METHOD 04/08/2025 9:05 PM [facility] Bacteria, Urine Negative Negative /HPF LAB URINALYSIS - AUTOMATED METHOD 04/08/2025 9:05 PM [facility] Hyaline Casts, Urine 3.6(H) 0 - 3 /LPF LAB URINALYSIS - AUTOMATED METHOD 04/08/2025 9:05 PM EDT [facility] Urine Urine specimen obtained by clean catch procedure / Unknown Non-blood Collection / Unknown 04/08/2025 8:27 PM EDT 04/08/2025 8:38 PM EDT Don Perez MD LAB URINE ORDERABLES Final Result Performing Organization Address City/[facility]/ZIP Co de Phone Number [facility] [address] [place] [address], [place] [phone] * [place] urine culture tube (04/08/2025 8:27 PM EDT) Extra Tube Hold for add-ons. 04/08/2025 10:02 PM EDT [facility] Comment:Auto resulted. Urine Urine specimen obtained by clean catch procedure / Unknown Non-blood Collection / Unknown 04/08/2025 8:27 PM EDT 04/08/2025 8:38 PM EDT Don Perez MD LAB URINE ORDERABLES Final Result Performing Organization Address [facility] de Phone Number [facility] [address] [place] [address], [place] [phone] * (ABNORMAL) CBC auto differential (04/08/2025 8:27 PM EDT) WBC 18.4(H) 4.8 - 10.8 K/[facility] LAB HEMETOLOGY METHOD 04/08/2025 8:46 PM EDT [facility] RBC 4.30 3.80 - 4.80 M/[facility] LAB HEMETOLOGY METHOD 04/08/2025 8:46 PM EDT [facility] Hemoglobin 13.1 11.5 - 16.0 g/dL LAB HEMETOLOGY METHOD 04/08/2025 8:46 PM [facility] Hematocrit 40.0 35.0 - 47.0 % LAB HEMETOLOGY METHOD 04/08/2025 8:46 PM [facility] MCV 93.0 79.0 - 98.0 FL LAB HEMETOLOGY METHOD 04/08/2025 8:46 PM [facility] MCH 30.5 27.0 - 32.0 pcg LAB HEMETOLOGY METHOD 04/08/2025 8:46 PM [facility] MCHC 32.8 32.0 - 37.0 g/dL LAB HEMETOLOGY METHOD 04/08/2025 8:46 PM [facility] RDW 13.8 11.0 - 15.0 % LAB HEMETOLOGY METHOD 04/08/2025 8:46 PM [facility] Platelets 204 130 - 400 K/mcL LAB HEMETOLOGY METHOD 04/08/2025 8:46 PM [facility] MPV 11.3(H) 7.0 - 11.0 FL LAB HEMETOLOGY METHOD 04/08/2025 8:46 PM [facility] NRBC 0.0 <1.0 % LAB HEMETOLOGY METHOD 04/08/2025 8:46 PM [facility] NRBC Absolute 0.00 <0.10 K/mcL LAB HEMETOLOGY METHOD 04/08/2025 8:46 PM [facility] Neutrophils Relative 74.5 % LAB HEMETOLOGY METHOD 04/08/2025 8:46 PM [facility] Lymphocytes Relative 16.6 % LAB HEMETOLOGY METHOD 04/08/2025 8:46 PM [facility] Monocytes Relative 7.5 % LAB HEMETOLOGY METHOD 04/08/2025 8:46 PM [facility] Eosinophils Relative 0.6 % LAB HEMETOLOGY METHOD 04/08/2025 8:46 PM EDT [facility] Basophils Relative 0.2 % LAB HEMETOLOGY METHOD 04/08/2025 8:46 PM EDT [facility] Immature Granulocytes Relative 0.6 % LAB HEMETOLOGY METHOD 04/08/2025 8:46 PM EDT [facility] Neutrophils Absolute 13.68(H) 1.50 - 7.00 K/mcL LAB HEMETOLOGY METHOD 04/08/2025 8:46 PM EDT [facility] Lymphocytes Absolute 3.05 1.00 - 5.00 K/mcL LAB HEMETOLOGY METHOD 04/08/2025 8:46 PM EDT [facility] Monocytes Absolute 1.38(H) 0.20 - 1.00 K/mcL LAB HEMETOLOGY METHOD 04/08/2025 8:46 PM EDT [facility] Eosinophils Absolute 0.11 0.00 - 0.50 K/mcL LAB HEMETOLOGY METHOD 04/08/2025 8:46 PM EDT [facility] Basophils Absolute 0.03 0.00 - 0.20 K/mcL LAB HEMETOLOGY METHOD 04/08/2025 8:46 PM EDT [facility] Immature Granulocytes Absolute 0.11(H) 0.00 - 0.03 K/mcL LAB HEMETOLOGY METHOD 04/08/2025 8:46 PM EDT [facility] Blood Venous blood specimen / Unknown Venipuncture / Unknown 04/08/2025 8:27 PM EDT 04/08/2025 8:39 PM EDT us Don Perez MD LAB BLOOD ORDERABLES Final Result [facility] [address] [place] [address], * (ABNORMAL) Comprehensive metabolic panel (04/08/2025 8:27 PM EDT) Sodium 139 133 - 145 mmol/L LAB CHEMISTRY METHOD 04/08/2025 9:03 PM [facility] Potassium 3.4(L) 3.5 - 5.5 mmol/L LAB CHEMISTRY METHOD 04/08/2025 9:03 PM [facility] Chloride 108 96 - 110 mmol/L LAB CHEMISTRY METHOD 04/08/2025 9:03 PM [facility] CO2 26 21 - 32 mmol/L LAB CHEMISTRY METHOD 04/08/2025 9:03 PM [facility] Anion Gap 5 3 - 11 LAB CHEMISTRY METHOD 04/08/2025 9:03 PM [facility] Glucose 133(H) 70 - 100 mg/dL LAB CHEMISTRY METHOD 04/08/2025 9:03 PM [facility] BUN 12 5 - 25 mg/dL LAB CHEMISTRY METHOD 04/08/2025 9:03 PM [facility] Creatinine 1.08 0.50 - 1.10 mg/dL LAB CHEMISTRY METHOD 04/08/2025 9:03 PM [facility] eGFR 60 >=60 mL/min/1. 73m2 LAB CHEMISTRY METHOD 04/08/2025 9:03 PM [facility] Comment:Calculation based on the Chronic Kidney Disease Epidemiology Collaboration (CKD-EPI) equation refit without adjustment for race. BUN/Creatinine Ratio 11.1 LAB CHEMISTRY METHOD 04/08/2025 9:03 PM [facility] Calcium 8.6 8.5 - 10.5 mg/dL LAB CHEMISTRY METHOD 04/08/2025 9:03 PM [facility] AST (SGOT) 22 10 - 42 unit/L LAB CHEMISTRY METHOD 04/08/2025 9:03 PM [facility] ALT (SGPT) 29 10 - 60 unit/L LAB CHEMISTRY METHOD 04/08/2025 9:03 PM EDT [facility] Alkaline Phosphatase 109 42 - 121 unit/L LAB CHEMISTRY METHOD 04/08/2025 9:03 PM EDT [facility] Total Protein 6.5 6.0 - 8.0 g/dL LAB CHEMISTRY METHOD 04/08/2025 9:03 PM EDT [facility] Albumin 3.1(L) 3.2 - 5.0 g/dL LAB CHEMISTRY METHOD 04/08/2025 9:03 PM EDT [facility] Total Bilirubin 0.6 0.0 - 1.4 mg/dL LAB CHEMISTRY METHOD 04/08/2025 9:03 PM EDT [facility] Blood Venous blood specimen / Unknown Venipuncture / Unknown 04/08/2025 8:27 PM EDT 04/08/2025 8:39 PM EDT us Don Perez MD LAB BLOOD ORDERABLES Final Result [facility] [address] [place] [address], * CT Lung Screening (12/05/2024 1:53 PM EST) Anatomical Region Laterality Modality Chest Computed Tomogra phy 12/10/2024 10:3 4 AM EST Impressions 12/10/2024 11:44 AM EST New or suspicious pulmonary nodules. Lung RADS 2-benign. Recommend continued screening with low-dose chest CT in 12 months. -------- FINAL REPORT -------- Dictated By: KEILA QUINTANILLA Dictated Date: 12/10/2024 10:34 ET Assigned Physician: KEILA QUINTANILLA Reviewed and Electronically Signed By: KEILA QUINTANILLA Signed Date: 12/10/2024 11:44 ET Workstation ID: [id number] Transcribed By: Self Edit Transcribed Date: 12/10/2024 11:04 ET Narrative 12/10/2024 11:44 AM EST PROCEDURE: Chest CT INDICATION: Lung cancer screening, current smoker, 53.5 pack year smoking history TECHNIQUE: Chest CT without contrast. Multi planar reformats were created and interpreted. The examination was performed utilizing dose reduction techniques. Total DLP 86 COMPARISON: 05/06/2023 FINDINGS: LUNGS/PLEURA: Central airways are patent. Bibasilar atelectasis. Calcified left lower lobe granuloma. 4 mm left lower lobe nodule along the fissure is stable. Punctate right upper lobe granuloma. No pleural effusion or pneumothorax. MEDIASTINUM: Thyroid gland is unremarkable. No mediastinal or hilar lymphadenopathy. Cardiac chambers are normal in size. No pericardial effusion. Moderate coronary artery calcifications. Esophagus is normal. CHEST WALL: No axillary lymphadenopathy [...] Signed Date: 12/10/2024 11:44 ET Workstation ID: [id number] Transcribed By: Self Edit Transcribed Date: 12/10/2024 11:04 ET us Petar Paredes MD IMG CT PROCEDURES Final Result * [facility] SCREENING DIGITAL (11/18/2020 2:13 PM EST) Anatomical Region Laterality Modality Mammography 11/18/2020 1:33 PM EST Narrative 11/18/2020 2:13 PM EST [facility] Diagnostic Imaging Department [address] [place], [place] [id number] Patient: JEANNA GRAHAM /Age/Sex: 1965 - 55 - F Unit#: [id number] [facility] Mnemonic/Ordering Site: DIGSC/SPMAM Ordering Physician: NAME,VINICIUS MCCRARY [facility] Screening Digital - 11/18/20 - 1357 INDICATION: SCREENING COMPARISON: [facility] mammograms dating back to 07/26/2014 TECHNIQUE: CC and MLO views of the breasts were obtained, using full field digital mammography with 3D tomosynthesis views in the MLO projection. Computer aided detection with the Mobisante 7.2-H was employed. FINDINGS: The breasts contain scattered fibroglandular tissues. No suspicious masses, suspicious microcalcifications, or areas of architectural distortion are identified. Rare benign-appearing punctate breast calcifications are present bilaterally. There are no secondary signs of breast malignancy. Compared to the prior exam, no adverse interval change. IMPRESSION: No specific mammographic evidence of breast malignancy. Lack of an imaging correlate should not deter or delay biopsy of a clinically significant palpable finding. BI-RADS - Category 2 - Benign finding 3342F, 7025F Annual screening mammography is recommended. Patient entered into a reminder system with a target date for the next mammogram. [id number]) , [id number] Dictating Physician: IDA HOLDER MD Electronically Signed by: IDA HOLDER MD Dic Date/Time: 11/18/20 1407 Sign date/Time: 11/18/20 1413 Procedure Note Ida Holder MD - 09/28/2022 [facility] Diagnostic Imaging Department [address] [place] [address] Patient: EDUJEANNA /Age/Sex: 1965 - 55 - F Unit#: [id number] [facility] Mnemonic/Ordering Site: [facility] Ordering Physician: VINICIUS RAMOS MD [place] Screening Digital - 11/18/20 - 1357 INDICATION: SCREENING COMPARISON: [facility] mammograms dating back to 07/26/2014 TECHNIQUE: CC and MLO views of the breasts were obtained, using full field digital mammography with 3D tomosynthesis views in the MLO projection. Computer aided detection with the Mobisante 7.2-H was employed. FINDINGS: The breasts contain [...] a target date for the next mammogram. [id number] / [id number]) , [id number] Dictating Physician: IDA HOLDER MD Electronically Signed by: IDA HOLDER MD Dic Date/Time: 11/18/20 1407 Sign date/Time: 11/18/20 1410 [facility] Name IMG BI PROCEDURES Final Result from Last 3 Months or Most Recently Relevant to Health Maintenance Insurance [facility] Member Subscriber Plan / Payer (Ef fective 2018-Present) Name:JEANNA REHMAN Relation to Subscriber:Self Name:Jeanna Graham Payer ID:[id number] Group ID:[id number] Type:Not on file Address: [facility] [address] [id number]
--- OUTSIDE RECORDS SUMMARY | 2025-04-19 12:25 | XMS_ITS | Clinical Summary ---
Author Organization [email or web address] Address [address] [facility] [address] [place] [address] Care Team Providers Care Ghost Writer Name Role Phone Name, Aamir MCCRARY Primary Care Provider [phone] Carline Bustillos PharmD Unavailable [phone] Allergies Active Allergy Reactions Criticality Noted Date Comments Codeine 11/03/2022 Other reaction(s): increases heartrate Other Reaction(s): heart palpitation Varenicline Insomnia Low 11/03/2022 Dream disturbance Medications zolpidem (Ambien) 10 MG tablet Take 10 mg by mouth if needed at bedtime. 023 Active hydrOXYzine pamoate (Vistaril) 50 MG capsule Take 100 mg by mouth at bedtime. 023 Active escitalopram (Lexapro) 20 MG tablet 023 Active buPROPion XL (Wellbutrin XL) 300 MG 24 hr tablet Take 300 mg by mouth in the morning. 023 Active Blood Pressure Monitor device Use once a day as directed 1 each 023 Active atorvastatin (Lipitor) 40 MG tabletIndications :High cholesterol TAKE 1 TABLET(40 MG) BY MOUTH IN THE MORNING 90 tablet 3 024 Active omeprazole (PriLOSEC) [address] capsuleIndication s:Heartburn TAKE 1 CAPSULE BY MOUTH EVERY DAY 30 MINUTES TO 1 HOUR BEFORE A MEAL 90 capsule 3 024 Active metoprolol succinate XL (Toprol-XL) 100 MG 24 hr tablet TAKE 1 TABLET(100 MG) BY MOUTH IN THE MORNING 90 tablet 3 024 Active naloxone (Narcan) 4 mg/0.1 mL nasal sprayIndications: Chronic low back pain without sciatica, unspecified back pain laterality Administer 1 spray (4 mg) into affected nostril(s) if needed for opioid reversal. 2 each 2 024 Active aspirin (Aspirin Low Dose) 81 MG EC tabletIndications :Hypertension, unspecified type Take 1 tablet by mouth every day 90 tablet 3 025 Active amLODIPine (Norvasc) 10 MG tabletIndications :Hypertension, unspecified type TAKE 1 TABLET(10 MG) BY MOUTH IN THE MORNING 90 tablet 1 025 Active cholecalciferol (Vitamin D-3) 50 MCG (1999 UT) tablet TAKE 1 TABLET BY MOUTH EVERY MORNING 90 tablet 3 025 Active losartan (Cozaar) 100 MG tablet TAKE 1 TABLET(100 MG) BY MOUTH IN THE MORNING 90 tablet 1 025 Active tamoxifen (Nolvadex) 20 MG chemo tablet Take 1 tablet by mouth Once per day. 025 Active oxyCODONE-acetami nophen (Percocet) 5-325 MG tabletIndications :Chronic pain syndrome Take 1 tablet by mouth every 12 (twelve) hours if needed for severe pain for up to 28 days. Do not start before March 29, 2025. 56 tablet 025 2024 Active QUEtiapine XR (SEROquel XR) 400 MG 24 hr tablet Take 400 mg by mouth at bedtime. 025 Active clonazePAM (KlonoPIN) 2 MG tablet Take 1 tablet by mouth every 6 (six) hours during the day. 025 Active nicotine (Nicoderm, Step 1) 21 MG/24HR patchIndications: Tobacco dependence syndrome Apply 1 patch, as directed, every 24 hours. May remove at bedtime if needed & place new patch the next morning. Rotate application site. 42 patch 025 Active nicotine (Nicoderm, Step 2) 14 MG/24HR patchIndications: Tobacco dependence syndrome Apply 1 patch, as directed, every 24 hours. May remove at bedtime if needed & place new patch the next morning. Rotate application site. 14 patch 025 Active nicotine (Nicoderm, Step 3) 7 MG/24HR patchIndications: Tobacco dependence syndrome Apply 1 patch, as directed, every 24 hours. May remove at bedtime if needed & place new patch the next morning. Rotate application site. 14 patch 2 Active nicotine polacrilex (Commit) 4 MG lozengeIndication s:Tobacco dependence syndrome Dissolve 1 lozenge, as directed, every 1-2 hours as needed for cravings. Max 20 lozenges per 24 hours. 144 lozenge 5 Active albuterol 108 (90 Base) MCG/ACT inhaler Inhale 2 puffs every 4 (four) hours. 18 g 3 Active acetaminophen (Tylenol) 500 MG tablet Take 1,000 mg by mouth every 6 (six) hours if needed for mild pain. OTC Active amoxicillin-clavu lanate (Augmentin) 875-125 MG tablet Take 1 tablet by mouth 2 times daily for 7 days. 14 tablet 025 2024 Active ondansetron (Zofran) 4 MG tabletIndications :Colitis Take 1 tab every 8 hrs as needed for nausea and vomiting 30 tablet Active naloxone (Narcan) 4 mg/0.1 mL nasal spray Administer 1 spray (4 mg) into affected nostril(s) if needed for opioid reversal. May repeat every 2-3 minutes if needed, alternating nostrils, until medical assistance becomes available. 2 each 3 023 2024 Discontinued(M ed list cleanup (will not trigger notification to Pharmacy)) clonazePAM (KlonoPIN) 1 MG tablet Take 1 mg by mouth in the morning and 1 mg at noon and 1 mg in the evening. 023 2024 Discontinued(M ed list cleanup (will not trigger notification to Pharmacy)) albuterol 108 (90 Base) MCG/ACT inhaler Inhale 2 puffs every 4 (four) hours. 18 g 3 023 2024 Discontinued(R eorder (will not trigger notification to Pharmacy)) baclofen (Lioresal) 10 MG tablet TAKE 1 TABLET(10 MG) BY MOUTH THREE TIMES DAILY 60 tablet 023 2024 Discontinued(M ed list cleanup (will not trigger notification to Pharmacy)) albuterol (2.5 MG/3ML) 0.083% nebulizer solution Take 3 mL (2.5 mg) by nebulization every 6 (six) hours if needed for wheezing. 75 mL 11 023 2024 Discontinued(M ed list cleanup (will not trigger notification to Pharmacy)) QUEtiapine (SEROquel) 400 MG tabletIndications :Mood disorder (CMS/HCC) TAKE 1 TABLET BY MOUTH EVERY DAY 90 tablet 1 024 2024 Discontinued(M ed list cleanup (will not trigger notification to Pharmacy)) oxyCODONE-acetami nophen (Percocet) 5-325 MG tabletIndications :Chronic pain syndrome Take 1 tablet by mouth every 12 (twelve) hours if needed for severe pain for up to 28 days. Do not start before March 01, 2025. 56 tablet 025 2024 Discontinued(R eorder (will not trigger notification to Pharmacy)) nicotine (Nicoderm, Step 2) 14 MG/24HR patchIndications: Nicotine Dependence Place 1 patch on the skin 1 (one) time each day at the same time. 30 patch 11 025 2024 Discontinued(D ose adjustment) ondansetron ODT (Zofran-ODT) 4 MG disintegrating tablet DISSOLVE 1 TABLET ON THE TONGUE EVERY 8 HOURS NEEDED FOR NAUSEA OR VOMITING 025 2024 amoxicillin-clavu lanate (Augmentin) 875-125 MG tablet Take 1 tablet by mouth 2 times daily. 025 2024 Discontinued(R eorder (will not trigger notification to Pharmacy)) Active Problems Problem Noted Date Diagnosed Date Long-term current use of opiate analgesic 2024 Arthritis of right knee 10/23/2024 Bowel habit [...] 10/23/2024 Infiltrating ductal carcinoma of right breast Overview (03/01/2025): Breast cancer, right Status: Chronic Assessment and plan: 1. This is a 59-year-old magalis/postmenopausal woman diagnosed with right breast invasive ductal carcinoma diagnosed in 07/29/2024. She presented with abnormal screening mammogram, she underwent ultrasound-guided core biopsy of right breast mass at 10:00 o'clock position which revealed invasive ductal carcinoma, MSBR grade 3. ER positive 95%, LA positive 80%, HER2 equivocal 2+, negative by FISH. Ki-67 high greater than 20%. On 08/31/2024 she underwent right breast lumpectomy, pathology revealed invasive ductal carcinoma, MSBR grade 3, 11 mm in size, negative margins. Focal DCIS, nuclear grade, negative margins. One sentinel lymph node and 4 right axillary lymph nodes and 3 additional lymph nodes negative for metastatic carcinoma. Final pathological stage pT1c N0, AJCC Stage I. ER/LA positive, HER2 negative, high proliferation index. Bone density performed in 2024 showed osteopenia. Oncotype DX testing revealed a recurrence score of 23, risk of distant recurrence at 9 years is 9%. Chemotherapy benefit is less than 1%. Chemotherapy is being deferred. Adjuvant radiation therapy has been delayed because of wound infection and delayed healing of surgical site. She is now receiving adjuvant radiation therapy at [facility]. She is on tamoxifen 20 mg once daily from 12/10/2024. Patient is on Wellbutrin which can interact with tamoxifen, however, benefit of treatment for longstanding psychiatric issues would outweigh the risks. She will be switched to aromatase inhibitors after 2 years of tamoxifen therapy. 2. Mild elevation in liver enzymes. Liver ultrasound was normal. LFTs today have normalized. Follow-up in 3 months. Right knee pain 02/29/2024 Smoking 05/30/2023 Panic attack 05/30/2023 Adenomatous polyp of colon 01/26/2023 Overview (06/01/2023): Removed during colonoscopy ([facility] 2018, was recommended repeat 2023 Tobacco dependence syndrome 01/26/2023 Migraine 01/08/2019 Vitamin D deficiency 09/11/2018 Right ankle pain 06/06/2018 Pulmonary emphysema 04/10/2018 Calcification of lung 03/16/2018 Overview (06/01/2023): LRCT program at [facility], last CT 04/2023 (recommended repeat 6 months) [...] Encounters Date Type Department Care Team Description 04/19/2025 11:15 AM EDT Office Visit [facility] [address] [place] [address] Beth Limon FNP Colitis (Primary Dx) 04/19/2025 Travel 04/18/2025 Telephone [facility] [address] [place] [address] Beth Limon FNP Chart Prep 04/16/2025 Refill [facility] [address] [place] [address] Carline Bustillos, GwendolynD 04/16/[address] [address] Aamir Montoya MD Appointment 04/16/2025 Travel 03/27/2025 Refill [facility] [address] [place] [address] Aamir Montoya MD Chronic pain syndrome 03/18/[address] [address] Nigel Pierre MA may recalls; Med Refill 03/06/2025 11:30 AM EDT Clinical Support [address] [address] Francine Oneill RN Long-term current use of opiate analgesic (Primary Dx) 03/06/2025 Travel 03/01/2025 10:30 AM EDT Office Visit [address] [address] Aamir Montoya MD Infiltrating ductal carcinoma of right breast (CMS/HCC) (Primary Dx); Tobacco dependence syndrome 03/01/2025 Travel 02/28/2025 Telephone [facility] [address] [place] [address] Silvia Saunedrs MA Chart Prep 02/28/2025 Refill [facility] [address] [place] [address] Aamir Montoya MD Chronic pain syndrome 02/22/2025 Patient Outreach [facility] [address] [place], [place] [phone] Aamir Montoya MD Pre-visit Planning (SDOH was already completed) 01/31/2025 Refill [facility] [address] [place] [address] Name, MD Aamir Chronic pain syndrome 01/24/2025 Refill [facility] [address] [facility] [place] [address] Name, MD Aamir 01/23/2025 Orders Only [facility] External Provider, [facility] from Last 3 Months Immunizations Immunization Administration Dates Next Due Influenza injectable quadriv alent IIV4 with preservative 08/31/2017 Influenza injectable quadriv alent preservative free 07/28/2023,07/05/2020,09/10/2019,2017,10/06/2016 Influenza, IIV3, injectable 07/01/2015 Influenza, seasonal, injecta ble, preservative free 08/17/2024 Pfizer Covid-19 Vaccine 12+ 08/17/2024 Pneumococcal Conjugate PCV 20 06/01/2023 Tdap 06/01/2023,03/13/2013 Social History Tobacco Use Types Packs/Day Years Used Date Smoking Tobacco: Every Day Cigarettes 1 27 Started: 04/16/1998 Passive Smoke Exposure: Current Smokeless Tobacco: Current Tobacco Cessation:Ready to Q uit: Not Asked; [...] Sign Reading Time Taken Comments Blood Pressure 146/92 04/19/2025 11:11 AM EDT Pulse 71 04/19/2025 11:11 AM EDT Temperature 36.7 C (98.1 F) 04/19/2025 11:11 AM EDT Respiratory Rate 16 04/19/2025 11:11 AM EDT Oxygen Saturation 99% 04/19/2025 11:11 AM EDT Inhaled Oxygen Concentration - - Weight 67.8 kg (149 lb 6 oz) 04/19/2025 11:11 AM EDT Height 167.6 cm (5' 6 ) 04/19/2025 11:11 AM EDT Body Mass Index 24.11 04/19/2025 11:11 AM EDT Plan of Treatment Upcoming Encounters Date Type Department Care Team (Late st Contact Info) Description 05/27/2025 11:00 AM EDT Medication Management [address] [address] Carline Bustillos, PharmD [address] [place] [address] 06/11/2025 11:30 AM EDT Clinical Support [address] [address] Francine Oneill RN 06/19/2025 11:15 AM EDT Office Visit [address] [address] Name, MD Aamir [address] [facility] [place] [address] Health Maintenance Due Date Last Done Comments CT Colonography 1967 FIT DNA/Cologuard 1967 FIT 1967 FOBT 1967 Sigmoidoscopy 1967 Hepatitis B Vaccines (1 of 3 - 19+ 3-dose series) 1986 Pap Smear 1988 Cervical Cancer Screening 1997 HPV/Cotest 1997 Zoster Vaccines (1 of 2) 2017 Influenza Vaccine (#1) 2025 , 07/28/2023, 07/05/2020, Additional history exists Mammogram 08/06/2025 08/06/2024, 07/11, 07/04/2024, Additional history exists Depression Screening 08/17/2025 08/17/2024, 08/17/20 24 SDOH Screening 10/23/2025 10/23/2024 Lung Cancer Screening 12/05/2025 12/05/2024, 024 Alcohol/Substance Use Screening 03/01/2026 03/01/2025 Disability Screening 03/01/2026 03/01/2025 Tobacco Screening 04/19/2026 04/19/2025 Colonoscopy 10/05/2027 10/05/2024, 04/28/2019 Colorectal Cancer Screening 10/05/2027 Lipid Panel 07/26/2029 07/26/2024, 04/09, 05/31/2022 DTaP/Tdap/Td Vaccines (3 - Td or Tdap) 06/01/2033 06/01/2023, 03/13/2013 RSV Patients and Patients Aged 60 years or older (1 - 1-dose 75+ series) 2042 Pneumococcal Vaccine: 50+ Years Completed 06/01/2023 HIV Screening Completed 07/26/2024 Hepatitis C Screening Completed 07/26/2024 COVID-19 Vaccine Completed 08/17/2024, , 01/14/2021, Additional history exists HIB Vaccines Aged Out [...] Comments POCT AMY-14 URINE DRUG SCREEN Routine 03/06/2025 11:31 AM EDT Long-term current use of opiate analgesic CT UROGRAM WO CONTRAST Routine 01/23/2025 10:02 PM EDT HM COLONOSCOPY Routine 10/05/2024 10:40 AM EST [...] Routine 07/26/2024 10:59 AM EDT Essential hypertension LUNG CANCER SCREENING Routine 11/29/2023 from Last 3 Months or Most Recently Relevant to Health Maintenance Results * POCT AMY-14 Urine Drug Screen (03/06/2025 11:31 AM EDT) THC Negative Cocaine Screen, Urine Negative Opiate Screen, Urine Negative Methamphetamine Screen Urine Negative Amphetamine Screen, Urine Negative Benzodiazepines Screen, Urine Positive Barbiturate Screen, Urine Negative Methadone Screen, Urine Negative Buprenophine Screen, Urine Negative TCA, Urine Negative MDMA Urine Negative ng/mL Oxycodone Screen, Urine Positive Phencyclidine (PCP), Urine Negative Propoxyphene, Urine Negative Fentanyl, Urine Negative Urine Urine specimen obtained by clean catch procedure / Unknown 03/06/2025 11:31 AM EDT Narrative Francine Oneill RN - 03/06/2025 11:31 AM EDT UTOX cup Lot#[id number] Exp. 08/09/26 Internal Pass Control Aamir Montoya MD POINT OF CARE TEST ENTER/EDIT OR DERABLES Final Result * CT Urogram w/o Contrast (01/23/2025 10:02 PM EDT) Anatomical Region Laterality Modality Ureter, Upper urinary tract Comp uted Tomography 01/23/2025 10:0 2 PM EDT Narrative 01/23/2025 10:03 PM EDT [place] [address] CT Scan Report Signed Patient: Jeanna Graham MR#: [id number] : 1965 Acct:[id number] Age/Sex: 59 / F ADM Date: 01/23/25 Loc: HO.CT Attending Dr: Meg Landrum [facility] Ordering Physician: Cristofer Curtis MD Date of Service: 01/23/25 Procedure(s): CT urogram Accession Number(s): [id number] cc: Cristofer Curtis MD; Name,Aamir MCCRARY Report Number: [id number]: Total DLP = 580.00 mGy-cm CLINICAL HISTORY: R31.0 - Gross hematuria CT abdomen and pelvis without/with contrast Comparison: None Findings: Lung bases are clear. No acute bony abnormalities. Liver and spleen within normal limits. Pancreas and adrenal glands unremarkable. Gallbladder is within normal limits. Punctate bilateral nonobstructing renal stones. No ureteral stones or hydronephrosis. Bilateral small renal cysts noted. No other significant renal abnormality. Abdominal aorta is normal in caliber. No free fluid or adenopathy in the pelvis. No diverticulitis. Appendix unremarkable. Hysterectomy. No adnexal abnormality. Impression: No acute process This document has been electronically signed by: John Merino MD on 01/23/2025 22:02:30 Dictated By: John Merino MD Signed By: <Electronically signed by John Merino MD in OV> 01/23/252202 DD/ 01 TD/TT: 01/23/252201 Junior Account Manager: Procedure Note Donotuseinterpreter, Image - 01/23/[address] [place] [address] [address] Scan Report Signed Patient: Sury Graham#: [id number] : 1965Acct:[id number] Age/Sex: 59 / FADM Date: 01/23/25 Loc: HO.CT Attending Dr: Meg Landrum [facility] Ordering Physician: Cristofer Curtis MD Date of Service: 01/23/25 Procedure(s): CT urogram Accession Number(s): [id number] cc: Cristofer Curtis MD; Name,Aamir MCCRARY Report Number: [id number]: Total DLP = 580.00 mGy-cm CLINICAL HISTORY: R31.0 - Gross hematuria CT abdomen and pelvis without/with contrast Comparison: None Findings: Lung bases are clear. No acute bony abnormalities. Liver and spleen within normal limits. Pancreas and adrenal glands unremarkable. Gallbladder is within normal limits. Punctate bilateral nonobstructing renal stones. No ureteral stones or hydronephrosis. Bilateral small renal cysts noted. No other significant renal abnormality. Abdominal aorta is normal in caliber. No free fluid or adenopathy in the pelvis. No diverticulitis. Appendix unremarkable. Hysterectomy. No adnexal abnormality. Impression: No acute process This document has been electronically signed by: John Merino MD on 01/23/2025 22:02:30 Dictated By: John Merino MD Signed By: <Electronically signed by John Merino MD in OV> 01/23/252202 DD/ 01 TD/TT: 01/23/252201 Junior Account Manager: [facility] External Provider IMG CT PROCEDURES Final Result * (ABNORMAL) Hm Colonoscopy (10/05/2024 10:40 AM EST) Colonoscopy Abnormal(A ) Normal 10/05/2024 10:4 0 AM EST Aamir Montoya MD HEALTH MAINTENANCE Final Result * BI Mammogram Diagnostic Tomosynthesis Right (08/06/2024 10:00 AM EDT) Anatomical Region Laterality Modality Breast Right Mammography 08/06/2024 10:0 0 AM EDT Narrative 08/06/2024 11:15 AM EDT [address] [place] [address] Mammography Report Signed with Addenda Patient: Jeanna Graham MR#: [id number] : 1965 Acct:[id number] Age/Sex: 58 / F ADM Date: 08/06/24 Loc: HO.MAMMO Attending Dr: Stefano Coombs MD Ordering Physician: Stefano Coombs MD Results: 1Negat jac Date of Service: 08/06/24 Follow Up: 1 Year From Orig ina Mammogram Procedure(s): MM tomosynthesis diagnostic RT Accession Number(s): [id number] cc: Lindsay,Aamir MCCRARY; Stefano Coombs MD ADDENDUM ADDENDUM #1 [...] was obtained with the aid of an assistant housekeeping manager. Site and side were confirmed. Prior to [...] targeted area with a 14G spring loaded AppMakrera core biopsy device. There was real-time confirmation [...] 08/06/24 1112 DD/ 1000 TD/TT: 08/06/24 1043 Junior Account Manager: Procedure Note Donotuseinterpreter, Image - 08/09/2024 [facility] [address] [place] [address] Mammography Report Signed with Addenda Patient: Sury Graham#: [id number] : 1965Acct:[id number] Age/Sex: 58 / FADM Date: 08/06/24 Loc: HO.MAMMO Attending Dr: Stefano Coombs MD Ordering Physician: Stefano Coombs MDResults: 1Negat jac Date of Service: 08/06/24Follow Up: 1 Year From Orig inal Mammogram Procedure(s): MM tomosynthesis diagnostic RT Accession Number(s): [id number] cc: Aamir Montoya MD; Stefano Coombs MD ADDENDUM ADDENDUM #1 ADDENDUM: [...] was obtained with the aid of an assistant housekeeping manager. Site and side were confirmed. Prior to [...] targeted area with a 14G spring loaded AppMakrera core biopsy device. There was real-time confirmation [...] Jamie Holguin MD 08/06/2024 11:12 AM EDT Workstation: [employer] Dictated By: Jamie Holguin MD Signed By: <Electronically signed by Jamie Holguin MD in OV> 08/06/24 1112 DD/ 1000 TD/TT: 08/06/24 1043 Junior Account Manager: [facility] External Provider IMG BI PROCEDURES Edited Result - Final * Hepatitis C Antibody with Reflex to HCV, RNA, Quantitative, Real-Time PCR (07/26/2024 10:59 AM EDT) Hepatitis C Antibody Nonreactive Nonreactive [facility] Comment:Antibodies to HCV no t detected; does not exclude early acuteHCV infection. Blood Venous blood specimen / Unknown 07/26/2024 10:59 AM EDT 07/26/2024 1:14 PM EDT Aamir Montoya MD LAB BLOOD ORDERABLES Final Resul t [facility] [address] [place] [phone] * HIV-1/2 Antigen and Antibodies, Fourth Generation, with Reflexes (07/26/2024 10:59 AM EDT) HIV AB/AG Nonreactive Nonreactive [facility] Comment:HIV-1 p24 Ag and/or HIV-1/HIV-2 Ab not detected.A test result that is nonreactive does not exclude thepossibility of exposure to or infection with HIV-1 and/orHIV-2. Nonreactive results in this assay for individualswith prior exposure to HIV-1 and/or HIV-2 may be due toantigen and antibody levels that are below the limit ofdetection of this assay.The [employer] HIV Ag/Ab Combo assay result andsupplemental assay results should be interpreted inconjunction with the patient's clinical presentation,history and other laboratory results. If the results areinconsistent with clinical evidence, additional testing issuggested to confirm the result. Blood Venous blood specimen / Unknown 07/26/2024 10:59 AM EDT 07/26/2024 1:14 PM EDT us Aamir Montoya MD LAB BLOOD ORDERABLES Final Resul t [facility] [address] [place] [phone] * (ABNORMAL) Lipid Panel, Standard (07/26/2024 10:59 AM EDT) Triglycerides 155(H) <150 mg/dL [facility] Comment:Desirable Triglyceri de: less than 150 mg/dLBorderline High Triglyceride 150-199 mg/dLHigh Triglyceride: 200-499 mg/dLVery High Triglyceride: greater than or equal to 5OO mg/dL Cholesterol 181 <200 mg/dL [facility] Comment:Desirable Cholestero l: less than 200 mg/dLBorderline High Cholesterol: 200-239 mg/dLHigh Cholesterol: greater than 239 mg/dL LDL Cholesterol Calculated 115(H) <100 mg/dL [facility] Comment:Desirable LDL: less than 100 mg/dLNear Optimal/Above Optimal LDL: 110- 129 mg/dLBorderline High LDL: 130-159 mg/dLHigh LDL: 160-189 mg/dLVery High LDL: greater than or equal to 190 mg/dL HDL Cholesterol 35(L) >40 mg/dL [facility] Comment:Desirable HDL: great er than 40 mg/dL Note: This HDL assay may give artificially low results in patients with liver disease. Blood Venous blood specimen / Unknown 07/26/2024 10:59 AM EDT 07/26/2024 1:14 PM EDT us Aamir Montoya MD LAB BLOOD ORDERABLES Final Resul t [facility] [address] [place] [phone] [phone] * (ABNORMAL) Lung Cancer Screning (11/29/2023) Lung CT LUNGRADS 2(L) LUNGRADS 1, LUNGRADS 2 Comment:f/u 1 yr Anatomical Region Laterality Modality Other Aamir Montoya MD HEALTH MAINTENANCE Final Result from Last 3 Months or Most Recently Relevant to Health Maintenance Insurance [facility] ONE CARE < 65 Care Teams Ghost Writer Relationship Specialty Start Date End Date Name, MD Aamir [address] [place] [address] PCP - General Family Medicine 10/10/18 Carline Bustillos, GwendolynD [address] [place] [address] Pharmacist Pharmacy 04/16/25
[2025-04-19 14:07] LABS: MANUAL DIFF FLAG NO
[2025-04-19 14:10] LABS: Hematocrit 41.2 % (37.0-47.0); Hemoglobin 13.5 g/dl (12.0-16.0); Imm Gran Abs Auto 0.06 X10*3/uL (0.00-0.03); Imm Gran Pct Auto 0.5 % (0.0-0.4); Lymphocytes Absolute Auto 2.7 X10*3/uL (1.2-4.9); Mean Corpuscular HGB Conc 32.8 g/dl (31.0-35.0); Mean Corpuscular Hemoglobin 30.3 pg (27.0-33.0); Mean Corpuscular Volume 92.4 fL (80.0-98.0); NRBC Abs Auto 0.000 X10*3/uL (0.0-0.012); NRBC Pct Auto 0.0 /100WBC (0.0-0.2); Platelet Count 271 X10*3/uL (160-400); Red Blood Count 4.46 X10*6/uL (4.20-5.50); White Blood Count 13.0 X10*3/uL (4.8-10.8)
[2025-04-19 14:40] LABS: Alanine Aminotransferase 26 U/L (0-31); Albumin Level 3.9 g/dL (3.5-5.0); Alkaline Phosphatase 93 U/L (39-117); Anion Gap 10 (12-20); Aspartate Amino Transferase 29 U/L (5-31); Blood Urea Nitrogen 11 mg/dL (9-16); Calcium 9.2 mg/dL (8.4-10.2); Carbon Dioxide 28 mmol/L (22-29); Chloride 109 mmol/L (96-108); Estimated Glomerular Filt Rate 59; Potassium 3.8 mmol/L (3.3-5.1); Sodium 143 mmol/L (135-145); Total Protein 6.9 g/dL (6.5-8.0)
== END 2025-04-19 12:06 | disposition home or self-care (01) ==
LOC: HO.HHCL 12:05
PROVIDERS: Internal Medicine; PCP Internal Medicine Geriatric Medicine; Visit Provider Nurse Practitioner Family
DX: C50.911 Malignant neoplasm of unspecified site of right female breast (principal)
CPT/HCPCS: 36415; 80053; 85025

== ENCOUNTER 2025-06-06 13:20 | Outpatient (AMB) | payer OTHER, SELFPAY ==
--- NOTE | 2025-06-06 13:26 | MHC.OFFVIS ---
Vital Signs 06/06/25 13:29 Height 5 ft 5 in Weight 147 lb BMI 24.5 Intake Visit Reasons: OV-B/L knee pain last injection- 03/06/25 Intake Note: Jeanna is a 59 year old female who presents today as a follow up for her bilateral knee pain, last injection- 03/06/25. At today's visit she states she found relief with her last injections and would like to repeat these. She says the injections however did wear off and her pain has returned. She takes Tylenol which gives her mild relief. She wishes to hold off on surgery if at all possible. Allergies codeine Allergy (Unknown, Verified 06/06/25 13:29) heart palpitation Medication List - Last Reconciled 06/06/25 by Vivek Restrepo MD albuterol sulfate 2.5 mg inhalation QID albuterol sulfate 90 mcg/actuation (Ventolin HFA) 2 puffs inhalation Q6H PRN aspirin 81 mg PO DAILY atorvastatin 40 mg PO DAILY bisacodyl (Dulcolax (bisacodyl)) 20 mg (4 x 5 mg) PO ONCE 1 day bupropion HCl XL 300 mg PO DAILY cephalexin 500 mg PO TID clonazepam 1 mg PO TID ergocalciferol (vitamin D2) 50 mcg PO DAILY escitalopram oxalate 20 mg PO DAILY hydroxyzine pamoate 50 mg PO BID PRN lisinopril 20 mg PO DAILY metoprolol succinate ER 100 mg PO DAILY omeprazole 20 mg PO DAILY polyethylene glycol 3350 17 grams PO DAILY 30 days polyethylene glycol 3350 (Miralax) 238 grams PO ONCE quetiapine ER (Seroquel XR) 400 mg PO BEDTIME [STOOL SOFTENER 100MG CAPSULES 2 caps PO BEDTIME 30 days] sumatriptan succinate (Imitrex) 25 mg PO Q2-4H PRN tamoxifen 20 mg PO DAILY zolpidem 10 mg PO BEDTIME PRN PFSH Medical History GERD (gastroesophageal reflux disease) Elevated cholesterol Hypertension, essential, benign History of palpitations Pulmonary nodules Personal history of nicotine dependence Tubular adenoma of colon (~2018) Depression Surgical History History of lumpectomy of right breast History of partial hysterectomy History of colonoscopy (~2019) History of esophagogastroduodenoscopy (EGD) (~2019) Family History Mother No problems noted. Father No problems noted. Social History Household Members: Significant Other, Friend(s) and Other Alcohol intake: never Patient Tobacco Use Status: Current everyday Tobacco user Tobacco use type: Cigarette Cigarette Packs Per Day: 1 Years Smoked: 33 (onset 22yo) service: No Current occupational status: disabled Sexual orientation: Straight/Heterosexual Gender identity: Female Physical Exam Vital Signs: BMI result Body Mass Index 24.5 Const Other: Well-nourished well-developed very friendly female awake alert and oriented x3 in no acute distress Extrem Other: Bilateral lower extremity examination shows good capillary refill, no skin lesions noted, normal sensation light touch Bilateral knee examination shows minimal effusions, palpable crepitus with range of motion, pain with range of motion, no instability Office Procedures AMB Joint Injection/Aspiration Joint Injection/Aspiration Primary Site: left knee Prep: site was prepped using aseptic technique Injected: 40 mg of, DepoMedrol and 1% plain lidocaine Procedure: The patient tolerated the procedure well Coding 18679 - Large joint Procedure code (CPT) selection complete AMB Joint Injection/Aspiration Joint Injection/Aspiration Primary Site: right knee Prep: site was prepped using aseptic technique Injected: 40 mg of, DepoMedrol and 1% plain lidocaine Procedure: The patient tolerated the procedure well Coding 86502 - Large joint Procedure code (CPT) selection complete Results Reviewed Results Reviewed: X-rays of the patient's bilateral knees taken previously show joint space narrowing, subchondral sclerosis, no acute bony abnormalities Assessment & Plan Assessment & Plan (1) Arthritis of left knee: Code(s): M17.12 - Unilateral primary osteoarthritis, left knee Category: Medical (2) Arthritis of right knee: Code(s): M17.11 - Unilateral primary osteoarthritis, right knee Category: Medical Plan Ms. Graham presents with bilateral knee pains due to degenerative joint disease. The risks and benefits of bilateral knee cortisone injections were discussed at length with the patient. The patient wished to proceed. She tolerated the injections well. She will continue with her home exercise program. She will contact me prior to her annual follow-up appointment should any questions or concerns arise. Feel free to call me at any time should questions regarding her orthopedic management arise. I spent 22 minutes in reviewing the patient's records and imaging studies, seeing the patient and documenting in the medical record. Orders: Orders AMB Joint Injection/Aspiration Today M17.12 - Unilateral primary osteoarthritis, left knee AMB Joint Injection/Aspiration Today M17.11 - Unilateral primary osteoarthritis, right knee Coding Level of Care Code Est Pt Level 3 (33667) Complex EM visit Add On G2211 Diagnoses Arthritis of left knee M17.12 Arthritis of right knee M17.11 CPT Codes Coding - 63825 Large joint: 19321 - Large joint ([id number]) Coding - 23002 Large joint: 75863 - Large joint ([id number])
[2025-06-06 13:29] VITALS: BMI 24.5
--- OUTSIDE RECORDS SUMMARY | 2025-06-06 14:02 | XMS_ITS | Encounter Summary ---
Author Organization [employer] Address [address] [facility] 7t [place] [address] Care Team Providers Care Candy Separator Hard Name Role Phone Name, Aamir MCCRARY Primary Care Provider [phone] Carline Bustillos PharmD Unavailable [phone] Encounter Details Date Type Department Care Team (Late Contact Info) Description 11/22/2022 Orders Only [facility] PEDS [address] [place] [address] Carmen Lao LPN Social History Tobacco Use [...] Encounters Date Type Department Care Team (Late Contact Info) Description 06/11/2025 11:30 AM EDT Clinical Support [facility] [address] [place] [address] [phone] Francine Oneill RN 06/19/2025 11:15 AM EDT Office Visit [facility] [address] [place] [address] [phone] Name, MD Aamir [address] [place] [phone] 06/27/2025 11:30 AM EDT Medication Management [facility] [address] [place] [address] Carline Bustillos PharmD [address] [place] [address] documented as of this encounter Visit Diagnoses Not on filedocumented in this encounter Care Teams Candy Separator Hard Relationship Specialty Start Date End Date Name, MD Aamir [address] [place] [phone] PCP - General Family Medicine 10/10/18 Carline Bustillos PharmD [address] [place] [address] Pharmacist Pharmacy 04/16/25 documented as of this encounter
--- OUTSIDE RECORDS SUMMARY | 2025-06-06 14:02 | XMS_ITS | Encounter Summary ---
Author Organization [employer] Address [address] [facility] 7t [place] [address] Care Team Providers Care Lime Kiln Operator Name Role Phone Name, Aamir MCCRARY Primary Care Provider [phone] Carline Bustillos PharmD Unavailable [phone] Reason for Visit * Reason Onset Date Comments Med Refill 01/03/2025 Encounter Details Date Type Department Care Team ([facility] st Contact Info) Description 01/03/2025 Telephone [facility] [address] [place], [place] [phone] Name, MD Aamir [address] [place] [address] Med Refill Social History Tobacco Use Types [...] 5-325 MG tablet To be sent to: [id number] - [place], [place] - [address] [facility] [address] [facility] documented in this encounter Plan of Treatment Upcoming Encounters Date Type Department Care Team (Late st Contact Info) Description 06/11/2025 11:30 AM EDT Clinical Support [facility] [address] [place] [phone] Francine Oneill RN 06/19/2025 11:15 AM EDT Office Visit [facility] [address] [place] [phone] Name, MD Aamir [address] [place] [address] 06/27/2025 11:30 AM EDT Medication Management [facility] [address] [place] [phone] Carline Bustillos, PharmD [address] [place] [address] documented as of this encounter Visit Diagnoses Not on filedocumented in this encounter Additional Health Concerns Assessment Noted Time PHQ-9 Depression Total Score: 6 08/17/20 24 11:53 AM EST documented as of this encounter Care Teams Lime Kiln Operator Relationship Specialty Start Date End Date Name, MD Aamir [address] [place] [address] PCP - General Family Medicine 10/10/18 Carline Bustillos, Steffanie [address] [place] [address] Pharmacist Pharmacy 04/16/25 documented as of this encounter
--- OUTSIDE RECORDS SUMMARY | 2025-06-06 14:02 | XMS_ITS | Encounter Summary ---
Author Organization [employer] Address [address] [facility] 7t [place] [address] Care Team Providers Care Director Of Maternity Services Name Role Phone Name, Aamir MCCRAYR Primary Care Provider [phone] Carline Bustillos PharmD Unavailable [phone] Encounter Details Date Type Department Care Team (Late st Contact Info) Description 10/15/2022 Orders Only [facility] PEDS [address] [place] [address] Carmen Lao LPN Social History Tobacco Use [...] Description 06/11/2025 11:30 AM EDT Clinical Support [facility] MED[facility]INE [address] [place] [phone] Francine Oneill RN 06/19/2025 11:15 AM EDT Office Visit [facility] [address] [place] [phone] Name, MD Aamir [address] [place] [phone] 06/27/2025 11:30 AM EDT Medication Management [facility] [address] [place] [phone] Carline Bustillos, PharmD [address] [place] [address] documented as of this encounter Visit Diagnoses Not on filedocumented in this encounter Care Teams Director Of Maternity Services Relationship Specialty Start Date End Date Name, MD Aamir [address] [place] [phone] PCP - General Family Medicine 10/10/18 Carline Bustillos PharmD [address] [place] [address] Pharmacist Pharmacy 04/16/25 documented as of this encounter
--- OUTSIDE RECORDS SUMMARY | 2025-06-06 14:02 | XMS_ITS | Encounter Summary ---
Author Organization [employer] Address [address] [facility] 7t [place] [address] Care Team Providers Care Music Therapy Specialist Name Role Phone Name, Aamir MCCRARY Primary Care Provider [phone] Carline Bustillos PharmD Unavailable [phone] Reason for Visit * Reason Onset Date Comments Med Refill 04/26/2024 Encounter Details Date Type Department Care Team ([facility] st Contact Info) Description 04/26/2024 Telephone [facility] MED[facility]INE [address] [place], [place] [phone] Name, MD Aamir [address] [place] [address] Med Refill Social History Tobacco Use Types [...] 5-325 MG tablet To be sent to: [id number] AT [facility] documented in this encounter Plan of Treatment Upcoming Encounters Date Type Department Care Team (Late st Contact Info) Description 06/11/2025 11:30 AM EDT Clinical Support [facility] [address] [place] [phone] Francine Oneill RN 06/19/2025 11:15 AM EDT Office Visit [facility] [address] [place] [phone] Name, MD Aamir [address] [place] [address] 06/27/2025 11:30 AM EDT Medication Management [facility] [address] [place] [phone] Carline Bustillos, PharmD [address] [place] [address] documented as of this encounter Visit Diagnoses Not on filedocumented in this encounter Additional Health Concerns Assessment Noted Time PHQ-9 Depression Total Score: 0 01/27/20 23 10:31 AM EDT documented as of this encounter Care Teams Music Therapy Specialist Relationship Specialty Start Date End Date Name, MD Aamir [address] [place] [phone] PCP - General Family Medicine 10/10/18 Carline Bustillos, Steffanie [address] [place] [address] [phone] Pharmacist Pharmacy 04/16/25 documented as of this encounter
--- OUTSIDE RECORDS SUMMARY | 2025-06-06 14:02 | XMS_ITS | Encounter Summary ---
Author Organization [employer] Address [address] [facility] 7t [place] [address] Care Team Providers Care Acquisitions Editor Name Role Phone Name, Aamir MCCRARY Primary Care Provider [phone] Carline Bustillos PharmD Unavailable [phone] Reason for Visit * Reason Comments Med Refill Encounter Details Date Type Department Care Team (Late st Contact Info) Description 05/07/2023 Refill [facility]INE [address] [place] [address] [phone] Name, MD Aamir [address] [place] [phone] Social History Tobacco Use Types Packs/Day Years [...] 06/11/2025 11:30 AM EDT Clinical Support [facility]INE [address] [place] [address] [phone] Francine Oneill RN 06/19/2025 11:15 AM EDT Office Visit [facility] [address] [place] [address] [phone] Aamir Montoya MD [address] [place] [address] [phone] 06/27/2025 11:30 AM EDT Medication Management [facility] [address] [place] [address] Carline Bustillos PharmD [address] [place] [address] documented as of this encounter Visit Diagnoses Not on filedocumented in this encounter Additional Health Concerns Assessment Noted Time PHQ-9 Depression Total Score: 0 01/27/20 10:31 AM EDT documented as of this encounter Care Teams Acquisitions Editor Relationship Specialty Start Date End Date Name, MD Aamir [address] [place], [place] [phone] PCP - General Family Medicine 10/10/18 Carline Bustillos PharmD [address] [place] [phone] Pharmacist Pharmacy 04/16/25 documented as of this encounter
--- OUTSIDE RECORDS SUMMARY | 2025-06-06 14:02 | XMS_ITS | Clinical Summary ---
Author Organization [employer] Address [address] [facility] 7t [place] [address] Care Team Providers Care Time Study Observer Name Role Phone Name, Aamir MCCRARY Primary Care Provider [phone] Carline Bustillos PharmD Unavailable [phone] Allergies Active Allergy Reactions Criticality Noted [...] 23 Active escitalopram (Lexapro) 20 MG tablet 01/13/20 23 Active buPROPion XL (Wellbutrin XL) 300 MG 24 hr tablet Take 300 mg by mouth in the morning. 01/13/20 23 Active Blood Pressure Monitor device Use once a day as directed 1 each 07/15/20 23 Active omeprazole (PriLOSEC) [address] capsuleIndicat [...] reversal. 2 each 2 06/27/20 24 Active aspirin (Aspirin Low Dose) 81 MG EC tabletIndicati ons:Hypertensi on, unspecified type Take 1 tablet by mouth every day 90 tablet 3 11/29/19 25 Active cholecalcifero l (Vitamin D-3) 50 MCG (1999 UT) tablet TAKE 1 TABLET BY MOUTH EVERY MORNING 90 tablet 3 12/03/19 25 Active losartan (Cozaar) 100 MG tablet TAKE 1 TABLET(100 MG) BY MOUTH IN THE MORNING 90 tablet 1 01/25/20 25 Active tamoxifen (Nolvadex) 20 MG chemo tablet Take 1 tablet by mouth Once per day. 01/04/20 25 Active QUEtiapine XR (SEROquel XR) 400 MG 24 hr tablet Take 400 mg by mouth at bedtime. 03/25/20 25 Active clonazePAM (KlonoPIN) 2 MG tablet Take 1 tablet by mouth every 6 (six) hours during the day. 03/25/20 25 Active nicotine (Nicoderm, Step 1) 21 MG/24HR patchIndicatio ns:Tobacco dependence syndrome Apply 1 patch, as directed, every 24 hours. May remove at bedtime if needed & place new patch the next morning. Rotate application site. 42 patch 04/16/20 25 Active nicotine (Nicoderm, Step 2) 14 MG/24HR patchIndicatio ns:Tobacco dependence syndrome Apply 1 patch, as directed, every 24 hours. May remove at bedtime if needed & place new patch the next morning. Rotate application site. 14 patch 04/16/20 25 Active nicotine (Nicoderm, Step 3) 7 MG/24HR patchIndicatio ns:Tobacco dependence syndrome Apply 1 patch, as directed, every 24 hours. May remove at bedtime if needed & place new patch the next morning. Rotate application site. 14 patch 2 04/16/20 25 Active nicotine polacrilex (Commit) 4 MG lozengeIndicat ions:Tobacco dependence syndrome Dissolve 1 lozenge, as directed, every 1-2 hours as needed for cravings. Max 20 lozenges per 24 hours. 144 lozenge 5 04/16/20 25 Active albuterol 108 (90 Base) MCG/ACT inhaler Inhale 2 puffs every 4 (four) hours. 18 g 3 04/16/20 25 Active acetaminophen (Tylenol) 500 MG tablet Take 1,000 mg by mouth every 6 (six) hours if needed for mild pain. OTC Active ondansetron (Zofran) 4 MG tabletIndicati ons:Colitis Take 1 tab every 8 hrs as needed for nausea and vomiting 30 tablet 04/19/20 25 Active atorvastatin (Lipitor) 40 MG tabletIndicati ons:High cholesterol TAKE 1 TABLET(40 MG) BY MOUTH IN THE MORNING 90 tablet 3 05/21/20 25 Active oxyCODONE-acet aminophen (Percocet) 5-325 MG tabletIndicati ons:Chronic pain syndrome Take 1 tablet by mouth every 12 (twelve) hours if needed for severe pain for up to 28 days. Do not start before May 24, 2025. 56 tablet 05/24/20 25 025 Active amLODIPine (Norvasc) 10 MG tabletIndicati ons:Hypertensi on, unspecified type TAKE 1 TABLET(10 MG) BY MOUTH IN THE MORNING 90 tablet 1 05/27/20 25 Active atorvastatin (Lipitor) 40 MG tabletIndicati ons:High cholesterol TAKE 1 TABLET(40 MG) BY MOUTH IN THE MORNING 90 tablet 3 05/24/20 24 025 Discontinued amLODIPine (Norvasc) 10 MG tabletIndicati ons:Hypertensi on, unspecified type TAKE 1 TABLET(10 MG) BY MOUTH IN THE MORNING 90 tablet 1 11/30/19 25 025 Discontinued oxyCODONE-acet aminophen (Percocet) 5-325 MG tabletIndicati ons:Chronic pain syndrome Take 1 tablet by mouth every 12 (twelve) hours if needed for severe pain for up to 28 days. Do not start before April 26, 2025. 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 ER/PA positive, HER2 negative, high proliferation index. Bone [...] is now receiving adjuvant radiation therapy at [facility]. She is on tamoxifen 20 mg once [...] months. Right knee pain 02/29/2024 Smoking 05/30/2023 Colitis 05/30/2023 Panic attack 05/30/2023 Adenomatous polyp of colon 01/26/2023 Overview (06/01/2023): Removed during [place] 2018, was recommended repeat 2023 Tobacco dependence syndrome 01/26/2023 Migraine 01/08/2019 Vitamin D deficiency 09/11/2018 Right ankle pain 06/06/2018 Pulmonary emphysema 04/10/2018 Calcification of lung 03/16/2018 Overview (06/01/2023): LRCT program at [facility], last CT 04/2023 (recommended repeat 6 months) Depression 02/28/2018 Anxiety 06/03/2017 Claustrophobia 06/03/2017 Recurrent major depressive episodes 06/03/2017 Chronic low back pain 11/11/2015 Degeneration of lumbosacral intervertebral disc 11/11/2015 Hypercholesterolemia 11/11/2015 Hypertension, essential, benign 11/11/2015 H/O: hysterectomy 11/11/2015 Resolved Problems Problem Noted Date Diagnosed Date Resolved Date Adenomatous polyp 05/30/2023 06/01/2023 Spasm 05/30/2023 06/01/2023 Lung mass [...] Encounters Date Type Department Care Team Description 05/30/[address] [facility] [place] [address] Aamir Montoya MD 05/27/[address] [facility] [place] [address] Aamir Montoya MD Hypertension, unspecified type 05/23/[address] [facility] [address] [place] [address] Aamir Montoya MD Chronic pain syndrome 05/20/[address] [facility] [address] [place] [address] Aamir Montoya MD High cholesterol 04/25/[address] [facility] [place] [address] Aamir Montoya MD Chronic pain syndrome 04/19/2025 11:15 AM EDT Office Visit [facility] [place] [address] Beth Limon FNP Colitis (Primary Dx) 04/19/2025 Orders Only GENERIC EXTERNAL DATA DEPARTMENT Provider, Generic External Data 04/19/2025 Travel 04/18/[address] [facility] [place] [address] Beth Limon FNP Chart Prep 04/16/[address] [facility] [place] [address] Carline Bustillos, PharmD 04/16/[address] [facility] [address] [place] [address] Aamir Montoya MD Appointment 04/16/2025 Travel 03/27/[address] [facility] [place] [address] Aamir Montoya MD Chronic pain syndrome 03/18/[address] [facility] [address] [place] [address] Nigel Pierre MA may recalls; Med Refill 03/06/2025 11:30 AM EDT Clinical Support [facility] [address] [place] [phone] Francine Oneill RN Long-term current use of opiate analgesic (Primary Dx) 03/06/2025 Travel from Last 3 Months Immunizations Immunization Administration Dates Next Due Influenza injectable quadriv alent IIV4 with preservative 08/31/2017 Influenza injectable quadriv alent preservative free 07/28/2023,07/05/2020,09/10/2019,2017,10/06/2016 Influenza, IIV3, injectable 07/01/2015 Influenza, seasonal, injecta ble, preservative free 08/17/2024 Pfizer Covid-19 Vaccine 12+ 08/17/2024 Pneumococcal Conjugate PCV 20 06/01/2023 Tdap 06/01/2023,03/13/2013 Social History Tobacco Use Types Packs/Day Years Used Date Smoking Tobacco: Every Day Cigarettes 1 27.1 Started: 04/16/1998 Passive Smoke Exposure: Current Smokeless [...] the past 12 months, has t he [employer], gas, oil or water [employer] threatened to shut off services in your [...] Description 06/11/2025 11:30 AM EDT Clinical Support [address] [address] Francine Oneill RN 06/19/2025 11:15 AM EDT Office Visit [address] [address] Name, MD Aamir [address] [place] [address] 06/27/2025 11:30 AM EDT Medication Management [facility] [address] [place] [phone] Carline Bustillos, PharmD [address] [place] [address] Health Maintenance Due Date Last Done Comments [...] Procedure Name Priority Date/Time Associated Diagnosis Comments COMPREHENSIVE METABOLIC PANEL, FASTING Routine 04/19/2025 12:08 PM EDT CBC WITH AUTO DIFFERENTIAL Routine 04/19/2025 12:08 PM EDT POCT AMY-14 URINE DRUG SCREEN Routine 03/06/2025 11:31 AM EDT Long-term current use of opiate analgesic HM COLONOSCOPY Routine 10/05/2024 10:40 AM EST [...] Routine 07/26/2024 10:59 AM EDT Essential hypertension HM LUNG CANCER SCREENING Routine 11/29/2023 from Last 3 Months or Most Recently Relevant to Health Maintenance Results * (ABNORMAL) Comprehensive Metabolic Panel, Fasting (04/19/2025 12:08 PM EDT) Sodium 143 135 - 145 mmol/L [facility] Potassium 3.8 3.3 - 5.1 mmol/L [facility] Chloride 109(H) 96 - 108 mmol/L [facility] Carbon Dioxide 28 22 - 29 mmol/L [facility] Anion Gap 10(L) 12 - 20 [facility] Urea Nitrogen (BUN) 11 9 - 16 mg/dL [facility] Creatinine, Serum 0.97 0.5 - 1.4 mg/dL [facility] Estimated Glomerular Filt Rate 59 [facility] Comment:Chronic Kidney Disea se: Estimated GFR < 60 mL/min/1.51y2Lrehod Kidney Disease: Estimated GFR < 15 mL/min/1.73m2 Glucose Fasting 88 60 - 99 mg/dL [facility] Calcium 9.2 8.4 - 10.2 mg/dL [facility] Bilirubin, Total 0.3 0.0 - 1.0 mg/dL [facility] Aspartate Amino Transferase 29 5 - 31 U/L [facility] Alanine Aminotransferase 26 0 - 31 U/L [facility] Total Protein 6.9 6.5 - 8.0 g/dL [facility] Albumin Level 3.9 3.5 - 5.0 g/dL [facility] Alkaline Phosphatase 93 39 - 117 U/L [facility] 04/19/2025 12:0 8 PM EDT 04/19/2025 2:00 PM EDT us Generic External Data Provider LAB BLOOD ORDERAB LES Final Result [facility] [address] [place] [phone] * (ABNORMAL) CBC auto differential (04/19/2025 12:08 PM EDT) White Blood Count 13.0(H) 4.8 - 10.8 X10*3/uL [facility] Red Blood Count 4.46 4.20 - 5.50 X10*6/uL [facility] Hemoglobin 13.5 12.0 - 16.0 g/dl [facility] Hematocrit 41.2 37.0 - 47.0 % [facility] Mean Corpuscular Volume 92.4 80.0 - 98.0 fL [facility] Mean Corpuscular Hemoglobin 30.3 27.0 - 33.0 pg [facility] Mean Corpuscular HGB Conc 32.8 31.0 - 35.0 g/dl [facility] Red Cell Distribution Width 13.8 11.0 - 16.0 % [facility] Platelet Count 271 160 - 400 X10*3/uL [facility] Mean Platelet Volume 12.0 9.4 - 12.3 fL [facility] Neutrophils Percent Auto 68.1 45 - 73 % [facility] Imm Gran Pct Auto 0.5(H) 0.0 - 0.4 % [facility] Lymphocytes Percent Auto 20.8 20 - 40 % [facility] Monocytes Percent Auto 9.5 2 - 11 % [facility] Eosinophils Percent Auto 0.8 0 - 4 % [facility] Basophils Percent Auto 0.3 0 - 2 % [facility] NRBC Pct Auto 0.0 0.0 - 0.2 /100WBC [facility] Neutrophils Absolute Auto 8.8(H) 2.0 - 8.3 x10*3/uL [facility] Imm Gran Abs Auto 0.06(H) 0.00 - 0.03 X10*3/uL [facility] Lymphocytes Absolute Auto 2.7 1.2 - 4.9 X10*3/uL [facility] Monocytes Absolute Auto 1.2 0.1 - 1.2 X10*3/uL [facility] Eosinophils Absolute Auto 0.1 0.0 - 0.4 X10*3/uL [facility] Basophils Absolute Auto 0.0 0.0 - 0.2 X10*3/uL [facility] NRBC Abs Auto 0.000 0.0 - 0.012 X10*3/uL [facility] 04/19/2025 12:0 8 PM EDT 04/19/2025 2:00 PM EDT us Generic External Data Provider LAB BLOOD ORDERAB LES Final Result [facility] [address] [place] [address] [phone] * POCT AMY-14 Urine Drug Screen (03/06/2025 [...] - 03/06/2025 11:31 AM EDT UTOX cup Lot#[id number] Exp. 08/09/26 Internal Pass Control Aamir Name POINT OF CARE TEST ENTER/EDIT OR DERABLES Final Result * (ABNORMAL) Hm Colonoscopy (10/05/2024 10:40 AM EST) Colonoscopy Abnormal(A ) Normal 10/05/2024 10:4 0 AM EST us Aamir Montoya MD HEALTH MAINTENANCE Final Result * BI Mammogram Diagnostic Tomosynthesis Right (08/06/2024 10:00 AM EDT) Anatomical Region Laterality Modality Breast Right Mammography 08/06/2024 10:0 0 AM EDT Narrative 08/06/2024 11:15 AM EDT [facility] [address] [place] [address] Mammography Report Signed with Meghan Patient: Jeanna Graham MR#: [id number] : 1965 Acct:[id number] Age/Sex: 58 / F ADM Date: 08/06/24 Loc: HO.MAMMO Attending Dr: Stefano Coombs MD Ordering Physician: Stefano Coombs MD Results: 1Negat jac Date of Service: 08/06/24 Follow Up: 1 Year From Orig inal Mammogram Procedure(s): MM tomosynthesis diagnostic RT Accession Number(s): [id number] cc: Name,Aamir MCCRARY; Stefano Coombs MD ADDENDUM [...] Jamie Holguin MD 08/09/2024 01:29 PM EDT RP Addendum Dictated By: Jamie Holguin MD Addendum [...] was obtained with the aid of an historic interpreter. Site and side were confirmed. Prior [...] targeted area with a 14G spring loaded Enpocketera core biopsy device. There was real-time confirmation [...] 08/06/24 1112 DD/ 1000 TD/TT: 08/06/24 1043 Calender Let Off Helper: Procedure Note Donotuseinterpreter, Image - 08/09/2024 [facility] [address] [place] [address] Mammography Report Signed with Meghan Patient: Jeanna Graham#: [id number] : 1965Acct:[id number] Age/Sex: 58 / FADM Date: 08/06/24 Loc: HO.MAMMO Attending Dr: Stefano Coombs MD Ordering Physician: Stefano Coombs MDResults: 1Negat jac Date of Service: 08/06/24Follow Up: 1 Year From Orig ina Mammogram Procedure(s): MM tomosynthesis diagnostic RT Accession Number(s): [id number] cc: Name,Aamir MCCRARY; Stefano Coombs MD ADDENDUM [...] was obtained with the aid of an historic interpreter. Site and side were confirmed. Prior [...] targeted area with a 14G spring loaded Enpocketera core biopsy device. There was real-time confirmation [...] 08/06/24 1112 DD/ 1000 TD/TT: 08/06/24 1043 Calender Let Off Helper: [facility] External Provider IMG BI PROCEDURES Edited Result - Final * Hepatitis C Antibody with Reflex to HCV, RNA, Quantitative, Real-Time PCR (07/26/2024 10:59 AM EDT) Hepatitis C Antibody Nonreactive Nonreactive [facility] Comment:Antibodies to HCV no t detected; does not exclude early acuteHCV infection. Blood Venous blood specimen / Unknown 07/26/2024 10:59 AM EDT 07/26/2024 1:14 PM EDT us Aamir Montoya MD LAB BLOOD ORDERABLES Final Resul t Performing Organization Address City/[facility]/ZIP Co de Phone Number [facility] [address] [place] [address] [phone] * HIV-1/2 Antigen and Antibodies, Fourth Generation, with Reflexes (07/26/2024 10:59 AM EDT) HIV AB/AG Nonreactive Nonreactive [facility] Comment:HIV-1 p24 Ag and/or HIV-1/HIV-2 Ab not detected.A test result that is nonreactive does not exclude thepossibility of exposure to or infection with HIV-1 and/orHIV-2. Nonreactive results in this assay for individualswith prior exposure to HIV-1 and/or HIV-2 may be due toantigen and antibody levels that are below the limit ofdetection of this assay.[facility] HIV Ag/Ab Combo assay result andsupplemental assay results should be interpreted inconjunction with the patient's clinical presentation,history and other laboratory results. If the results areinconsistent with clinical evidence, additional testing issuggested to confirm the result. Blood Venous blood specimen / Unknown 07/26/2024 10:59 AM EDT 07/26/2024 1:14 PM EDT us Aamir Montoya MD LAB BLOOD ORDERABLES Final Resul t Performing Organization Address City/[facility]/ZIP Co de Phone Number [facility] [address] [place] [phone] * (ABNORMAL) Lipid Panel, Standard (07/26/2024 10:59 AM EDT) Triglycerides 155(H) <150 mg/dL [facility] Comment:Desirable Triglyceri de: less than 150 mg/dLBorderline High Triglyceride 150-199 mg/dLHigh Triglyceride: 200-499 mg/dLVery High Triglyceride: greater than or equal to 5OO mg/dL Cholesterol 181 <200 mg/dL [facility] Comment:Desirable Cholestero l: less than 200 mg/dLBorderline High Cholesterol: 200-239 mg/dLHigh Cholesterol: greater than 239 mg/dL LDL Cholesterol Calculated 115(H) <100 mg/dL [facility] Comment:Desirable LDL: less than 100 mg/dLNear Optimal/Above Optimal LDL: 110- 129 mg/dLBorderline High LDL: 130-159 mg/dLHigh LDL: 160-189 mg/dLVery High LDL: greater than or equal to 190 mg/dL HDL Cholesterol 35(L) >40 mg/dL [facility] Comment:Desirable HDL: great er than 40 mg/dL Note: This HDL assay may give artificially low results in patients with liver disease. Blood Venous blood specimen / Unknown 07/26/2024 10:59 AM EDT 07/26/2024 1:14 PM EDT us Aamir Montoya MD LAB BLOOD ORDERABLES Final Resul t [facility] [address] [place], [place] [phone] * (ABNORMAL) Lung Cancer Screning (11/29/2023) Lung CT LUNGRADS 2(L) LUNGRADS 1, LUNGRADS 2 Comment:f/u 1 yr Anatomical Region Laterality Modality Other us Aamir Montoya MD HEALTH MAINTENANCE Final Result from Last 3 Months or Most Recently Relevant to Health Maintenance Insurance [employer] < 65 [place]Z [id number] Care Teams Time Study Observer Relationship Specialty Start Date End Date Name, MD Aamir [address] [place] [address] PCP - General Family Medicine 10/10/18 Carline Bustillos, GwendolynD [address] [place] [address] Pharmacist Pharmacy 04/16/25
--- OUTSIDE RECORDS SUMMARY | 2025-06-06 14:02 | XMS_ITS | Encounter Summary ---
Author Organization [employer] Address 75 [facility] 7t [place] [address] Care Team Providers Care Gang Boss Name Role Phone Name, Aamir MCCRARY Primary Care Provider [phone] Carline Bustillos PharmD Unavailable [phone] Reason for Visit * Reason Onset Date Comments Appointment Request 11/29/2024 Encounter Details Date Type Department Care Team ([facility] Contact Info) Description 11/29/2024 Telephone [facility] [address] [place], [place] [phone] Name, MD Aamir [address] [place] [address] Appointment Request Social History Tobacco Use Types [...] PCP in a while. Contact pt at [phone] documented in this encounter Plan of Treatment Upcoming Encounters Date Type Department Care Team (Late st Contact Info) Description 06/11/2025 11:30 AM EDT Clinical Support [facility] [address] [place] [address] Francine Oneill RN 06/19/2025 11:15 AM EDT Office Visit [facility] [address] [place] [phone] Name, MD Aamir [address] [place] [address] 06/27/2025 11:30 AM EDT Medication Management [facility] [address] [place] [phone] Carline Bustillos, Steffanie [address] [place] [address] documented as of this encounter Visit Diagnoses Not on filedocumented in this encounter Additional Health Concerns Assessment Noted Time PHQ-9 Depression Total Score: 6 08/17/20 24 11:53 AM EST documented as of this encounter Care Teams Gang Boss Relationship Specialty Start Date End Date Name, MD Aamir [address] [place] [address] PCP - General Family Medicine 10/10/18 Carline Bustillos, GwendolynD [address] [place] [address] Pharmacist Pharmacy 04/16/25 documented as of this encounter
--- OUTSIDE RECORDS SUMMARY | 2025-06-06 14:02 | XMS_ITS | Encounter Summary ---
Author Organization [employer] Address 75 [facility] 7t [place] [address] Care Team Providers Care Records Analyst Name Role Phone Name, Aamir MCCRARY Primary Care Provider [phone] Carline Bustillos PharmD Unavailable [phone] Reason for Visit * Reason Onset Date Comments Med Refill 05/24/2024 Encounter Details Date Type Department Care Team ([facility] st Contact Info) Description 05/24/2024 Telephone [facility] [address] [place], [place] [phone] Name, MD Aamir [address] [place] [address] Med Refill Social History Tobacco Use Types [...] 5-325 MG tablet To be sent to: [id number] AT [facility]/[address] documented in this encounter Plan of Treatment Upcoming Encounters Date Type Department Care Team (Late st Contact Info) Description 06/11/2025 11:30 AM EDT Clinical Support [facility] [address] [address] Francine Oneill RN 06/19/2025 11:15 AM EDT Office Visit [facility] [address] [place] [phone] Name, MD Aamir [address] [place] [address] 06/27/2025 11:30 AM EDT Medication Management [facility] [address] [place] [phone] PuiaCarline PharmD [address] [place] [address] documented as of this encounter Visit Diagnoses Not on filedocumented in this encounter Additional Health Concerns Assessment Noted Time PHQ-9 Depression Total Score: 0 01/27/20 23 10:31 AM EDT documented as of this encounter Care Teams Records Analyst Relationship Specialty Start Date End Date Name, MD Aamir [address] [place] [address] PCP - General Family Medicine 10/10/18 Carline Bustillos PharmD [address] [place] [phone] Pharmacist Pharmacy 04/16/25 documented as of this encounter
--- OUTSIDE RECORDS SUMMARY | 2025-06-06 14:02 | XMS_ITS | Encounter Summary ---
Author Organization [employer] Address [address] [facility] 7t [place] [address] Care Team Providers Care Nursery Manager Name Role Phone Name, Aamir MCCRARY Primary Care Provider [phone] Carline Bustillos PharmD Unavailable [phone] Reason for Visit * Reason Comments Med Refill Encounter Details Date Type Department Care Team (Late st Contact Info) Description 03/31/2023 Refill [facility] [address] [place] [address] [phone] Name, MD Aamir [address] [place] [phone] Social History Tobacco Use Types Packs/Day Years [...] Description 06/11/2025 11:30 AM EDT Clinical Support [facility] [address] [place] [address] [phone] Francine Oneill RN 06/19/2025 11:15 AM EDT Office Visit [facility] [address] [place] [address] [phone] Aamir Montoya MD [address] [place] [address] [phone] 06/27/2025 11:30 AM EDT Medication Management [facility] [address] [place] [address] Carline Bustillos PharmD [address] [place] [address] documented as of this encounter Visit Diagnoses Not on filedocumented in this encounter Additional Health Concerns Assessment Noted Time PHQ-9 Depression Total Score: 0 01/27/20 10:31 AM EDT documented as of this encounter Care Teams Nursery Manager Relationship Specialty Start Date End Date Name, MD Aamir [address] [place], [place] [phone] PCP - General Family Medicine 10/10/18 Carline Bustillos PharmD [address] [place] [phone] Pharmacist Pharmacy 04/16/25 documented as of this encounter
--- OUTSIDE RECORDS SUMMARY | 2025-06-06 14:02 | XMS_ITS | Clinical Summary ---
Author Organization [facility] [address] [facility] Address [address] [place] [address] Phone Care Team Providers Care Room Maid Name Role Phone Unavailable Primary Care Provider Unavailabl e Allergies Active Allergy Reactions Criticality Noted Date Comments Atorvastatin 10/06/2016 Codeine 11/03/2022 Other Reaction(s): increases heartrate Other reaction(s): increases heartrate Other Reaction(s): heart palpitation Oxycodone-Acetaminophen 04/08/2025 Varenicline 11/03/2022 Encounters Date Type Department Care Team Description 04/08/2025 8:14 PM EDT - 04/09/2025 1:06 AM EDT Emergency [facility] Emergency [address] [place] [address] Discharge Disposition: Home or Self [...] Date Smoking Tobacco: Every Day Cigarettes 1 37.7 Started: 10/10/1987 Smokeless Tobacco: Never Comments Unknown [...] (2 - Pfizer risk series) 09/07/2024 08/17/2024 Depression Screening 10/10/2024 Influenza Vaccine (#1) 2025 , 07/28/2023, 07/05/2020, Additional history exists Lung Cancer Screening (Low Dose CT) 12/05/2025 [...] and culture (04/08/2025 8:27 PM EDT) Specific [place] Urine 1.018 1.003 - 1.030 LAB URINALYSIS - AUTOMATED METHOD 04/08/2025 9:05 PM EDT [facility] pH, Urine 7.0 5.0 - 8.0 pH LAB URINALYSIS - [facility]OMATED METHOD [facility] Leukocytes, Urine Negative Negative LAB URINALYSIS - AUTOMATED METHOD 04/08/2025 9:[address] [facility] Nitrite, Urine Negative Negative LAB URINALYSIS - AUTOMATED METHOD 04/08/2025 9:[address] [facility] Protein, Urine Trace <=Trace mg/dL LAB URINALYSIS - AUTOMATED METHOD 04/08/2025 9:[address] [facility] Glucose, Urine Negative Negative mg/dL LAB URINALYSIS - AUTOMATED METHOD 04/08/2025 9:[address] [facility] Ketones, Urine Negative Negative mg/dL LAB URINALYSIS - AUTOMATED METHOD 04/08/2025 9:[address] [facility] Urobilinogen, Urine 1.0 0.2 - 1.0 mg/dL LAB URINALYSIS - AUTOMATED METHOD 04/08/2025 9:[address] [facility] Bilirubin, Urine Negative Negative LAB URINALYSIS - AUTOMATED METHOD 04/08/2025 9:[address] [facility] Blood, Urine Trace(A) Negative LAB URINALYSIS - AUTOMATED METHOD 04/08/2025 9:[address] [facility] RBC, Urine 12.3(H) 0 - 4 /HPF LAB URINALYSIS - AUTOMATED METHOD 04/08/2025 9:[address] [facility] WBC, Urine 1.8 0 - 4 /HPF LAB URINALYSIS - AUTOMATED METHOD 04/08/2025 9:[address] [facility] Squamous Epithelial, Urine 74(H) 0 - 60 /LPF LAB URINALYSIS - AUTOMATED METHOD 04/08/2025 9:[address] [facility] Bacteria, Urine Negative Negative /HPF LAB URINALYSIS - AUTOMATED METHOD 04/08/2025 9:[address] [facility] Hyaline Casts, Urine 3.6(H) 0 - 3 /LPF LAB URINALYSIS - AUTOMATED METHOD 04/08/2025 9:05 PM EDT [facility] Urine Urine specimen obtained by clean catch procedure / Unknown Non-blood Collection / Unknown 04/08/2025 8:27 PM EDT 04/08/2025 8:38 PM EDT Don Perez MD LAB URINE ORDERABLES Final Result Performing Organization Address [facility] Co de Phone Number [facility] [address] [place] [address], [place] [phone] * [place] urine culture tube (04/08/2025 8:27 PM EDT) Pathologist [facility] Extra Tube Hold for add-ons. 04/08/2025 10:02 PM EDT [facility] Comment:Auto resulted. Urine Urine specimen obtained by clean catch procedure / Unknown Non-blood Collection / Unknown 04/08/2025 8:27 PM EDT 04/08/2025 8:38 PM EDT Don Perez MD LAB URINE ORDERABLES Final Result Performing Organization Address [facility] de Phone Number [facility] [address] [place] [address], [place] [phone] * (ABNORMAL) CBC auto differential (04/08/2025 8:27 PM EDT) WBC 18.4(H) 4.8 - 10.8 K/[facility] LAB HEMETOLOGY METHOD 04/08/2025 8:46 PM EDT [facility] RBC 4.30 3.80 - 4.80 M/[facility] LAB HEMETOLOGY METHOD 04/08/2025 8:46 PM EDT [facility] Hemoglobin 13.1 11.5 - 16.0 g/dL LAB HEMETOLOGY METHOD 04/08/2025 8:46 PM EDT [facility] Hematocrit 40.0 35.0 - 47.0 % LAB HEMETOLOGY METHOD 04/08/2025 8:46 PM EDT [facility] MCV 93.0 79.0 - 98.0 FL LAB HEMETOLOGY METHOD [facility] MCH 30.5 27.0 - 32.0 pcg LAB HEMETOLOGY METHOD 04/08/2025 8:46 PM EDT [facility] MCHC 32.8 32.0 - 37.0 g/dL LAB HEMETOLOGY METHOD 04/08/2025 8:[address] [facility] RDW 13.8 11.0 - 15.0 % LAB HEMETOLOGY METHOD 04/08/2025 8:[address] [facility] Platelets 204 130 - 400 K/mcL LAB HEMETOLOGY METHOD 04/08/2025 8[facility] MPV 11.3(H) 7.0 - 11.0 FL LAB HEMETOLOGY METHOD 04/08/2025 8:[address] [facility] NRBC 0.0 <1.0 % LAB HEMETOLOGY METHOD 04/08/2025 8:[address] [facility] NRBC Absolute 0.00 <0.10 K/mcL LAB HEMETOLOGY METHOD 04/08/2025 8:46 [facility] Neutrophils Relative 74.5 % LAB HEMETOLOGY METHOD 04/08/2025 8:[facility] Lymphocytes Relative 16.6 % LAB HEMETOLOGY METHOD 04/08/2025 8:[address] [facility] Monocytes Relative 7.5 % LAB HEMETOLOGY METHOD 04/08/2025 8:[address] [facility] Eosinophils Relative 0.6 % LAB HEMETOLOGY METHOD 04/08/2025 8:46 PM EDT [facility] Basophils Relative 0.2 % LAB HEMETOLOGY METHOD 04/08/2025 8:46 PM EDT [facility] Immature Granulocytes Relative 0.6 % LAB HEMETOLOGY METHOD 04/08/2025 8:46 PM EDT [facility] Neutrophils Absolute 13.68(H) 1.50 - 7.00 K/mcL LAB HEMETOLOGY METHOD 04/08/2025 8:46 PM EDT [facility] Lymphocytes Absolute 3.05 1.00 - 5.00 K/mcL LAB HEMETOLOGY METHOD 04/08/2025 8:46 PM EDT [facility] Monocytes Absolute 1.38(H) 0.20 - 1.00 K/mcL LAB HEMETOLOGY METHOD 04/08/2025 8:46 PM EDT [facility] Eosinophils Absolute 0.11 0.00 - 0.50 K/mcL LAB HEMETOLOGY METHOD 04/08/2025 8:46 PM EDT [facility] Basophils Absolute 0.03 0.00 - 0.20 K/mcL LAB HEMETOLOGY METHOD 04/08/2025 8:46 PM EDT [facility] Immature Granulocytes Absolute 0.11(H) 0.00 - 0.03 K/mcL LAB HEMETOLOGY METHOD 04/08/2025 8:46 PM EDT [facility] Blood Venous blood specimen / Unknown Venipuncture / Unknown 04/08/2025 8:27 PM EDT 04/08/2025 8:39 PM EDT us Don Perez MD LAB BLOOD ORDERABLES Final Result [facility] [address] [place] [address], * (ABNORMAL) Comprehensive metabolic panel (04/08/2025 8:27 PM EDT) Sodium 139 133 - 145 mmol/L LAB CHEMISTRY METHOD 04/08/2025 9:[address] [facility] Potassium 3.4(L) 3.5 - 5.5 mmol/L LAB CHEMISTRY METHOD 04/08/2025 9:[address] [facility] Chloride 108 96 - 110 mmol/L LAB CHEMISTRY METHOD 04/08/2025 9:[address] [facility] CO2 26 21 - 32 mmol/L LAB CHEMISTRY METHOD 04/08/2025 9:[address] [facility] Anion Gap 5 3 - 11 LAB CHEMISTRY METHOD 04/08/2025 9:[address] [facility] Glucose 133(H) 70 - 100 mg/dL LAB CHEMISTRY METHOD 04/08/2025 9:[address] [facility] BUN 12 5 - 25 mg/dL LAB CHEMISTRY METHOD 04/08/2025 9:[address] [facility] Creatinine 1.08 0.50 - 1.10 mg/dL LAB CHEMISTRY METHOD 04/08/2025 9:[address] [facility] eGFR 60 >=60 mL/min/1. 73m2 LAB CHEMISTRY METHOD 04/08/2025 9:[address] [facility] Comment:Calculation based on the Chronic Kidney Disease Epidemiology Collaboration (CKD-EPI) equation refit without adjustment for race. BUN/Creatinine Ratio 11.1 LAB CHEMISTRY METHOD 04/08/2025 9:[address] [facility] Calcium 8.6 8.5 - 10.5 mg/dL LAB CHEMISTRY METHOD 04/08/2025 9:[address] [facility] AST (SGOT) 22 10 - 42 unit/L LAB CHEMISTRY METHOD 04/08/2025 9:[address] [facility] ALT (SGPT) 29 10 - 60 unit/L LAB CHEMISTRY METHOD 04/08/2025 9:03 PM EDT [facility] Alkaline Phosphatase 109 42 - 121 unit/L LAB CHEMISTRY METHOD 04/08/2025 9:03 PM EDT [facility] Total Protein 6.5 6.0 - 8.0 g/dL LAB CHEMISTRY METHOD 04/08/2025 9:03 PM EDT [facility] Albumin 3.1(L) 3.2 - 5.0 g/dL LAB CHEMISTRY METHOD 04/08/2025 9:03 PM EDT [facility] Total Bilirubin 0.6 0.0 - 1.4 mg/dL LAB CHEMISTRY METHOD 04/08/2025 9:03 PM EDT [facility] Blood Venous blood specimen / Unknown Venipuncture / Unknown 04/08/2025 8:27 PM EDT 04/08/2025 8:39 PM EDT us Don Perez MD LAB BLOOD ORDERABLES Final Result [facility] [address] [place] [address], * CT Lung Screening (12/05/2024 1:53 PM [...] Signed Date: 12/10/2024 11:44 ET Workstation ID: [id number] Transcribed By: Self Edit Transcribed Date: 12/10/2024 [...] Signed Date: 12/10/2024 11:44 ET Workstation ID: [id number] Transcribed By: Self Edit Transcribed Date: 12/10/2024 11:04 ET us Petar Paredes MD IMG CT PROCEDURES Final Result * [facility] SCREENING DIGITAL (11/18/2020 2:13 PM EST) Anatomical Region Laterality Modality Mammography 11/18/2020 1:33 PM EST Narrative 11/18/2020 2:13 PM EST [facility] Diagnostic Imaging Department [address] [place] [id number] Patient: JEANNA GRAHAM /Age/Sex: 1965 - 55 - F Unit#: [id number] Location/Status: [facility] CLI Mnemonic[facility] Physician: NAME,VINICIUS MCCRARY [facility] Screening Digital - 11/18/20 - 2852 INDICATION: SCREENING COMPARISON: [facility] mammograms dating back to 07/26/2014 TECHNIQUE: CC and MLO views of the breasts were obtained, using full field digital mammography with 3D tomosynthesis views in the MLO projection. Computer aided detection with the [employer] 7.2-H was employed. FINDINGS: The breasts contain [...] a target date for the next mammogram. G0817 / [id number]) , [id number] Dictating Physician: IDA HOLDER MD Electronically Signed by: IDA HOLDER MD Dic Date/Time: 11/18/20 1407 Sign date/Time: 11/18/20 1413 Procedure Note Ida Holder MD - 09/28/2022 [facility] Diagnostic Imaging Department [address] [place] [address] Patient: JEANNA GRAHAM /Age/Sex: 1965 - 55 - F Unit#: [id number] Location/Status: [facility] CLI Mnemonic/Ordering Site: [facility] Ordering Physician: VINICIUS RAMOS MD [place] Screening Digital - 11/18/20 - 1357 INDICATION: SCREENING COMPARISON: [facility] mammograms dating back to 07/26/2014 TECHNIQUE: CC and MLO views of the breasts were obtained, using full field digital mammography with 3D tomosynthesis views in the MLO projection. Computer aided detection with the [employer] 7.2-H was employed. FINDINGS: The breasts contain [...] target date for the next mammogram. G0202 [id number]) , [id number] Dictating Physician: IDA HOLDER MD Electronically Signed by: IDA HOLDER MD Dic Date/Time: 11/18/20 1407 Sign date/Time: 11/18/20 1410 Vinicius Name IMG BI PROCEDURES Final Result from Last 3 Months or Most Recently Relevant to Health Maintenance Insurance [facility] Member Subscriber Plan / Payer (Ef fective 2018-Present) Name:JEANNA REHMAN Relation to Subscriber:Self Name:Jeanna Graham Payer ID:[id number] Group ID:[id number] Type:Not on file Address: [facility] [address] [id number]
== END 2025-06-06 13:45 | disposition home or self-care (01) ==
LOC: HO.HOS 13:21
PROVIDERS: PCP Internal Medicine Geriatric Medicine; Visit Provider Orthopaedic Surgery
DX: M17.0 Bilateral primary osteoarthritis of knee (principal)
CPT/HCPCS: 20610; 99213

== ENCOUNTER → 2025-06-06 13:20 | Outpatient (BNVA) | payer OTHER, SELFPAY | PROVIDERS: PCP Internal Medicine Geriatric Medicine; Visit Provider Orthopaedic Surgery | DX: M17.11 Unilateral primary osteoarthritis, right knee (principal); M17.12 Unilateral primary osteoarthritis, left knee | CPT/HCPCS: 20610; 99212; J1010; J2003 ==

== ENCOUNTER 2025-07-08 10:47 | Outpatient (REF) | payer OTHER, SELFPAY ==
--- NOTE | ~2025-07-08 | MM_ITS ---
EXAMINATION(S): MM DIAGNOSTIC DIGITAL BREAST TOMOSYNTHESIS, BILATERAL CLINICAL INFORMATION: Right breast lumpectomy for invasive ductal carcinoma in August 2024. COMPARISON: Comparison made to multiple prior, most recent post procedure right mammogram on August 22, 2024, and most remote December 23, 2021. TECHNIQUE: Digital breast tomosynthesis is performed in both the mediolateral oblique and craniocaudal views along with computer-aided detection (CAD). Synthesized 2D images are generated from the tomosynthesis. FINDINGS: BREAST COMPOSITION: There are scattered areas of fibroglandular density. RIGHT BREAST: Post lumpectomy changes. No significant masses, suspicious calcifications or other abnormalities are seen. LEFT BREAST: No significant masses, suspicious calcifications or other abnormalities are seen. MM/MM tomosynthesis diagnostic BI IMPRESSION: BILATERAL BREASTS: Benign, no mammographic evidence of malignancy. Normal interval follow-up is recommended in 12 months. ASSESSMENT: BI-RADS: Category 2: Benign RECOMMENDATION: 12 month diagnostic follow up Results were provided to the patient at time of visit by the technologist. This patient's information was entered into a reminder system with a target due date for their next mammogram. Electronically signed by: Earl Brothers MD 07/08/2025 12:16 PM EDT
--- OUTSIDE RECORDS SUMMARY | 2025-07-08 12:19 | XMS_ITS | Encounter Summary ---
Author Organization [employer] Address [address] [facility] 7[address] [place] [address] Care Team Providers Care Cash Application Representative Name Role Phone Name, Aamir MCCRARY Primary Care Provider Carline Bustillos PharmD Unavailable Reason for Visit * Reason Comments Med Refill Encounter Details Date Type Department Care Team (Late Contact Info) Description 05/07/2023 Refill [facility] MEDICINE [address] [place] [phone] Name, MD Aamir [address] [place] [id number] Social History Tobacco Use Types Packs/Day Years [...] Care Team (Late st Contact Info) Description 07/25/2025 1:30 PM EDT Medication Management [facility] MEDICINE [address] [place] [phone] Edie Bustillossa, PharmD [address] [place] [phone] 09/10/2025 11:30 AM EST Clinical Support [facility] [address] [place] [address] [place] [address] Francine Oneill, RN documented as of this encounter Visit Diagnoses Not on filedocumented in this encounter Additional Health Concerns Assessment Noted Time PHQ-9 Depression Total Score: 0 01/27/20 23 10:31 AM EDT documented as of this encounter Care Teams Cash Application Representative Relationship Specialty Start Date End Date Name, MD Aamir [address] [place] [address] PCP - General Family Medicine 10/10/18 Carline Bustillos, Steffanie [address] [place] [address] Pharmacist Pharmacy 04/16/25 documented as of this encounter
--- OUTSIDE RECORDS SUMMARY | 2025-07-08 12:19 | XMS_ITS | Encounter Summary ---
Author Organization [employer] Address [address] [facility] [address]t [place] [address] Care Team Providers Care Vessel Slagman Name Role Phone Name, Aamir MCCRARY Primary Care Provider [phone] Carline Bustillos PharmD Unavailable [phone] Encounter Details Date Type Department Care Team (Late st Contact Info) Description 10/15/2022 Orders Only [facility] MED & PEDS [address] [place] [address] Carmen Lao LPN Social History Tobacco Use [...] Description 07/25/2025 1:30 PM EDT Medication Management [address] [address] Carline Bustillos, PharmD [address] [place] [address] 09/10/2025 11:30 AM EST Clinical Support [address] [address] Francine Oneill RN documented as of this encounter Visit Diagnoses Not on filedocumented in this encounter Care Teams Vessel Slagman Relationship Specialty Start Date End Date Name, MD Aamir [address] [place] [address] PCP - General Family Medicine 10/10/18 Carline Bustillos, GwendolynD [address] [place] [address] Pharmacist Pharmacy 04/16/25 documented as of this encounter
--- OUTSIDE RECORDS SUMMARY | 2025-07-08 12:19 | XMS_ITS | Encounter Summary ---
Author Organization [employer] Address [address] [facility] [address] [place] [address] Care Team Providers Care Construction Engineering Manager Name Role Phone Name, Aamir MCCRARY Primary Care Provider [phone] Carline Bustillos PharmD Unavailable [phone] Reason for Visit * Reason Onset Date Comments Med Refill 01/03/2025 Encounter Details Date Type Department Care Team ([facility] st Contact Info) Description 01/03/2025 Telephone [facility] MEDICINE [address] [place], [place] [phone] Name, MD Aamir [address] [place] [address] Med Refill Social History Tobacco Use Types [...] 5-325 MG tablet To be sent to: [id number] - [place], [place] - [address] [facility] [address] [facility] [address] documented in this encounter Plan of Treatment Upcoming Encounters Date Type Department Care Team (Late st Contact Info) Description 07/25/2025 1:30 PM EDT Medication Management [address] [address] Carline Bustillos, GwendolynD [address] [place] [address] 09/10/2025 11:30 AM EST Clinical Support [address] [address] Francine Oneill RN documented as of this encounter Visit Diagnoses Not on filedocumented in this encounter Additional Health Concerns Assessment Noted Time PHQ-9 Depression Total Score: 6 08/17/20 24 11:53 AM EST documented as of this encounter Care Teams Construction Engineering Manager Relationship Specialty Start Date End Date Name, MD Aamir [address] [place] [address] PCP - General Family Medicine 10/10/18 Carline Bustillos, GwendolynD [address] [place] [address] Pharmacist Pharmacy 04/16/25 documented as of this encounter
--- OUTSIDE RECORDS SUMMARY | 2025-07-08 12:19 | XMS_ITS | Clinical Summary ---
Author Organization [facility] [address] [facility] Address [address] [place] [address] Phone Care Team Providers Care Seismograph Recorder Name Role Phone Unavailable Primary Care Provider Unavailabl e Allergies Active Allergy Reactions Criticality Noted Date Comments Atorvastatin 10/06/2016 Codeine 11/03/2022 Other Reaction(s): increases heartrate Other reaction(s): increases heartrate Other Reaction(s): heart palpitation Oxycodone-Acetaminophen 04/08/2025 Varenicline 11/03/2022 Encounters Date Type Department Care Team Description 04/08/2025 8:14 PM EDT - 04/09/2025 1:06 AM EDT Emergency [facility] Emergency [address] [place] [address] Discharge Disposition: Home or Self [...] Td or Tdap) 06/01/2033 06/01/2023, 03/13/2013 RSV Immunization Adult Patients (1 - 1-dose 75+ series) 2042 Pneumococcal [...] and culture (04/08/2025 8:27 PM EDT) Specific [place] Urine 1.018 1.003 - 1.030 LAB URINALYSIS - AUTOMATED METHOD 04/08/2025 9:05 PM EDT [facility] pH, Urine 7.0 5.0 - 8.0 pH LAB URINALYSIS - AUTOMATED METHOD 04/08/2025 9:05 PM [facility] Leukocytes, Urine Negative Negative LAB URINALYSIS - AUTOMATED METHOD 04/08/2025 9:05 PM [facility] Nitrite, Urine Negative Negative LAB URINALYSIS - AUTOMATED METHOD 04/08/2025 9:05 PM [facility] Protein, Urine Trace <=Trace mg/dL LAB URINALYSIS - AUTOMATED METHOD 04/08/2025 9:05 PM [facility] Glucose, Urine Negative Negative mg/dL LAB URINALYSIS - AUTOMATED METHOD 04/08/2025 9:05 PM [facility] Ketones, Urine Negative Negative mg/dL LAB URINALYSIS - AUTOMATED METHOD 04/08/2025 9:05 PM [facility] Urobilinogen, Urine 1.0 0.2 - 1.0 mg/dL LAB URINALYSIS - AUTOMATED METHOD 04/08/2025 9:05 PM [facility] Bilirubin, Urine Negative Negative LAB URINALYSIS - AUTOMATED METHOD 04/08/2025 9:05 PM [facility] Blood, Urine Trace(A) Negative LAB URINALYSIS - AUTOMATED METHOD 04/08/2025 9:05 PM [facility] RBC, Urine 12.3(H) 0 - 4 /HPF LAB URINALYSIS - AUTOMATED METHOD 04/08/2025 9:05 PM [facility] WBC, Urine 1.8 0 - 4 /HPF LAB URINALYSIS - AUTOMATED METHOD 04/08/2025 9:05 PM [facility] Squamous Epithelial, Urine 74(H) 0 - 60 /LPF LAB URINALYSIS - AUTOMATED METHOD 04/08/2025 9:05 PM [facility] Bacteria, Urine Negative Negative /HPF LAB URINALYSIS - AUTOMATED METHOD 04/08/2025 9:05 PM [facility] Hyaline Casts, Urine 3.6(H) 0 - 3 /LPF LAB URINALYSIS - AUTOMATED METHOD 04/08/2025 9:05 PM EDT [facility] Urine Urine specimen obtained by clean catch procedure / Unknown Non-blood Collection / Unknown 04/08/2025 8:27 PM EDT 04/08/2025 8:38 PM EDT Don Perez MD LAB URINE ORDERABLES Final Result Performing Organization Address [facility] [address] [facility]/ZIP Co de Phone Number [facility] [address] [place] [address], [place] [phone] * [place] urine culture tube (04/08/2025 8:27 PM EDT) Extra Tube Hold for add-ons. 04/08/2025 10:02 PM EDT [facility] Comment:Auto resulted. Urine Urine specimen obtained by clean catch procedure / Unknown Non-blood Collection / Unknown 04/08/2025 8:27 PM EDT 04/08/2025 8:38 PM EDT Don Perez MD LAB URINE ORDERABLES Final Result Performing Organization Address [facility] [address]/[facility] de Phone Number [facility] [address] [place] [address], [place] [phone] * (ABNORMAL) CBC auto differential (04/08/2025 8:27 PM EDT) WBC 18.4(H) 4.8 - 10.8 K/mcL LAB HEMETOLOGY METHOD 04/08/2025 8:46 PM EDT [facility] RBC 4.30 3.80 - 4.80 M/mcL LAB HEMETOLOGY METHOD 04/08/2025 8:46 PM EDT [facility] Hemoglobin 13.1 11.5 - 16.0 g/dL LAB HEMETOLOGY METHOD 04/08/2025 8:46 PM EDT [facility] Hematocrit 40.0 35.0 - 47.0 % LAB HEMETOLOGY METHOD 04/08/2025 8:46 PM EDT [facility] MCV 93.0 79.0 - 98.0 FL LAB HEMETOLOGY [facility]25 [facility] MCH 30.5 27.0 - 32.0 pcg LAB HEMETOLOGY METHOD 04/08/2025 8:46 PM EDT [facility] MCHC 32.8 32.0 - 37.0 g/dL LAB HEMETOLOGY METHOD 04/08/2025 8[facility] RDW 13.8 11.0 - 15.0 % LAB HEMETOLOGY METHOD 04/08/2025 8:46 PM EDT [facility] Platelets 204 130 - 400 K/mcL LAB HEMETOLOGY METHOD 04/08/2025 8:46 PM EDT [facility] MPV 11.3(H) 7.0 - 11.0 FL LAB HEMETOLOGY METHOD 04/08/2025 8:[facility] NRBC 0.0 <1.0 % LAB HEMETOLOGY METHOD 04/08/2025 8:46 [facility] NRBC Absolute 0.00 <0.10 K/mcL LAB HEMETOLOGY METHOD 04/08/2025 8:46 [facility] Neutrophils Relative 74.5 % LAB HEMETOLOGY METHOD 04/08/2025 8:46 PM EDT [facility] Lymphocytes Relative 16.6 % LAB HEMETOLOGY METHOD 04/08/2025 8:[facility] Monocytes Relative 7.5 % LAB HEMETOLOGY METHOD 04/08/2025 8:46 PM EDT [facility] Eosinophils Relative 0.6 % LAB HEMETOLOGY METHOD 04/08/2025 8:46 PM EDT [facility] Basophils Relative 0.2 % LAB HEMETOLOGY METHOD 04/08/2025 8:46 PM EDT [facility] Immature Granulocytes Relative 0.6 % LAB HEMETOLOGY METHOD 04/08/2025 8:46 PM EDT [facility] Neutrophils Absolute 13.68(H) 1.50 - 7.00 K/mcL LAB HEMETOLOGY METHOD 04/08/2025 8:46 PM EDT [facility] Lymphocytes Absolute 3.05 1.00 - 5.00 K/mcL LAB HEMETOLOGY METHOD 04/08/2025 8:46 PM EDT [facility] Monocytes Absolute 1.38(H) 0.20 - 1.00 K/mcL LAB HEMETOLOGY METHOD 04/08/2025 8:46 PM EDT [facility] Eosinophils Absolute 0.11 0.00 - 0.50 K/mcL LAB HEMETOLOGY METHOD 04/08/2025 8:46 PM EDT [facility] Basophils Absolute 0.03 0.00 - 0.20 K/mcL LAB HEMETOLOGY METHOD 04/08/2025 8:46 PM EDT [facility] Immature Granulocytes Absolute 0.11(H) 0.00 - 0.03 K/mcL LAB HEMETOLOGY METHOD 04/08/2025 8:46 PM EDT [facility] Blood Venous blood specimen / Unknown Venipuncture / Unknown 04/08/2025 8:27 PM EDT 04/08/2025 8:39 PM EDT us Don Perez MD LAB BLOOD ORDERABLES Final Result [facility] [address] [place] [address], * (ABNORMAL) Comprehensive metabolic panel (04/08/2025 8:27 PM EDT) Sodium 139 133 - 145 mmol/L LAB CHEMISTRY METHOD 04/08/2025 9:03 PM [facility] Potassium 3.4(L) 3.5 - 5.5 mmol/L LAB CHEMISTRY METHOD 04/08/2025 9:03 PM [facility] Chloride 108 96 - 110 mmol/L LAB CHEMISTRY METHOD 04/08/2025 9:03 PM [facility] CO2 26 21 - 32 mmol/L LAB CHEMISTRY METHOD 04/08/2025 9:03 PM [facility] Anion Gap 5 3 - 11 LAB CHEMISTRY METHOD 04/08/2025 9:03 PM [facility] Glucose 133(H) 70 - 100 mg/dL LAB CHEMISTRY METHOD 04/08/2025 9:03 PM [facility] BUN 12 5 - 25 mg/dL LAB CHEMISTRY METHOD 04/08/2025 9:03 PM [facility] Creatinine 1.08 0.50 - 1.10 mg/dL LAB CHEMISTRY METHOD 04/08/2025 9:03 PM [facility] eGFR 60 >=60 mL/min/1. 73m2 LAB CHEMISTRY METHOD 04/08/2025 9:03 PM [facility] Comment:Calculation based on the Chronic Kidney Disease Epidemiology Collaboration (CKD-EPI) equation refit without adjustment for race. BUN/Creatinine Ratio 11.1 LAB CHEMISTRY METHOD 04/08/2025 9:03 PM [facility] Calcium 8.6 8.5 - 10.5 mg/dL LAB CHEMISTRY METHOD 04/08/2025 9:03 PM [facility] AST (SGOT) 22 10 - 42 unit/L LAB CHEMISTRY METHOD 04/08/2025 9:03 PM [facility] ALT (SGPT) 29 10 - 60 unit/L LAB CHEMISTRY METHOD 04/08/2025 9:03 PM EDT [facility] Alkaline Phosphatase 109 42 - 121 unit/L LAB CHEMISTRY METHOD 04/08/2025 9:03 PM EDT [facility] Total Protein 6.5 6.0 - 8.0 g/dL LAB CHEMISTRY METHOD 04/08/2025 9:03 PM EDT [facility] Albumin 3.1(L) 3.2 - 5.0 g/dL LAB CHEMISTRY METHOD 04/08/2025 9:03 PM EDT [facility] Total Bilirubin 0.6 0.0 - 1.4 mg/dL LAB CHEMISTRY METHOD 04/08/2025 9:03 PM EDT [facility] Blood Venous blood specimen / Unknown Venipuncture / Unknown 04/08/2025 8:27 PM EDT 04/08/2025 8:39 PM EDT us Don Perez MD LAB BLOOD ORDERABLES Final Result [facility] [address] [place] [address], * CT Lung Screening (12/05/2024 1:53 PM [...] Signed Date: 12/10/2024 11:44 ET Workstation ID: [id number] Transcribed By: Self Edit Transcribed Date: 12/10/2024 [...] QUINTANILLA Reviewed and Electronically Signed By: KEILA QUINTAINLLA Signed Date: 12/10/2024 11:44 ET Workstation ID: [id number] Transcribed By: Self Edit Transcribed Date: 12/10/2024 11:04 ET us Petar Paredes MD IMG CT PROCEDURES Final Result * [facility] SCREENING DIGITAL (11/18/2020 2:13 PM EST) Anatomical Region Laterality Modality Mammography 11/18/2020 1:33 PM EST Narrative 11/18/2020 2:13 PM EST [facility] Diagnostic Imaging Department [address] [place] [address] Patient: EDUJEANNA /Age/Sex: 1965 - 55 - F Unit#: [id number] Location/Status: [facility] CLI Mnemonic/Ordering Site: [facility] Ordering Physician: NAME,VINICIUS MCCRARY [facility] Screening Digital - 11/18/20 - 1357 INDICATION: SCREENING COMPARISON: [facility] mammograms dating back to 07/26/2014 TECHNIQUE: CC and MLO views of the breasts were obtained, using full field digital mammography with 3D tomosynthesis views in the MLO projection. Computer aided detection with the Collective 7.2-H was employed. FINDINGS: The breasts contain [...] date for the next mammogram. G0202 / [id number]) , [id number] Dictating Physician: IDA HOLDER MD Electronically Signed by: IDA HOLDER MD Dic Date/Time: 11/18/20 1407 Sign date/Time: 11/18/20 1413 Procedure Note Ida Holder MD - 09/28/2022 [facility] Diagnostic Imaging Department [address] [place] [address] Patient: JEANNA GRAHAM /Age/Sex: 1965 - 55 - F Unit#: [id number] Location/Status: [facility] Mnemonic/Ordering Site: [facility] Ordering Physician: RICHARD,VINICIUS MCCRARY [facility] Screening Digital - 11/18/20 - 0577 INDICATION: SCREENING COMPARISON: [facility] mammograms dating back to 07/26/2014 TECHNIQUE: CC and MLO views of the breasts were obtained, using full field digital mammography with 3D tomosynthesis views in the MLO projection. Computer aided detection with the Collective 7.2-H was employed. FINDINGS: The breasts contain [...] a target date for the next mammogram. G0271 / [id number]) , [id number] Dictating Physician: IDA HOLDER MD Electronically Signed by: IDA HOLDER MD Dic Date/Time: 11/18/20 1406 Sign date/Time: 11/18/20 1415 Vinicius Name IMG BI PROCEDURES Final Result from Last 3 Months or Most Recently Relevant to Health Maintenance Insurance [facility] Member Subscriber Plan / Payer (Ef fective 2018-Present) Name:JEANNA REHMAN Relation to Subscriber:Self Name:Jeanna Graham Payer ID:[id number] Group ID:[id number] Type:Not on file Address: [facility] [address] [address]
--- OUTSIDE RECORDS SUMMARY | 2025-07-08 12:19 | XMS_ITS | Encounter Summary ---
Author Organization [employer] Address [address] [facility] 7[address] [place] [address] Care Team Providers Care Student Name Role Phone Name, Aamir MCCRARY Primary Care Provider [phone] Carline Bustillos PharmD Unavailable [phone] Encounter Details Date Type Department Care Team ([facility] Contact Info) Description 11/22/2022 Orders Only [facility] [address] [place] [address] Carmen Lao LPN Social History Tobacco Use [...] Department Care Team (Late Contact Info) Description 07/25/2025 1:30 PM EDT Medication Management [facility] [address] [place] [address] Carline Bustillos, PharmD [address] [place] [address] 09/10/2025 11:30 AM EST Clinical Support [facility] [address] [place], [place] [phone] Mai, Francine, RN documented as of this encounter Visit Diagnoses Not on filedocumented in this encounter Care Teams Student Relationship Specialty Start Date End Date Name, MD Aamir [address] [place] [address] PCP - General Family Medicine 10/10/18 Carline Bustillos, Steffanie [address] [place] [address] Pharmacist Pharmacy 04/16/25 documented as of this encounter
--- OUTSIDE RECORDS SUMMARY | 2025-07-08 12:19 | XMS_ITS | Encounter Summary ---
Author Organization [employer] Address [address] [facility] 7[address] [place] [address] Care Team Providers Care Sustainability Project Coordinator Name Role Phone Name, Aamir MCCRARY Primary Care Provider [phone] Carline Bustillos PharmD Unavailable [phone] Reason for Visit * Reason Onset Date Comments Med Refill 05/24/2024 Encounter Details Date Type Department Care Team ([facility] st Contact Info) Description 05/24/2024 Telephone [facility] MED[facility] [address] [place], [place] [phone] Name, MD Aamir [address] [place] [address] Med Refill Social History Tobacco Use Types [...] 5-325 MG tablet To be sent to: [id number] AT [facility] documented in this encounter Plan of Treatment Upcoming Encounters Date Type Department Care Team ([facility] st Contact Info) Description 07/25/2025 1:30 PM EDT Medication Management [address] [address] Carline Bustillos, PharmD [address] [place] [address] 09/10/2025 11:30 AM EST Clinical Support [address] [address] Francine Oneill, RN documented as of this encounter Visit Diagnoses Not on filedocumented in this encounter Additional Health Concerns Assessment Noted Time PHQ-9 Depression Total Score: 0 01/27/20 23 10:31 AM EDT documented as of this encounter Care Teams Sustainability Project Coordinator Relationship Specialty Start Date End Date Name, MD Aamir [address] [place] [address] PCP - General Family Medicine 10/10/18 Carline Bustillos, Steffanie [address] [place] [address] Pharmacist Pharmacy 04/16/25 documented as of this encounter
--- OUTSIDE RECORDS SUMMARY | 2025-07-08 12:19 | XMS_ITS | Clinical Summary ---
Author Organization [employer] Address [address] [facility] 7[address] [place] [address] Care Team Providers Care Housekeeper Child Care Name Role Phone Name, Aamir MCCRARY Primary Care Provider [phone] Carline Bustillos PharmD Unavailable [phone] Allergies Active Allergy Reactions Criticality Noted [...] MEAL 90 capsule 3 05/24/20 24 Active naloxone (Narcan) 4 mg/0.1 mL nasal sprayIndicatio ns:Chronic low back pain without sciatica, unspecified back pain laterality Administer 1 spray (4 mg) into affected nostril(s) if needed for opioid reversal. 2 each 2 06/27/20 24 Active cholecalcifero l (Vitamin D-3) 50 MCG (1999) tablet TAKE 1 TABLET BY MOUTH EVERY MORNING 90 tablet 3 12/03/19 25 Active tamoxifen (Nolvadex) 20 MG chemo tablet Take 1 tablet by mouth Once per day. 01/04/20 25 Active QUEtiapine XR (SEROquel XR) 400 MG 24 hr tablet Take 400 mg by mouth at bedtime. 03/25/20 25 Active nicotine (Nicoderm, Step 1) [...] application site. 14 patch 04/16/20 25 Active Additional Information Patient not taking.Reason: awaiting step down tx, Reported on 06/27/2025 nicotine (Nicoderm, Step 3) 7 MG/24HR patchIndicatio ns:Tobacco dependence syndrome Apply 1 patch, as directed, every 24 hours. May remove at bedtime if needed & place new patch the next morning. Rotate application site. 14 patch 2 04/16/20 Active Additional Information Patient not taking.Reason: awaiting step down tx, Reported on 06/27/2025 acetaminophen (Tylenol) 500 MG tablet Take 1,000 [...] MORNING 90 tablet 3 05/21/20 25 Active amLODIPine (Norvasc) 10 MG tabletIndicati ons:Hypertensi on, unspecified type TAKE 1 TABLET(10 MG) BY MOUTH IN THE MORNING 90 tablet 1 05/27/20 25 Active metoprolol succinate XL (Toprol-XL) 100 MG 24 hr tablet Take 1 tablet (100 mg) by mouth Once per day. Do not crush or chew.TAKE 1 TABLET(100 MG) BY MOUTH IN THE MORNING 90 tablet 3 06/19/20 25 026 Active losartan (Cozaar) 100 MG tablet TAKE 1 TABLET(100 MG) BY MOUTH IN THE MORNING 90 tablet 3 06/19/20 25 Active aspirin (Aspirin Low Dose) 81 MG EC tabletIndicati ons:Hypertensi on, unspecified type Take 1 tablet by mouth every day 90 tablet 3 06/19/20 25 Active oxyCODONE-acet aminophen (Percocet) 5-325 MG tabletIndicati ons:Chronic pain syndrome Take 1 tablet by mouth every 12 (twelve) hours if needed for severe pain for up to 28 days. Do not start before June 21, 2025. 56 tablet 06/21/20 25 025 Active nicotine polacrilex (Nicorette) 4 MG gumIndications :Tobacco dependence syndrome Chew 1 piece of gum, as directed, every 1-2 hours as needed for cravings. No more than 24 pieces in 24 hours. 110 each 5 06/27/20 25 Active clonazePAM (KlonoPIN) 1 MG tablet Take 1 tablet by mouth every 6 (six) hours during the day. 06/24/20 25 Active Ventolin HFA 108 (90 Base) MCG/ACT inhaler INHALE 2 PUFFS BY MOUTH EVERY 4 HOURS 18 g 3 07/02/20 25 Active metoprolol succinate XL (Toprol-XL) 100 MG 24 hr tablet TAKE 1 TABLET(100 MG) BY MOUTH IN THE MORNING 90 tablet 3 05/24/20 24 025 Discontinued(R eorder (will not trigger notification to Pharmacy)) aspirin (Aspirin Low Dose) 81 MG EC tabletIndicati ons:Hypertensi on, unspecified type Take 1 tablet by mouth every day 90 tablet 3 11/29/19 25 025 Discontinued(R eorder (will not trigger notification to Pharmacy)) losartan (Cozaar) 100 MG tablet TAKE 1 TABLET(100 MG) BY MOUTH IN THE MORNING 90 tablet 1 01/25/20 25 025 Discontinued(R eorder (will not trigger notification to Pharmacy)) clonazePAM (KlonoPIN) 2 MG tablet Take 1 tablet by mouth every 6 (six) hours during the day. 03/25/20 25 025 Discontinued(A lternate therapy) nicotine polacrilex (Commit) 4 MG lozengeIndicat ions:Tobacco dependence syndrome Dissolve 1 lozenge, as directed, every 1-2 hours as needed for cravings. Max 20 lozenges per 24 hours. 144 lozenge 5 04/16/20 25 025 Discontinued(A lternate therapy) albuterol 108 (90 Base) MCG/ACT inhaler Inhale 2 puffs every 4 (four) hours. 18 g 3 04/16/20 25 025 Discontinued oxyCODONE-acet aminophen (Percocet) 5-325 MG tabletIndicati ons:Chronic pain syndrome Take 1 tablet by mouth every 12 (twelve) hours if needed for severe pain for up to 28 days. Do not start before May 24, 2025. 56 tablet 05/24/20 025 Discontinued(R eorder (will not trigger notification [...] will be due 2023 Breast cancer, right (CMS/HCC) 10/23/2024 Breast mass, right 10/23/2024 Palpitations 10/23/2024 Overview (10/23/2024): Resolved Personal history of nicotine dependence 10/23/19 Overview (10/23/2024): (current smoker, onset 22, 1ppd x 33yrs, 33pyh - in LDCT program) Postop check 10/23/2024 Seroma of breast 10/23/2024 Status post right breast lumpectomy 10/23/2024 Infiltrating ductal carcinoma of right breast (C MS/HCC) 08/17/2024 Overview (03/01/2025): Breast cancer, right Status: Chronic Assessment and plan: 1. This is a 59-year-old magalis/postmenopausal woman diagnosed with right breast invasive ductal carcinoma diagnosed in 07/29/2024. She presented with abnormal screening mammogram, she underwent ultrasound-guided core biopsy of right breast mass at 10:00 o'clock position which revealed invasive ductal carcinoma, MSBR grade 3. ER positive 95%, KS positive 80%, HER2 equivocal 2+, negative by [...] pathological stage pT1c N0, AJCC Stage I. ER/KS positive, HER2 negative, high proliferation index. Bone [...] is now receiving adjuvant radiation therapy at [facility]. She is on tamoxifen 20 mg once [...] colon 01/26/2023 Overview (06/01/2023): Removed during colonoscopy ([facility]) 2018, was recommended repeat 2023 Tobacco dependence syndrome 01/26/2023 Migraine 01/08/2019 Vitamin D deficiency 09/11/2018 Right ankle pain 06/06/2018 Pulmonary emphysema 04/10/2018 Calcification of lung 03/16/2018 Overview (06/01/2023): LRCT program at [facility], last CT 04/2023 (recommended repeat 6 months) [...] Encounters Date Type Department Care Team Description 07/02/2025 Refill [facility] [address] [place] [address] Aamir Montoya MD 06/27/2025 Travel 06/20/2025 Refill [facility] [address] [place] [address] Aamir Montoya MD Chronic pain syndrome 06/19/2025 11:15 AM EDT Office Visit [facility] [address] [place] [address] Aamir Montoya MD Hypertension, unspecified type (Primary Dx); Tobacco dependence syndrome; Infiltrating ductal carcinoma of right breast (CMS/HCC) 06/19/2025 Travel 06/17/2025 Telephone [facility] [address] [place] [address] Aamir Montoya MD Chart Prep 06/11/2025 11:30 AM EDT Clinical Support [facility] [address] [facility] [place] [address] Francine Oneill, RN Long-term current use of opiate analgesic (Primary Dx) 06/11/2025 Telephone [facility] [address] [facility] [place] [address] Francine Oneill, RN HOUSE WIRER HELPER Agreement renewed today 06/11/2025 Travel 05/30/2025 Telephone [facility] [address] [facility] [place] [address] Aamir Montoya MD 05/27/2025 Refill [facility] [address] [facility] [place] [address] Aamir Montoya MD Hypertension, unspecified type 05/23/2025 Refill [facility] [address] [place] [address] Aamir Montoya MD Chronic pain syndrome 05/20/2025 Refill [facility] [address] [facility] [place] [address] Aamir Montoya MD High cholesterol 04/25/2025 Refill [facility] [address] [place] [address] Aamir Montoya MD Chronic pain syndrome 04/19/2025 11:15 AM EDT Office Visit [facility] [place] [place] [address] Beth Limon FNP Colitis (Primary Dx) 04/19/2025 Orders Only GENERIC EXTERNAL DATA DEPARTMENT Provider, Generic External Data 04/19/2025 Travel 04/18/2025 Telephone [facility] [address] Beth Limon FNP Chart Prep 04/16/2025 Refill [facility] [address] [place] [address] Carline Bustillos, PharmD 04/16/[address] [address] Aamir Montoya MD Appointment 04/16/2025 Travel from Last 3 Months Immunizations Immunization Administration Dates Next Due HepB-CpG 06/27/2025 Influenza injectable quadriv alent IIV4 with preservative 08/31/2017 Influenza injectable quadriv alent preservative free 07/28/2023,07/05/2020,09/10/2019,2017,10/06/2016 Influenza, IIV3, injectable 07/01/2015 Influenza, seasonal, injecta ble, preservative free 08/17/2024 Pfizer Covid-19 Vaccine 12+ 08/17/2024 Pneumococcal Conjugate PCV 20 06/01/2023 Tdap 06/01/2023,03/13/2013 Social History Tobacco Use Types Packs/Day Years Used Date Smoking Tobacco: Every Day Cigarettes 1 27.2 Started: 04/16/1998 Passive Smoke Exposure: Current Smokeless [...] Access Q2 Not on file 08/17/2024 Comments No Sex and Gender Information Value Date Recorded Sex Assigned at Female 08/09/2022 10:29 AM EDT Legal Sex Female 10:29 AM EDT Gender Identity Female 08/09/2022 10:29 AM EDT Sexual Orientation Straight 08/09/2022 10 :29 AM EDT Last Filed Vital Signs Vital Sign Reading Time Taken Comments Blood Pressure 128/72 06/19/2025 11:12 AM EDT Pulse 79 06/19/2025 11:12 AM EDT Temperature 36.2 C (97.1 F) 06/19/2025 11:12 AM EDT Respiratory Rate 14 06/19/2025 11:1 2 AM EDT Oxygen Saturation 96% 06/19/2025 11: 12 AM EDT Inhaled Oxygen Concentration - - Weight 71.1 kg (156 lb 12.8 oz) 025 11:12 AM EDT Height 165.1 cm (5' 5 ) 06/19/2025 11:1 2 AM EDT Body Mass Index 26.09 06/19/2025 11:12 AM EDT Plan of Treatment Upcoming Encounters Date Type Department Care Team (Late st Contact Info) Description 07/25/2025 1:30 PM EDT Medication Management [address] [address] Carline Bustillos, PharmD [address] [place] [phone] 09/10/2025 11:30 AM EST Clinical Support [address] [address] Francine Oneill, MARLEE Health Maintenance Due Date Last Done Comments CT Colonography 1965 FIT DNA/Cologuard 1967 FIT 1967 FOBT 1965 Sigmoidoscopy 1965 Zoster Vaccines (1 of 2) 2017 Influenza Vaccine (#1) 2025 , 07/28/2023, 07/05/2020, Additional history exists Hepatitis B Vaccines (2 of 2 - CpG 2-dose series) 07/25/2025 06/27/2025 Mammogram 08/06/2025 08/06/2024, 07/11, 07/04/2024, Additional history exists Depression Screening 08/17/2025 08/17/2024, 08/17/20 24 SDOH Screening 10/23/2025 10/23/2024 Lung Cancer Screening 12/05/2025 12/05/2024, 024 Alcohol/Substance Use Screening 03/01/2026 03/01/2025 Disability Screening 03/01/2026 03/01/2025 Tobacco Screening 06/19/2026 06/19/2025 Colonoscopy 10/05/2027 10/05/2024, 04/28/2019 Colorectal Cancer Screening [...] Comments POCT AMY-14 URINE DRUG SCREEN Routine 06/11/2025 11:31 AM EDT Long-term current use of opiate analgesic COMPREHENSIVE METABOLIC PANEL, FASTING Routine 04/19/2025 12:08 PM EDT CBC WITH AUTO DIFFERENTIAL Routine 04/19/2025 12:08 PM EDT HM COLONOSCOPY Routine 10/05/2024 10:40 [...] Results * POCT AMY-14 Urine Drug Screen (06/11/2025 11:31 AM EDT) THC Negative Negative Cocaine Screen, Urine Negative Negative Opiate Screen, Urine Negative Negative Methamphetamine Screen Urine Negative Negative Amphetamine Screen, Urine Negative Negative Benzodiazepines Screen, Urine Positive Negative Barbiturate Screen, Urine Negative Negative Methadone Screen, Urine Negative Negative Buprenophine Screen, Urine Negative Negative TCA, Urine Negative Negative MDMA Urine Negative Negative ng/mL Oxycodone Screen, Urine Positive Negative Phencyclidine (PCP), Urine Negative Negative Propoxyphene, Urine Negative Negative Fentanyl, Urine Negative Negative Urine Urine specimen obtained by clean catch procedure / Unknown 06/11/2025 11:31 AM EDT Francine Muñoz RN - 06/11/2025 11:31 AM EDT UTOX cup Lot#[id number] Exp. 07/16/26 Internal Pass Control us Aamir Montoya MD POINT OF CARE TEST ENTER/EDIT OR DERABLES Final Result * (ABNORMAL) Comprehensive Metabolic Panel, Fasting (04/19/2025 12:08 PM EDT) Sodium 143 135 - 145 mmol/L [facility] Potassium 3.8 3.3 - 5.1 mmol/L [facility] Chloride 109(H) 96 - 108 mmol/L [facility] Carbon Dioxide 28 22 - 29 mmol/L [facility] Anion Gap 10(L) 12 - 20 [facility] Urea Nitrogen (BUN) 11 9 - 16 mg/dL [facility] Creatinine, Serum 0.97 0.5 - 1.4 mg/dL [facility] Estimated Glomerular Filt Rate 59 [facility] Comment:Chronic Kidney Disea se: Estimated GFR < 60 mL/min/1.33t0Hslgqf Kidney Disease: Estimated GFR < 15 mL/min/1.73m2 Glucose Fasting 88 60 - 99 mg/dL [facility] Calcium 9.2 8.4 - 10.2 mg/dL [facility] Bilirubin, Total 0.3 0.0 - 1.0 mg/dL [facility] Aspartate Amino Transferase 29 5 - 31 U/L [facility] Alanine Aminotransferase 26 0 - 31 U/L [facility] Total Protein 6.9 6.5 - 8.0 g/dL [facility] Albumin Level 3.9 3.5 - 5.0 g/dL [facility] Alkaline Phosphatase 93 39 - 117 U/L [facility] 04/19/2025 12:0 8 PM EDT 04/19/2025 2:00 PM EDT us Generic External Data Provider LAB BLOOD ORDERAB LES Final Result [facility] [address] [place] [address] [phone] * (ABNORMAL) CBC auto differential (04/19/2025 12:08 PM EDT) White Blood Count 13.0(H) 4.8 - 10.8 X10*3/uL [facility] Red Blood Count 4.46 4.20 - 5.50 X10*6/uL [facility] Hemoglobin 13.5 12.0 - 16.0 g/dl [facility] Hematocrit 41.2 37.0 - 47.0 % [facility] Mean Corpuscular Volume 92.4 80.0 - 98.0 fL [facility] Mean Corpuscular Hemoglobin 30.3 27.0 - 33.0 pg [facility] Mean Corpuscular HGB Conc 32.8 31.0 - 35.0 g/dl [facility] Red Cell Distribution Width 13.8 11.0 - 16.0 % [facility] Platelet Count 271 160 - 400 X10*3/uL [facility] Mean Platelet Volume 12.0 9.4 - 12.3 fL [facility] Neutrophils Percent Auto 68.1 45 - 73 % [facility] Imm Gran Pct Auto 0.5(H) 0.0 - 0.4 % [facility] Lymphocytes Percent Auto 20.8 20 - 40 % [facility] Monocytes Percent Auto 9.5 2 - 11 % [facility] Eosinophils Percent Auto 0.8 0 - 4 % [facility] Basophils Percent Auto 0.3 0 - 2 % [facility] NRBC Pct Auto 0.0 0.0 - 0.2 /100WBC [facility] Neutrophils Absolute Auto 8.8(H) 2.0 - 8.3 x10*3/uL [facility] Imm Gran Abs Auto 0.06(H) 0.00 - 0.03 X10*3/uL [facility] Lymphocytes Absolute Auto 2.7 1.2 - 4.9 X10*3/uL [facility] Monocytes Absolute Auto 1.2 0.1 - 1.2 X10*3/uL [facility] Eosinophils Absolute Auto 0.1 0.0 - 0.4 X10*3/uL [facility] Basophils Absolute Auto 0.0 0.0 - 0.2 X10*3/uL [facility] NRBC Abs Auto 0.000 0.0 - 0.012 X10*3/uL [facility] 04/19/2025 12:0 8 PM EDT 04/19/2025 2:00 PM EDT us Generic External Data Provider LAB BLOOD ORDERAB LES Final Result [facility] [address] [place] [address] [phone] * (ABNORMAL) Hm Colonoscopy (10/05/2024 10:40 AM EST) Colonoscopy Abnormal(A ) Normal 10/05/2024 10:4 0 AM EST Aamir Montoya MD HEALTH MAINTENANCE Final Result * BI Mammogram Diagnostic Tomosynthesis Right (08/06/2024 10:00 AM EDT) Anatomical Region Laterality Modality Breast Right Mammography 08/06/2024 10:0 0 AM EDT Narrative 08/06/2024 11:15 AM EDT [facility] [address] [place] [address] Mammography Report Signed with Meghan Patient: Jeanna Graham MR#: [id number] : 1965 Acct:[id number] Age/Sex: 58 / F ADM Date: 08/06/24 Loc: HO.MAMMO Attending Dr: Stefano Coombs MD Ordering Physician: Stefano Coombs MD Results: 1Negat jac Date of Service: 08/06/24 Follow Up: 1 Year From Orig inal Mammogram Procedure(s): MM tomosynthesis diagnostic RT Accession Number(s): [id number] cc: Name,Aamir MCCRARY; Stefano Coombs MD ADDENDUM [...] was obtained with the aid of an electronic parts salesperson. Site and side were confirmed. Prior to [...] targeted area with a 14G spring loaded [employer] core biopsy device. There was real-time confirmation [...] 08/06/24 1112 DD/ 1000 TD/TT: 08/06/24 1043 Salon Designer: Procedure Note Donotuseinterpreter, Image - 08/09/2024 [facility] [address] [place] [address] [place] [address] Mammography Report Signed with Meghan Patient: Jeanna GrahamMR#: [id number] : 1965Acct:[id number] Age/Sex: 58 / FADM Date: 08/06/24 Loc: MAMMO Attending Dr: Stefano Coombs MD Ordering Physician: Stefano Coombs MDResults: 1Negat jac Date of Service: 08/06/24Follow Up: 1 Year From Orig inal Mammogram Procedure(s): MM tomosynthesis diagnostic RT Accession Number(s): [id number] cc: Lindsay,Aamir MCCRARY; Stefano Coombs MD ADDENDUM [...] was obtained with the aid of an electronic parts salesperson. Site and side were confirmed. Prior to [...] targeted area with a 14G spring loaded [employer] core biopsy device. There was real-time confirmation [...] 08/06/24 1112 DD/ 1000 TD/TT: 08/06/24 1043 Salon Designer: [facility] External Provider IMG BI PROCEDURES Edited Result - Final * Hepatitis C Antibody with Reflex to HCV, RNA, Quantitative, Real-Time PCR (07/26/2024 10:59 AM EDT) Hepatitis C Antibody Nonreactive Nonreactive [facility] Comment:Antibodies to HCV no t detected; does not exclude early acuteHCV infection. Blood Venous blood specimen / Unknown 07/26/2024 10:59 AM EDT 07/26/2024 1:14 PM EDT us Aamir Montoya MD LAB BLOOD ORDERABLES Final Resul t Performing Organization Address [facility]/ZIP Co de Phone Number [facility] [address] [place] [address] [phone] * HIV-1/2 Antigen and Antibodies, Fourth Generation, with Reflexes (07/26/2024 10:59 AM EDT) HIV AB/AG Nonreactive Nonreactive [facility] Comment:HIV-1 p24 Ag and/or HIV-1/HIV-2 Ab not detected.A test result that is nonreactive does not exclude thepossibility of exposure to or infection with HIV-1 and/orHIV-2. Nonreactive results in this assay for individualswith prior exposure to HIV-1 and/or HIV-2 may be due toantigen and antibody levels that are below the limit ofdetection of this assay.The Walk Score HIV Ag/Ab Combo assay result andsupplemental assay results should be interpreted inconjunction with the patient's clinical presentation,history and other laboratory results. If the results areinconsistent with clinical evidence, additional testing issuggested to confirm the result. Blood Venous blood specimen / Unknown 07/26/2024 10:59 AM EDT 07/26/2024 1:14 PM EDT us Aamir Montoya MD LAB BLOOD ORDERABLES Final Resul t Performing Organization Address City/[facility]/ZIP Co de Phone Number [facility] [address] [place] [phone] * (ABNORMAL) Lipid Panel, Standard (07/26/2024 10:59 AM EDT) Triglycerides 155(H) <150 mg/dL [facility] Comment:Desirable Triglyceri de: less than 150 mg/dLBorderline High Triglyceride 150-199 mg/dLHigh Triglyceride: 200-499 mg/dLVery High Triglyceride: greater than or equal to 5OO mg/dL Cholesterol 181 <200 mg/dL [facility] Comment:Desirable Cholestero l: less than 200 mg/dLBorderline High Cholesterol: 200-239 mg/dLHigh Cholesterol: greater than 239 mg/dL LDL Cholesterol Calculated 115(H) <100 mg/dL [facility] Comment:Desirable LDL: less than 100 mg/dLNear Optimal/Above Optimal LDL: 110- 129 mg/dLBorderline High LDL: 130-159 mg/dLHigh LDL: 160-189 mg/dLVery High LDL: greater than or equal to 190 mg/dL HDL Cholesterol 35(L) >40 mg/dL [facility] Comment:Desirable HDL: great er than 40 mg/dL Note: This HDL assay may give artificially low results in patients with liver disease. Blood Venous blood specimen / Unknown 07/26/2024 10:59 AM EDT 07/26/2024 1:14 PM EDT Aamir Montoya MD LAB BLOOD ORDERABLES Final Resul t [facility] [address] [place] [address] [phone] * (ABNORMAL) Lung Cancer Screning (11/29/2023) Lung CT LUNGRADS 2(L) LUNGRADS 1, LUNGRADS 2 Comment:f/u 1 yr Anatomical Region Laterality Modality Other Aamir Montoya MD HEALTH MAINTENANCE Final Result from Last 3 Months or Most Recently Relevant to Health Maintenance Insurance [facility] ONE CARE < 65 [address] [place]Z [id number] Care Teams Housekeeper Child Care Relationship Specialty Start Date End Date Name, MD Aamir [address] [place] [address] PCP - General Family Medicine 10/10/18 Carline Bustillos, GwendolynD [address] [place] [address] Pharmacist Pharmacy 04/16/25
--- OUTSIDE RECORDS SUMMARY | 2025-07-08 12:19 | XMS_ITS | Encounter Summary ---
Author Organization [employer] Address [address] [facility] [address] [place] [address] Care Team Providers Care Road Hogger Operator Name Role Phone Name, Aamir MCCRARY Primary Care Provider [phone] Carline Bustillos PharmD Unavailable [phone] Reason for Visit * Reason Onset Date Comments Appointment Request 11/29/2024 Encounter Details Date Type Department Care Team ([facility] Contact Info) Description 11/29/2024 Telephone [facility] [address] [place], [place] [phone] Name, MD Aamir [address] [place] [address] Appointment Request Social History Tobacco Use Types [...] PCP in a while. Contact pt at [phone] documented in this encounter Plan of Treatment Upcoming Encounters Date Type Department Care Team (Late st Contact Info) Description 07/25/2025 1:30 PM EDT Medication Management [address] [address] Carline Bustillos, PharmD [address] [place] [phone] 09/10/2025 11:30 AM EST Clinical Support [facility] [address] [place] [phone] Francine Oneill RN documented as of this encounter Visit Diagnoses Not on filedocumented in this encounter Additional Health Concerns Assessment Noted Time PHQ-9 Depression Total Score: 6 08/17/20 24 11:53 AM EST documented as of this encounter Care Teams Road Hogger Operator Relationship Specialty Start Date End Date Name, MD Aamir [address] [place] [phone] PCP - General Family Medicine 10/10/18 Carline Bustillos, GwendolynD [address] [place] [phone] Pharmacist Pharmacy 04/16/25 documented as of this encounter
--- OUTSIDE RECORDS SUMMARY | 2025-07-08 12:19 | XMS_ITS | Encounter Summary ---
Author Organization [employer] Address [address] [facility] 7t [place] [address] Care Team Providers Care Reporting Developer Name Role Phone Name, Aamir MCCRARY Primary Care Provider Carline Bustillos PharmD Unavailable Reason for Visit * Reason Comments Med Refill Encounter Details Date Type Department Care Team (Late Contact Info) Description 03/31/2023 Refill [facility] MEDICINE [address] [place] [address] Name, MD Aamir [address] [place] [address] Social History Tobacco Use Types Packs/Day Years [...] Description 07/25/2025 1:30 PM EDT Medication Management [facility] MEDICINE [address] [place] [address] Edie Bustillossa, PharmD [address] [place] [address] 09/10/2025 11:30 AM EST Clinical Support [facility] [address] [place] [address] [place] [address] Frnacine Oneill, RN documented as of this encounter Visit Diagnoses Not on filedocumented in this encounter Additional Health Concerns Assessment Noted Time PHQ-9 Depression Total Score: 0 01/27/20 23 10:31 AM EDT documented as of this encounter Care Teams Reporting Developer Relationship Specialty Start Date End Date Name, MD Aamir [address] [place] [address] PCP - General Family Medicine 10/10/18 Carline Bustillos, Steffanie [address] [place] [address] Pharmacist Pharmacy 04/16/25 documented as of this encounter
--- OUTSIDE RECORDS SUMMARY | 2025-07-08 12:20 | XMS_ITS | Encounter Summary ---
Author Organization [employer] Address [address] [facility] 7t [place] [address] Care Team Providers Care Atmospheric Chemist Name Role Phone Name, Aamir MCCRARY Primary Care Provider [phone] Carline Bustillos PharmD Unavailable [phone] Reason for Visit * Reason Onset Date Comments Med Refill 04/26/2024 Encounter Details Date Type Department Care Team ([facility] st Contact Info) Description 04/26/2024 Telephone [facility] MEDICINE [address] [place], [place] [phone] Name, MD Aamir [address] [place] [address] Med Refill Social History Tobacco Use Types [...] 5-325 MG tablet To be sent to: [id number] [place], [place] - [address] [facility] documented in this encounter Plan of Treatment Upcoming Encounters Date Type Department Care Team ([facility] st Contact Info) Description 07/25/2025 1:30 PM EDT Medication Management [address] [address] Carline Bustillos, PharmD [address] [place] [address] 09/10/2025 11:30 AM EST Clinical Support [address] [address] Francine Oneill, RN documented as of this encounter Visit Diagnoses Not on filedocumented in this encounter Additional Health Concerns Assessment Noted Time PHQ-9 Depression Total Score: 0 01/27/20 23 10:31 AM EDT documented as of this encounter Care Teams Atmospheric Chemist Relationship Specialty Start Date End Date Name, MD Aamir [address] [place] [address] PCP - General Family Medicine 10/10/18 Carline Bustillos, Steffanie [address] [place] [address] Pharmacist Pharmacy 04/16/25 documented as of this encounter
== END 2025-07-08 10:48 | disposition home or self-care (01) ==
LOC: HO.MAMMO 10:47
PROVIDERS: PCP Internal Medicine Geriatric Medicine; Visit Provider Surgery
DX: Z85.3 Personal history of malignant neoplasm of breast (principal)
CPT/HCPCS: 77062; 77066

== ENCOUNTER → 2025-07-08 11:00 | Outpatient (BNV) | payer OTHER, SELFPAY | PROVIDERS: PCP Internal Medicine Geriatric Medicine; Visit Provider Radiology Body Imaging | DX: R92.8 Other abnormal and inconclusive findings on diagnostic imaging of breast (principal) | CPT/HCPCS: 77066; G0279 ==

== ENCOUNTER 2025-08-23 10:12 | Outpatient (REF) | payer OTHER, SELFPAY ==
[2025-08-23 11:25] LABS: MANUAL DIFF FLAG NO
[2025-08-23 11:49] LABS: Hematocrit 40.9 % (37.0-47.0); Hemoglobin 13.4 g/dl (12.0-16.0); Imm Gran Abs Auto 0.04 X10*3/uL (0.00-0.03); Imm Gran Pct Auto 0.4 % (0.0-0.4); Lymphocytes Absolute Auto 2.6 X10*3/uL (1.2-4.9); Mean Corpuscular HGB Conc 32.8 g/dl (31.0-35.0); Mean Corpuscular Hemoglobin 29.3 pg (27.0-33.0); Mean Corpuscular Volume 89.5 fL (80.0-98.0); NRBC Abs Auto 0.000 X10*3/uL (0.0-0.012); NRBC Pct Auto 0.0 /100WBC (0.0-0.2); Platelet Count 199 X10*3/uL (160-400); Red Blood Count 4.57 X10*6/uL (4.20-5.50); White Blood Count 9.5 X10*3/uL (4.8-10.8)
[2025-08-23 13:36] LABS: Blood Urea Nitrogen 11 mg/dL (9-16); Cholesterol 170 mg/dL (<200); Estimated Glomerular Filt Rate > 60; HDL Cholesterol 34 mg/dL (>40); Potassium 3.8 mmol/L (3.3-5.1); Triglycerides 174 mg/dL (<150)
== END 2025-08-23 10:13 | disposition home or self-care (01) ==
LOC: HO.HHCL 10:12
PROVIDERS: Nurse Practitioner Family; PCP Internal Medicine Geriatric Medicine; Referring Provider Nurse Practitioner Family; Visit Provider Internal Medicine Geriatric Medicine
DX: R39.15 Urgency of urination (principal); F17.200 Nicotine dependence, unspecified, uncomplicated; E78.00 Pure hypercholesterolemia, unspecified; K52.9 Noninfective gastroenteritis and colitis, unspecified
CPT/HCPCS: 36415; 80061; 82565; 84132; 84520; 85025

== ENCOUNTER 2025-09-10 12:56 | Outpatient (AMB) | payer OTHER, SELFPAY ==
--- OUTSIDE RECORDS SUMMARY | 2025-09-10 11:30 | XMS_ITS | Encounter Summary ---
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 year old female who presents for [employer]IDENT [employer] RV Preferred language for medical information: Norwegian Interpreted needed: Yes Cone Runner service utilized: [employer] Cone Runner I.D #: [id number] Jeanna Graham does report adherence to Percocet 5 mg, take 1 tablet every 12 hours PRN, last refilled 08/16/2025. The patient last took Percocet on: 09/10/2025 Medication is: 75% % effective at alleviating pain. Pt stated she is to have cortisone injections to her knees last today. 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 Tier: 2 Current Medications[1] Smoking status: Yes, 13 cigarettes daily ETOH use: Denies Illicit substances: Denies Marijuana use: Denies Lab Results Component Value Date POCTHC Negative 09/10/2025 POCCOCAINEUR Negative 09/10/2025 POCOPIATEUR Negative 09/10/2025 DOAUR Negative 09/10/2025 POCAMPHETAMI Negative 09/10/2025 POCBENZODIUR Positive (A) 09/10/2025 POCBARBSCRN Negative 09/10/2025 POCMETHADOUR Negative 09/10/2025 POCBUPSCRN Negative 09/10/2025 POCTCAUR Negative 09/10/2025 POCMDMAUR Negative 09/10/2025 POCOXYCODONE Positive (A) 09/10/2025 POCPHENCYCUR Negative 09/10/2025 PROPOXUR Negative 09/10/2025 FENTANYLURIN Negative 09/10/2025 ASSESSMENT: Encounter Diagnosis Name Primary? Long-term current use of opiate analgesic Yes PLAN: Information on pain group given: Previously discussed Information on acupuncture given: Previously discussed Narcan education provided: Previously discussed Narcan prescription: active Will send request to PCP for Percocet refill Jeanna Graham will continue taking medication as prescribed and follow up at the next [facility] visit or sooner if needed. Jeanna Graham has verbalized understanding of care plan. Future Appointments Date Time Provider Department Center 09/25/2025 2:00 PM Carline Bustillos PharmD [facility] 11/15/2025 11:30 AM Aamri Montoya MD [facility] 12/09/2025 11:30 AM Francine Oneill, RN [facility] Francine Oneill, RN [1] Current Outpatient Medications: oxyCODONE-acetaminophen (Percocet) 5-325 MG tablet, Take 1 tablet by mouth every 12 (twelve) hours if needed for severe pain for up to 28 days. Do not start before August 16, 2025., Disp: 56 tablet,Rfl: 0 acetaminophen (Tylenol) 500 MG tablet, Take 1,000 mg by mouth every 6 (six) hours if needed for mild pain. OTC, Disp: , Rfl: amLODIPine (Norvasc) 10 MG tablet, TAKE 1 TABLET(10 MG) BY MOUTH IN THE MORNING, Disp: 90 tablet, Rfl: 1 aspirin (Aspirin Low Dose) 81 MG EC tablet, Take 1 tablet by mouth every day, Disp: 90 tablet, Rfl:3 atorvastatin (Lipitor) 80 MG tablet, Take 1 tablet (80 mg) by mouth Once per day., Disp: 90 tablet,Rfl: 1 Blood Pressure Monitor device, Use once a day as directed, Disp: 1 each, Rfl: 0 buPROPion XL (Wellbutrin XL) 300 MG 24 hr tablet, Take 300 mg by mouth in the morning., Disp: , Rfl: cholecalciferol (Vitamin D-3) 50 MCG (1999 UT) tablet, TAKE 1 TABLET BY MOUTH EVERY MORNING, Disp: 90 tablet, Rfl: 3 clonazePAM (KlonoPIN) 1 MG tablet, Take 1 tablet by mouth 3 times daily., Disp: , Rfl: escitalopram (Lexapro) 20 MG tablet, , Disp: , Rfl: hydrOXYzine pamoate (Vistaril) 50 MG capsule, Take 100 mg by mouth if needed in the morning, at noon, and at bedtime for anxiety., Disp: , Rfl: losartan (Cozaar) 100 MG tablet, TAKE 1 TABLET(100 MG) BY MOUTH IN THE MORNING, Disp: 90 tablet, Rfl: 3 metoprolol succinate XL (Toprol-XL) 100 MG 24 hr tablet, Take 1 tablet (100 mg) by mouth Once per day. Do not crush or chew.TAKE 1 TABLET(100 MG) BY MOUTH IN THE MORNING, Disp: 90 tablet, Rfl: 3 naloxone (Narcan) 4 mg/0.1 mL nasal spray, Administer 1 spray (4 mg) into affected nostril(s) if needed for opioid reversal., Disp: 2 each, Rfl: 2 nicotine (Nicoderm, Step 2) 14 MG/24HR patch, Apply 1 patch, as directed, every 24 hours. May remove at bedtime if needed & place new patch the next morning. Rotate application site., Disp: 14 patch, Rfl: 0 nicotine (Nicoderm, Step 3) 7 MG/24HR patch, Apply 1 patch, as directed, every 24 hours. May removeat bedtime if needed & place new patch the next morning. Rotate application site. (Patient not taking: Reported on 08/27/2025), Disp: 14 patch, Rfl: 2 nicotine polacrilex (Nicorette) 4 MG gum, Chew 1 piece of gum, as directed, every 1-2 hours as needed for cravings. No more than 24 pieces in 24 hours., Disp: 2 each, Rfl: 5 omeprazole (PriLOSEC) [address] capsule, TAKE 1 CAPSULE BY MOUTH EVERY DAY 30 MINUTES TO 1 HOUR BEFORE A MEAL (Patient taking differently: Take 20 mg by mouth if needed each day. TAKE 1 CAPSULE BY MOUTH EVERY DAY 30 MINUTES TO 1 HOUR BEFORE A MEAL), Disp: 90 capsule, Rfl: 3 QUEtiapine XR (SEROquel XR) 400 MG 24 hr tablet, Take 400 mg by mouth at bedtime., Disp: , Rfl: tamoxifen (Nolvadex) 20 MG chemo tablet, Take 1 tablet by mouth Once per day., Disp: , Rfl: Ventolin HFA 108 (90 Base) MCG/ACT inhaler, INHALE 2 PUFFS BY MOUTH EVERY 4 HOURS, Disp: 18 g, Rfl:3 zolpidem (Ambien) 10 MG tablet, Take 10 mg by mouth if needed at bedtime., Disp: , Rfl: documented in this encounter Plan of Treatment Upcoming Encounters Date Type Department Care Team (Late st Contact Info) Description 09/25/2025 2:00 PM EST Medication Management [address] [address] Carline Bustillos, PharmD [address] [place] [address] 11/15/2025 11:30 AM EST Office Visit [address] [address] Name, MD Aamir [address] [place] [address] 12/09/2025 11:30 AM EST Clinical Support [address] [address] Francine Oneill, RN documented as of this encounter Procedures Procedure Name Priority Date/Time Associated Diagnosis Comments POCT AMY-14 URINE DRUG SCREEN Routine 09/10/2025 11:59 AM EST Long-term current use of opiate analgesic documented in this encounter Results * (ABNORMAL) POCT AMY-14 Urine Drug Screen (09/10/2025 11:59 AM EST) [facility] Signature THC Negative Negative Cocaine Screen, Urine Negative Negative Opiate Screen, Urine Negative Negative Methamphetamine Screen Urine Negative Negative Amphetamine Screen, Urine Negative Negative Benzodiazepines Screen, Urine Positive(A) Negative Comment:RX outside provider Barbiturate Screen, Urine Negative Negative Methadone Screen, Urine Negative Negative Buprenophine Screen, Urine Negative Negative TCA, Urine Negative Negative MDMA Urine Negative Negative ng/mL Oxycodone Screen, Urine Positive(A) Negative 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 09/09/26 Internal Pass Control Aamir Montoya MD POINT OF CARE TEST ENTER/EDIT OR DERABLES Final Result documented in this encounter Visit Diagnoses Diagnosis Long-term current use of opiate analgesic- Primary Encounter for long-term (current) use of other medications documented in this encounter Additional Health Concerns Assessment Noted Time PHQ-9 Depression Total Score: 6 08/17/20 24 11:53 AM EST documented as of this encounter Care Teams Water Commissioner Relationship Specialty Start Date End Date Name, MD Aamir [address] [place] [address] PCP - General Family Medicine 10/10/18 Carline Bustillos PharmD [address] [place] [address] Pharmacist Pharmacy 04/16/25 documented as of this encounter
--- NOTE | 2025-09-10 12:59 | MHC.OFFVIS ---
Intake Visit Reasons: OV-Bilateral Knee Cortisone Injection Intake Note: Jeanna is a 59 year old female who presents with complaints of bilateral knee pains. She describes her pains as sharp in nature. She has tried Tylenol and anti-inflammatory medicines which gave her minimal relief. She has also done physical therapy exercises which aggravated her pain. She has had cortisone injections in the past which gave her good relief. She wishes to hold off on surgery if at all possible. Allergies codeine Allergy (Unknown, Verified 07/24/25 11:13) heart palpitation Medication List - Last Reconciled 09/10/25 by Vivek Restrepo MD albuterol sulfate 2.5 mg inhalation QID albuterol sulfate 90 mcg/actuation (Ventolin HFA) 2 puffs inhalation Q6H PRN aspirin 81 mg PO DAILY atorvastatin 40 mg PO DAILY bisacodyl (Dulcolax (bisacodyl)) 20 mg (4 x 5 mg) PO ONCE 1 day bupropion HCl XL 300 mg PO DAILY clonazepam 1 mg PO TID ergocalciferol (vitamin D2) 50 mcg PO DAILY escitalopram oxalate 20 mg PO DAILY hydroxyzine pamoate 50 mg PO BID PRN lisinopril 20 mg PO DAILY metoprolol succinate ER 100 mg PO DAILY omeprazole 20 mg PO DAILY polyethylene glycol 3350 17 grams PO DAILY 30 days polyethylene glycol 3350 (Miralax) 238 grams PO ONCE quetiapine ER (Seroquel XR) 400 mg PO BEDTIME [STOOL SOFTENER 100MG CAPSULES 2 caps PO BEDTIME 30 days] sumatriptan succinate (Imitrex) 25 mg PO Q2-4H PRN tamoxifen 20 mg PO DAILY zolpidem 10 mg PO BEDTIME PRN PFSH Medical History GERD (gastroesophageal reflux disease) Elevated cholesterol Hypertension, essential, benign History of palpitations Pulmonary nodules Personal history of nicotine dependence Tubular adenoma of colon (~2018) Depression Surgical History History of lumpectomy of right breast History of partial hysterectomy History of colonoscopy (~2018) History of esophagogastroduodenoscopy (EGD) (~2019) Family History Mother No problems noted. Father No problems noted. Social History Household Members: Significant Other, Friend(s) and Other Alcohol intake: never Patient Tobacco Use Status: Current everyday Tobacco user Tobacco use type: Cigarette Cigarette Packs Per Day: 1 Years Smoked: 33 (onset 22yo) service: No Current occupational status: disabled Sexual orientation: Straight/Heterosexual Gender identity: Female Physical Exam Extrem Other: Bilateral knee examination shows minimal effusions, palpable crepitus with range of motion, pain with range of motion, no instability Office Procedures AMB Joint Injection/Aspiration Joint Injection/Aspiration Primary Site: Left Knee Prep: site was prepped using aseptic technique Injected: 40 mg of, DepoMedrol, with 3 mL of and 1% plain Lidocaine Procedure: The patient tolerated the procedure well Coding 44787 - Large joint Procedure code (CPT) selection complete AMB Joint Injection/Aspiration Joint Injection/Aspiration Primary Site: Right Knee Prep: site was prepped using aseptic technique Injected: 40 mg of, DepoMedrol, with 3 mL of and 1% plain Lidocaine Procedure: The patient tolerated the procedure well Coding 56915 - Large joint Procedure code (CPT) selection complete Results Reviewed Results Reviewed: X-rays of the patient's bilateral knees taken previously show joint space narrowing, subchondral sclerosis, no acute bony abnormalities Assessment & Plan Assessment & Plan (1) Arthritis of left knee: Code(s): M17.12 - Unilateral primary osteoarthritis, left knee Category: Medical (2) Arthritis of right knee: Code(s): M17.11 - Unilateral primary osteoarthritis, right knee Category: Medical Plan Ms. Graham presents with bilateral knee pains due to degenerative joint disease. The risks and benefits of bilateral knee cortisone injections were discussed at length with the patient. The patient wished to proceed. She tolerated the injections well. She will continue with her home exercise program. She will contact me prior to her follow-up appointment in 3 months any questions or concerns arise. Feel free to call me at any time should questions regarding her orthopedic management arise. I spent 21 minutes in reviewing the patient's records and imaging studies, seeing the patient and documenting in the medical record. Orders: Orders AMB Joint Injection/Aspiration Today M17.11 - Unilateral primary osteoarthritis, right knee AMB Joint Injection/Aspiration Today M17.12 - Unilateral primary osteoarthritis, left knee Coding Level of Care Code Est Pt Level 3 (50708) Complex visit Add On G2211 Diagnoses Arthritis of left knee M17.12 Arthritis of right knee M17.11 CPT Codes Coding - 01543 Large joint: 80719 - Large joint ([id number]) Coding - 43326 Large joint: 13666 - Large joint ([id number])
--- OUTSIDE RECORDS SUMMARY | 2025-09-10 14:50 | XMS_ITS | Encounter Summary ---
Author Organization [employer] Address 75 [facility] 7t [place] [address] Care Team Providers Care Transmitter Chief Name Role Phone Name, Aamir MCCRARY Primary Care Provider [phone] Carline Bustillos PharmD Unavailable [phone] Encounter Details Date Type Department Care Team (Latest Contact Info) Description 09/10/2025 Travel Social History Tobacco Use Types Packs/Day [...] Description 09/25/2025 2:00 PM EST Medication Management [address] [address] Carline Bustillos PharmD [address] [place] [address] 11/15/2025 11:30 AM EST Office Visit [address] [address] Name, MD Aamir [address] [place] [address] 12/09/2025 11:30 AM EST Clinical Support [address] [address] Francine Oneill, RN documented as of this encounter Visit Diagnoses Not on filedocumented in this encounter Additional Health Concerns Assessment Noted Time PHQ-9 Depression Total Score: 6 08/17/20 24 11:53 AM EST documented as of this encounter Care Teams Transmitter Chief Relationship Specialty Start Date End Date Name, MD Aamir [address] [place] [address] PCP - General Family Medicine 10/10/18 Carline Bustillos, GwendolynD [address] [place] [address] Pharmacist Pharmacy 04/16/25 documented as of this encounter
--- OUTSIDE RECORDS SUMMARY | 2025-09-10 14:50 | XMS_ITS | Encounter Summary ---
Author Organization [employer] Address [address] [facility] 7t [place] [address] Care Team Providers Care Ground Intelligence Officer Name Role Phone Name, Aamir MCCRARY Primary Care Provider [phone] Carline Bustillos PharmD Unavailable [phone] Reason for Visit * Reason Onset Date Comments Med Refill 01/03/2025 Encounter Details Date Type Department Care Team ([facility] st Contact Info) Description 01/03/2025 Telephone [facility] MEDICINE [address] [place], [place] [phone] Name, MD Aamir [address] [place] [address] Med Refill Social History Tobacco Use Types [...] 5-325 MG tablet To be sent to: [id number] - [place], [place] - [address] [facility] documented in this encounter Plan of Treatment Upcoming Encounters Date Type Department Care Team (Late st Contact Info) Description 09/25/2025 2:00 PM EST Medication Management [address] [address] Carline Bustillos, PharmD [address] [place] [address] 11/15/2025 11:30 AM EST Office Visit [address] [address] Name, MD Aamir [address] [place] [address] 12/09/2025 11:30 AM EST Clinical Support [address] [place] [address] Francine Oneill, RN documented as of this encounter Visit Diagnoses Not on filedocumented in this encounter Additional Health Concerns Assessment Noted Time PHQ-9 Depression Total Score: 6 08/17/20 24 11:53 AM EST documented as of this encounter Care Teams Ground Intelligence Officer Relationship Specialty Start Date End Date Name, MD Aamir [address] [place] [address] PCP - General Family Medicine 10/10/18 Carline Bustillos, Steffanie [address] [place] [address] Pharmacist Pharmacy 04/16/25 documented as of this encounter
--- OUTSIDE RECORDS SUMMARY | 2025-09-10 14:50 | XMS_ITS | Encounter Summary ---
Author Organization [employer] Address 75 [facility] 7t [place] [address] Care Team Providers Care Specialties Operator Name Role Phone Name, Aamir MCCRARY Primary Care Provider [phone] Carline Bustillos PharmD Unavailable [phone] Reason for Referral * Medications - Closed Specialty Diagnoses / Procedures Referred By Contac t Referred To Contact Diagnoses Chronic pain syndrome Aamir Montoya MD [address] [place] [address] Phone: tel: fax: Referral ID Status Reason Start Date Expiration Date Visits Re quested Visits Authorized [id number] Closed 1 1 Reason for Visit * Reason Onset Date Comments Med Refill 09/10/2025 Encounter Details Date Type Department Care Team (Late st Contact Info) Description 09/10/2025 Refill [facility] MEDICINE [address] [place] [address] Francine Oneill RN Chronic pain syndrome Social History Tobacco Use [...] Description 09/25/2025 2:00 PM EST Medication Management [address] [address] Carline Bustillos, PharmD [address] [place] [address] 11/15/2025 11:30 AM EST Office Visit [address] [address] Name, MD Aamir [address] [place] [address] 12/09/2025 11:30 AM EST Clinical Support [address] [address] Francine Oneill, MARLEE documented as of this encounter Visit Diagnoses Diagnosis Chronic pain syndrome documented in this encounter Additional Health Concerns Assessment Noted Time PHQ-9 Depression Total Score: 6 08/17/20 24 11:53 AM EST documented as of this encounter Care Teams Specialties Operator Relationship Specialty Start Date End Date Name, MD Aamir [address] [place] [address] PCP - General Family Medicine 10/10/18 Carline Bustillos, Steffanie [address] [place] [address] Pharmacist Pharmacy 04/16/25 documented as of this encounter
--- OUTSIDE RECORDS SUMMARY | 2025-09-10 14:50 | XMS_ITS | Encounter Summary ---
Author Organization [employer] Address [address] [facility] [address] [place] [address] Care Team Providers Care Airplane Navigator Name Role Phone Name, Aamir MCCRARY Primary Care Provider [phone] Carline Bustillos PharmD Unavailable [phone] Reason for Visit * Reason Onset Date Comments Med Refill 04/26/2024 Encounter Details Date Type Department Care Team ([facility] st Contact Info) Description 04/26/2024 Telephone [facility]INE [address] [place], [place] [phone] Name, MD Aamir [address] [place] [address] Med Refill Social History Tobacco Use Types [...] 5-325 MG tablet To be sent to: [id number] [place], [place] - [address] [facility] documented in this encounter Plan of Treatment Upcoming Encounters Date Type Department Care Team (Late st Contact Info) Description 09/25/2025 2:00 PM EST Medication Management [address] [address] Carline Bustillos, PharmD [address] [place] [phone] 11/15/2025 11:30 AM EST Office Visit [address] [address] Name, MD Aamir [address] [place] [phone] 12/09/2025 11:30 AM EST Clinical Support [facility] [address] [place] [address] Francine Oneill, RN documented as of this encounter Visit Diagnoses Not on filedocumented in this encounter Additional Health Concerns Assessment Noted Time PHQ-9 Depression Total Score: 0 01/27/20 10:31 AM EDT documented as of this encounter Care Teams Airplane Navigator Relationship Specialty Start Date End Date Name, MD Aamir [address] [place] [address] PCP - General Family Medicine 10/10/18 Carline Bustillos PharmD [address] [place] [address] Pharmacist Pharmacy 04/16/25 documented as of this encounter
--- OUTSIDE RECORDS SUMMARY | 2025-09-10 14:50 | XMS_ITS | Clinical Summary ---
Author Organization [facility] [address] [facility] [address] Address [address] [place] [address] Phone Care Team Providers Care Software Configuration Specialist Name Role Phone Unavailable Primary Care Provider Unavailabl e Allergies Active Allergy Reactions Criticality Noted Date Comments Atorvastatin 10/06/2016 Codeine 11/03/2022 Other Reaction(s): increases heartrate Other reaction(s): increases heartrate Other Reaction(s): heart palpitation Oxycodone-Acetaminophen 04/08/2025 Varenicline 11/03/2022 Medical History Medical History Date Comments Emphysema [...] Date Smoking Tobacco: Every Day Cigarettes 1 37.9 Started: 10/10/1987 Smokeless Tobacco: Never Comments Unknown [...] Health Maintenance Due Date Last Done Comments Colorectal Cancer Screening: Colonoscopy 1965 Hepatitis B Vaccines (1 of 3 - 19+ 3-dose series) 1986 Zoster Vaccines (1 of 2) 1986 Cervical Cancer Screening: Pap Smear 1988 RSV Immunization Adult Patients (1 - Risk 50-74 years 1-dose series) 2017 Social Influencers of Health Screening 09/12/2022 Breast [...] Priority Date/Time Associated Diagnosis Comments COMPREHENSIVE METABOLIC PANEL STAT 04/08/2025 8:[address] LUNG SCREENING Routine 12/05/2024 1:5 3 PM EST Encounter for screening for malignant neoplasm of respiratory organs Nicotine dependence, cigarettes, uncomplicated FERDINAND SCREENING DIGITAL Routine 11/18/2020 2:13 PM EST Encounter for screening mammogram for malignant neoplasm of breast from Last 3 Months or Most Recently Relevant to Health Maintenance Results * (ABNORMAL) Comprehensive metabolic panel (04/08/2025 8:27 PM EDT) Sodium 139 133 - 145 mmol/L LAB CHEMISTRY METHOD 04/08/2025 9:03 PM [facility] Potassium 3.4(L) 3.5 - 5.5 mmol/L LAB CHEMISTRY METHOD 04/08/2025 9:03 PM [facility] Chloride 108 96 - 110 mmol/L LAB CHEMISTRY METHOD 04/08/2025 9:03 PM [facility] CO2 26 21 - 32 mmol/L LAB CHEMISTRY METHOD 04/08/2025 9:03 PM [facility] Anion Gap 5 3 - 11 LAB CHEMISTRY METHOD 04/08/2025 9:03 PM [facility] Glucose 133(H) 70 - 100 mg/dL LAB CHEMISTRY METHOD 04/08/2025 9:03 PM [facility] BUN 12 5 - 25 mg/dL LAB CHEMISTRY METHOD 04/08/2025 9:03 PM [facility] Creatinine 1.08 0.50 - 1.10 mg/dL LAB CHEMISTRY METHOD 04/08/2025 9:03 PM [facility] eGFR 60 >=60 mL/min/1. 73m2 LAB CHEMISTRY METHOD 04/08/2025 9:03 PM [facility] Comment:Calculation based on the Chronic Kidney Disease Epidemiology Collaboration (CKD-EPI) equation refit without adjustment for race. BUN/Creatinine Ratio 11.1 LAB CHEMISTRY METHOD 04/08/2025 9:03 PM [facility] Calcium 8.6 8.5 - 10.5 mg/dL LAB CHEMISTRY METHOD 04/08/2025 9:03 PM [facility] AST (SGOT) 22 10 - 42 unit/L LAB CHEMISTRY METHOD 04/08/2025 9:03 PM [facility] ALT (SGPT) 29 10 - 60 unit/L LAB CHEMISTRY METHOD 04/08/2025 9:03 PM [facility] Alkaline Phosphatase 109 42 - 121 unit/L LAB CHEMISTRY METHOD 04/08/2025 9:03 PM [facility] Total Protein 6.5 6.0 - 8.0 g/dL LAB CHEMISTRY METHOD 04/08/2025 9:03 PM [facility] Albumin 3.1(L) 3.2 - 5.0 g/dL LAB CHEMISTRY METHOD 04/08/2025 9:03 PM [facility] Total Bilirubin 0.6 0.0 - 1.4 mg/dL LAB CHEMISTRY METHOD 04/08/2025 9:03 PM [facility] Blood Venous blood specimen / Unknown Venipuncture / Unknown 04/08/2025 8:27 PM EDT 04/08/2025 8:39 PM EDT us Don Perez MD LAB BLOOD ORDERABLES Final Result [facility] [address] [place] [address], * CT Lung Screening (12/05/2024 1:53 PM [...] Signed Date: 12/10/2024 11:44 ET Workstation ID: [id number] Transcribed By: Self Edit Transcribed Date: 12/10/2024 [...] Signed Date: 12/10/2024 11:44 ET Workstation ID: [id number] Transcribed By: Self Edit Transcribed Date: 12/10/2024 11:04 ET Petar Paredes MD IMG CT PROCEDURES Final Result * FERDINAND SCREENING DIGITAL (11/18/2020 2:13 PM EST) Anatomical Region Laterality Modality Mammography 11/18/2020 1:33 PM EST Narrative 11/18/2020 2:13 PM EST [facility] Diagnostic Imaging Department [address] [place], [place] [phone] Patient: JEANNA GRAHAM /Age/Sex: 1965 - 55 - F Unit#: [id number] Location/Status: SPDIMAM/REG CLI Mnemonic/Ordering Site: [facility]IGFL/[facility] Ordering Physician: NAME,VINICIUS MCCRARY Ferdinand Screening Digital - 11/18/20 - 1357 INDICATION: SCREENING COMPARISON: [facility] mammograms dating back to 07/26/2014 TECHNIQUE: CC and MLO views of the breasts were obtained, using full field digital mammography with 3D tomosynthesis views in the MLO projection. Computer aided detection with the [employer].2-H was employed. FINDINGS: The breasts contain scattered [...] target date for the next mammogram. [id number]) , [id number] Dictating Physician: IDA HOLDER MD Electronically Signed by: IDA HOLDER MD Dic Date/Time: 11/18/20 1407 Sign date/Time: 11/18/20 1413 Procedure Note Ida Holder MD - 09/28/2022 [facility] Diagnostic Imaging Department [address] [place] [address] Patient: JEANNA GRAHAM /Age/Sex: 1965 - 55 - F Unit#: [id number] Location/Status: SPDIMA/REG CLI Mnemonic/Ordering Site: DIGSC/[facility] Ordering Physician: NAME,VINICIUS MCCRARY Ferdinand Screening Digital - 11/18/20 - 1357 INDICATION: SCREENING COMPARISON: [facility] mammograms dating back to 07/26/2014 TECHNIQUE: CC and MLO views of the breasts were obtained, using full field digital mammography with 3D tomosynthesis views in the MLO projection. Computer aided detection with the [employer] 7.2-H was employed. FINDINGS: The breasts contain [...] a target date for the next mammogram. [id number] / [id number]) , [id number] Dictating Physician: IDA HOLDER MD Electronically Signed by: IDA HOLDER MD Dic Date/Time: 11/18/20 1407 Sign date/Time: 11/18/20 1413 Vinicius Montoya MD IMG BI PROCEDURES Final Result from Last 3 Months or Most Recently Relevant to Health Maintenance Insurance [facility] Member Subscriber Plan / Payer (Ef fective 2018-Present) Name:JEANNA REHMAN Relation to Subscriber:Self Name:Jeanna Graham Payer ID:[id number] Group ID:[id number] Type:Not on file Address: [address] [address]
--- OUTSIDE RECORDS SUMMARY | 2025-09-10 14:50 | XMS_ITS | Clinical Summary ---
Author Organization [employer] Address [address] [facility] [address] [place] [address] Care Team Providers Care Manager Implementation Name Role Phone Name, Aamir MCCRARY Primary Care Provider [phone] Carline Bustillos PharmD Unavailable [phone] Allergies Active Allergy Reactions Criticality Noted Date Comments Codeine 11/03/2022 Other reaction(s): increases heartrate Other Reaction(s): heart palpitation Varenicline Insomnia Low 11/03/2022 Dream disturbance Medications zolpidem (Ambien) 10 MG tablet Take 10 mg by mouth if needed at bedtime. 01/15/20 23 Active hydrOXYzine pamoate (Vistaril) 50 MG capsule Take 100 mg by mouth if needed in the morning, at noon, and at bedtime for anxiety. 01/19/20 23 Active escitalopram (Lexapro) 20 MG [...] MEAL 90 capsule 3 05/24/20 24 Active Additional Information Patient taking differently: 20 mg Oral Daily PRN, TAKE 1 CAPSULE BY MOUTH EVERY DAY 30 MINUTES TO 1 HOUR BEFORE A MEAL, Reported on 08/27/2025 naloxone (Narcan) 4 mg/0.1 mL nasal sprayIndicatio ns:Chronic low back pain without sciatica, unspecified back pain laterality Administer 1 spray (4 mg) into affected nostril(s) if needed for opioid reversal. 2 each 2 06/27/20 24 Active cholecalcifero l (Vitamin D-3) 50 MCG (2000 UT) tablet TAKE 1 TABLET BY MOUTH EVERY MORNING 90 tablet 3 12/03/19 25 Active tamoxifen (Nolvadex) 20 MG chemo tablet Take 1 tablet by mouth Once per day. 01/04/20 25 Active QUEtiapine XR (SEROquel XR) 400 MG 24 hr tablet Take 400 mg by mouth at bedtime. 03/25/20 25 Active nicotine (Nicoderm, Step 2) 14 MG/24HR patchIndicatio ns:Tobacco dependence syndrome Apply 1 patch, as directed, every 24 hours. May remove at bedtime if needed & place new patch the next morning. Rotate application site. 14 patch 04/16/20 25 Active acetaminophen (Tylenol) 500 MG tablet Take 1,000 mg by mouth every 6 (six) hours if needed for mild pain. OTC Active amLODIPine (Norvasc) 10 MG tabletIndicati ons:Hypertensi [...] day 90 tablet 3 06/19/20 25 Active clonazePAM (KlonoPIN) 1 MG tablet Take 1 tablet by mouth 3 times daily. 06/24/20 25 Active Ventolin HFA 108 (90 Base) MCG/ACT inhaler INHALE 2 PUFFS BY MOUTH EVERY 4 HOURS 18 g 3 07/02/20 25 Active atorvastatin (Lipitor) 80 MG tabletIndicati ons:High cholesterol Take 1 tablet (80 mg) by mouth Once per day. 90 tablet 1 08/27/20 25 Active nicotine (Nicoderm, Step 3) 7 MG/24HR patchIndicatio ns:Tobacco dependence syndrome Apply 1 patch, as directed, every 24 hours. May remove at bedtime if needed & place new patch the next morning. Rotate application site. 14 patch 2 08/27/20 Active Additional Information Patient not taking.Reason: awaiting step down, Reported on 08/27/2025 nicotine polacrilex (Nicorette) 4 MG gumIndications :Tobacco dependence syndrome Chew 1 piece of gum, as directed, every 1-2 hours as needed for cravings. No more than 24 pieces in 24 hours. 2 each 5 08/27/20 Active oxyCODONE-acet aminophen (Percocet) 5-325 MG tabletIndicati ons:Chronic pain syndrome Take 1 tablet by mouth every 12 (twelve) hours if needed for severe pain. Do not start before September 13, 2025. 56 tablet 09/13/20 25 026 Active nicotine (Nicoderm, Step 1) 21 MG/24HR patchIndicatio ns:Tobacco dependence syndrome Apply 1 patch, as directed, every 24 hours. May remove at bedtime if needed & place new patch the next morning. Rotate application site. 42 patch 04/16/20 25 025 Discontinued(T herapy completed) nicotine (Nicoderm, Step 3) 7 MG/24HR patchIndicatio ns:Tobacco dependence syndrome Apply 1 patch, as directed, every 24 hours. May remove at bedtime if needed & place new patch the next morning. Rotate application site. 14 patch 2 04/16/20 25 025 Discontinued(R eorder (will not trigger notification to Pharmacy)) ondansetron (Zofran) 4 MG tabletIndicati ons:Colitis Take 1 tab every 8 hrs as needed for nausea and vomiting 30 tablet 04/19/20 25 025 Discontinued atorvastatin (Lipitor) 40 MG tabletIndicati ons:High cholesterol TAKE 1 TABLET(40 MG) BY MOUTH IN THE MORNING 90 tablet 3 05/21/20 25 025 Discontinued(R eorder (will not trigger notification to Pharmacy)) nicotine polacrilex (Nicorette) 4 MG gumIndications :Tobacco dependence syndrome Chew 1 piece of gum, as directed, every 1-2 hours as needed for cravings. No more than 24 pieces in 24 hours. 110 each 5 06/27/20 25 025 Discontinued(R eorder (will not trigger notification to Pharmacy)) oxyCODONE-acet aminophen (Percocet) 5-325 MG tabletIndicati ons:Chronic pain syndrome Take 1 tablet by mouth every 12 (twelve) hours if needed for severe pain for up to 28 days. Do not start before July 19, 2025. 56 tablet 07/19/20 25 025 Discontinued(R eorder (will not trigger notification to Pharmacy)) oxyCODONE-acet aminophen (Percocet) 5-325 MG tabletIndicati ons:Chronic pain syndrome Take 1 tablet by mouth every 12 (twelve) hours if needed for severe pain for up to 28 days. Do not start before August 16, 2025. 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 ER/GA positive, HER2 negative, high proliferation index. Bone [...] is now receiving adjuvant radiation therapy at [facility]. She is on tamoxifen 20 mg [...] lung 03/16/2018 Overview (06/01/2023): LRCT program at [facility], last CT 04/2023 (recommended repeat 6 [...] Encounters Date Type Department Care Team Description 09/10/2025 11:30 AM EST Clinical Support [facility] [address] [place] [address] Francine Oneill, RN Long-term current use of opiate analgesic (Primary Dx) 09/10/2025 Refill [facility] [address] [place] [address] Francine Oneill, stretcher helper pain syndrome 09/10/2025 Travel 08/30/2025 Telephone [facility] [address] [place] [address] Nigel Pierre MA dec recalls 08/27/2025 Travel 08/23/2025 Orders Only GENERIC EXTERNAL DATA DEPARTMENT Provider, Generic External Data 08/15/2025 Refill [facility] [address] [place] [address] Aamir Montoya MD Chronic pain syndrome 07/25/2025 Travel 07/18/2025 Refill [facility] [address] [place] [address] Aamir Montoya MD Chronic pain syndrome 07/08/2025 Orders Only [facility] External Provider, [facility] 07/02/2025 Refill [facility] [address] [place] [address] Aamir Montoya MD 06/27/2025 Travel 06/20/2025 Refill [facility] [address] [place] [address] Aamir Montoya MD Chronic pain syndrome 06/19/2025 11:15 AM EDT Office Visit [address] [address] Aamir Montoya MD Hypertension, unspecified type (Primary Dx); Tobacco dependence syndrome; Infiltrating ductal carcinoma of right breast (CMS/HCC) 06/19/2025 Travel 06/17/2025 Telephone [facility] [address] [place] [address] Aamir Montoya MD Chart Prep 06/11/2025 11:30 AM EDT Clinical Support [address] [address] Francine Oneill, RN Long-term current use of opiate analgesic (Primary Dx) 06/11/[address] [address] Francine Oneill, RN [employer] Agreement renewed today 06/11/2025 Travel from Last 3 Months Immunizations Immunization Administration Dates Next Due HepB-CpG 07/25/2025,06/27/2025 Influenza injectable quadriv alent IIV4 with preservative 08/31/2017 Influenza injectable quadriv alent preservative free 07/28/2023,07/05/2020,09/10/2019,2017,10/06/2016 Influenza, IIV3, injectable 07/01/2015 Influenza, seasonal, injecta ble, preservative free 07/25/2025,08/17/2024 Pfizer Covid-19 Vaccine 12+ 08/17/2024 Pneumococcal Conjugate PCV 20 06/01/2023 Tdap 06/01/2023,03/13/2013 Zoster, Recombinant 08/27/2025 Social History Tobacco Use Types Packs/Day Years [...] Description 09/25/2025 2:00 PM EST Medication Management [address] [address] Carline Bustillos, PharmD [address] [place] [phone] 11/15/2025 11:30 AM EST Office Visit [address] [address] Name, MD Aamir [address] [place] [phone] 12/09/2025 11:30 AM EST Clinical Support [address] [address] Francine Oneill, RN Health Maintenance Due Date Last Done Comments CT Colonography 1965 FIT DNA/Cologuard 1965 FIT 1965 FOBT 1965 Sigmoidoscopy 1965 RSV Patients and Patients Aged 60 years or older (1 - Risk 50-74 years 1-dose series) 2017 COVID-19 Vaccine ( season) 2025 08/17/2024, 11/25/2021, 01/14/2021, Additional history exists Depression Screening 08/17/2025 08/17/2024, 08/17/20 24 Zoster Vaccines (2 of 2) 10/22/2025 08/27/2025 SDOH Screening 10/23/2025 10/23/2024 Lung Cancer Screening 12/05/2025 12/05/2024, 024 Alcohol/Substance Use Screening 03/01/2026 03/01/2025 Disability Screening 03/01/2026 03/01/2025 Tobacco Screening 06/19/2026 06/19/2025 Mammogram 07/08/2026 07/08/2025, 07/11, 08/01/2024, Additional history exists Colonoscopy 10/05/2027 10/05/2024, 04/28/2019 Colorectal Cancer Screening 10/05/2027 Lipid Panel 08/23/2030 08/23/2025, 07/10, 04/21/2023, Additional history exists DTaP/Tdap/Td Vaccines (3 - Td or Tdap) 06/01/2033 06/01/2023, 03/13/2013 Pneumococcal Vaccine: 50+ Years Completed 06/01/2023 HIV Screening Completed 07/26/2024 Hepatitis C Screening Completed 07/26/2024 Hepatitis B Vaccines Completed 07/25/2025, 06/27/20 25 Influenza Vaccine Completed 07/25/2025, , 07/28/2023, Additional history exists HIB Vaccines Aged Out [...] EST Long-term current use of opiate analgesic LIPID PANEL, STANDARD Routine 08/23/2025 10:24 AM EST CREATININE, SERUM Routine 08/23/2025 10: 24 AM EST UREA NITROGEN (BUN) Routine 08/23/2025 1 0:24 AM EST CBC WITH AUTO DIFFERENTIAL Routine 08/23/2025 10:24 AM EST Colitis POTASSIUM Routine 08/23/2025 10:24 AM EST Colitis BI MAMMOGRAM DIAGNOSTIC TOMOSYNTHESIS BILATERAL Routine 07/08/2025 10:55 AM EDT POCT AMY-14 URINE DRUG SCREEN Routine 06/11/2025 11:31 AM EDT Long-term current use of opiate analgesic HM COLONOSCOPY Routine 10/05/2024 10:40 AM EST HEPATITIS C AB W/REFL TO HCV RNA, QN, PCR Routine 07/26/2024 10:59 AM EDT Need for hepatitis C screening test HIV 1/2 ANTIGEN/ANTIBODY, FOURTH GENERATION W/RFL Routine 07/26/2024 10:59 AM EDT Screening for HIV (human immunodeficiency virus) LUNG CANCER SCREENING Routine 11/29/2023 from Last 3 Months or Most Recently Relevant to Health Maintenance Results * (ABNORMAL) POCT AMY-14 Urine Drug Screen (09/10/2025 11:59 AM EST) Only the most recent of2 resultswithin the time period is included. THC Negative Negative Cocaine Screen, Urine Negative Negative Opiate Screen, Urine Negative Negative Methamphetamine Screen Urine Negative Negative Amphetamine Screen, Urine Negative Negative Benzodiazepines Screen, Urine Positive(A) Negative Comment:RX outside provider Barbiturate Screen, Urine Negative Negative Methadone Screen, Urine Negative Negative Buprenophine Screen, Urine Negative Negative TCA, Urine Negative Negative MDMA Urine Negative Negative ng/mL Oxycodone Screen, Urine Positive(A) Negative Comment:[employer] pt on Percocet Phencyclidine (PCP), Urine Negative Negative Propoxyphene, Urine Negative Negative Fentanyl, Urine Negative Negative Urine Urine specimen obtained by clean catch procedure / Unknown 09/10/2025 11:59 AM EST Narrative Francine Oneill RN - 09/10/2025 11:59 AM EST UTOX cup Lot#[id number] Exp. 09/09/26 Internal Pass Control Aamir Name POINT OF CARE TEST ENTER/EDIT OR DERABLES Final Result * Creatinine, Serum (08/23/2025 10:24 AM EST) Creatinine, Serum 0.76 0.5 - 1.4 mg/dL [facility] Estimated Glomerular Filt Rate >60 [facility] Comment:Chronic Kidney Disea se: Estimated GFR < 60 mL/min/1.92d4Gvghxe Kidney Disease: Estimated GFR < 15 mL/min/1.73m2 08/23/2025 10:2 4 AM EST 08/23/2025 1:11 PM EST us Generic External Data Provider LAB BLOOD ORDERAB LES Final Result [facility] [address] [place] [phone] * (ABNORMAL) CBC auto differential (08/23/2025 10:24 AM EST) White Blood Count 9.5 4.8 - 10.8 X10*3/uL [facility] Red Blood Count 4.57 4.20 - 5.50 X10*6/uL [facility] Hemoglobin 13.4 12.0 - 16.0 g/dl [facility] Hematocrit 40.9 37.0 - 47.0 % [facility] Mean Corpuscular Volume 89.5 80.0 - 98.0 fL [facility] Mean Corpuscular Hemoglobin 29.3 27.0 - 33.0 pg [facility] Mean Corpuscular HGB Conc 32.8 31.0 - 35.0 g/dl [facility] Red Cell Distribution Width 12.6 11.0 - 16.0 % [facility] Platelet Count 199 160 - 400 X10*3/uL [facility] Mean Platelet Volume 11.1 9.4 - 12.3 fL [facility] Neutrophils Percent Auto 61.3 45 - 73 % [facility] Imm Gran Pct Auto 0.4 0.0 - 0.4 % [facility] Lymphocytes Percent Auto 27.7 20 - 40 % [facility] Monocytes Percent Auto 8.6 2 - 11 % [facility] Eosinophils Percent Auto 1.6 0 - 4 % [facility] Basophils Percent Auto 0.4 0 - 2 % [facility] NRBC Pct Auto 0.0 0.0 - 0.2 /100WBC [facility] Neutrophils Absolute Auto 5.8 2.0 - 8.3 x10*3/uL [facility] Imm Gran Abs Auto 0.04(H) 0.00 - 0.03 X10*3/uL [facility] Lymphocytes Absolute Auto 2.6 1.2 - 4.9 X10*3/uL [facility] Monocytes Absolute Auto 0.8 0.1 - 1.2 X10*3/uL [facility] Eosinophils Absolute Auto 0.2 0.0 - 0.4 X10*3/uL [facility] Basophils Absolute Auto 0.0 0.0 - 0.2 X10*3/uL [facility] NRBC Abs Auto 0.000 0.0 - 0.012 X10*3/uL [facility] Blood Venous blood specimen / Unknown 08/23/2025 10:24 AM EST 08/23/2025 11:16 AM EST us Beth Limon [facility] LAB BLOOD ORDERABLES Final Res ult Performing Organization Address City/[facility]/ZIP Co de Phone Number [facility] [address] [place] [phone] * BUN (Blood Urea Nitrogen) (08/23/2025 10:24 AM EST) Urea Nitrogen (BUN) 11 9 - 16 mg/dL [facility] 08/23/2025 10:2 4 AM EST 08/23/2025 1:11 PM EST us Generic External Data Provider LAB BLOOD ORDERAB LES Final Result Performing Organization Address [facility] Co de Phone Number [facility] [address] [place] [phone] * Potassium (08/23/2025 10:24 AM EST) Pathologist [facility] Potassium 3.8 3.3 - 5.1 mmol/L [facility] Blood Venous blood specimen / Unknown 08/23/2025 10:24 AM EST 08/23/2025 1:11 PM EST [facility] Final Res ult Performing Organization Address [facility] Co de Phone Number [facility] [address] [place] [phone] * (ABNORMAL) Lipid Panel, Standard (08/23/2025 10:24 AM EST) Triglycerides 174(H) <150 mg/dL [facility] Comment:Desirable Triglyceri de: less than 150 mg/dLBorderline High Triglyceride 150-199 mg/dLHigh Triglyceride: 200-499 mg/dLVery High Triglyceride: greater than or equal to 5OO mg/dL Cholesterol 170 <200 mg/dL [facility] Comment:Desirable Cholestero l: less than 200 mg/dLBorderline High Cholesterol: 200-239 mg/dLHigh Cholesterol: greater than 239 mg/dL LDL Cholesterol Calculated 102(H) <100 mg/dL [facility] Comment:Desirable LDL: less than 100 mg/dLNear Optimal/Above Optimal LDL: 110- 129 mg/dLBorderline High LDL: 130-159 mg/dLHigh LDL: 160-189 mg/dLVery High LDL: greater than or equal to 190 mg/dL HDL Cholesterol 34(L) >40 mg/dL [facility] Comment:Desirable HDL: great er than 40 mg/dL Note: This HDL assay may give artificially low results in patients with liver disease. 08/23/2025 10:2 4 AM EST 08/23/2025 1:11 PM EST Aamir Montoya MD LAB BLOOD ORDERABLES Final Resul t [facility] [address] [place] [phone] * BI Mammogram Diagnostic Tomosynthesis Bilateral (07/08/2025 10:55 AM EDT) Anatomical Region Laterality Modality Breast Bilateral Mammography 07/08/2025 10:5 5 AM EDT Narrative 07/08/2025 12:19 PM EDT [facility] [address] [place] [address] Mammography Report Signed Patient: Jeanna Graham MR#: [id number] : 1965 Acct:[id number] Age/Sex: 59 / F ADM Date: 07/08/25 Loc: [facility] Attending Dr: Fam Mendoza MD Ordering Physician: Fam Mendoza MD Results: 2Beni gn Date of Service: 07/08/25 Follow Up: 12 month diagnos tic follow up Procedure(s): MM tomosynthesis diagnostic BI Accession Number(s): [id number] cc: Fam Mendoza MD; Name,Aamir MCCRARY Reason For Exam: RT BR 1 YR FU FOR HX OF CA EXAMINATION(S): MM DIAGNOSTIC DIGITAL BREAST TOMOSYNTHESIS, BILATERAL CLINICAL INFORMATION: Right breast lumpectomy for invasive ductal carcinoma in August 2024. COMPARISON: Comparison made to multiple prior, most recent post procedure right mammogram on August 22, 2024, and most remote December 23, 2021. TECHNIQUE: Digital breast tomosynthesis is performed in both the mediolateral oblique and craniocaudal views along with computer-aided detection (CAD). Synthesized 2D images are generated from the tomosynthesis. FINDINGS: BREAST COMPOSITION: There are scattered areas of fibroglandular density. RIGHT BREAST: Post lumpectomy changes. No significant masses, suspicious calcifications or other abnormalities are seen. LEFT BREAST: No significant masses, suspicious calcifications or other abnormalities are seen. MM/MM tomosynthesis diagnostic BI IMPRESSION: BILATERAL BREASTS: Benign, no mammographic evidence of malignancy. Normal interval follow-up is recommended in 12 months. ASSESSMENT: BI-RADS: Category 2: Benign RECOMMENDATION: 12 month diagnostic follow up Results were provided to the patient at time of visit by the technologist. This patient's information was entered into a reminder system with a target due date for their next mammogram. Electronically signed by: Earl Brothers MD 07/08/2025 12:16 PM EDT Dictated By: Earl Brothers MD Signed By: <Electronically signed by Earl Brothers MD in OV> 07/08/25 1216 DD/ 1055 TD/TT: 07/08/25 1115 Oxygen Therapy Teacher: Procedure Note Donotuseinterpreter, Image - 07/08/2025 [facility] [address] [place], [place] [address] Mammography Report Signed Patient: Sury Graham#: [id number] : 1965Acct:[id number] Age/Sex: 59 / FADM Date: 07/08/25 Loc: [facility] Attending Dr: Fam Mendoza MD Ordering Physician: Fam Mendoza MDResults: 2Beni gn Date of Service: 07/08/25Follow Up: 12 month diagnos tic follow up Procedure(s): MM tomosynthesis diagnostic BI Accession Number(s): [id number] cc: Fam Mendoza MD; Name,Aamir MCCRARY Reason For Exam: RT BR 1 YR FU FOR HX OF CA EXAMINATION(S): MM DIAGNOSTIC DIGITAL BREAST TOMOSYNTHESIS, BILATERAL CLINICAL INFORMATION: Right breast lumpectomy for invasive ductal carcinoma in August 2024. COMPARISON: Comparison made to multiple prior, most recent post procedure right mammogram on August 22, 2024, and most remote December 23, 2021. TECHNIQUE: Digital breast tomosynthesis is performed in both the mediolateral oblique and craniocaudal views along with computer-aided detection (CAD). Synthesized 2D images are generated from the tomosynthesis. FINDINGS: BREAST COMPOSITION: There are scattered areas of fibroglandular density. RIGHT BREAST: Post lumpectomy changes. No significant masses, suspicious calcifications or other abnormalities are seen. LEFT BREAST: No significant masses, suspicious calcifications or other abnormalities are seen. MM/MM tomosynthesis diagnostic BI IMPRESSION: BILATERAL BREASTS: Benign, no mammographic evidence of malignancy. Normal interval follow-up is recommended in 12 months. ASSESSMENT: BI-RADS: Category 2: Benign RECOMMENDATION: 12 month diagnostic follow up Results were provided to the patient at time of visit by the technologist. This patient's information was entered into a reminder system with a target due date for their next mammogram. Electronically signed by: Earl Brothers MD 07/08/2025 12:16 PM EDT Dictated By: Earl Brothers MD Signed By: <Electronically signed by Earl Brothers MD in OV> 07/08/25 1216 DD/ 1055 TD/TT: 07/08/25 1115 Oxygen Therapy Teacher: [facility] External Provider IMG BI PROCEDURES Final Result * (ABNORMAL) Colonoscopy (10/05/2024 10:40 AM EST) Colonoscopy Abnormal(A ) Normal 10/05/2024 10:4 0 AM EST Aamir Montoya MD HEALTH MAINTENANCE Final Result * Hepatitis C Antibody with Reflex to HCV, RNA, Quantitative, Real-Time PCR (07/26/2024 10:59 AM EDT) Hepatitis C Antibody Nonreactive Nonreactive [facility] Comment:Antibodies to HCV no t detected; does not exclude early acuteHCV infection. Blood Venous blood specimen / Unknown 07/26/2024 10:59 AM EDT 07/26/2024 1:14 PM EDT us Aamir Montoya MD LAB BLOOD ORDERABLES Final Resul t Performing Organization Address [facility]/ZIP Co de Phone Number [facility] [address] [place] [phone] * HIV-1/2 Antigen and Antibodies, Fourth Generation, with Reflexes (07/26/2024 10:59 AM EDT) HIV AB/AG Nonreactive Nonreactive [facility] Comment:HIV-1 p24 Ag and/or HIV-1/HIV-2 Ab not detected.A test result that is nonreactive does not exclude thepossibility of exposure to or infection with HIV-1 and/orHIV-2. Nonreactive results in this assay for individualswith prior exposure to HIV-1 and/or HIV-2 may be due toantigen and antibody levels that are below the limit ofdetection of this assay.The CuPcAkE & other things you bakeniA [facility] HIV Ag/Ab Combo assay result andsupplemental assay results should be interpreted inconjunction with the patient's clinical presentation,history and other laboratory results. If the results areinconsistent with clinical evidence, additional testing issuggested to confirm the result. Blood Venous blood specimen / Unknown 07/26/2024 10:59 AM EDT 07/26/2024 1:14 PM EDT us Aamir Montoya MD LAB BLOOD ORDERABLES Final Resul t Performing Organization Address City/[facility]/ZIP Co de Phone Number [facility] [address] [place] [phone] * (ABNORMAL) Hm Lung Cancer Screning (11/29/2023) Lung CT LUNGRADS 2(L) LUNGRADS 1, LUNGRADS 2 Comment:f/u 1 yr Anatomical Region Laterality Modality Other Aamir Montoya MD HEALTH MAINTENANCE Final Result from Last 3 Months or Most Recently Relevant to Health Maintenance Insurance [facility] ONE CARE < 65 Care Teams Manager Implementation Relationship Specialty Start Date End Date Name, MD Aamir [address] [place] [address] PCP - General Family Medicine 10/10/18 Carline Bustillos PharmD [address] [place] [address] Pharmacist Pharmacy 04/16/25
--- OUTSIDE RECORDS SUMMARY | 2025-09-10 14:50 | XMS_ITS | Encounter Summary ---
Author Organization [employer] Address 75 [facility] 7t [place] [address] Care Team Providers Care Systems Project Manager Name Role Phone Name, Aamir MCCRARY Primary Care Provider Carline Bustillos PharmD Unavailable Reason for Visit * Reason Comments Med Refill Encounter Details Date Type Department Care Team (Late Contact Info) Description 05/07/2023 Refill [facility] [address] [place] [phone] Name, MD Aamir [address] [place] [phone] Social History Tobacco Use Types Packs/Day Years [...] Department Care Team (Late Contact Info) Description 09/25/2025 2:00 PM EST Medication Management [facility] [address] [place] [address] Carline Bustillos, PharmD [address] [place] [address] 11/15/2025 11:30 AM EST Office Visit [facility] [address] [place] [phone] Name, MD [place] [address] 12/09/2025 11:30 AM EST Clinical Support [facility] [address] [place] [address] Francine Oneill, MARLEE documented as of this encounter Visit Diagnoses Not on filedocumented in this encounter Additional Health Concerns Assessment Noted Time PHQ-9 Depression Total Score: 0 01/27/20 23 10:31 AM EDT documented as of this encounter Care Teams Systems Project Manager Relationship Specialty Start Date End Date Name, MD Aamir [facility]hes[facility] [place] [address] PCP - General Family Medicine 10/10/18 Carline Bustillos, Steffanie [address] [place] [address] Pharmacist Pharmacy 04/16/25 documented as of this encounter
--- OUTSIDE RECORDS SUMMARY | 2025-09-10 14:50 | XMS_ITS | Encounter Summary ---
Author Organization [employer] Address 75 [facility] 7t [place] [address] Care Team Providers Care Financial Secretary Name Role Phone Name, Aamir MCCRARY Primary Care Provider [phone] Carline Bustillos PharmD Unavailable [phone] Encounter Details Date Type Department Care Team (Late st Contact Info) Description 10/15/2022 Orders Only [facility] [address] [place] [address] Carmen Lao LPN Social History Tobacco Use [...] Description 09/25/2025 2:00 PM EST Medication Management [address] [address] Carline Bustillos, PharmD [address] [place] [address] 11/15/2025 11:30 AM EST Office Visit [address] [address] Name, MD Aamir [address] [place] [address] 12/09/2025 11:30 AM EST Clinical Support [address] [place] [address] Francine Oneill, RN documented as of this encounter Visit Diagnoses Not on filedocumented in this encounter Care Teams Financial Secretary Relationship Specialty Start Date End Date Name, MD Aamir [address] [place] [address] PCP - General Family Medicine 10/10/18 Carline Bustillos PharmD [address] [place] [address] Pharmacist Pharmacy 04/16/25 documented as of this encounter
--- OUTSIDE RECORDS SUMMARY | 2025-09-10 14:50 | XMS_ITS | Encounter Summary ---
Author Organization [employer] Address 75 [facility] 7t [place] [address] Care Team Providers Care Cutch Cleaner Name Role Phone Name, Aamir MCCRARY Primary Care Provider [phone] Carline Bustillos PharmD Unavailable [phone] Encounter Details Date Type Department Care Team ([facility] Contact Info) Description 11/22/2022 Orders Only [facility] [address] [place] [address] Carmen Lao LPN Social History Tobacco Use [...] Upcoming Encounters Date Type Department Care Team ([facility] Contact Info) Description 09/25/2025 2:00 PM EST Medication Management [facility] [address] [place] [address] [phone] Carline Bustillos, PharmD [address] [place] [address] 11/15/2025 11:30 AM EST Office Visit [facility] [address] [place] [address] [phone] Name, MD Aamir [address] [place] [address] 12/09/2025 11:30 AM EST Clinical Support [facility] [address] [place] [phone] Francine Oneill RN documented as of this encounter Visit Diagnoses Not on filedocumented in this encounter Care Teams Cutch Cleaner Relationship Specialty Start Date End Date Name, MD Aamir [address] [place] [phone] PCP - General Family Medicine 10/10/18 Carline Bustillos PharmD [address] [place] [address] Pharmacist Pharmacy 04/16/25 documented as of this encounter
--- OUTSIDE RECORDS SUMMARY | 2025-09-10 14:50 | XMS_ITS | Encounter Summary ---
Author Organization [employer] Address 75 [facility] 7t [place] [address] Care Team Providers Care Collection Advisor Name Role Phone Name, Aamir MCCRARY Primary Care Provider [phone] Carline Bustillos PharmD Unavailable [phone] Reason for Visit * Reason Onset Date Comments Appointment Request 11/29/2024 Encounter Details Date Type Department Care Team ([facility] Contact Info) Description 11/29/2024 Telephone [facility] [address] [place], [place] [phone] Name, MD Aamir [address] [place] [address] Appointment Request Social History Tobacco Use Types [...] PCP in a while. Contact pt at [phone] documented in this encounter Plan of Treatment Upcoming Encounters Date Type Department Care Team (Late st Contact Info) Description 09/25/2025 2:00 PM EST Medication Management [address] [address] Carline Bustillos, PharmD [address] [place] [address] 11/15/2025 11:30 AM EST Office Visit [address] [address] Name, MD Aamir [address] [place] [address] 12/09/2025 11:30 AM EST Clinical Support [address] [address] Francine Oneill RN documented as of this encounter Visit Diagnoses Not on filedocumented in this encounter Additional Health Concerns Assessment Noted Time PHQ-9 Depression Total Score: 6 08/17/20 24 11:53 AM EST documented as of this encounter Care Teams Collection Advisor Relationship Specialty Start Date End Date Name, MD Aamir [address] [place] [address] PCP - General Family Medicine 10/10/18 Carline Bustillos PharmD [address] [place] [address] Pharmacist Pharmacy 04/16/25 documented as of this encounter
--- OUTSIDE RECORDS SUMMARY | 2025-09-10 14:50 | XMS_ITS | Encounter Summary ---
Author Organization [email or web address] Address 75 [facility] 7t [place] [address] Care Team Providers Care Aerospace Products Sales Engineer Name Role Phone Name, Aamir MCCRARY Primary Care Provider [phone] Carline Bustillos PharmD Unavailable [phone] Reason for Visit * Reason Onset Date Comments Med Refill 05/24/2024 Encounter Details Date Type Department Care Team ([facility] st Contact Info) Description 05/24/[address] [facility] [address] [place], [place] [phone] Name, MD Aamir [address] [place] [address] Med Refill Social History Tobacco Use Types [...] 5-325 MG tablet To be sent to: [id number] AT [facility] documented in this encounter Plan of Treatment Upcoming Encounters Date Type Department Care Team (Late st Contact Info) Description 09/25/2025 2:00 PM EST Medication Management [address] [address] Carline Bustillos, PharmD [address] [place] [address] 11/15/2025 11:30 AM EST Office Visit [address] [address] Name, MD Aamir [address] [place] [address] 12/09/2025 11:30 AM EST Clinical [address] [facility] [address] [place] [address] Francine Oneill, MARLEE documented as of this encounter Visit Diagnoses Not on filedocumented in this encounter Additional Health Concerns Assessment Noted Time PHQ-9 Depression Total Score: 0 01/27/20 23 10:31 AM EDT documented as of this encounter Care Teams Aerospace Products Sales Engineer Relationship Specialty Start Date End Date Name, MD Aamir [address] [place] [address] PCP - General Family Medicine 10/10/18 Carline Bustillos PharmD [address] [place] [address] Pharmacist Pharmacy 04/16/25 documented as of this encounter
--- OUTSIDE RECORDS SUMMARY | 2025-09-10 14:50 | XMS_ITS | Encounter Summary ---
Author Organization [employer] Address 75 [facility] 7t [place] [address] Care Team Providers Care Water Pumper Name Role Phone Name, Aamir MCCRARY Primary Care Provider Carline Bustillos PharmD Unavailable [phone] Reason for Visit * Reason Comments Med Refill Encounter Details Date Type Department Care Team (Late Contact Info) Description 03/31/2023 Refill [facility] [address] [place] [phone] Name, MD Aamir [address] [place] [address] Social History Tobacco Use Types Packs/Day Years [...] Description 09/25/2025 2:00 PM EST Medication Management [facility] [address] [place] [address] Carline Bustillos, PharmD [address] [place] [address] 11/15/2025 11:30 AM EST Office Visit [facility] [address] [place] [address] Name, [place] [address] 12/09/2025 11:30 AM EST Clinical Support [facility] [address] [facility] [place] [address] Francine Oneill, MARLEE documented as of this encounter Visit Diagnoses Not on filedocumented in this encounter Additional Health Concerns Assessment Noted Time PHQ-9 Depression Total Score: 0 01/27/20 23 10:31 AM EDT documented as of this encounter Care Teams Water Pumper Relationship Specialty Start Date End Date Name, MD Aamir [facility] [place] [address] PCP - General Family Medicine 10/10/18 Carline Bustillos, Steffanie [address] [place] [address] Pharmacist Pharmacy 04/16/25 documented as of this encounter
== END 2025-09-10 13:30 | disposition home or self-care (01) ==
PROVIDERS: PCP Internal Medicine Geriatric Medicine; Visit Provider Orthopaedic Surgery
DX: M17.0 Bilateral primary osteoarthritis of knee (principal); M25.561 Pain in right knee; M25.562 Pain in left knee
CPT/HCPCS: 20610; 99213

== ENCOUNTER → 2025-09-10 12:56 | Outpatient (BNVA) | payer OTHER, SELFPAY | PROVIDERS: PCP Internal Medicine Geriatric Medicine; Visit Provider Orthopaedic Surgery | DX: M17.0 Bilateral primary osteoarthritis of knee (principal); M25.561 Pain in right knee; M25.562 Pain in left knee | CPT/HCPCS: 20610; 99212; J1010; J2003 ==

== ENCOUNTER 2025-10-08 15:06 | Emergency (ER) | payer OTHER, SELFPAY ==
--- NOTE | ~2025-10-08 | CT_ITS ---
CLINICAL HISTORY: LLQ pain, leukocytosis CT abdomen and pelvis with contrast Comparison: 01/23/2025 Findings: Lung bases are clear. No acute bony abnormalities. Liver and spleen within normal limits. Pancreas and adrenal glands unremarkable. Gallbladder is within normal limits. No significant focal renal abnormalities. Renal cysts, no stones or hydronephrosis. Abdominal aorta is normal in caliber. No free fluid or adenopathy in the pelvis. No diverticulitis. Appendix unremarkable. Distal descending colonic wall thickening. This extends into proximal sigmoid colon. Adjacent stranding consistent with acute colitis. Hysterectomy. No adnexal abnormality. Impression: Acute nonspecific left colitis This document has been electronically signed by: John Merino MD on 10/08/2025 22:56:33
--- OUTSIDE RECORDS SUMMARY | 2025-10-08 13:40 | XMS_ITS | Encounter Summary ---
Author Organization [employer] Address 75 [facility] 7t [place] [address] Care Team Providers Care Smoke Jumper Name Role Phone Name, Aamir MCCRARY Primary Care Provider Carline Bustillos PharmD Unavailable [phone] Reason for Visit * Reason Comments Abdominal Pain Encounter Details Date Type Department Care Team ([facility] Contact Info) Description 10/08/2025 1:40 PM EST Office Visit [facility] [address] [place], [place] [phone] Beth Limon FNP [address] [place] [address] Social History Tobacco Use Types Packs/Day Years Used Date Smoking Tobacco: Every Day Cigarettes 1 27.5 Started: 04/16/1998 Passive Smoke Exposure: Current Smokeless [...] AM EDT documented as of this encounter Last Filed Vital Signs Vital Sign Reading Time Taken Comments Blood Pressure 132/86 10/08/2025 1:55 PM EST Pulse 94 10/08/2025 1:55 PM EST Temperature 36.8 C (98.2 F) 10/08/2025 1:55 PM EST Respiratory Rate 19 10/08/2025 1:55 PM EST Oxygen Saturation 96% 10/08/2025 1:55 PM EST Inhaled Oxygen Concentration - - Weight 70.7 kg (155 lb 12.8 oz) 10/08/2025 1:55 PM EST Height 165.1 cm (5' 5 ) 10/08/2025 1:55 PM EST Body Mass Index 25.93 10/08/2025 1:55 PM EST documented in this encounter Plan of Treatment Upcoming Encounters Date Type Department Care Team (Late st Contact Info) Description 10/31/2025 11:30 AM EST Medication Management [facility] [address] [place] [address] Carline Bustillos, PharmD [address] [place] [address] 11/15/2025 11:30 AM EST Office Visit [facility] [address] [place] [address] Name, MD [facility] [place] [address] 12/09/2025 11:30 AM EST Clinical Support [facility] [address] [place] [address] Francine Oneill, RN documented as of this encounter Visit Diagnoses Not on filedocumented in this encounter Additional Health Concerns Assessment Noted Time PHQ-9 Depression Total Score: 6 08/17/20 24 11:53 AM EST documented as of this encounter Care Teams Smoke Jumper Relationship Specialty Start Date End Date Name, MD A[facility]ir [facility] [place] [address] PCP - General Family Medicine 10/10/18 Carline Bustillos, GwendolynD [address] [place] [address] Pharmacist Pharmacy 04/16/25 documented as of this encounter
--- NOTE | 2025-10-08 15:30 | ED.GENADULT ---
HPI - General Adult General Chief complaint: Abdominal Pain Stated complaint: pain lwr left side Time Seen by Provider: 10/08/25 21:31 Source: patient Limitations: language barrier History of Present Illness ED Provider: Salima Pfeiffer PA-C HPI narrative: 59-year-old female with a history of hypertension, hyperlipidemia, depression, tobacco abuse, GERD, constipation, insomnia, migraine, breast cancer on tamoxifen who presents with left lower abdominal pain x2 days. Associated diarrhea and nausea. Denies fever. Denies sick contacts with similar symptoms. Patient has not had this discomfort in the past. No abdominal distention or inability to pass flatus, denies constipation at this time. Denies recent travel, hospitalization or use of antibiotics. Related Data Home Medications ?Medication ?Instructions ?Recorded ?Confirmed albuterol sulfate 2.5 mg/3 mL 2.5 mg inhalation QID 02/09/21 09/10/25 (0.083 %) solution for nebulization albuterol sulfate 90 mcg/actuation 2 puff inhalation Q6H PRN 02/09/21 09/10/25 aerosol inhaler (Ventolin HFA) Shortness Of Breath aspirin 81 mg tablet,delayed 81 mg PO DAILY 02/09/21 09/10/25 release clonazepam 1 mg tablet 1 mg PO TID 02/09/21 09/10/25 ergocalciferol (vitamin D2) 50 mcg 50 mcg PO DAILY 02/09/21 09/10/25 (2,000 unit) capsule lisinopril 20 mg tablet 20 mg PO DAILY 02/09/21 09/10/25 metoprolol succinate 100 mg 100 mg PO DAILY 02/09/21 09/10/25 tablet,extended release 24 hr omeprazole 20 mg capsule,delayed 20 mg PO DAILY 02/09/21 09/10/25 release quetiapine 400 mg tablet,extended 400 mg PO BEDTIME 02/09/21 09/10/25 release 24 hr (Seroquel XR) sumatriptan succinate 25 mg tablet 25 mg PO Q2-4H PRN Migraine 02/09/21 09/10/25 (Imitrex) Headache zolpidem 10 mg tablet 10 mg PO BEDTIME PRN Insomnia 02/09/21 09/10/25 atorvastatin 40 mg tablet 40 mg PO DAILY 08/31/24 09/10/25 bupropion HCl 300 mg 24 hr tablet, 300 mg PO DAILY 10/16/24 09/10/25 extended release escitalopram oxalate 20 mg tablet 20 mg PO DAILY 10/16/24 09/10/25 hydroxyzine pamoate 50 mg capsule 50 mg PO BID PRN yes 10/16/24 09/10/25 Previous Rx's ?Medication ?Instructions ?Recorded polyethylene glycol 3350 17 gram 17 g PO DAILY 30 days #30 ea 03/10/21 oral powder packet STOOL SOFTENER 100MG CAPSULES 2 cap PO BEDTIME 30 days #60 caps 07/07/21 bisacodyl 5 mg tablet,delayed 20 mg (4 x 5 mg) PO ONCE 1 day #4 08/15/24 release (Dulcolax (bisacodyl)) tabs polyethylene glycol 3350 17 238 g PO ONCE #238 grams 08/15/24 gram/dose oral powder (Miralax) tamoxifen 20 mg tablet 20 mg PO DAILY #90 tabs 12/10/24 ketorolac 10 mg tablet 10 mg PO Q6H PRN pain #20 tabs 10/09/25 levofloxacin 500 mg tablet 500 mg PO DAILY #4 tabs 10/09/25 metronidazole 500 mg tablet 500 mg PO Q8H #12 tabs 10/09/25 ondansetron 4 mg disintegrating 4 mg PO Q8H PRN nausea and 10/09/25 tablet vomiting #10 tabs Allergies Allergy/AdvReac Type Severity Reaction Status Date / Time codeine Allergy Unknown heart Verified 10/08/25 15:37 palpitation Review of Systems Review of Systems: Yes all other systems are reviewed and are negative Constitutional: Constitutional: Denies fatigue and Denies fever(s) Cardiovascular: Cardiovascular: Denies Abdominal Distension, Denies chest pain and Denies dyspnea Respiratory: Respiratory: Denies cough and Denies dyspnea Gastrointestinal: Gastrointestinal: Reports abdominal pain, Denies constipation, Reports diarrhea, Reports nausea and Denies vomiting Endocrine: Endocrine: Denies fatigue PMFSH Past Medical History Attestation statement: The following information was validated with the patient. Medical History GERD (gastroesophageal reflux disease) Elevated cholesterol Hypertension, essential, benign History of palpitations Pulmonary nodules Personal history of nicotine dependence Tubular adenoma of colon (~2019) Depression Surgical History History of lumpectomy of right breast History of partial hysterectomy History of colonoscopy (~2018) History of esophagogastroduodenoscopy (EGD) (~2018) Family History Family History Mother No problems noted. Father No problems noted. Social History Social History Household Members: Significant Other, Friend(s) and Other Alcohol intake: never Patient Tobacco Use Status: Current everyday Tobacco user Tobacco use type: Cigarette Cigarette Packs Per Day: 1 Years Smoked: 33 (onset 22yo) Advance Directives: No Advance Directives Information Provided: No Do you have a plan to hurt others: No Plan service: No Current occupational status: disabled Sexual orientation: Straight/Heterosexual Gender identity: Female Physical Exam ED Vital Signs: Vital Signs - 24 hr 10/08/25 15:31 10/08/25 21:32 10/08/25 22:17 Temperature 98.1 F 98.3 F Pulse Rate 78 61 Respiratory Rate 18 15 18 Blood Pressure 131/83 156/70 H Pulse Oximetry 96 94 Oxygen Delivery Method Room Air Room Air 10/08/25 22:50 10/08/25 23:25 10/08/25 23:41 Temperature 98.3 F Pulse Rate 57 Respiratory Rate 18 16 18 Blood Pressure 151/80 H Pulse Oximetry 94 Oxygen Delivery Method Room Air BMI result Body Mass Index 25.8 Const Other: Alert, appears uncomfortable Orientation/consciousness: patient oriented x3 Resp Effort & Inspection: normal respiratory effort Cardio Other: Normal peripheral perfusion GI Other: Abdomen is soft, nondistended, patient was pulling my hand away while I am attempting to palpate her abdomen, pain across entire lower abdomen, most focal left lower quadrant with moderate discomfort and mild to moderate involuntary guarding Skin Other: Warm dry no rash Neuro General: patient oriented x3, gait normal, no focal motor deficits and CN's II-XI intact bilaterally Psych Other: Cooperative Course Course Course Narrative: This is a Rapid Medical Examination (RME) performed by Lindsey Singer PA-C in triage. Full HPI, ROS, assessment and treatment plan per primary provider in the Main ED. Hx: 59 yo F here for LLQ abd pain rad to back x3 days. assoc nausea, no vomiting. reports mucousy stools yesterday. no urinary sx. see at UC today - sent here for further eval. reports remote hx kidney stones. hx colitis. hx of hysterectomy, no other abd surgeries. PE/vitals: soft, ND, ttp of LLQ with guarding, no rebound. active bs x4. Plan: labs, UA, will defer imaging to primary provider Reevaluation(s) Reevaluation #1: Patient's symptoms controlled she has been eating and drinking, we will be discharging she is actually asking to be discharged Time: 01:49 Medications Administered Discontinued Medications Generic Name Dose Route Start Last Admin Trade Name Ariel PRN Reason Stop Dose Admin Lactated Ringer's 1,000 mls @ 999 mls/hr 10/08/25 21:45 10/09/25 00:42 Lr IV 10/08/25 22:45 Infused .Q1H1M MORIAH Infusion Ceftriaxone Sodium 2 gm/ 50 mls @ 100 mls/hr 10/08/25 22:59 10/09/25 00:20 Sodium Chloride IV 10/08/25 23:28 Infused ONCE ONE Infusion Metronidazole 500 mg in 100 mls @ 100 mls/hr 10/08/25 22:59 10/09/25 00:42 Flagyl IV 10/08/25 23:58 Infused ONCE ONE Infusion Iohexol 85 ml 10/08/25 22:21 10/08/25 22:22 Iohexol 350 Mg/Ml 100 Ml Infus..Btl IV 10/08/25 22:22 85 ml ONCE ONE Administration Ketorolac Tromethamine 15 mg 10/08/25 23:23 10/08/25 23:42 Ketorolac Tromethamine 15 Mg/Ml Vial IVPUSH 10/08/25 23:24 15 mg ONCE ONE Administration Metoclopramide HCl 10 mg 10/08/25 23:23 10/08/25 23:42 Metoclopramide Hcl 10 Mg/2 Ml Vial IVPUSH 10/08/25 23:24 10 mg ONCE ONE Administration Morphine Sulfate 4 mg 10/08/25 21:33 10/08/25 22:17 Morphine Sulfate 4 Mg/Ml Cartridge IVPUSH 10/08/25 21:34 4 mg ONCE ONE Administration Protocol Morphine Sulfate 4 mg 10/08/25 23:23 10/08/25 23:41 Morphine Sulfate 4 Mg/Ml Cartridge IVPUSH 10/08/25 23:24 4 mg ONCE ONE Administration Protocol Ondansetron HCl 4 mg 10/08/25 21:33 10/08/25 22:19 Ondansetron Hcl 4 Mg/2 Ml Vial IVPUSH 10/08/25 21:34 4 mg ONCE ONE Administration Medical Decision Making Medical Decision Making MDM Narrative: 59-year-old female with a history of hypertension, hyperlipidemia, depression, tobacco abuse, GERD, constipation, insomnia, migraine, breast cancer on tamoxifen who presents with left lower abdominal pain x2 days. Associated diarrhea and nausea. Denies fever. Denies sick contacts with similar symptoms. Patient has not had this discomfort in the past. No abdominal distention or inability to pass flatus, denies constipation at this time. Denies recent travel, hospitalization or use of antibiotics. Problem: Age, ongoing constipation History: Per patient I have considered the following differential diagnoses: Constipation, bowel obstruction, diverticulitis, C diff, traveler's diarrhea, viral gastroenteritis Plan: Patient is having pain that has focal to the left lower abdomen with nausea diarrhea, it is concerning for diverticulitis, CT scan already ordered, labs completed from triage, she does have a significant leukocytosis. We will be giving fluid morphine and Zofran, while awaiting the CT scan. She has a risk factors for C diff or traveler's diarrhea, her symptoms are not consistent with a viral gastroenteritis picture, doubtful to be constipation or bowel obstruction, she has no report of obstructive symptoms and denies constipation at this time. I have independently reviewed the following tests: Labs: Leukocytosis of 17.7, no left shift, not anemic, no electrolyte abnormality, lipase 12, no significant elevation of LFTs, urine not infected, lactic 0.9 CT abdomen and pelvis: Findings: Lung bases are clear. No acute bony abnormalities. Liver and spleen within normal limits. Pancreas and adrenal glands unremarkable. Gallbladder is within normal limits. No significant focal renal abnormalities. Renal cysts, no stones or hydronephrosis. Abdominal aorta is normal in caliber. No free fluid or adenopathy in the pelvis. No diverticulitis. Appendix unremarkable. Distal descending colonic wall thickening. This extends into proximal sigmoid colon. Adjacent stranding consistent with acute colitis. Hysterectomy. No adnexal abnormality. Impression: Acute nonspecific left colitis Differential Diagnosis Differential Diagnoses: The differential diagnosis associated with the presentation includes See [facility] Admission/Observation Consideration of admission/observation: Escalation of care including admission/observation considered Lab Data [facility] Lab Attestation statement: I reviewed the patient's lab results. 10/08/25 16:42 10/08/25 16:42 Labs: Lab Results 10/08/25 10/08/25 10/08/25 Range/Units 16:42 16:57 23:20 WBC 17.7 H (4.8-10.8) X10*3/uL RBC 4.53 (4.20-5.50) X10*6/uL Hgb 13.6 (12.0-16.0) g/dl Hct 41.5 (37.0-47.0) % MCV 91.6 (80.0-98.0) fL MCH 30.0 (27.0-33.0) pg MCHC 32.8 (31.0-35.0) g/dl RDW 13.5 (11.0-16.0) % Plt Count 207 (160-400) X10*3/uL MPV 11.0 (9.4-12.3) fL Immature Gran % (Auto) 0.3 (0.0-0.4) % Neut % (Auto) 67.0 (45-73) % Lymph % (Auto) 22.4 (20-40) % [place] % (Auto) 8.2 (2-11) % Eos % (Auto) 1.8 (0-4) % Baso % (Auto) 0.3 (0-2) % Lymph # (Auto) 4.0 (1.2-4.9) X10*3/uL [place] # (Auto) 1.5 H (0.1-1.2) X10*3/uL Eos # (Auto) 0.3 (0.0-0.4) X10*3/uL Baso # (Auto) 0.1 (0.0-0.2) X10*3/uL Abs Immat Gran (auto) 0.06 H (0.00-0.03) X10*3/uL Absolute Neuts (auto) 11.9 H (2.0-8.3) x10*3/uL Absolute Nucleated RBC 0.000 (0.0-0.012) X10*3/uL Nucleated RBC % (auto) 0.0 (0.0-0.2) /100WBC Sodium 143 (135-145) mmol/L Potassium 4.1 (3.3-5.1) mmol/L Chloride 109 H (96-108) mmol/L Carbon Dioxide 26 (22-29) mmol/L Anion Gap 12 (12-20) BUN 15 (9-16) mg/dL Creatinine 1.04 (0.5-1.4) mg/dL Estim Creat Clear Calc 58.7 Estimated GFR 55 Random Glucose 103 (60-115) mg/dL Lactic Acid 0.9 (0.5-2.0) mmol/L Calcium 9.4 (8.4-10.2) mg/dL Magnesium 2.0 (1.6-2.6) mg/dL Total Bilirubin 0.5 (0.0-1.0) mg/dL AST 31 (5-31) U/L ALT 39 H (0-31) U/L Alkaline Phosphatase 100 (39-117) U/L Total Protein 7.4 (6.5-8.0) g/dL Albumin 4.3 (3.5-5.0) g/dL Lipase 12 (8-78) U/L Urine Color Dark Yellow Urine Appearance Cloudy Urine pH 5.5 (5.0-9.0) Ur Specific Tyler 1.025 (1.005-1.025) Urine Protein Trace (Neg-Trace) mg/dL Urine Glucose (UA) Negative (Negative) mg/dL Urine Ketones Trace (Negative) mg/dL Urine Blood Trace H (Negative) Urine Nitrite Negative (Negative) Ur Leukocyte Esterase Negative (Negative) Urine RBC 6-10 H (0-2) /HPF Urine WBC 0-5 (0-5) /HPF Ur Squamous Epith Cells 11-20 (0-2) /HPF Urine Bacteria None Seen (None Seen) Hyaline Casts 3-5 (0-2) /LPF Radiology Impression Discussion of test interpretation with radiology: I have reviewed the radiologist's reading. Discharge Plan Discharge Clinical Impression: Colitis Patient Disposition: Home, Self-Care Instructions: Colitis (ED) Additional Instructions: You were found to have colitis, you had no associated lab abnormalities other than elevation in your white blood cell count. See home care instructions. Take the ketorolac as needed for pain. Uses Zofran as needed for nausea. Take the Flagyl as directed complete the course of this antibiotic. Take the Levaquin as directed this is a 2nd antibiotic. Follow up with your primary care provider as needed. Prescriptions: New levofloxacin 500 mg tablet 500 mg PO DAILY Qty: 4 0RF metronidazole 500 mg tablet 500 mg PO Q8H Qty: 12 0RF ketorolac 10 mg tablet 10 mg PO Q6H PRN (Reason: pain) Qty: 20 0RF Rx Instructions: maximum total duration of 5 days from all oral, intranasal, or parenteral formulations, patient received an IV dose of Toradol here in the emergency ondansetron 4 mg tablet,disintegrating 4 mg PO Q8H PRN (Reason: nausea and vomiting) Qty: 10 0RF No Action polyethylene glycol 3350 17 gram powder in packet 17 g PO DAILY 30 Days Qty: 30 3RF Rx Instructions: 1 packet mixed with 8 ounces of fluid daily STOOL SOFTENER 100MG CAPSULES 2 cap PO BEDTIME 30 Days Qty: 60 0RF atorvastatin 40 mg tablet 40 mg PO DAILY tamoxifen 20 mg Tablet 20 mg PO DAILY Qty: 90 3RF quetiapine [Seroquel XR] 400 mg tablet extended release 24 hr 400 mg PO BEDTIME clonazepam 1 mg tablet 1 mg PO TID lisinopril 20 mg tablet 20 mg PO DAILY aspirin 81 mg tablet,delayed release (DR/EC) 81 mg PO DAILY albuterol sulfate [Ventolin HFA] 90 mcg/actuation HFA aerosol inhaler 2 puff inhalation Q6H PRN (Reason: Shortness Of Breath) albuterol sulfate 2.5 mg /3 mL (0.083 %) solution for nebulization 2.5 mg inhalation QID zolpidem 10 mg tablet 10 mg PO BEDTIME PRN (Reason: Insomnia) ergocalciferol (vitamin D2) 50 mcg (2,000 unit) capsule 50 mcg PO DAILY sumatriptan succinate [Imitrex] 25 mg tablet 25 mg PO Q2-4H PRN (Reason: Migraine Headache) Rx Instructions: do not exceed 8 doses per 24 hrs metoprolol succinate 100 mg tablet extended release 24 hr 100 mg PO DAILY omeprazole 20 mg capsule,delayed release(DR/EC) 20 mg PO DAILY escitalopram oxalate 20 mg tablet 20 mg PO DAILY bupropion HCl 300 mg tablet extended release 24 hr 300 mg PO DAILY hydroxyzine pamoate 50 mg capsule 50 mg PO BID PRN (Reason: yes) bisacodyl [Dulcolax (bisacodyl)] 5 mg tablet,delayed release (DR/EC) 20 mg PO ONCE 1 Days Qty: 4 0RF Rx Instructions: take 4 tabs at noon the day before your colonoscopy polyethylene glycol 3350 [Miralax] 17 gram/dose powder 238 g PO ONCE Qty: 238 0RF Rx Instructions: As directed by gastroenterology department at [facility] Print Language: Maldivian
[2025-10-08 15:31] VITALS: BP 131/83; PULSE 78; RESP 18; TEMP 36.7; O2SAT 96; BMI 25.8
[2025-10-08 16:45] LABS: MANUAL DIFF FLAG NO
[2025-10-08 16:49] LABS: Hematocrit 41.5 % (37.0-47.0); Hemoglobin 13.6 g/dl (12.0-16.0); Imm Gran Abs Auto 0.06 X10*3/uL (0.00-0.03); Imm Gran Pct Auto 0.3 % (0.0-0.4); Lymphocytes Absolute Auto 4.0 X10*3/uL (1.2-4.9); Mean Corpuscular HGB Conc 32.8 g/dl (31.0-35.0); Mean Corpuscular Hemoglobin 30.0 pg (27.0-33.0); Mean Corpuscular Volume 91.6 fL (80.0-98.0); NRBC Abs Auto 0.000 X10*3/uL (0.0-0.012); NRBC Pct Auto 0.0 /100WBC (0.0-0.2); Platelet Count 207 X10*3/uL (160-400); Red Blood Count 4.53 X10*6/uL (4.20-5.50); White Blood Count 17.7 X10*3/uL (4.8-10.8)
[2025-10-08 17:03] LABS: Alanine Aminotransferase 39 U/L (0-31); Albumin Level 4.3 g/dL (3.5-5.0); Alkaline Phosphatase 100 U/L (39-117); Anion Gap 12 (12-20); Aspartate Amino Transferase 31 U/L (5-31); Blood Urea Nitrogen 15 mg/dL (9-16); Calcium 9.4 mg/dL (8.4-10.2); Carbon Dioxide 26 mmol/L (22-29); Chloride 109 mmol/L (96-108); Creatinine Clr Calc Pharmacy 58.7; Estimated Glomerular Filt Rate 55; Lipase 12 U/L (8-78); Magnesium 2.0 mg/dL (1.6-2.6); Potassium 4.1 mmol/L (3.3-5.1); Sodium 143 mmol/L (135-145); Total Protein 7.4 g/dL (6.5-8.0)
[2025-10-08 17:05] LABS: Appearance Urine Cloudy; Glucose Urine UA Negative (Negative); PH 5.5 (5.0-9.0); Specific Gravity - Urine 1.025 (1.005-1.025); UMIC TRIGGER UACC YES
[2025-10-08 21:32] VITALS: BP 156/70; PULSE 61; RESP 15; TEMP 36.8; O2SAT 94
--- OUTSIDE RECORDS SUMMARY | 2025-10-08 21:32 | XMS_ITS | Encounter Summary ---
Author Organization [employer] Address [address] [facility] [address] [place] [address] Care Team Providers Care Metal Template Maker Name Role Phone Name, Aamir MCCRARY Primary Care Provider [phone] Carline Bustillos PharmD Unavailable [phone] Reason for Visit * Reason Onset Date Comments ER Expect 10/08/2025 Encounter Details Date Type Department Care Team ([facility] Contact Info) Description 10/08/2025 Telephone [facility] MEDICINE [address] [place], [place] [phone] Siria Negrete, RN [address] [place], [place] [phone] ER Expect Social History Tobacco Use Types Packs/Day Years [...] encounter Miscellaneous Notes * Telephone Encounter - Siria Negrete RN - 10/08/2025 2:55 PM EST Telephone call placed to [facility] ED. Gave expect to Le: pt arriving shortly by private vehicle. Pt with 10/10 left lower quadrant pain that is tender to palpation with associated nausea. Pt with history of colitis. Le verbalized understanding. documented in this encounter Plan of Treatment Upcoming Encounters Date Type Department Care Team (Late st Contact Info) Description 10/31/2025 11:30 AM EST Medication Management [address] [address] Carline Bustillos, PharmD [address] [place] [id number] 11/15/2025 11:30 AM EST Office Visit [address] [address] Name, MD Aamir [address] [place] [phone] 12/09/2025 11:30 AM EST Clinical Support [address] [address] Francine Oneill, RN documented as of this encounter Visit Diagnoses Not on filedocumented in this encounter Additional Health Concerns Assessment Noted Time PHQ-9 Depression Total Score: 6 08/17/20 24 11:53 AM EST documented as of this encounter Care Teams Metal Template Maker Relationship Specialty Start Date End Date Name, MD Aamir [address] [place] [address] PCP - General Family Medicine 10/10/18 Carline Bustillos, GwendolynD [address] [place] [address] Pharmacist Pharmacy 04/16/25 documented as of this encounter
--- OUTSIDE RECORDS SUMMARY | 2025-10-08 21:32 | XMS_ITS | Clinical Summary ---
Author Organization [facility] [address] [facility] [address] Address [address] [place] [address] Phone Care Team Providers Care Stockroom Clerk Name Role Phone Unavailable Primary Care Provider [...] Date Smoking Tobacco: Every Day Cigarettes 1 38 Started: 10/10/1987 Smokeless Tobacco: Never Comments Unknown Sex and Gender Information Value Date Recorded Sex Assigned at Female 12/04/2024 1:14 PM EST Legal Sex Female 4:37 AM EST Gender Identity Female 12/04/2024 1:14 PM EST Sexual Orientation Not on file Last Filed Vital Signs Vital Sign Reading [...] mmol/L LAB CHEMISTRY METHOD 04/08/2025 9:03 PM [facility] Potassium 3.4(L) 3.5 - 5.5 mmol/L LAB CHEMISTRY METHOD 04/08/2025 9:03 PM [facility] Chloride 108 96 - 110 mmol/L LAB CHEMISTRY METHOD 04/08/2025 9:03 PM [facility] CO2 26 21 - 32 mmol/L LAB CHEMISTRY METHOD 04/08/2025 9:03 PM [facility] Anion Gap 5 3 - 11 LAB CHEMISTRY METHOD 04/08/2025 9:03 PM [facility] Glucose 133(H) 70 - 100 mg/dL LAB CHEMISTRY METHOD 04/08/2025 9:03 PM [facility] BUN 12 5 - 25 mg/dL LAB CHEMISTRY METHOD 04/08/2025 9:03 PM [facility] Creatinine 1.08 0.50 - 1.10 mg/dL LAB CHEMISTRY METHOD 04/08/2025 9:03 PM [facility] eGFR 60 >=60 mL/min/1. 73m2 LAB CHEMISTRY METHOD 04/08/2025 9:03 PM [facility] Comment:Calculation based on the Chronic Kidney Disease Epidemiology Collaboration (CKD-EPI) equation refit without adjustment for race. BUN/Creatinine Ratio 11.1 LAB CHEMISTRY METHOD 04/08/2025 9:03 PM [facility] Calcium 8.6 8.5 - 10.5 mg/dL LAB CHEMISTRY METHOD 04/08/2025 9:03 PM [facility] AST (SGOT) 22 10 - 42 unit/L LAB CHEMISTRY METHOD 04/08/2025 9:03 PM [facility] ALT (SGPT) 29 10 - 60 unit/L LAB CHEMISTRY METHOD 04/08/2025 9:03 PM [facility] Alkaline Phosphatase 109 42 - 121 unit/L LAB CHEMISTRY METHOD 04/08/2025 9:03 PM [facility] Total Protein 6.5 6.0 - 8.0 g/dL LAB CHEMISTRY METHOD 04/08/2025 9:03 PM [facility] Albumin 3.1(L) 3.2 - 5.0 g/dL LAB CHEMISTRY METHOD 04/08/2025 9:03 PM [facility] Total Bilirubin 0.6 0.0 - 1.4 mg/dL LAB CHEMISTRY METHOD 04/08/2025 9:03 PM [facility] Blood Venous blood specimen / Unknown Venipuncture / Unknown 04/08/2025 8:27 PM EDT 04/08/2025 8:39 PM EDT us Don Perez MD LAB BLOOD ORDERABLES Final Result [facility] [address] [place] [address], * CT Lung Screening (12/05/2024 1:53 PM [...] Signed Date: 12/10/2024 11:44 ET Workstation ID: [id number] Transcribed By: Self Edit Transcribed Date: 12/10/2024 [...] Signed Date: 12/10/2024 11:44 ET Workstation ID: [id number] Transcribed By: Self Edit Transcribed Date: 12/10/2024 11:04 ET us Petar Paredes MD IMG CT PROCEDURES Final Result * [facility] SCREENING DIGITAL (11/18/2020 2:13 PM EST) Anatomical Region Laterality Modality Mammography 11/18/2020 1:33 PM EST Narrative 11/18/2020 2:13 PM EST [facility] Diagnostic Imaging Department [address] [place] [address] Patient: JEANNA GRAHAM /Age/Sex: 1965 - 55 - F Unit#: [id number] Location/Status: SPDIMAM/REG CLI Mnemonic/Ordering Site: [facility] Ordering Physician: NAME,VINICIUS MCCRARY Ferdinand Screening Digital - 11/18/20 - 0397 INDICATION: SCREENING COMPARISON: [facility] mammograms dating back to 07/26/2014 TECHNIQUE: CC and MLO views of the breasts were obtained, using full field digital mammography with 3D tomosynthesis views in the MLO projection. Computer aided detection with the Avosoft 7.2-H was employed. FINDINGS: The breasts contain [...] date for the next mammogram. G0202 / [id number] , [id number] Dictating Physician: IDA HOLDER MD Electronically Signed by: IDA HOLDER MD Dic Date/Time: 11/18/20 1407 Sign date/Time: 11/18/20 1413 Procedure Note Ida Holder MD - 09/28/2022 [facility] Diagnostic Imaging Department [address] [place] [id number] Patient: JEANNA GRAHAM /Age/Sex: 1965 - 55 - F Unit#: [id number] Location/Status: SPDIMAM/REG CLI Mnemonic/Ordering Site: [facility] Ordering Physician: NAME,VINICIUS MCCRARY Ferdinand Screening Digital - 11/18/20 - 1357 INDICATION: SCREENING COMPARISON: [facility] mammograms dating back to 07/26/2014 TECHNIQUE: CC and MLO views of the breasts were obtained, using full field digital mammography with 3D tomosynthesis views in the MLO projection. Computer aided detection with the Avosoft 7.2-H was employed. FINDINGS: The breasts contain [...] a target date for the next mammogram. [id number] / [id number]) , [id number] Dictating Physician: IDA HOLDER MD Electronically Signed by: IDA HOLDER MD Dic Date/Time: 11/18/20 1407 Sign date/Time: 11/18/20 1413 Vinicius Montoya MD IM BI PROCEDURES Final Result from Last 3 Months or Most Recently Relevant to Health Maintenance Insurance [facility] Member Subscriber Plan / Payer (Ef fective 2018-Present) Name:JEANNA REHMAN Relation to Subscriber:Self Name:Jeanna Graham Payer ID:[id number] Group ID:[id number] Type:Not on file Address: [address] [id number]
--- OUTSIDE RECORDS SUMMARY | 2025-10-08 21:32 | XMS_ITS | Encounter Summary ---
Author Organization [employer] Address [address] [facility] 7t [place] [address] Care Team Providers Care Engineer/Conductor Name Role Phone Name, Aamir MCCRARY Primary Care Provider [phone] Carline Bustillos PharmD Unavailable [phone] Encounter Details Date Type Department Care Team ([facility] Contact Info) Description 11/22/2022 Orders Only [facility] [address] [place] [address] Carmen Lao LPN Social History Tobacco Use [...] Upcoming Encounters Date Type Department Care Team ([facility] Contact Info) Description 10/31/2025 11:30 AM EST Medication Management [facility] MED[facility]INE [address] [place] [address] Carline Bustillos, PharmD [address] [place] [address] 11/15/2025 11:30 AM EST Office Visit [facility] [address] [place] [address] Name, MD Aamir [address] [place] [address] 12/09/2025 11:30 AM EST Clinical Support [facility] [address] [place] [address] Francine Oneill RN documented as of this encounter Visit Diagnoses Not on filedocumented in this encounter Care Teams Engineer/Conductor Relationship Specialty Start Date End Date Name, MD Aamir [address] [place] [address] PCP - General Family Medicine 10/10/18 Carline Bustillos PharmD [address] [place] [address] Pharmacist Pharmacy 04/16/25 documented as of this encounter
--- OUTSIDE RECORDS SUMMARY | 2025-10-08 21:32 | XMS_ITS | Encounter Summary ---
Author Organization [email or web address] Address [address] [facility] 7t [place] [address] Care Team Providers Care Professor Of Anthropology Name Role Phone Name, Aamir MCCRARY Primary Care Provider [phone] Carline Bustillos PharmD Unavailable [phone] Reason for Visit * Reason Onset Date Comments Med Refill 05/24/2024 Encounter Details Date Type Department Care Team ([facility] st Contact Info) Description 05/24/2024 Telephone [facility] MED[facility]INE [address] [place], [place] [phone] Name, MD Aamir [address] [place] [address] Med Refill Social History Tobacco Use Types [...] 5-325 MG tablet To be sent to: [id number] AT [facility]/RT [address] documented in this encounter Plan of Treatment Upcoming Encounters Date Type Department Care Team (Late st Contact Info) Description 10/31/2025 11:30 AM EST Medication Management [facility] [address] [place] [address] Carline Bustillos, PharmD [address] [place] [address] 11/15/2025 11:30 AM EST Office Visit [address] [address] Name, MD Aamir [address] [place] [address] 12/09/2025 11:30 AM EST Clinical Support [facility] [address] [place] [address] Francine Oneill, MARLEE documented as of this encounter Visit Diagnoses Not on filedocumented in this encounter Additional Health Concerns Assessment Noted Time PHQ-9 Depression Total Score: 0 01/27/20 23 10:31 AM EDT documented as of this encounter Care Teams Professor Of Anthropology Relationship Specialty Start Date End Date Name, MD Aamir [address] [place] [address] PCP - General Family Medicine 10/10/18 Carline Bustillos PharmD [address] [place] [address] Pharmacist Pharmacy 04/16/25 documented as of this encounter
--- OUTSIDE RECORDS SUMMARY | 2025-10-08 21:32 | XMS_ITS | Encounter Summary ---
Author Organization [employer] Address [address] [facility] 7t [place] [address] Care Team Providers Care Cq Developer Name Role Phone Name, Aamir MCCRARY Primary Care Provider [phone] Carline Bustillos PharmD Unavailable [phone] Reason for Visit * Reason Onset Date Comments Med Refill 01/03/2025 Encounter Details Date Type Department Care Team ([facility] st Contact Info) Description 01/03/2025 Telephone [facility] MEDICINE 230 [place], [place] [phone] Name, MD Aamir 230 [place] [address] Med Refill Social History Tobacco Use Types [...] 5-325 MG tablet To be sent to: [id number] - [place], [place] - [address] [facility] ST/RT [address] documented in this encounter Plan of Treatment Upcoming Encounters Date Type Department Care Team (Late st Contact Info) Description 10/31/2025 11:30 AM EST Medication Management [address] [address] Carline Bustillos, PharmD [address] [place] [address] 11/15/2025 11:30 AM EST Office Visit [address] [address] Name, MD Aamir [address] [place] [address] 12/09/2025 11:30 AM EST Clinical Support [address] [place] [address] Francine Oneill, RN documented as of this encounter Visit Diagnoses Not on filedocumented in this encounter Additional Health Concerns Assessment Noted Time PHQ-9 Depression Total Score: 6 08/17/20 24 11:53 AM EST documented as of this encounter Care Teams Cq Developer Relationship Specialty Start Date End Date Name, MD Aamir [address] [place] [address] PCP - General Family Medicine 10/10/18 Carline Bustillos, Steffanie [address] [place] [address] Pharmacist Pharmacy 04/16/25 documented as of this encounter
--- OUTSIDE RECORDS SUMMARY | 2025-10-08 21:32 | XMS_ITS | Encounter Summary ---
Author Organization [employer] Address [address] [facility] 7t [place] [address] Care Team Providers Care Beaver Trapper Name Role Phone Name, Aamir MCCRARY Primary Care Provider [phone] Carline Bustillos PharmD Unavailable Encounter Details Date Type Department Care Team ([facility] Contact Info) Description 10/08/2025 Orders Only GENERIC EXTERNAL DATA DEPARTMENT Provider, Generic External Data Social History Tobacco Use Types Packs/Day Years [...] t he electric, gas, oil or water [employer] threatened to shut off services in your [...] Description 10/31/2025 11:30 AM EST Medication Management [address] [address] Carline Bustillos, PharmD [address] [place] [address] 11/15/2025 11:30 AM EST Office Visit [address] [address] Name, MD Aamir [address] [place] [address] 12/09/2025 11:30 AM EST Clinical Support [address] [address] Francine nOeill RN documented as of this encounter Procedures Procedure Name Priority Date/Time Associated Diagnosis Comments URINALYSIS, COMPLETE, WITH REFLEX TO CULTURE Routine 10/08/2025 4:57 PM EST CBC WITH AUTO DIFFERENTIAL Routine 10/08/2025 4:42 PM EST MAGNESIUM Routine 10/08/2025 4:42 PM EST LIPASE Routine 10/08/2025 4:42 PM EST COMPREHENSIVE METABOLIC PANEL Routine 10/08/2025 4:42 PM EST documented in this encounter Results * (ABNORMAL) Urinalysis, Complete, with Reflex to Culture (10/08/2025 4:57 PM EST) Color Urine Dark Yellow [facility] Appearance Urine Cloudy [facility] PH 5.5 5.0 - 9.0 [facility] Glucose Urine UA Negative Negative mg/dL [facility] Urine Blood Trace(A) Negative [facility] Specific [place] - Urine 1.025 1.005 - 1.025 [facility] Urine Protein Trace Neg-Trace mg/dL [facility] Urine Ketones Trace Negative mg/dL [facility] Nitrite Urine Negative Negative [facility] Leukocyte Esterase Urine Negative Negative [facility] RBC Urine 6-10(A) 0 - 2 /HPF [facility] Urine WBC 0-5 0 - 5 /HPF [facility] Urine Squamous Epithelial Cell 11-20 0 - 2 /HPF [facility] Urine Bacteria None Seen None Seen [facility] Hyaline Casts, Urine 3-5 0 - 2 /LPF [facility] 10/08/2025 4:57 PM EST 10/08/2025 5:00 PM EST Narrative [facility] - 10/08/2025 5:45 PM EST [id number], Clean Catch us Generic External Data Provider LAB URINE ORDERAB LES Final Result Performing Organization Address [facility] Co de Phone Number [facility] [address] [place] [phone] * Lipase (10/08/2025 4:42 PM EST) Lipase 12 8 - 78 U/L [facility] 10/08/2025 4:42 PM EST 10/08/2025 4:44 PM EST us Generic External Data Provider LAB BLOOD ORDERAB LES Final Result Performing Organization Address [facility] Co de Phone Number [facility] [address] [place] [address] [phone] * Magnesium (10/08/2025 4:42 PM EST) Magnesium 2.0 1.6 - 2.6 mg/dL [facility] 10/08/2025 4:42 PM EST 10/08/2025 4:44 PM EST us Generic External Data Provider LAB BLOOD ORDERAB LES Final Result [facility] [address] [place] [address] [phone] * (ABNORMAL) Comprehensive Metabolic Panel (10/08/2025 4:42 PM EST) Sodium 143 135 - 145 mmol/L [facility] Potassium 4.1 3.3 - 5.1 mmol/L [facility] Chloride 109(H) 96 - 108 mmol/L [facility] Carbon Dioxide 26 22 - 29 mmol/L [facility] Anion Gap 12 12 - 20 [facility] Urea Nitrogen (BUN) 15 9 - 16 mg/dL [facility] Creatinine, Serum 1.04 0.5 - 1.4 mg/dL [facility] Creatinine Clr Calc Pharmacy 58.7 [facility] Comment:Provided height and weight: 165.1 cm,70.307 kg.eGFR (calculated from the MDRD study equation) and eCrCl(calculated from the Cockcroft-Gault equation) are based ondifferent parameters and may not yield comparable results.If eCrCl result is absurd, please check patient'sheight/weight. Estimated Glomerular Filt Rate 55 [facility] Comment:Chronic Kidney Disea se: Estimated GFR < 60 mL/min/1.59q6Ilksgy Kidney Disease: Estimated GFR < 15 mL/min/1.73m2 Glucose 103 60 - 115 mg/dL [facility] Calcium 9.4 8.4 - 10.2 mg/dL [facility] Bilirubin, Total 0.5 0.0 - 1.0 mg/dL [facility] Aspartate Amino Transferase 31 5 - 31 U/L [facility] Alanine Aminotransferase 39(H) 0 - 31 U/L [facility] Total Protein 7.4 6.5 - 8.0 g/dL [facility] Albumin Level 4.3 3.5 - 5.0 g/dL [facility] Alkaline Phosphatase 100 39 - 117 U/L [facility] 10/08/2025 4:42 PM EST 10/08/2025 4:44 PM EST us Generic External Data Provider LAB BLOOD ORDERAB LES Final Result Performing Organization Address City/State/[facility] Co de Phone Number [facility] [address] [place] [phone] * (ABNORMAL) CBC auto differential (10/08/2025 4:42 PM EST) White Blood Count 17.7(H) 4.8 - 10.8 X10*3/uL [facility] Red Blood Count 4.53 4.20 - 5.50 X10*6/uL [facility] Hemoglobin 13.6 12.0 - 16.0 g/dl [facility] Hematocrit 41.5 37.0 - 47.0 % [facility] Mean Corpuscular Volume 91.6 80.0 - 98.0 fL [facility] Mean Corpuscular Hemoglobin 30.0 27.0 - 33.0 pg [facility] Mean Corpuscular HGB Conc 32.8 31.0 - 35.0 g/dl [facility] Red Cell Distribution Width 13.5 11.0 - 16.0 % [facility] Platelet Count 207 160 - 400 X10*3/uL [facility] Mean Platelet Volume 11.0 9.4 - 12.3 fL [facility] Neutrophils Percent Auto 67.0 45 - 73 % [facility] Imm Gran Pct Auto 0.3 0.0 - 0.4 % [facility] Lymphocytes Percent Auto 22.4 20 - 40 % [facility] Monocytes Percent Auto 8.2 2 - 11 % [facility] Eosinophils Percent Auto 1.8 0 - 4 % [facility] Basophils Percent Auto 0.3 0 - 2 % [facility] NRBC Pct Auto 0.0 0.0 - 0.2 /100WBC [facility] Neutrophils Absolute Auto 11.9(H) 2.0 - 8.3 x10*3/uL [facility] Imm Gran Abs Auto 0.06(H) 0.00 - 0.03 X10*3/uL [facility] Lymphocytes Absolute Auto 4.0 1.2 - 4.9 X10*3/uL [facility] Monocytes Absolute Auto 1.5(H) 0.1 - 1.2 X10*3/uL [facility] Eosinophils Absolute Auto 0.3 0.0 - 0.4 X10*3/uL [facility] Basophils Absolute Auto 0.1 0.0 - 0.2 X10*3/uL [facility] NRBC Abs Auto 0.000 0.0 - 0.012 X10*3/uL [facility] 10/08/2025 4:42 PM EST 10/08/2025 4:44 PM EST us Generic External Data Provider LAB BLOOD ORDERAB LES Final Result Performing Organization Address City/State/[facility] Co de Phone Number [facility] [address] [place] [address] [phone] documented in this encounter Visit Diagnoses Not on filedocumented in this encounter Additional Health Concerns Assessment Noted Time PHQ-9 Depression Total Score: 6 08/17/20 24 11:53 AM EST documented as of this encounter Care Teams Beaver Trapper Relationship Specialty Start Date End Date Name, MD Aamir [address] [place] [address] PCP - General Family Medicine 10/10/18 Carline Bustillos, Steffanie [address] [place] [address] Pharmacist Pharmacy 04/16/25 documented as of this encounter
--- OUTSIDE RECORDS SUMMARY | 2025-10-08 21:32 | XMS_ITS | Encounter Summary ---
Author Organization [employer] Address [address] [facility] 7t [place] [address] Care Team Providers Care Employee Wellness/Fitness Coordinator Name Role Phone Name, Aamir MCCRARY Primary Care Provider [phone] Carline Bustillos PharmD Unavailable [phone] Reason for Visit * Reason Onset Date Comments Med Refill 10/08/2025 Encounter Details Date Type Department Care Team ([facility] st Contact Info) Description 10/08/2025 Refill [facility] MEDICINE [address] [place], [place] [phone] Name, MD Aamir [address] [place] [address] Chronic pain syndrome Social History Tobacco Use [...] * Telephone Encounter - Stevie Max - 10/08/2025 10:17 AM EST TC from pt requesting medication refill. Medications needing refill: oxyCODONE-acetaminophen (Percocet) 5-325 MG tablet To be sent to: [facility][id number] [place], [place] - [address] [place] [address] AT [facility]/RT [address] documented in this encounter Plan of Treatment Upcoming Encounters Date Type Department Care Team (Late st Contact Info) Description 10/31/2025 11:30 AM EST Medication Management [facility] MEDICINE [address] [place] [address] Carline Bustillos, PharmD [address] [place] [address] 11/15/2025 11:30 AM EST Office Visit [facility] MEDICINE [address] [place] [address] Name, MD Aamir [address] [place] [address] 12/09/2025 11:30 AM EST Clinical Support [facility] MEDICINE [address] [place] [address] Francine Oneill, MARLEE documented as of this encounter Visit Diagnoses Diagnosis Chronic pain syndrome documented in this encounter Additional Health Concerns Assessment Noted Time PHQ-9 Depression Total Score: 6 08/17/20 24 11:53 AM EST documented as of this encounter Care Teams Employee Wellness/Fitness Coordinator Relationship Specialty Start Date End Date Name, MD Aamir [address] [place] [address] PCP - General Family Medicine 10/10/18 Carline Bustillos PharmD [address] [place] [address] Pharmacist Pharmacy 04/16/25 documented as of this encounter
--- OUTSIDE RECORDS SUMMARY | 2025-10-08 21:32 | XMS_ITS | Encounter Summary ---
Author Organization [employer] Address [address] [facility] 7t [place] [address] Care Team Providers Care Mud Mixer Operator Name Role Phone Name, Aamir MCCRARY Primary Care Provider Carline Bustillos PharmD Unavailable [phone] Reason for Visit * Reason Comments Med Refill Encounter Details Date Type Department Care Team (Late Contact Info) Description 05/07/2023 Refill [facility] MEDICINE [address] [place] [address] Name, MD Aamir [address] [place] [address] Social History Tobacco Use Types Packs/Day Years [...] Description 10/31/2025 11:30 AM EST Medication Management [facility] [address] [place] [address] Edie Bustillossa, PharmD [address] [place] [address] 11/15/2025 11:30 AM EST Office Visit [facility] [address] [place] [address] Name, [place] [address] 12/09/2025 11:30 AM EST Clinical Support [facility] [address] [facility] [place] [address] Francine Oneill, MARLEE documented as of this encounter Visit Diagnoses Not on filedocumented in this encounter Additional Health Concerns Assessment Noted Time PHQ-9 Depression Total Score: 0 01/27/20 23 10:31 AM EDT documented as of this encounter Care Teams Mud Mixer Operator Relationship Specialty Start Date End Date Name, MD Aamir Mahes[facility] [place] [address] PCP - General Family Medicine 10/10/18 Carline Bustillos, Steffanie [address] [place] [address] Pharmacist Pharmacy 04/16/25 documented as of this encounter
--- OUTSIDE RECORDS SUMMARY | 2025-10-08 21:32 | XMS_ITS | Encounter Summary ---
Author Organization [employer] Address [address] [facility] 7t [place] [address] Care Team Providers Care Shade Cloth Finisher Name Role Phone Name, Aamir MCCRARY Primary Care Provider Carline Bustillos PharmD Unavailable Reason for Visit * Reason Comments Med Refill Encounter Details Date Type Department Care Team (Late Contact Info) Description 03/31/2023 Refill [facility] MEDICINE [address] [place] [address] Name, MD Aamir [address] [place] [address] Social History Tobacco Use Types Packs/Day Years [...] Description 10/31/2025 11:30 AM EST Medication Management [facility] MED[facility]INE [address] [place] [address] Edie Bustillossa, PharmD [address] [place] [address] 11/15/2025 11:30 AM EST Office Visit [facility] MED[facility]INE [address] [place] [address] Name, [place] [address] 12/09/2025 11:30 AM EST Clinical Support [facility] [address] [facility] [place] [address] Francine Oneill, MARLEE documented as of this encounter Visit Diagnoses Not on filedocumented in this encounter Additional Health Concerns Assessment Noted Time PHQ-9 Depression Total Score: 0 01/27/20 23 10:31 AM EDT documented as of this encounter Care Teams Shade Cloth Finisher Relationship Specialty Start Date End Date Name, MD Aamir [facility] [place] [address] PCP - General Family Medicine 10/10/18 Carline Bustillos, Steffanie [address] [place] [address] Pharmacist Pharmacy 04/16/25 documented as of this encounter
--- OUTSIDE RECORDS SUMMARY | 2025-10-08 21:32 | XMS_ITS | Encounter Summary ---
Author Organization [employer] Address [address] [facility] 7t [place] [address] Care Team Providers Care Vp Patient Name Role Phone Name, Aamir MCCRARY Primary Care Provider [phone] Carline Bustillos PharmD Unavailable [phone] Encounter Details Date Type Department Care Team (Latest Contact Info) Description 10/08/2025 Travel Social History Tobacco Use Types Packs/Day [...] Description 10/31/2025 11:30 AM EST Medication Management [address] [address] Carline Bustillos PharmD [address] [place] [address] 11/15/2025 11:30 AM EST Office Visit [address] [address] Name, MD Aamir [address] [place] [address] 12/09/2025 11:30 AM EST Clinical Support [address] [address] Francine Oneill, RN documented as of this encounter Visit Diagnoses Not on filedocumented in this encounter Additional Health Concerns Assessment Noted Time PHQ-9 Depression Total Score: 6 08/17/20 24 11:53 AM EST documented as of this encounter Care Teams Vp Patient Relationship Specialty Start Date End Date Name, MD Aamir [address] [place] [address] PCP - General Family Medicine 10/10/18 Carline Bustillos, GwendolynD [address] [place] [address] Pharmacist Pharmacy 04/16/25 documented as of this encounter
--- OUTSIDE RECORDS SUMMARY | 2025-10-08 21:32 | XMS_ITS | Encounter Summary ---
Author Organization [employer] Address [address] [facility] 7t [place] [address] Care Team Providers Care Grip Boss Name Role Phone Name, Aamir MCCRARY Primary Care Provider Carline Bustillos PharmD Unavailable [phone] Reason for Visit * Reason Onset Date Comments Med Refill 04/26/2024 Encounter Details Date Type Department Care Team ([facility] st Contact Info) Description 04/26/2024 Telephone [facility] MEDICINE 230 [place], [place] [phone] Name, MD Aamir 230 [place] [address] Med Refill Social History Tobacco Use Types [...] 5-325 MG tablet To be sent to: [id number] [place], [place] - [address] [facility]/RT [address] documented in this encounter Plan of Treatment Upcoming Encounters Date Type Department Care Team (Late st Contact Info) Description 10/31/2025 11:30 AM EST Medication Management [address] [address] Carline Bustillos, PharmD [address] [place] [address] 11/15/2025 11:30 AM EST Office Visit [address] [address] Name, MD Aamir [address] [place] [address] 12/09/2025 11:30 AM EST Clinical Support [facility] MEDICINE 230 [place] [address] Francine Oneill, RN documented as of this encounter Visit Diagnoses Not on filedocumented in this encounter Additional Health Concerns Assessment Noted Time PHQ-9 Depression Total Score: 0 01/27/20 10:31 AM EDT documented as of this encounter Care Teams Grip Boss Relationship Specialty Start Date End Date Name, MD Aamir 230 [place] [address] PCP - General Family Medicine 10/10/18 Carline Bustillos PharmD 230 [place] [address] Pharmacist Pharmacy 04/16/25 documented as of this encounter
--- OUTSIDE RECORDS SUMMARY | 2025-10-08 21:32 | XMS_ITS | Encounter Summary ---
Author Organization [employer] Address [address] [facility] 7t [place] [address] Care Team Providers Care Counterperson Name Role Phone Name, Aamir MCCRARY Primary Care Provider [phone] Carline Bustillos PharmD Unavailable [phone] Reason for Visit * Reason Onset Date Comments Appointment Request 11/29/2024 Encounter Details Date Type Department Care Team ([facility] Contact Info) Description 11/29/2024 Telephone [facility] MEDICINE [address] [place], [place] [phone] Name, MD Aamir [address] [place] [address] Appointment Request Social History Tobacco Use Types [...] PCP in a while. Contact pt at [phone] documented in this encounter Plan of Treatment Upcoming Encounters Date Type Department Care Team (Late st Contact Info) Description 10/31/2025 11:30 AM EST Medication Management [address] [address] Carline Bustillos, PharmD [address] [place] [address] 11/15/2025 11:30 AM EST Office Visit [address] [address] Name, MD Aamir [address] [place] [address] 12/09/2025 11:30 AM EST Clinical Support [address] [address] Francine Oneill RN documented as of this encounter Visit Diagnoses Not on filedocumented in this encounter Additional Health Concerns Assessment Noted Time PHQ-9 Depression Total Score: 6 08/17/20 24 11:53 AM EST documented as of this encounter Care Teams Counterperson Relationship Specialty Start Date End Date Name, MD Aamir [address] [place] [address] PCP - General Family Medicine 10/10/18 Carline Bustillos PharmD [address] [place] [address] Pharmacist Pharmacy 04/16/25 documented as of this encounter
--- OUTSIDE RECORDS SUMMARY | 2025-10-08 21:32 | XMS_ITS | Encounter Summary ---
Author Organization [employer] Address [address] [facility] 7t [place] [address] Care Team Providers Care Grinder Set Up Operator Gear Tool Name Role Phone Name, Aamir MCCRARY Primary Care Provider [phone] Carline Bustillos PharmD Unavailable Encounter Details Date Type Department Care Team (Late st Contact Info) Description 10/15/2022 Orders Only [facility] [address] [place] [address] Carmen Lao LPN Social History Tobacco Use [...] Description 10/31/2025 11:30 AM EST Medication Management [address] [address] Carline Bustillos, PharmD [address] [place] [phone] 11/15/2025 11:30 AM EST Office Visit [address] [address] Aamir Montoya MD [address] [place] [phone] 12/09/2025 11:30 AM EST Clinical Support [address] [place] [address] Francine Oneill, RN documented as of this encounter Visit Diagnoses Not on filedocumented in this encounter Care Teams Grinder Set Up Operator Gear Tool Relationship Specialty Start Date End Date Name, MD Aamir [address] [place] [phone] PCP - General Family Medicine 10/10/18 Carline Bustillos PharmD [address] [place] [phone] Pharmacist Pharmacy 04/16/25 documented as of this encounter
--- OUTSIDE RECORDS SUMMARY | 2025-10-08 21:32 | XMS_ITS | Clinical Summary ---
Author Organization [employer] Address [address] [facility] 7t [place] [address] Care Team Providers Care X Ray Service Technician Name Role Phone Name, Aamir MCCRARY Primary Care Provider [phone] Carline Bustillos PharmD Unavailable [phone] Allergies Active Allergy Reactions Criticality Noted [...] by mouth at bedtime. 03/25/20 25 Active acetaminophen (Tylenol) 500 MG tablet [...] 90 tablet 1 08/27/20 25 Active nicotine polacrilex (Nicorette) 4 MG gumIndications :Tobacco dependence syndrome CHEW 1 PIECE OF GUM EVERY 1-2 HOURS NEEDED DURING WEEKS 1-6, THEN CHEW 1 PIECE OF GUM EVERY 2-4 HOURS DURING WEEKS 7-9, THEN CHEW 1 PIECE OF GUM EVERY 4-8 HOURS DURING WEEKS 10-12 DIRECTED. 300 each 5 09/25/20 25 Active oxyCODONE-acet aminophen (Percocet) 5-325 MG tabletIndicati ons:Chronic pain syndrome Take 1 tablet by mouth every 12 (twelve) hours if needed for severe pain. Do not start before October 11, 2025. 56 tablet 10/11/19 26 026 Active nicotine (Nicoderm, Step 2) 14 MG/24HR patchIndicatio ns:Tobacco dependence syndrome Apply 1 patch, as directed, every 24 hours. May remove at bedtime if needed & place new patch the next morning. Rotate application site. 14 patch 04/16/20 25 025 Discontinued(T herapy completed) oxyCODONE-acet aminophen (Percocet) 5-325 MG tabletIndicati ons:Chronic pain syndrome Take 1 tablet by mouth every 12 (twelve) hours if needed for severe pain for up to 28 days. Do not start before August 16, 2025. 56 tablet 08/16/20 25 025 Discontinued(R eorder (will not trigger notification to Pharmacy)) nicotine (Nicoderm, Step 3) 7 MG/24HR patchIndicatio ns:Tobacco dependence syndrome Apply 1 patch, as directed, every 24 hours. May remove at bedtime if needed & place new patch the next morning. Rotate application site. 14 patch 2 08/27/20 25 025 Discontinued(T herapy completed) nicotine polacrilex (Nicorette) 4 MG gumIndications :Tobacco dependence syndrome Chew 1 piece of gum, as directed, every 1-2 hours as needed for cravings. No more than 24 pieces in 24 hours. 2 each 5 08/27/20 25 025 Discontinued(M ed list cleanup (will not trigger notification to Pharmacy)) oxyCODONE-acet aminophen (Percocet) 5-325 MG tabletIndicati ons:Chronic pain syndrome Take 1 tablet by mouth every 12 (twelve) hours if needed for severe pain. Do not start before September 13, 2025. 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 ER/WV positive, HER2 negative, high proliferation index. Bone [...] is now receiving adjuvant radiation therapy at [facility]. She is on tamoxifen 20 mg [...] colon 01/26/2023 Overview (06/01/2023): Removed during colonoscopy ([facility]) 2018, was recommended repeat 2023 Tobacco dependence syndrome 01/26/2023 Migraine 01/08/2019 Vitamin D deficiency 09/11/2018 Right ankle pain 06/06/2018 Pulmonary emphysema 04/10/2018 Calcification of lung 03/16/2018 Overview (06/01/2023): LRCT program at [facility], last CT 04/2023 (recommended repeat 6 months) [...] Encounters Date Type Department Care Team Description 10/08/2025 1:40 PM EST Office Visit [facility] [address] [place] [address] Beth Limon FNP 10/08/2025 Orders Only GENERIC EXTERNAL DATA DEPARTMENT Provider, Generic External Data 10/08/2025 Telephone [facility] [place] [address] Siria Negrete RN ER Expect 10/08/2025 Travel 10/08/2025 Refill [facility] [place] [address] Aamir Montoya MD Chronic pain syndrome 09/25/2025 Travel 09/12/[address] [address] Aamir Montoya MD Med Refill 09/10/2025 11:30 AM EST Clinical Support [address] [address] Francine Oneill, RN Long-term current use of opiate analgesic (Primary Dx) 09/10/[address] [address] Francine Oneill, food and beverage cashier pain syndrome 09/10/2025 Travel 08/30/[address] [address] Nigel Pierre [place] dec recalls 08/27/2025 Travel 08/23/2025 Orders Only GENERIC EXTERNAL DATA DEPARTMENT Provider, Generic External Data 08/15/2025 Refill [facility] [place] [address] Aamir Montoya MD Chronic pain syndrome 07/25/2025 Travel 07/18/2025 Refill [facility] MEDICINE [address] [place] [address] Name, MD Aamir Chronic pain syndrome from Last 3 Months Immunizations Immunization Administration Dates Next Due HepB-CpG 07/25/2025,06/27/2025 Influenza injectable quadriv alent IIV4 with preservative 08/31/2017 Influenza injectable quadriv alent preservative free 07/28/2023,07/05/2020,09/10/2019,2017,10/06/2016 Influenza, IIV3, injectable 07/01/2015 Influenza, seasonal, injecta ble, preservative free 07/25/2025,08/17/2024 Pfizer Covid-19 Vaccine 12+ 09/25/2025, Pneumococcal Conjugate PCV 20 06/01/2023 Tdap 06/01/2023,03/13/2013 [...] Mass Index 25.93 10/08/2025 1:55 PM EST Plan of Treatment Upcoming Encounters Date Type Department Care Team (Late st Contact Info) Description 10/31/2025 11:30 AM EST Medication Management [facility] MEDICINE [address] [place] [phone] Craline Bustillos, PharmD [address] [place] [phone] 11/15/2025 11:30 AM EST Office Visit [address] [address] Name, MD Aamir [address] [place] [phone] 12/09/2025 11:30 AM EST Clinical Support [facility] [address] [place] [address] Francine Oneill, RN Health Maintenance Due Date Last Done Comments CT Colonography 1967 FIT DNA/Cologuard 1967 FIT 1967 FOBT 1965 Sigmoidoscopy 1965 RSV Patients and Patients Aged 60 years or older (1 - Risk 50-74 years 1-dose series) 2017 Depression Screening 08/17/2025 08/17/2024, 08/17/20 24 Zoster Vaccines (2 of 2) 10/22/2025 08/27/2025 SDOH Screening 10/23/2025 10/23/2024 Lung Cancer Screening 12/05/2025 12/05/2024, 024 Alcohol/Substance Use Screening 03/01/2026 03/01/2025 Disability Screening 03/01/2026 03/01/2025 Mammogram 07/08/2026 07/08/2025, 07/11, 08/01/2024, Additional history exists Tobacco Screening 10/08/2026 10/08/2025 Colonoscopy 10/05/2027 10/05/2024, 04/28/2019 Colorectal Cancer Screening 10/05/2027 Lipid Panel 08/23/2030 08/23/2025, 07/10, 04/21/2023, Additional history exists DTaP/Tdap/Td Vaccines (3 - Td or Tdap) 06/01/2033 06/01/2023, 03/13/2013 Pneumococcal Vaccine: 50+ Years Completed 06/01/2023 HIV Screening Completed 07/26/2024 Hepatitis C Screening Completed 07/26/2024 Hepatitis B Vaccines Completed 07/25/2025, 06/27/20 25 Influenza Vaccine Completed 07/25/2025, , 07/28/2023, Additional history exists COVID-19 Vaccine Completed 09/25/2025, 05/2024, 11/25/2021, Additional history exists HIB Vaccines Aged Out [...] TO CULTURE Routine 10/08/2025 4:57 PM EST LIPASE Routine 10/08/2025 4:42 PM EST MAGNESIUM Routine 10/08/2025 4:42 PM EST COMPREHENSIVE METABOLIC PANEL Routine 10/08/2025 4:42 PM EST CBC WITH AUTO DIFFERENTIAL Routine 10/08/2025 4:42 PM EST POCT AMY-14 URINE DRUG SCREEN Routine 09/10/2025 [...] TOMOSYNTHESIS BILATERAL Routine 07/08/2025 10:55 AM EDT HM COLONOSCOPY Routine 10/05/2024 10:40 AM [...] Relevant to Health Maintenance Results * (ABNORMAL) Urinalysis, Complete, with Reflex to Culture (10/08/2025 4:57 PM EST) Color Urine Dark Yellow [facility] Appearance Urine Cloudy [facility] PH 5.5 5.0 - 9.0 [facility] Glucose Urine UA Negative Negative mg/dL [facility] Urine Blood Trace(A) Negative [facility] Specific [place] - Urine 1.025 1.005 - 1.025 [facility] Urine Protein Trace Neg-Trace mg/dL [facility] Urine Ketones Trace Negative mg/dL [facility] Nitrite Urine Negative Negative [facility] Leukocyte Esterase Urine Negative Negative [facility] RBC Urine 6-10(A) 0 - 2 /HPF [facility] Urine WBC 0-5 0 - 5 /HPF [facility] Urine Squamous Epithelial Cell 11-20 0 - 2 /HPF [facility] Urine Bacteria None Seen None Seen [facility] Hyaline Casts, Urine 3-5 0 - 2 /LPF [facility] 10/08/2025 4:57 PM EST 10/08/2025 5:00 PM EST Narrative [facility] - 10/08/2025 5:45 PM EST [id number], Clean Catch us Generic External Data Provider LAB URINE ORDERAB LES Final Result [facility] [address] [place] [phone] * (ABNORMAL) CBC auto differential (10/08/2025 4:42 PM EST) Only the most recent of2 resultswithin the time period is included. White Blood Count 17.7(H) 4.8 - 10.8 X10*3/uL [facility] Red Blood Count 4.53 4.20 - 5.50 X10*6/uL [facility] Hemoglobin 13.6 12.0 - 16.0 g/dl [facility] Hematocrit 41.5 37.0 - 47.0 % [facility] Mean Corpuscular Volume 91.6 80.0 - 98.0 fL [facility] Mean Corpuscular Hemoglobin 30.0 27.0 - 33.0 pg [facility] Mean Corpuscular HGB Conc 32.8 31.0 - 35.0 g/dl [facility] Red Cell Distribution Width 13.5 11.0 - 16.0 % [facility] Platelet Count 207 160 - 400 X10*3/uL [facility] Mean Platelet Volume 11.0 9.4 - 12.3 fL [facility] Neutrophils Percent Auto 67.0 45 - 73 % [facility] Imm Gran Pct Auto 0.3 0.0 - 0.4 % [facility] Lymphocytes Percent Auto 22.4 20 - 40 % [facility] Monocytes Percent Auto 8.2 2 - 11 % [facility] Eosinophils Percent Auto 1.8 0 - 4 % [facility] Basophils Percent Auto 0.3 0 - 2 % [facility] NRBC Pct Auto 0.0 0.0 - 0.2 /100WBC [facility] Neutrophils Absolute Auto 11.9(H) 2.0 - 8.3 x10*3/uL [facility] Imm Gran Abs Auto 0.06(H) 0.00 - 0.03 X10*3/uL [facility] Lymphocytes Absolute Auto 4.0 1.2 - 4.9 X10*3/uL [facility] Monocytes Absolute Auto 1.5(H) 0.1 - 1.2 X10*3/uL [facility] Eosinophils Absolute Auto 0.3 0.0 - 0.4 X10*3/uL [facility] Basophils Absolute Auto 0.1 0.0 - 0.2 X10*3/uL [facility] NRBC Abs Auto 0.000 0.0 - 0.012 X10*3/uL [facility] 10/08/2025 4:42 PM EST 10/08/2025 4:44 PM EST Generic External Data Provider LAB BLOOD ORDERAB LES Final Result Performing Organization Address [facility] Co de Phone Number [facility] [address] [place] [phone] * Magnesium (10/08/2025 4:42 PM EST) Magnesium 2.0 1.6 - 2.6 mg/dL [facility] 10/08/2025 4:42 PM EST 10/08/2025 4:44 PM EST Generic External Data Provider LAB BLOOD ORDERAB LES Final Result Performing Organization Address [facility] Co wa Phone Number [facility] [address] [place] [phone] * Lipase (10/08/2025 4:42 PM EST) Lipase 12 8 - 78 U/L [facility] 10/08/2025 4:42 PM EST 10/08/2025 4:44 PM EST Generic External Data Provider LAB BLOOD ORDERAB LES Final Result Performing Organization Address [facility] Co de Phone Number [facility] [address] [place] [phone] * (ABNORMAL) Comprehensive Metabolic Panel (10/08/2025 4:42 PM EST) Sodium 143 135 - 145 mmol/L [facility] Potassium 4.1 3.3 - 5.1 mmol/L [facility] Chloride 109(H) 96 - 108 mmol/L [facility] Carbon Dioxide 26 22 - 29 mmol/L [facility] Anion Gap 12 12 - 20 [facility] Urea Nitrogen (BUN) 15 9 - 16 mg/dL [facility] Creatinine, Serum 1.04 0.5 - 1.4 mg/dL [facility] Creatinine Clr Calc Pharmacy 58.7 [facility] Comment:Provided height and weight: 165.1 cm,70.307 kg.eGFR (calculated from the MDRD study equation) and eCrCl(calculated from the Cockcroft-Gault equation) are based ondifferent parameters and may not yield comparable results.If eCrCl result is absurd, please check patient'sheight/weight. Estimated Glomerular Filt Rate 55 [facility] Comment:Chronic Kidney Disea se: Estimated GFR < 60 mL/min/1.05n9Fsxmrr Kidney Disease: Estimated GFR < 15 mL/min/1.73m2 Glucose 103 60 - 115 mg/dL [facility] Calcium 9.4 8.4 - 10.2 mg/dL [facility] Bilirubin, Total 0.5 0.0 - 1.0 mg/dL [facility] Aspartate Amino Transferase 31 5 - 31 U/L [facility] Alanine Aminotransferase 39(H) 0 - 31 U/L [facility] Total Protein 7.4 6.5 - 8.0 g/dL [facility] Albumin Level 4.3 3.5 - 5.0 g/dL [facility] Alkaline Phosphatase 100 39 - 117 U/L [facility] 10/08/2025 4:42 PM EST 10/08/2025 4:44 PM EST us Generic External Data Provider LAB BLOOD ORDERAB LES Final Result [facility] [address] [place] [phone] [phone] * (ABNORMAL) POCT AMY-14 Urine Drug Screen (09/10/2025 11:59 AM EST) THC Negative Negative Cocaine Screen, Urine Negative Negative Opiate Screen, Urine Negative Negative Methamphetamine Screen Urine Negative Negative Amphetamine Screen, Urine Negative Negative Benzodiazepines Screen, Urine Positive(A) Negative Comment:RX outside provider Barbiturate Screen, Urine Negative Negative Methadone Screen, Urine Negative Negative Buprenophine Screen, Urine Negative Negative TCA, Urine Negative Negative MDMA Urine Negative Negative ng/mL Oxycodone Screen, Urine Positive(A) Negative 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 09/09/26 Internal Pass Control Aamir Name POINT OF CARE TEST ENTER/EDIT OR DERABLES Final Result * Creatinine, Serum (08/23/2025 10:24 AM EST) [facility] Creatinine, Serum 0.76 0.5 - 1.4 mg/dL [facility] Estimated Glomerular Filt Rate >60 [facility] Comment:Chronic Kidney Disea se: Estimated GFR < 60 mL/min/1.19q3Flgcwg Kidney Disease: Estimated GFR < 15 mL/min/1.73m2 08/23/2025 10:2 4 AM EST 08/23/2025 1:11 PM EST us Generic External Data Provider LAB BLOOD ORDERAB LES Final Result [facility] [address] [place] [phone] * BUN (Blood Urea Nitrogen) (08/23/2025 10:24 AM EST) Pathologist [facility] Urea Nitrogen (BUN) 11 9 - 16 mg/dL [facility] 08/23/2025 10:2 4 AM EST 08/23/2025 1:11 PM EST us Generic External Data Provider LAB BLOOD ORDERAB LES Final Result Performing Organization Address [facility]/ZIP Co de Phone Number [facility] [address] [place] [phone] * Potassium (08/23/2025 10:24 AM EST) Pathologist [facility] Potassium 3.8 3.3 - 5.1 mmol/L [facility] Blood Venous blood specimen / Unknown 08/23/2025 10:24 AM EST 08/23/2025 1:11 PM EST us Beth Limon DOUBLE END CHUCKING MACHINE OPERATOR LAB BLOOD ORDERABLES Final Res ult Performing Organization Address City/[facility]/ZIP Co de Phone Number [facility] [address] [place] [phone] * (ABNORMAL) Lipid Panel, Standard (08/23/2025 10:24 AM EST) Triglycerides 174(H) <150 mg/dL [facility] Comment:Desirable Triglyceri de: less than 150 mg/dLBorderline High Triglyceride 150-199 mg/dLHigh Triglyceride: 200-499 mg/dLVery High Triglyceride: greater than or equal to 5OO mg/dL Cholesterol 170 <200 mg/dL [facility] Comment:Desirable Cholestero l: less than 200 mg/dLBorderline High Cholesterol: 200-239 mg/dLHigh Cholesterol: greater than 239 mg/dL LDL Cholesterol Calculated 102(H) <100 mg/dL [facility] Comment:Desirable LDL: less than 100 mg/dLNear Optimal/Above Optimal LDL: 110- 129 mg/dLBorderline High LDL: 130-159 mg/dLHigh LDL: 160-189 mg/dLVery High LDL: greater than or equal to 190 mg/dL HDL Cholesterol 34(L) >40 mg/dL [facility] Comment:Desirable HDL: great er than 40 mg/dL Note: This HDL assay may give artificially low results in patients with liver disease. 08/23/2025 10:2 4 AM EST 08/23/2025 1:11 PM EST Aamir Montoya MD LAB BLOOD ORDERABLES Final Resul t [facility] [address] [place] [phone] * BI Mammogram Diagnostic Tomosynthesis Bilateral (07/08/2025 10:55 AM EDT) Anatomical Region Laterality Modality Breast Bilateral Mammography 07/08/2025 10:5 5 AM EDT Narrative 07/08/2025 12:19 PM EDT [address] [place] [address] Mammography Report Signed Patient: Jeanna Graham MR#: [id number] : 1965 Acct:[id number] Age/Sex: 59 / F ADM Date: 07/08/25 Loc: [facility] Attending Dr: Fam Mendoza MD Ordering Physician: Fam Mendoza MD Results: 2Beni gn Date of Service: 07/08/25 Follow Up: 12 month diagnos tic follow up Procedure(s): MM tomosynthesis diagnostic BI Accession Number(s): [id number] cc: Fam Mendoza MD; Name,Aamir MCCRARY Reason [...] 07/08/25 1216 DD/ 1055 TD/TT: 07/08/25 1115 Information Management Officer: Procedure Note Donotuseinterpreter, Image - 07/08/2025 [facility] [address] [place] [address] Mammography Report Signed Patient: Sury Graham#: [id number] : 1965Acct:[id number] Age/Sex: 59 / FADM Date: 07/08/25 Loc: [facility] Attending Dr: Fam Mendoza MD Ordering Physician: Fam Mendoza MDResults: 2Beni gn Date of Service: 07/08/25Follow Up: 12 month diagnos tic follow up Procedure(s): MM tomosynthesis diagnostic BI Accession Number(s): [id number] cc: Fam Mendoza MD; Name,Aamir MCCRARY Reason [...] 07/08/25 1216 DD/ 1055 TD/TT: 07/08/25 1115 Information Management Officer: [facility] External Provider IMG BI PROCEDURES Final Result * (ABNORMAL) Hm Colonoscopy (10/05/2024 10:40 AM EST) Colonoscopy Abnormal(A ) Normal 10/05/2024 10:4 0 AM EST Aamir Montoya MD HEALTH MAINTENANCE Final Result * Hepatitis C Antibody with Reflex to HCV, RNA, Quantitative, Real-Time PCR (07/26/2024 10:59 AM EDT) Hepatitis C Antibody Nonreactive Nonreactive [facility] Comment:Antibodies to HCV no t detected; does not exclude early acuteHCV infection. Blood Venous blood specimen / Unknown 07/26/2024 10:59 AM EDT 07/26/2024 1:14 PM EDT us Aamir Montoya MD LAB BLOOD ORDERABLES Final Resul t Performing Organization Address [facility] Co de Phone Number [facility] [address] [place] [phone] * HIV-1/2 Antigen and Antibodies, Fourth Generation, with Reflexes (07/26/2024 10:59 AM EDT) [facility] HIV AB/AG Nonreactive Nonreactive [facility] Comment:HIV-1 p24 Ag and/or HIV-1/HIV-2 Ab not detected.A test result that is nonreactive does not exclude thepossibility of exposure to or infection with HIV-1 and/orHIV-2. Nonreactive results in this assay for individualswith prior exposure to HIV-1 and/or HIV-2 may be due toantigen and antibody levels that are below the limit ofdetection of this assay.The [employer] HIV Ag/Ab Combo assay result andsupplemental assay results should be interpreted inconjunction with the patient's clinical presentation,history and other laboratory results. If the results areinconsistent with clinical evidence, additional testing issuggested to confirm the result. Blood Venous blood specimen / Unknown 07/26/2024 10:59 AM EDT 07/26/2024 1:14 PM EDT us Aamir Montoya MD LAB BLOOD ORDERABLES Final Resul t Performing Organization Address [facility] Co de Phone Number [facility] [address] [place] [phone] * (ABNORMAL) Lung Cancer Screning (11/29/2023) [facility] Lung CT LUNGRADS 2(L) LUNGRADS 1, LUNGRADS 2 Comment:f/u 1 yr Anatomical Region Laterality Modality Other us Aamir Montoya MD HEALTH MAINTENANCE Final Result from Last 3 Months or Most Recently Relevant to Health Maintenance Insurance [facility] < 65 [place] [id number] Care Teams X Ray Service Technician Relationship Specialty Start Date End Date Name, MD Aamir [address] [place] [address] PCP - General Family Medicine 10/10/18 Carline Bustillos, PharmD [address] [place] [address] Pharmacist Pharmacy 04/16/25
[2025-10-08 22:17] VITALS: RESP 18
[2025-10-08] MEDS: Lactated Ringers 1,000 ML 999 ML IV (22:19)
[2025-10-08] MEDS: iohexoL 350 MG/ML 100 ML INFUS..BTL 85 ML IV (22:22)
[2025-10-08 22:50] VITALS: RESP 18
[2025-10-08 23:25] VITALS: BP 151/80; PULSE 57; RESP 16; TEMP 36.8; O2SAT 94
[2025-10-08 23:41] VITALS: RESP 18
[2025-10-08] MEDS: metroNIDAZOLE/NS 500 MG/100 ML PIGGYBACK 100 MG IV (23:41)
--- NOTE | 2025-10-09 00:45 | PC.NURSE ---
pt provided gingerale and saltine crackers for PO trial, pending pt tolerance
[2025-10-09 02:05] VITALS: BP 122/64; PULSE 56; RESP 19; TEMP 36.7; O2SAT 95
[2025-10-09 02:11] VITALS: BP 122/64; PULSE 56; RESP 19; TEMP 36.7; O2SAT 95
== END 2025-10-09 02:20 | disposition home or self-care (01) ==
PROVIDERS: Physician Assistant Medical; Emergency Provider Emergency Medicine; PCP Internal Medicine Geriatric Medicine
DX: K52.9 Noninfective gastroenteritis and colitis, unspecified (principal); R10.32 Left lower quadrant pain; D72.829 Elevated white blood cell count, unspecified; F17.210 Nicotine dependence, cigarettes, uncomplicated; Z79.82 Long term (current) use of aspirin; Z79.899 Other long term (current) drug therapy
CPT/HCPCS: 36415; 74177; 80053; 81001; 81003; 83605; 83690; 83735; 85025; 87040; 96361; 96365; 96368; 96375; 96376; 99284; 99285; J0696; J1836; J1885; J2270; J2405; J2765; J7120; Q9967

== ENCOUNTER → 2025-10-08 18:32 | Outpatient (BNV) | payer OTHER, SELFPAY | PROVIDERS: Emergency Provider Emergency Medicine; PCP Internal Medicine Geriatric Medicine; Visit Provider Radiology Diagnostic Radiology | DX: D72.829 Elevated white blood cell count, unspecified (principal); R10.32 Left lower quadrant pain | CPT/HCPCS: 74177 ==